=== PATIENT | male | born 1960 | race Caucasian/White ===

== ENCOUNTER → 2016-03-18 | Outpatient (CLI) | payer BC ==
[~2016-03-18] MED LIST: ACETYLCYSTEINE 20% INH; ALBUAER2 INH; ALUMCHW2; ALUMCHW2 PO; BUDE1SUS6 INH; BUPRTAB51 PO; CLON1TAB3 PO; DOCU-94 PO; FLM4; FLUO0.05 TOP; FLUO0.0566 TOP; GUAI1TAB69 PO; IPRASOL34 INH; KETO200T PO; KETO2GEL2 TOP; LACT10SO17 PO; LEVO1TAB35 IV; LEVO50TA6 PO; MONT1TAB3 PO; NITR0.4S UT; ONDA4TAB46 PO; PLMIH INH; POLY335019 PO; PRED10TA PO; PRLSR20 PO; PROB1CAP PO; RANI300T2 PO; RIFA550T2 PO; SENN-61 PO; SODI3NEB INH; TAMS0.4C38 PO; TRIA0.1O12 TOP; [UNRECOGNIZED DRUG - CODE] IV; augmentin
--- NOTE | 2016-03-18 11:21 | DIAGNOSTIC IMAGING REPORT ---
TWO VIEW CHEST CLINICAL HISTORY: Nephrolithiasis. FINDINGS: PA and lateral chest radiographs are compared to chest x-ray and chest CT dated 12/22/2015. The mildly enlarged. The mediastinal contour is within normal limits and the pulmonary vasculature is noncongested. Chronic interstitial thickening is similar to previous. No airspace consolidation or pleural effusion is identified. There is no pneumothorax. The bony thorax appears intact. Surgical clips are noted at the esophageal hiatus. Cholecystectomy clips are present in the right upper quadrant. IMPRESSION: Cardiac enlargement with no active disease in the chest. Electronically signed by: Jerardo Quintero M.D. 03/18/2016 11:19 AM Dictated Date/Time: 03/18/2016 11:18 AM
== END | disposition home or self-care (01) ==
LOC: C.RAD 10:54
PROVIDERS: ATTEND Internal Medicine Pulmonary Disease
DX: N20.0 Calculus of kidney (principal); I51.7 Cardiomegaly; J47.9 Bronchiectasis, uncomplicated

== ENCOUNTER → 2016-03-19 | Outpatient (CLI) | payer BC ==
--- NOTE | 2016-03-23 11:29 | PULMONARY FUNCTION TEST ---
SPIROMETRY: Mild obstructive ventilatory disease. No signs of pulmonary reversibility. LUNG VOLUMES: Increased total lung capacity as well as residual volume and FRC suggesting obstructive ventilatory disease. Diffusion capacity is within normal limits.
== END | disposition home or self-care (01) ==
LOC: C.RC 11:42
PROVIDERS: ATTEND Internal Medicine Pulmonary Disease
DX: J47.9 Bronchiectasis, uncomplicated (principal); J44.9 Chronic obstructive pulmonary disease, unspecified; R06.09 Other forms of dyspnea; R05 Cough

== ENCOUNTER → 2016-03-24 | Outpatient (CLI) | payer BC ==
--- NOTE | 2016-03-24 12:37 | DIAGNOSTIC IMAGING REPORT ---
CHEST 2 VIEWS ROUTINE CLINICAL HISTORY: J47.9 [id number] NuthtR23.9 Pulmonary [id number] Shot COMPARISON STUDY: 03/18/2016 FINDINGS: The bones soft tissues and hemidiaphragms are normal. The cardiomediastinal silhouette is normal. The lungs are clear. The pulmonary vasculature is normal. IMPRESSION: Negative chest. Electronically signed by: Kehinde Swan M.D. 03/24/2016 12:36 PM Dictated Date/Time: 03/24/2016 12:34 PM
[2016-03-24 13:11] LABS: BASO % 0.1 %; BASO ABS # 0.01 K/uL (0-0.2); COMPLETE YES; EOS % 0.5 %; HEMATOCRIT 43.2 % (42-52); IG% 3.3 %; LYMPH % 15.2 %; LYMPH ABS # 2.31 K/uL (1.2-3.4); MEAN CELL VOLUME 88.7 fL (80-100); MEAN CORPUSCULAR HEMOGLOBIN 30.2 pg (25-34); MEAN PLATELET VOLUME 9.1 fL (7.4-10.4); MONO % 9.5 %; NEUT % 71.4 %; PLATELET COUNT 262 K/uL (130-400); RED BLOOD COUNT 4.87 M/uL (4.7-6.1); WHITE BLOOD COUNT 15.19 K/uL (4.8-10.8)
[2016-03-24 13:23] LABS: PARTIAL THROMBOPLASTIN RATIO 0.9; PROTHROMBIN TIME (PATIENT) 10.2 SECONDS (9.0-12.0)
[2016-03-24 13:56] LABS: ALKALINE PHOSPHATASE 88 U/L (45-117); AST/SGOT 12 U/L (15-37); BLOOD UREA NITROGEN 27 mg/dl (7-18); BUN/CREATININE RATIO 19.3 (10-20); CALCIUM 7.9 mg/dl (8.5-10.1); CARBON DIOXIDE 23 mmol/L (21-32); CHLORIDE 111 mmol/L (98-107); SODIUM 144 mmol/L (136-145)
[2016-03-24 14:17] LABS: GLUCOSE 88 mg/dl (70-99)
[2016-03-24 14:21] LABS: ALT/SGPT 32 U/L (12-78)
== END | disposition home or self-care (01) ==
LOC: C.RAD 12:16
PROVIDERS: ATTEND Internal Medicine Pulmonary Disease
DX: J47.9 Bronchiectasis, uncomplicated (principal); J18.9 Pneumonia, unspecified organism; R06.02 Shortness of breath; R05 Cough

== ENCOUNTER 2016-03-25 06:23 | Day surgery (SDC) | payer BC ==
[2016-03-25] VITALS (17 sets, daily range): BP systolic 116–158; BP diastolic 64–85; PULSE 71–83; TEMP 36.5–37; O2SAT 93–100; Ht 182.9 cm; Wt 94.0 kg
[~2016-03-25] VITALS: Ht 182.9 cm; Wt 94.0 kg
[~2016-03-25 06:23] MED LIST changes: -ALUMCHW2; -FLM4; -FLUO0.0566 TOP; -KETO200T PO; -LEVO1TAB35 IV; +LEVOFLOXACIN 750MG / D5W IV SCH; -RIFA550T2 PO; -[UNRECOGNIZED DRUG - CODE] IV; -augmentin
[2016-03-25] MEDS ORDERED: [UNRECOGNIZED DRUG - CODE] IV (07:13)
[2016-03-25] MEDS ORDERED: LEVO1TAB35 IV (07:13)
[2016-03-25] MEDS ORDERED: NURSING VERBAL MED ORDER ONE ×2 (07:45→09:00)
[2016-03-25] MEDS ORDERED: SODIUM CHLORIDE 0.9% 1000ML 1,000 ML IV SCH (07:45)
--- NOTE | 2016-03-25 07:56 | History & Physical Bridge Note ---
H&P Re-Evaluation Bridge Note: I have examined the patient, reviewed the History & Physical and in the interval since the performance of the History & Physical I have noted the following changes of clinical significance: No changes noted
--- NOTE | 2016-03-25 08:00 | Procedure Note ---
Pre-Mod Sedation Assessment General Date of Moderate Sedation: Mar 25, 2016. Vital Signs: Vital Signs Past 12 Hours Date Time Temp Pulse Resp B/P Pulse Ox O2 Delivery O2 Flow Rate FiO2 03/25/16 07:19 36.5 71 21 145/64 96 Room Air Review Cardiovascular: regular rate, rhythm Abdomen: normal bowel sounds, non tender, soft Lungs: lungs clear Airway Class: III Pre-Sedation Airway Assessment Oral Cavity: WNL Smoking Status: Never Smoker Mallampati Classification: Class III ASA Classification: Class I Procedure Planning Contraindications-for Mod Sed: None Yes Notes The planned sedation has been discussed with the patient and consent obtained. I have identified the patient, determined the appropriateness of sedation and have assessed the patient immediately prior to the procedure. All medicine(s) and interventions are by my order.
--- NOTE | 2016-03-25 08:42 | Procedure Note ---
Pre-Mod Sedation Assessment General Date of Moderate Sedation: Mar 25, 2016. Vital Signs: Vital Signs Past 12 Hours Date Time Temp Pulse Resp B/P Pulse Ox O2 Delivery O2 Flow Rate FiO2 03/25/16 08:00 75 16 158/76 99 Nasal Cannula 4.0 03/25/16 07:19 36.5 71 21 145/64 96 Room Air Review Cardiovascular: regular rate, rhythm Abdomen: normal bowel sounds, non tender, soft Lungs: lungs clear Airway Class: III Pre-Sedation Airway Assessment Oral Cavity: WNL Able to Visualize Vocal Cords: Yes Short Thick Neck: Yes Hx of Sleep Apnea: Yes Smoking Status: Never Smoker ASA Classification: Class III Procedure Planning Contraindications-for Mod Sed: None Yes Notes The planned sedation has been discussed with the patient and consent obtained. I have identified the patient, determined the appropriateness of sedation and have assessed the patient immediately prior to the procedure. All medicine(s) and interventions are by my order.
--- NOTE | 2016-03-25 08:43 | Procedure Note ---
Post-Moderate Sedation Plan General Date of Moderate Sedation Mar 25, 2016. Vital Signs: Vital Signs Past 12 Hours Date Time Temp Pulse Resp B/P Pulse Ox O2 Delivery O2 Flow Rate FiO2 03/25/16 08:00 75 16 158/76 99 Nasal Cannula 4.0 03/25/16 07:19 36.5 71 21 145/64 96 Room Air Review - Discharge Plan Post Moderate Sedation Plan: On clinical assessment, the patient appears to have tolerated the conscious sedation without complications. Patient is recovering as anticipated. Patient will continue to be monitored by nursing and may be discharged when conscious sedation discharge criteria are met.
--- NOTE | 2016-03-25 08:55 | Discharge Instructions ---
Discharge Instructions Admission Reason for Admission: Bronchiectasis, Copd,Cough Sob Discharge Discharge Diagnosis / Problem: BRONCHIECTASIS Discharge Goals Goal(s): Diagnostic testing, Therapeutic intervention Activity Recommendations Activity Limitations: resume your previous activity Exercise/Sports Limitations: as tolerated Shower/Bathe: no limitations Driving or Machine Use: resume 1 day after discharge . Instructions / Follow-Up Instructions / Follow-Up ACTIVITY RECOMMENDATIONS: * Rest today, resume normal activity tomorrow. * Do not drive today. SPECIAL CARE INSTRUCTIONS: * Call your physician if you experience any chest or shoulder pain, fever, coughing, spitting up blood (more than 2 teaspoons) or excessive shortness of breath. * Remove dressing from IV site (where needle was placed into the vein) after 2 hours. Apply a warm, moist compress to site if irritation occurs. Call physician if site becomes red or painful to touch. * You may eat 4 hours after the completion of your procedure * Resume all usual medications as previously directed FOLLOW UP VISIT: * Keep any scheduled doctor appointments. Current Hospital Diet Patient's current hospital diet: Discharge Diet Recommended Diet: Regular Diet Procedures Procedures Performed: BRONCHOSCOPY Pending Studies Studies pending at discharge: no Medical Emergencies . Who to Call and When: Medical Emergencies: If at any time you feel your situation is an emergency, please call 911 immediately. . Non-Emergent Contact Non-Emergency issues call your: Radar Scientist . . "Provider Documentation" section prepared by Santi Schumacher. VTE Core Measure Inpt VTE Proph given/why not?: Contraindicated (INVASIVE PROCEDURE)
[2016-03-25] MEDS ORDERED: METHYLPREDNISOLONE IV 40 MG in SYRINGE 0 ML IV ONE (09:30)
[2016-03-25] MEDS ORDERED: FENTANYL CITRATE INJ 50 MCG/1 ML 2 ML VIAL IV ONE (09:45)
[2016-03-25] MEDS ORDERED: MIDAZOLAM HCL 5 MG/ML 1 ML VIAL IV ONE (09:45)
--- NOTE | 2016-03-25 10:13 | OPERATIVE REPORT ---
DATE OF OPERATION: 03/25/2016 TIME: 9:05 a.m. PROCEDURE PERFORMED: Flexible fiberoptic bronchoscopy with bronchial washings. INDICATIONS FOR PROCEDURE: The patient has a history of bronchiectasis. He has been having increasing shortness of breath. He just finished 1 week of IV antibiotics and IV Solu-Medrol. In spite of this, he has had persistent breathing troubles. In the past, he has had cultures of markedly abnormal organisms. Bronchoscopy is to be done diagnostically and therapeutically. MEDICATIONS DURING THE PROCEDURE: Xylocaine jelly applied to the bronchoscope and nasal passages, 2% Xylocaine sprayed into the nasal passages, oropharynx and through the bronchoscope into the tracheobronchial tree. The patient received a total of fentanyl 100 mg and Versed 7.5 mg IV. The bronchoscope was inserted through the right nostril without difficulty. The nasal passages were narrow, but passable. The pharynx was normal. The larynx was normal. The vocal cords approximated normally. The scope was advanced into the trachea without difficulty. The trachea had very sparse amounts of foamy secretions. The román was sharp. One could visualize secretions in the left main bronchus and extending into the left upper lobe slightly, but greater in the left lower lobe. These were foamy in nature. They were aspirated with recurring aliquots of saline. No endobronchial lesions were seen. The mucosa appeared fairly normal. After the scope was passed into the lower lobe, the left main bronchus had a small amount of scope irritation visualized. The scope was returned to the román. The right side was entered. Right upper lobe was clear. The right bronchus intermedius was clear. The right middle lobe was clear. There was small quantities of secretions in the right lower lobe, they were little thicker than had been seen on the left side, but they were smaller in quantity. They were also aspirated with the assistance of saline. The bronchoscope was returned to the román and one additional pass was done through the left and right bronchial areas. Once again, the left upper lobe showed nothing of significance other than very scant secretions. Left lower lobe showed somewhat more secretions and were again suctioned until clear. The right side was clear. The bronchoscope was then removed. The patient tolerated the procedure well. It was done with continuous cardiac monitoring and pulse oximetry. The bronchial washings from left lower lobe and right lower lobe were sent for Gram stain and culture, AFB smear and culture, and fungal smear and culture. The patient was stable going back to short stay. I attest to the content of the Intraoperative Record and any orders documented therein. Any exceptio ns are noted below.
[2016-05-13] MEDS ORDERED: RIFA550T2 PO (16:02)
== END 2016-03-25 10:57 | disposition home or self-care (01) ==
LOC: C.ACU 06:23
PROVIDERS: ATTEND Internal Medicine Pulmonary Disease
DX: J47.9 Bronchiectasis, uncomplicated (principal); J18.9 Pneumonia, unspecified organism; K22.70 Barrett's esophagus without dysplasia; N40.1 Benign prostatic hyperplasia with lower urinary tract symptoms; N13.8 Other obstructive and reflux uropathy; N20.0 Calculus of kidney; J44.9 Chronic obstructive pulmonary disease, unspecified; K21.9 Gastro-esophageal reflux disease without esophagitis; E78.00 Pure hypercholesterolemia, unspecified; G47.33 Obstructive sleep apnea (adult) (pediatric); K85.90 Acute pancreatitis without necrosis or infection, unspecified; Z98.890 Other specified postprocedural states; Z90.49 Acquired absence of other specified parts of digestive tract

== ENCOUNTER → 2016-05-14 | Day surgery (SDC) | payer BC ==
[~2016-05-14] VITALS: Ht 182.9 cm; Wt 96.0 kg
[~2016-05-14] MED LIST changes: +ACETAMINOPHEN 325 MG TAB PO PRN; +ALUMCHW2; -ALUMCHW2 PO; -DOCU-94 PO; +FENTANYL CITRATE INJ 50 MCG/1 ML 2 ML VIAL ONE; +FLM4; -FLUO0.05 TOP; +FLUO0.0566 TOP; +HEPARIN SOD (PORCINE) 1000 UNIT/ML 10 ML VIAL ONE; +KETO200T PO; -KETO2GEL2 TOP; -LEVOFLOXACIN 750MG / D5W IV SCH; +MIDAZOLAM HCL 1 MG/ML 2ML VIAL ONE; +NITROGLYCERIN/D5W 100MCG/ML 20ML SYR ONE; +NiCARDipine HCL INJ 2.5 MG/ML 10 ML AMP ONE; +ONDANSETRON INJ 2 MG/ML 2 ML VIAL IV PRN; +RIFA550T2 PO; +SODIUM CHLORIDE 0.9% 1000ML 1,000 ML IV SCH; +SODIUM CHLORIDE 0.9% 1000ML 250 ML IV PRN; -TAMS0.4C38 PO; +augmentin
[2016-05-14 09:11] VITALS: Ht 182.9 cm; Wt 96.0 kg
[2016-05-14 09:12] VITALS: BP 133/69; PULSE 83; TEMP 36.6; O2SAT 97
--- NOTE | 2016-05-14 09:54 | Procedure Note ---
Pre-Mod Sedation Assessment General Date of Moderate Sedation: May 14, 2016. Vital Signs: Vital Signs Past 12 Hours Date Time Temp Pulse Resp B/P Pulse Ox O2 Delivery O2 Flow Rate FiO2 05/14/16 09:12 36.6 83 18 133/69 97 Room Air Review Cardiovascular: regular rate, rhythm Abdomen: non tender, soft Lungs: lungs clear Pre-Sedation Airway Assessment Oral Cavity: Capped Teeth, Dental Abnormalities Short Thick Neck: No Hx of Sleep Apnea: Yes Smoking Status: Never Smoker Procedure Planning Contraindications-for Mod Sed: None Yes Notes The planned sedation has been discussed with the patient and consent obtained. I have identified the patient, determined the appropriateness of sedation and have assessed the patient immediately prior to the procedure. All medicine(s) and interventions are by my order.
[2016-05-14 10:07] LABS: HEMATOCRIT 40.5 % (42-52); MEAN CELL VOLUME 89.2 fL (80-100); MEAN PLATELET VOLUME 8.7 fL (7.4-10.4); PLATELET COUNT 226 K/uL (130-400); RED BLOOD COUNT 4.54 M/uL (4.7-6.1); WHITE BLOOD COUNT 11.97 K/uL (4.8-10.8)
[2016-05-14 10:19] LABS: PROTHROMBIN TIME (PATIENT) 10.7 SECONDS (9.0-12.0)
[2016-05-14 10:26] LABS: MEAN CORPUSCULAR HGB CONC 33.6 g/dl (32-36)
[2016-05-14 10:27] LABS: BUN/CREATININE RATIO 16.9 (10-20); CALCIUM 8.3 mg/dl (8.5-10.1); CREATININE 1.3 mg/dl (0.60-1.40); POTASSIUM 4.1 mmol/L (3.5-5.1)
--- NOTE | 2016-05-14 12:16 | Procedure Note ---
Post-Mod Sedation Assessment General Date of Moderate Sedation May 14, 2016. Vital Signs: Vital Signs Past 12 Hours Date Time Temp Pulse Resp B/P Pulse Ox O2 Delivery O2 Flow Rate FiO2 05/14/16 11:55 63 12 132/73 96 Nasal Cannula 3 05/14/16 09:12 36.6 83 18 133/69 97 Room Air Review - Discharge Criteria Vital Signs Stable: Yes Alert/Oriented/Conversant: Yes Returned to Baseline Mental St: Yes Nausea Absent/Minimal: Yes Pain/Discomfort/Absent/Minimal: Yes Normal/Baseline Respirations: Yes Active Bleeding?: No
--- NOTE | 2016-05-14 12:34 | Cardiac Catheterization ---
Procedure Note Procedure Date May 14, 2016. Pre-Procedure Diagnosis Cardiothoracic Symptom (chest pain and shortness of breath) AUC Score 7 Post-Procedure Diagnosis Normal Coronary Arteries, Normal Intracardiac Pressures Procedure(s) Performed Coronary Angiography, Left Heart Cath, Right Heart Cath, Ultrasound Guided Vascular Access Customer Care Voice Consultant Dr. Avalos Facilities Supervisor(s) Glunt Estimated Blood Loss None (< 25 ml) Medication(s) Fentanyl, Heparin, Nicardipine, Versed, Lidocaine 1% Summary of Findings Coronary angiography: 1. Left main coronary artery: The LMCA is large in caliber but short in course. No angiographic evidence of CAD. 2. Left anterior descending: The LAD is large in caliber and wraps around the apex. It gives rise to medium caliber D1 and D2. No angiographic evidence of CAD within LAD system. 3. Circumflex: Circumflex is large in caliber and codominant. OM1 and large caliber circumflex PDA without angiographic evidence of CAD. No CAD noted within circumflex. 4. Right coronary artery: The RCA is medium in caliber and codominant. No angiographic evidence of CAD within the RCA or RCA PDA. Left heart catheterization: 1. Left ventriculography was not performed. 2. Normal LVEDP; 12 mmHg. 3. No significant aortic stenosis. Right heart catheterization: 1. Normal pulmonary capillary wedge pressure. V-wave 16; mean 12 mmHg. 2. No significant pulmonary hypertension. PA pressure 29/11 with a mean pressure of 17 mmHg. 3. Right ventricular pressure 30/3 with RV EDP 9 mmHg. 4. Right atrial pressure normal. A-wave 12; V-wave 8; mean 6 mmHg. 5. Cardiac output via thermodilution was 9.7 L/min with a cardiac index of 4.4 L /min/m2. 6. PVR 0.52 Wood units. 7. No significant urmz-ln-qtiwu shunt suggested based on oxygen saturations. 8. Unable to obtain suitable IV access via right brachiocephalic vein. Procedure completed via right femoral vein. Ultrasound Guidance: 1. Ultrasound guidance used to cannulate right femoral vein with 6 Afghan sheath. No complication. Sedation: 1. Sedation start time 10:55 a.m.. 2. Sedation end time 11:55 a.m.. Impression: 1. No significant CAD. 2. Codominant system. 3. No significant aortic stenosis. 4. Normal LVEDP and pulmonary capillary wedge pressure. 5. No significant pulmonary hypertension. Plan: 1. Continue to follow-up with pulmonology. Hemodynamics Rest Ao: 117/70 Final Ao: 108/67 LV: 117// Recommendations management recommendations (Continue care with pulmonology.) Specimens None Radiation Exposure (mGy) 1009 mGy. Fluoro time 7.8 min. Contrast (mls) 55 ml Procedural Complication(s) None Disposition Mangle Roller Holding/Recovery ACC Data Cardiac Status Clinical evaluation leading to the procedure CAD Presntation: Sx unlikely to be ischemic Anginal Classification: No symptoms (has recurrent atypical chest pain) Heart Failure: NYHA Class: CCS III (no evidence of hypervolemia but class III symptoms) Cardiogenic Shock w/in 24Hrs: No Cardiac Arrest w/in 24Hrs: No Imaging studies past 6 months: Yes Stress studies past 6 months: Yes Standard Exercise Stress Test: No Stress Echocardiogram: No Stress Testing w/SPECT MPI: Yes - Negative Cardiac CTA: No Coronary Anatomy Dominant: Co-dominant Left Main (% Stenosis): Normal LAD (% Stenosis): Normal D1 (% Stenosis): Normal D2 (% Stenosis): Normal OM1 (% Stenosis): Normal L PDA (% Stenosis): Normal RCA (% Stenosis): Normal R PDA (% Stenosis): Normal Left Ventricular Angiography EF (%): n/a Diagnostic Physician's Name: Wily Avalos MD Status: Elective Closure Device Percutaneous Entry Location: Radial Closure Device: Radial Band Recommendations: management recommendations (f/u with pulmonary)
[2016-05-14 12:40] LABS: ISTAT ARTERIAL BLOOD GAS HCO3 22 meq/L (19-24); ISTAT ARTERIAL BLOOD GAS PCO2 40 mmHg (35-46); ISTAT ARTERIAL BLOOD GAS PO2 38 mmHg (80-95); ISTAT ARTERIAL BLOOD GAS pH 7.34 (7.35-7.45); ISTAT CARBON DIOXIDE 23 mEq/l (24-31)
[2016-05-14 12:40] LABS: ISTAT ARTERIAL BLOOD GAS HCO3 22 meq/L (19-24); ISTAT ARTERIAL BLOOD GAS PCO2 42 mmHg (35-46); ISTAT ARTERIAL BLOOD GAS PO2 36 mmHg (80-95); ISTAT ARTERIAL BLOOD GAS pH 7.34 (7.35-7.45); ISTAT CARBON DIOXIDE 24 mEq/l (24-31)
--- NOTE | 2016-05-14 12:40 | Discharge Instructions ---
Discharge Instructions Date of Service May 14, 2016. Visit Reason for Visit: Chest Pain and shortness of breath. Here for cardiac catheterization. Discharge Discharge Diagnosis / Problem: No significant coronary artery disease. Normal filling pressures. Discharge Goals Goal(s): Diagnostic testing Medications Restart Stopped Medication(s): Resume your usual medications. Activity Recommendations Activity Limitations: per Instructions/Follow-up section Anesthesia . Post Anesthesia Instructions: If you have had General Anesthesia or IV Sedation: * Do not drive today. * Resume driving when surgeon permits. * Do not make important decisions or sign legal documents today. * Call surgeon for: 1. Temperature elevations greater than 101 degrees F. 2. Uncontrollable pain. 3. Excessive bleeding. 4. Persistent nausea and vomiting. 5. Medication intolerance (nausea, vomiting or rash). * For nausea and vomiting use only clear liquids such as: tea, soda, bouillon until nausea subsides, then gradually increase diet as tolerated. * If you have any concerns or questions, call your surgeon's office. If physician is unavailable and it is an emergency, call 911 or go to the nearest emergency room. . Instructions / Follow-Up Instructions / Follow-Up ACTIVITY RECOMMENDATIONS: Excess manipulation of the wrist should be avoided for the next 24-48 hours. * No lifting over 2 pounds (approximately a 1/2 gallon of milk) with the utilized arm for 24 hours. * No strenuous activity such as bowling or tennis for 3 days. * Keep the site of the procedure covered with a bandage for 24 hours. *You may shower the day after the procedure. Do not take a tub bath or submerge the puncture site in water for the next 3 days. *Do not operate any motorized equipment for 3 days. SPECIAL CARE INSTRUCTIONS: The site may be slightly bruised and sore following your procedure. Should any of the following occur, contact the Dr. who performed your procedure. 1. Redness/inflammation, swelling, chills, or fever, or colored drainage at procedure site within 3-7 days after your procedure. 2. Coldness, discoloration, ongoing numbness, severe pain, or swelling. Expect mild tingling of hand and tenderness at the puncture site for up to three days. If this persists beyond three days, or other symptoms develop, notify the Dr. who performed your procedure. BLEEDING: If the procedure site on your wrist begins to bleed, do not panic 1. Place 1 or 2 fingers firmly just slightly above the insertion site to stop the bleeding. You may be able to feel your pulse as you hold pressure. 2. Lift your finger after 5 minutes to see if the bleeding has stopped. 3. Once the bleeding has stopped, gently wipe the wrist area clean with a bandage. * If the bleeding from your wrist does not stop after 10 minutes, or if there is a large amount of bleeding or spurting, call 911 (do not drive yourself to the hospital). SKIN IRRITATION: * You may experience some redness and/or swelling in the area where radiation was administered. If any skin irritation occurs, please contact your family physician. FOLLOW UP VISIT: Keep any scheduled doctor appointments. Diet Recommendations Recommended Home Diet: resume previous diet Procedures Procedures Performed: 1. Coronary angiography 2. Right heart catheterization 3. Left heart catheterization 4. Ultrasound venous guidance Pending Studies Studies pending at discharge: no Medical Emergencies . Who to Call and When: Medical Emergencies: If at any time you feel your situation is an emergency, please call 911 immediately. . Non-Emergent Contact Non-Emergency issues call your: Primary Care Provider, Client Account Manager . . "Provider Documentation" section prepared by Wily Kimble.
[2016-05-14 13:55] LABS: ISTAT ARTERIAL BLOOD GAS HCO3 21 meq/L (19-24); ISTAT ARTERIAL BLOOD GAS PCO2 37 mmHg (35-46); ISTAT ARTERIAL BLOOD GAS PO2 71 mmHg (80-95); ISTAT ARTERIAL BLOOD GAS pH 7.36 (7.35-7.45); ISTAT CARBON DIOXIDE 22 mEq/l (24-31)
[2016-05-14 14:20] VITALS: BP 126/72; PULSE 72; O2SAT 94
== END | disposition home or self-care (01) ==
LOC: C.CATH 09:05
PROVIDERS: ATTEND Internal Medicine Cardiovascular Disease
DX: R07.89 Other chest pain (principal); R06.02 Shortness of breath; E78.5 Hyperlipidemia, unspecified; K22.70 Barrett's esophagus without dysplasia; N40.1 Benign prostatic hyperplasia with lower urinary tract symptoms; N13.8 Other obstructive and reflux uropathy; N20.0 Calculus of kidney

== ENCOUNTER → 2016-07-09 | Outpatient (CLI) | payer BC ==
[~2016-07-09] MED LIST changes: -ACETAMINOPHEN 325 MG TAB PO PRN; -FENTANYL CITRATE INJ 50 MCG/1 ML 2 ML VIAL ONE; -HEPARIN SOD (PORCINE) 1000 UNIT/ML 10 ML VIAL ONE; -MIDAZOLAM HCL 1 MG/ML 2ML VIAL ONE; -NITROGLYCERIN/D5W 100MCG/ML 20ML SYR ONE; -NiCARDipine HCL INJ 2.5 MG/ML 10 ML AMP ONE; -ONDANSETRON INJ 2 MG/ML 2 ML VIAL IV PRN; -SODIUM CHLORIDE 0.9% 1000ML 1,000 ML IV SCH; -SODIUM CHLORIDE 0.9% 1000ML 250 ML IV PRN
[2016-07-09 14:41] LABS: BASO % 0.3 %; BASO ABS # 0.03 K/uL (0-0.2); COMPLETE YES; EOS % 0.2 %; HEMATOCRIT 44.4 % (42-52); IG% 0.5 %; LYMPH % 7.1 %; LYMPH ABS # 0.67 K/uL (1.2-3.4); MEAN CELL VOLUME 91.7 fL (80-100); MEAN CORPUSCULAR HEMOGLOBIN 29.5 pg (25-34); MEAN CORPUSCULAR HGB CONC 32.2 g/dl (32-36); MEAN PLATELET VOLUME 9.1 fL (7.4-10.4); MONO % 3.1 %; NEUT % 88.8 %; PLATELET COUNT 255 K/uL (130-400); RED BLOOD COUNT 4.84 M/uL (4.7-6.1); WHITE BLOOD COUNT 9.43 K/uL (4.8-10.8)
[2016-07-09 14:49] LABS: PARTIAL THROMBOPLASTIN RATIO 1.1; PROTHROMBIN TIME (PATIENT) 10.5 SECONDS (9.0-12.0)
[2016-07-09 15:39] LABS: CALCIUM 8.9 mg/dl (8.5-10.1)
[2016-07-09 15:48] LABS: BLOOD UREA NITROGEN 19 mg/dl (7-18); BUN/CREATININE RATIO 15.8 (10-20); CARBON DIOXIDE 24 mmol/L (21-32); CHLORIDE 109 mmol/L (98-107); GLUCOSE 98 mg/dl (70-99); POTASSIUM 4.2 mmol/L (3.5-5.1); SODIUM 141 mmol/L (136-145)
== END | disposition home or self-care (01) ==
LOC: C.LAB 13:24
PROVIDERS: ATTEND Physician Assistant
DX: J47.9 Bronchiectasis, uncomplicated (principal)

== ENCOUNTER 2016-07-15 07:31 | Day surgery (SDC) | payer BC ==
[2016-07-15] VITALS (13 sets, daily range): BP systolic 116–155; BP diastolic 57–90; PULSE 71–85; TEMP 36.6–37; O2SAT 93–100; Ht 182.9 cm; Wt 94.5 kg
[~2016-07-15] VITALS: Ht 182.9 cm; Wt 94.5 kg
[~2016-07-15 07:31] MED LIST changes: -ALUMCHW2; -FLM4; -FLUO0.0566 TOP; -KETO200T PO; -POLY335019 PO; +SODIUM CHLORIDE 0.9% 1000ML 1,000 ML IV SCH; -augmentin
[2016-07-15] MEDS ORDERED: MIDAZOLAM HCL 5 MG/ML 1 ML VIAL IV ONE ×2 (07:32→10:15)
[2016-07-15] MEDS ORDERED: FENTANYL CITRATE 100 MCG 2 ML CARP IV ONE (07:32)
[2016-07-15] MEDS ORDERED: augmentin (08:18)
[2016-07-15] MEDS ORDERED: FLM4 (08:18)
[2016-07-15] MEDS ORDERED: ALUMCHW2 (08:18)
[2016-07-15] MEDS ORDERED: POLY335019 PO (08:18)
[2016-07-15] MEDS ORDERED: FLUO0.0566 TOP (08:18)
[2016-07-15] MEDS ORDERED: KETO200T PO (08:18)
--- NOTE | 2016-07-15 09:04 | Procedure Note ---
Pre-Mod Sedation Assessment General Date of Moderate Sedation: Jul 15, 2016. Vital Signs: Vital Signs Past 12 Hours Date Time Temp Pulse Resp B/P (MAP) Pulse Ox O2 Delivery O2 Flow Rate FiO2 07/15/16 08:20 36.7 71 18 127/87 (100) 99 Room Air Review Cardiovascular: regular rate, rhythm, no edema, no gallop, no JVD, no murmur, normal peripheral pulses Abdomen: normal bowel sounds, non tender, soft, no organomegaly, no pulsatile mass, normal rectal exam, occult blood negative Lungs: chest non-tender, lungs clear, normal breath sounds, no respiratory distress, no accessory muscle use Airway Class: II Pre-Sedation Airway Assessment Oral Cavity: Capped Teeth Short Thick Neck: Yes Hx of Sleep Apnea: Yes Smoking Status: Never Smoker Notes The planned sedation has been discussed with the patient and consent obtained. I have identified the patient, determined the appropriateness of sedation and have assessed the patient immediately prior to the procedure. All medicine(s) and interventions are by my order.
[2016-07-15] MEDS ORDERED: NURSING VERBAL MED ORDER ONE (10:00)
--- NOTE | 2016-07-15 10:07 | Procedure Note ---
Post-Moderate Sedation Plan General Date of Moderate Sedation Jul 15, 2016. Vital Signs: Vital Signs Past 12 Hours Date Time Temp Pulse Resp B/P (MAP) Pulse Ox O2 Delivery O2 Flow Rate FiO2 07/15/16 09:50 80 18 139/75 96 Nasal Cannula 4.0 07/15/16 09:45 83 16 155/78 95 Mask 4.0 07/15/16 09:40 85 18 146/82 99 Mask 4.0 07/15/16 09:35 74 18 152/88 100 Mask 4.0 07/15/16 09:30 80 18 154/90 100 Mask 4.0 07/15/16 09:25 75 18 139/84 100 Mask 4.0 07/15/16 09:25 36.7 18 127/87 99 Room Air 07/15/16 08:20 36.7 71 18 127/87 (100) 99 Room Air Review - Discharge Plan Post Moderate Sedation Plan: On clinical assessment, the patient appears to have tolerated the conscious sedation without complications. Patient is recovering as anticipated. Patient will continue to be monitored by nursing and may be discharged when conscious sedation discharge criteria are met.
--- NOTE | 2016-07-15 10:13 | Bronchoscopy Procedure Note ---
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 Start time: 931 End time: 944 Total time: 13 minutes Analgesia: 2% liquid lidocaine: Via nebulizer 4% gel lidocaine: Via right naris 2% liquid lidocaine: Via bronchoscopy Sedation: Versed IV: 5mg Fentanyl IV: 100g Procedure: The Olympus video bronchoscope was used for this procedure and passed down through the right naris Right naris/posterior naris/posterior oropharynx: Anatomically within normal limits Glottis: Anatomically within normal limits Vocal cords: Proper abduction and abduction, anatomically within normal limits Subglottis/trachea/Graciela: Anatomically within normal limits Right bronchial tree: Right mainstem bronchus: Anatomically within normal limits Right upper lobe: Anatomically within normal limits, with minimal secretions in the RB3 subsegment Bronchus intermedius: Anatomically within normal limits, minimal secretions Right middle lobe: Anatomically within normal limits Right lower lobe: Anatomically within normal limits, diffuse secretion with intra-bronchial nodules in the basal pyramidis Findings: possible HPV Left bronchial tree: Left mainstem bronchus: Anatomically within normal limits Left upper lobe: Anatomically within normal limits Lingula: Anatomically within normal limits, minimal secretions Left lower lobe: Anatomically within normal limits, diffuse secretion with intra-bronchial nodules in the basal pyramidis Findings: possible HPV Bronchial alveolar lavage: LLL 80cc with 40 cc return EBL: none Complications: None Follow-up: In the [facility] with Funmilayo De La Rosa
[2016-07-15] MEDS ORDERED: FENTANYL CITRATE INJ 50 MCG/1 ML 2 ML VIAL IV ONE (10:15)
--- NOTE | 2016-07-15 10:15 | Discharge Instructions ---
Discharge Instructions Date of Service Jul 15, 2016. Admission Reason for Admission: Bronchiectasis Discharge Discharge Diagnosis / Problem: chronic bronchiectasis with possible intra- bronchial wart Discharge Goals Goal(s): Improve function, Diagnostic testing Activity Recommendations Activity Limitations: resume your previous activity . Current Hospital Diet Patient's current hospital diet: Discharge Diet Recommended Diet: Regular Diet Procedures Procedures Performed: Bornchoscopy, consecious sedation and bronchial lavage of the left lower lobe Pending Studies Studies pending at discharge: no Medical Emergencies . Who to Call and When: Medical Emergencies: If at any time you feel your situation is an emergency, please call 911 immediately. . Non-Emergent Contact Non-Emergency issues call your: Cloth Worker Call Non-Emergent contact if: temperature is above 101.5 . . "Provider Documentation" section prepared by Roland Cunningham. . VTE Core Measure Inpt VTE Proph given/why not?: Treatment not indicated
[2016-08-08 12:00] LABS: HERPES SIMPLEX CULT SOURCE OTHER-BAL LLL; HERPES SIMPLEX VIRUS CULT NOT ISOLATED (NOT ISOLATED)
== END 2016-07-15 11:55 | disposition home or self-care (01) ==
LOC: C.ACU 07:31
PROVIDERS: ATTEND Internal Medicine Critical Care Medicine
DX: J47.9 Bronchiectasis, uncomplicated (principal); J44.9 Chronic obstructive pulmonary disease, unspecified; J01.90 Acute sinusitis, unspecified; Z98.49 Cataract extraction status, unspecified eye; Z98.890 Other specified postprocedural states; E78.00 Pure hypercholesterolemia, unspecified; Z90.89 Acquired absence of other organs; Z90.49 Acquired absence of other specified parts of digestive tract; Z88.2 Allergy status to sulfonamides; Z84.1 Family history of disorders of kidney and ureter

== ENCOUNTER → 2016-08-17 | Outpatient (CLI) | payer BC ==
[~2016-08-17] MED LIST changes: +ALUMCHW2; +FLM4; +FLUO0.0566 TOP; +KETO200T PO; -PLMIH INH; +POLY335019 PO; -RIFA550T2 PO; -SODIUM CHLORIDE 0.9% 1000ML 1,000 ML IV SCH; -TRIA0.1O12 TOP
== END | disposition home or self-care (01) ==
LOC: C.LAB 10:46
PROVIDERS: ATTEND Urology
DX: R97.20 Elevated prostate specific antigen [PSA] (principal); N40.1 Benign prostatic hyperplasia with lower urinary tract symptoms

== ENCOUNTER → 2016-08-24 | Outpatient (CLI) | payer BC ==
[2016-09-01 20:19] LABS: ASPERGILLUS FUMIGATUS NEGATIVE (NEGATIVE); IGE RECEPTOR AB(ANTI-IgE IgG)* 141 ng/mL (<168); M. FAENI (S. RECTIVIRGULA) NEGATIVE (NEGATIVE); PIGEON SERUM NEGATIVE (NEGATIVE); SACCHAROMONOSPORA VIRIDIS AB NEGATIVE (NEGATIVE); THERMOACTINOMYCES CANDIDUS NEGATIVE (NEGATIVE); THERMOACTINOMYCES VULGARIS NEGATIVE (NEGATIVE)
== END | disposition home or self-care (01) ==
LOC: C.LAB 12:09
PROVIDERS: ATTEND Physician Assistant
DX: J47.9 Bronchiectasis, uncomplicated (principal); R06.02 Shortness of breath

== ENCOUNTER → 2017-01-15 | Outpatient (CLI) | payer BC ==
[~2017-01-15] MED LIST changes: +FINA5TAB PO
--- NOTE | 2017-01-15 09:43 | DIAGNOSTIC IMAGING REPORT ---
CHEST 2 VIEWS ROUTINE CLINICAL HISTORY: R05 [id number] dyspnea COMPARISON STUDY: 03/24/2016 FINDINGS: The bones soft tissues and hemidiaphragms are normal. The cardiomediastinal silhouette is normal. The lungs are clear. The pulmonary vasculature is normal. IMPRESSION: Negative chest. The above report was generated using voice recognition software. It may contain grammatical, syntax or spelling errors. Electronically signed by: Kehinde Swan M.D. 01/15/2017 9:41 AM Dictated Date/Time: 01/15/2017 9:36 AM
== END | disposition home or self-care (01) ==
LOC: C.RAD1850 09:28
PROVIDERS: ATTEND Physician Assistant
DX: R05 Cough (principal)

== ENCOUNTER 2017-01-21 08:36 | Day surgery (SDC) | payer BC ==
[2017-01-15 09:39] LABS: BASO % 0.8 %; BASO ABS # 0.09 K/uL (0-0.2); COMPLETE YES; EOS % 2.1 %; HEMATOCRIT 42.4 % (42-52); IG% 0.8 %; LYMPH % 13.3 %; LYMPH ABS # 1.41 K/uL (1.2-3.4); MEAN CELL VOLUME 89.5 fL (80-100); MEAN CORPUSCULAR HEMOGLOBIN 29.7 pg (25-34); MEAN CORPUSCULAR HGB CONC 33.3 g/dl (32-36); MEAN PLATELET VOLUME 8.7 fL (7.4-10.4); MONO % 6.9 %; NEUT % 76.1 %; PLATELET COUNT 232 K/uL (130-400); RED BLOOD COUNT 4.74 M/uL (4.7-6.1); WHITE BLOOD COUNT 10.62 K/uL (4.8-10.8)
[2017-01-15 09:46] LABS: PARTIAL THROMBOPLASTIN RATIO 1.1; PROTHROMBIN TIME (PATIENT) 10.1 SECONDS (9.0-12.0)
[2017-01-15 10:09] LABS: ALT/SGPT 26 U/L (12-78); BLOOD UREA NITROGEN 18 mg/dl (7-18); BUN/CREATININE RATIO 13.3 (10-20); CALCIUM 8.6 mg/dl (8.5-10.1); CARBON DIOXIDE 26 mmol/L (21-32); CHLORIDE 108 mmol/L (98-107); CREATININE 1.32 mg/dl (0.60-1.40); GLUCOSE 86 mg/dl (70-99); SODIUM 140 mmol/L (136-145)
[2017-01-15 10:12] LABS: ALB/GLOB RATIO 0.9 (0.9-2); ALKALINE PHOSPHATASE 98 U/L (45-117); AST/SGOT 10 U/L (15-37)
[2017-01-21] VITALS (14 sets, daily range): BP systolic 114–156; BP diastolic 69–94; PULSE 75–87; TEMP 36.5–37.1; O2SAT 95–100; Ht 182.9 cm; Wt 91.2 kg
[~2017-01-21] VITALS: Ht 182.9 cm; Wt 91.2 kg
--- NOTE | 2017-01-21 08:27 | History and Physical ---
History & Physical Date of Service Jan 21, 2017. History & Physical Patient presents for bronchoscopy secondary to chronic bronchiectasis refractory to care: 56-yo male presents to the office for continuation of care of bronchiectasis. He is followed both in [facility] and [place]. Prior records reviewed. PMHx includes: bronchiectasis, GERD, Alexandra's esophagus, hiatal hernia s/p Niesson fundoplication, atypical CP, pancreatitis, BREONNA, chronic sinusitis (h/o sinus surgery by Dr. Restrepo), h/o immunotherapy. He is a non- smoker but will use smokeless tobacco. Currently disabled: 2009. 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 Prior pulmonary pathogens from BAL: pseudomonas (), Stenotrophomonas (09/22), Achromobacter xylosoxidans (03/26), Moraxella (01/16), streptococcus pneumoniae ( & ), aspergillus (02/21), MAC (07/24), mycobacterium paraffinicum (04/21), pneumococcus rhizophilus (09/23), rare aspergillus, pseudomonads, and MAC (03/27) . He has been a long-standing patient followed closely for bronchiectasis with frequent exacerbations. History noted for progressive dyspnea beginning apx 2007. History complicated by sinusitis (s/p sinus surgery x 3) and reflux (s/p fundoplication 05/2009- [facility] - pH monitor 10/2009: neg). He is treated with VEST therapy & flutter valve daily, as well as sterile saline in [facility] PRN for chest congestion and productive cough. His symptoms are complicated by chronic sinusitis for which he is followed with Dr. Restrepo and s/p sinus surgery x 3 and receives regular sinus lavage. LISE and RF 02/2013: negative He follows with us as well as GI/Pulm/Immunology/Cardiology at [facility]. He will undergo scheduled bronchoscopies Q3-4-months in [place] as well as PRN in [place], [place]. 09/2015. IgE: elevated (425) PFT 05/09/14: FVC: 79%, FEV1: 77%, FEV1/FVC: 99%, FEF 25-75%: 99%, VC: 83%, T%, RV: 74%, DLCO adj: 75% Right and Left cardiac catheterization 05/14/16:unremarkable. No vessel disease or evidence of pulmonary HTN. Patient was evaluated by ID for recommendations after MAC grew from his 03/2016 bronchoscopy. Cultures were also notable for pseudomonas - and he was prescribed a 14-day course of levofloxacin. Decision regarding treatment for MAC pending any repeat growth on additional BAL -NGTD Exam/interview today patient reports he is doing well for quite some time. he did undergo his routine bronchoscopy in [facility] with Dr. cummings 09/17/2016. I do have the reports from this procedure which grew normal respiratory pete- moderate. Mycobacterium was not isolated after 43 days of incubation he. He did perform a lung biopsy left lower lobe: consistent with severe acute inflammation with submucosal chronic inflammation. No evidence of malignancies , vasculitis, granulomatosis disease or other history pathologic change. Fungal stains were negative . The patient reports that he felt fantastic following this procedure. He states he was told a significant amount of mucus was lavaged and removed from his lung. He did quite well following this. More recently is developed upper respiratory symptoms and sinus congestion. He states that he was cleaned by Dr. Restrepo approximately 2 weeks ago but unfortunately continued to have difficulty. He did complete a course of Levaquin and steroid and then more recently ciprofloxacin. This improved somewhat but he remains symptomatic. He is starting to notice some increased symptoms of chest congestion and shortness of breath. Shortness of breath began yesterday and he has been using his nebulizer with improvement. He does plan to see Dr. Restrepo next week for follow-up. He is scheduled for another bronchoscopy in [facility] January 2017. With regard to his sleep apnea he reports he is sleeping well. Do have a download today 06/30/2016-: 149/173 (86.1%) days use. Average nightly usage is 5 hours and 57 minutes. Percentage use greater than 4 hours is 85%. He is on auto PAP and 9cm H20 stable with AHI of 3.7 and 3.1 respectively and no significant mask leak. Review of Systems Constitutional: feeling poorly, but no fever and no chills. Eyes: negative. ENT: nasal discharge, but as noted in HPI, no earache and no sore throat. Cardiovascular: negative, as noted in HPI, no chest pain, no palpitations and no extremity edema. Respiratory: cough and shortness of breath during exertion, but as noted in HPI , no shortness of breath and no wheezing. Gastrointestinal: negative. Integumentary: negative. Hematologic/Lymphatic: negative. Active Problems 1. Acute sinusitis 2. Pulmonary Atypical mycobacterial infection 3. Alexandra's esophagus 4. Benign prostatic hyperplasia with urinary obstruction 5. BPH with obstruction/lower urinary tract symptoms 6. Bronchiectasis 7. Calculus of kidney 8. Chest pain 9. Chronic constipation 10. Chronic obstructive pulmonary disease (mild) 11. Chronic prostatitis 12. Chronic reflux esophagitis 13. Cough 14. Dyspnea on exertion 15. Elevated PSA 16. Fatigue 17. Hiatal hernia 18. Hypercholesterolemia 19. Hypocalcemia 20. Internal hemorrhoids with complication 21. Interscapular pain 22. Obstructive sleep apnea 23. Pancreatitis 24. Post-void dribbling 25. Pseudomonas aeruginosa infection 26. Pseudomonas infection 27. Psychological disorder 28. Pulmonary infection 29. Renal failure (N19) 30. Shortness of breath (R06.02) 31. History of Bronchopneumonia due to Achromobacter species 32. History of chronic sinusitis (Z87.09) 33. History of candidiasis of mouth Surgical History 1. History of Bronchoscopy (Diagnostic) 2. History of Cataract Surgery 3. History of Cholecystectomy 4. History of Colonoscopy (Fiberoptic) 5. History of Common Bile Duct Exploration 6. History of Endoscopic Retrograde Cholangiopancreatography (ERCP) 7. History of Esophagogastric Fundoplasty Brittany Fundoplication 8. History of Hemorrhoidectomy 9. History of Sinus Surgery 10. History of Surgery Vas Deferens Vasectomy 11. History of Tonsillectomy With Adenoidectomy Family History 1. No pertinent family history 2. No pertinent family history 3. No pertinent family history 4. Family history of kidney stones (Z84.1) Social History Denied: History of Alcohol Use (History) Denied: History of Drug Use Former smokeless tobacco user Denied: History of Home Environment Domestic Violence Denied: History of Housing Without Smoke Detectors Marital History - Currently Never smoker Physical Disability: Single Uses Safety Equipment - Seatbelts Current Meds 1. Nitrostat 0.4 MG Sublingual Tablet Sublingual; PLACE 1 TABLET UNDER THE TONGUE 2. Acetylcysteine 20 % Inhalation Solution; INHALE 4 ML Twice daily; 3. Ipratropium-Albuterol 0.5-2.5 (3) MG/3ML Inhalation Solution; USE 1 UNIT DOSE IN 4. SM Saline Solution Solution; USE ONE 4ML VIAL OF 7% SALINE VIA NEBULIZER BID ; 5. Senna S 8.6-50 MG Oral Tablet; Take 2 tabs bid prn constipation; 6. Ventolin HFA 108 (90 Base) MCG/ACT Inhalation Aerosol Solution; INHALE 2 PUFFS 7. Budesonide 0.5 MG/2ML Inhalation Suspension; USE DIRECTED twice daily; 8. Vortex Valved Holding Chamber Device; TO USE WITH INHALER; 9. ClonazePAM 1 MG Oral Tablet; TAKE 1 TABLET 3 TIMES DAILY; 10. Lactulose 10 GM/15ML Oral Solution; TAKE 30 ML Daily; 11. Mucinex 600 MG Oral Tablet Extended Release 12 Hour; TAKE 1 TABLET EVERY 12 12. Ondansetron 4 MG Oral Tablet Disintegrating; one tablet Q 6hr prn; 13. PriLOSEC 20 MG CPDR; TAKE 1 CAPSULE TWICE DAILY; 14. Probiotic Oral Capsule; 1 po daily; 15. Singulair 10 MG Oral Tablet; TAKE 1 TABLET DAILY 16. Synthroid 50 MCG Oral Tablet; TAKE 1 TABLET DAILY DIRECTED; 17. Triamcinolone Acetonide 0.025 % External Ointment; APPLY 2-3 TIMES DAILY TO 18. Wellbutrin SR 100 MG Oral Tablet Extended Release 12 Hour; TAKE 3 TABLETS DAILY; 19. Zantac 300 MG Oral Tablet; TAKE 1 TABLET (BY MOUTH) DAILY; Allergies 1. NSAIDs 2. Statins 3. Sulfa Drugs 4. Adhesive Tape TAPE Denied 5. Ceftin TABS Immunizations Influenza --- Series1: 18-Feb-2012; Series2: 29-Dec-2012; Series3: 30-Nov-2013; Series4: 20-Nov-2014 PCV --- Series1: 20-Nov-2014 PPSV --- Series1: 10-May-2008; Series2: 29-Apr-2011 Vital Signs Blood Pressure: 126 / 80, LUE, Sitting Height: 6 ft Weight: 204 lb 4 oz BMI Calculated: 27.7 BSA Calculated: 2.15 O2 Saturation: 98, RA Respiration: 19 Temperature: 97.8 F Heart Rate: 78 Physical Exam Constitutional: Well developed well nourished, male, no acute distress Head: + facial symmetry Eyes: Full EOMs, PERRLA, no conjunctiva injection Throat: trachea midline, no palpable adenopathy Mouth: moist mucous membranes. Extensive dental work. No erythema or plaques. Respiratory: Non-labored respirations. Breath sounds diminished at bases. No rales, rhonchi, or wheeze. Cardiovascular: Regular rate and rhythm, no murmur appreciated. +[2] radial pulses. [<1s] capillary refill Extremities/MSK: moving and developed symmetrically. No peripheral edema. Neurologic: Alert and Oriented x 3. Appropriate affect.
[~2017-01-21 08:36] MED LIST changes: -FINA5TAB PO
[2017-01-21] MEDS ORDERED: FENTANYL CITRATE INJ 50 MCG/1 ML 2 ML VIAL IV ONE ×2 (08:37→11:15)
[2017-01-21] MEDS ORDERED: LIDOCAINE 4% W/AFRIN NASAL SOLN 4ML ONE (08:37)
[2017-01-21] MEDS ORDERED: MIDAZOLAM HCL 5 MG/ML 1 ML VIAL IV ONE ×2 (08:37→11:15)
[2017-01-21] MEDS ORDERED: LIDOCAINE HCL 2% LOCAL 50ML VIAL INFIL ONE (08:37)
[2017-01-21] MEDS ORDERED: FINA5TAB PO (09:36)
--- NOTE | 2017-01-21 10:24 | Procedure Note ---
Pre-Mod Sedation Assessment General Date of Moderate Sedation: Jan 21, 2017. Vital Signs: Vital Signs Past 12 Hours Date Time Temp Pulse Resp B/P (MAP) Pulse Ox O2 Delivery O2 Flow Rate FiO2 01/21/17 10:19 36.5 76 20 133/74 98 Room Air 01/21/17 09:38 36.5 76 20 133/74 (93) 98 Room Air Review Cardiovascular: regular rate, rhythm, no edema, no gallop, no JVD, no murmur Abdomen: normal bowel sounds, non tender, soft, no organomegaly, no pulsatile mass Lungs: chest non-tender, + rhonchi Pre-Sedation Airway Assessment Oral Cavity: WNL Able to Visualize Vocal Cords: Yes Short Thick Neck: Yes Hx of Sleep Apnea: Yes Smoking Status: Never Smoker Mallampati Classification: Class II Procedure Planning Contraindications-for Mod Sed: None Yes Notes The planned sedation has been discussed with the patient and consent obtained. I have identified the patient, determined the appropriateness of sedation and have assessed the patient immediately prior to the procedure. All medicine(s) and interventions are by my order.
[2017-01-21] MEDS ORDERED: NURSING VERBAL MED ORDER ONE ×2 (10:30→11:15)
[2017-01-21] MEDS ORDERED: DEXTROSE 5% 1000ML 1,000 ML IV SCH ×2 (10:45→11:15)
--- NOTE | 2017-01-21 10:59 | Procedure Note ---
Post-Moderate Sedation Plan General Date of Moderate Sedation Jan 21, 2017. Vital Signs: Vital Signs Past 12 Hours Date Time Temp Pulse Resp B/P (MAP) Pulse Ox O2 Delivery O2 Flow Rate FiO2 01/21/17 10:19 36.5 76 20 133/74 98 Room Air 01/21/17 09:38 36.5 76 20 133/74 (93) 98 Room Air Review - Discharge Plan Post Moderate Sedation Plan: On clinical assessment, the patient appears to have tolerated the conscious sedation without complications. Patient is recovering as anticipated. Patient will continue to be monitored by nursing and may be discharged when conscious sedation discharge criteria are met.
--- NOTE | 2017-01-21 11:01 | Bronchoscopy Procedure Note ---
Bronchoscopy Procedure Note Procedure: Bronchoscopy, conscious sedation, bronchial lavage left lower lobe Consent: Obtained through the patient placed into the chart Pre-procedural diagnosis: Chronic bronchiectasis Post-procedural diagnosis: Chronic bronchiectasis with acute flare, possible right vocal cord dysfunction Start time: 1040 End time: 1055 Total time: 15 minutes Analgesia: 2% liquid lidocaine: Via nebulizer 4% gel lidocaine: Via right naris 2% liquid lidocaine: Via bronchoscopy Sedation: Versed IV: 5mg Fentanyl IV: 100 g Procedure: The Olympus video bronchoscope was used for this procedure and passed down through the right naris Right naris/posterior naris/posterior oropharynx: Anatomically within normal limits Glottis: Anatomically within normal limits, notable erythema along the glottic region Vocal cords: Right vocal cords showed reduced abduction and abduction Subglottis/trachea/Graciela: Anatomically within normal limits Right bronchial tree: Right mainstem bronchus: Anatomically within normal limits Right upper lobe: Anatomically within normal limits Bronchus intermedius: Anatomically within normal limits Right middle lobe: Anatomically within normal limits Right lower lobe: Anatomically within normal limits Findings: No significant findings noted Left bronchial tree: Left mainstem bronchus: Anatomically within normal limits Left upper lobe: Anatomically within normal limits Lingula: Anatomically within normal limits Left lower lobe: Anatomically within normal limits, multiple subsegments obstructive diffuse mucous plugs Findings: No significant findings noted Bronchial alveolar lavage: Left lower lobe EBL: None Complications: None Follow-up: [facility]SU
--- NOTE | 2017-01-21 11:04 | Discharge Instructions ---
Discharge Instructions Date of Service Jan 21, 2017. Admission Reason for Admission: Cough, Sob, Bronchiectasis, R06.02 Discharge Discharge Diagnosis / Problem: chronic bronchiectasis with acute flare and possible right vocal cord dysfu Discharge Goals Goal(s): Improve function, Diagnostic testing Activity Recommendations Activity Limitations: resume your previous activity . Instructions / Follow-Up Instructions / Follow-Up Follow-up with provider Funmilayo Kilpatrick at the [facility] Current Hospital Diet Patient's current hospital diet: Discharge Diet Recommended Diet: Regular Diet Procedures Procedures Performed: bronchoscopy, conscious sedation bronchial lavage of the left lower lobe Pending Studies Studies pending at discharge: no Medical Emergencies . Who to Call and When: Medical Emergencies: If at any time you feel your situation is an emergency, please call 911 immediately. . Non-Emergent Contact Non-Emergency issues call your: [employer] . . "Provider Documentation" section prepared by Roland Cunningham. . VTE Core Measure Inpt VTE Proph given/why not?: Treatment not indicated
== END 2017-01-21 13:15 | disposition home or self-care (01) ==
LOC: C.ACU 08:36
PROVIDERS: ATTEND Internal Medicine Critical Care Medicine
DX: J47.9 Bronchiectasis, uncomplicated (principal); G47.33 Obstructive sleep apnea (adult) (pediatric); K21.9 Gastro-esophageal reflux disease without esophagitis; K22.70 Barrett's esophagus without dysplasia; N40.1 Benign prostatic hyperplasia with lower urinary tract symptoms; N13.8 Other obstructive and reflux uropathy; J44.9 Chronic obstructive pulmonary disease, unspecified; K44.9 Diaphragmatic hernia without obstruction or gangrene; E78.00 Pure hypercholesterolemia, unspecified; N41.1 Chronic prostatitis; K85.90 Acute pancreatitis without necrosis or infection, unspecified; N18.9 Chronic kidney disease, unspecified; Z79.899 Other long term (current) drug therapy

== ENCOUNTER → 2017-03-22 | Outpatient (CLI) | payer BC ==
[~2017-03-22] MED LIST changes: -ACETYLCYSTEINE 20% INH; +FINA5TAB PO; -KETO200T PO
== END | disposition home or self-care (01) ==
LOC: C.LAB 13:38
PROVIDERS: ATTEND Specialist
DX: J47.9 Bronchiectasis, uncomplicated (principal)

== ENCOUNTER → 2017-04-05 | Outpatient (CLI) | payer BC ==
[~2017-04-05] MED LIST changes: +DORN1SOL INH; +PLMINSR5 INH; +[UNRECOGNIZED DRUG - OTHER] INH
[2017-04-05 09:26] LABS: BASO % 0.9 %; BASO ABS # 0.06 K/uL (0-0.2); EOS ABS # 0.21 K/uL (0-0.5); HEMATOCRIT 42.2 % (42-52); HEMOGLOBIN 14.1 g/dL (14.0-18.0); IG# 0.03 K/uL (0.00-0.02); LYMPH % 25.3 %; LYMPH ABS # 1.75 K/uL (1.2-3.4); MEAN CELL VOLUME 89.8 fL (80-100); MEAN CORPUSCULAR HGB CONC 33.4 g/dl (32-36); MEAN PLATELET VOLUME 8.8 fL (7.4-10.4); MONO % 9.7 %; MONO ABS # 0.67 K/uL (0.11-0.59); NEUT % 60.7 %; NEUT ABS # 4.21 K/uL (1.4-6.5); PLATELET COUNT 237 K/uL (130-400); RED CELL DISTRIBUTION WIDTH CV 15.1 % (11.5-14.5); RED CELL DISTRIBUTION WIDTH SD 49.4 fL (36.4-46.3); WHITE BLOOD COUNT 6.93 K/uL (4.8-10.8)
[2017-04-05 09:51] LABS: PTT PATIENT 26.3 SECONDS (21.0-31.0)
[2017-04-05 09:55] LABS: BLOOD UREA NITROGEN 21 mg/dl (7-18); CALCIUM 8.5 mg/dl (8.5-10.1); CARBON DIOXIDE 23 mmol/L (21-32); CREATININE 1.48 mg/dl (0.60-1.40); GLUCOSE 90 mg/dl (70-99); POTASSIUM 3.2 mmol/L (3.5-5.1); SODIUM 142 mmol/L (136-145)
== END | disposition home or self-care (01) ==
LOC: C.LAB 08:42
PROVIDERS: ATTEND Physician Assistant
DX: J47.9 Bronchiectasis, uncomplicated (principal)

== ENCOUNTER 2017-04-06 08:13 | Day surgery (SDC) | payer BC ==
--- NOTE | 2017-04-05 10:56 | History and Physical ---
History & Physical Date of Service Apr 05, 2017. History & Physical 57-yo male presents to the office for bronchoscopic evaluation of recurrent bronchitis. He is followed both in [facility] and [place]. Prior records reviewed. PMHx includes: bronchiectasis, GERD, Alexandra's esophagus, hiatal hernia s/p Niesson fundoplication, atypical CP, pancreatitis, BREONNA on CPAP APAP/ 9cm H20) , chronic sinusitis (h/o sinus surgery by Dr. Restrepo), h/o immunotherapy. He is a non-smoker but will use smokeless tobacco. 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 Prior pulmonary pathogens from BAL: pseudomonas (), Stenotrophomonas (09/22), Achromobacter xylosoxidans (03/26), Moraxella (01/16), streptococcus pneumoniae ( & ), aspergillus (02/21), MAC (07/24), mycobacterium paraffinicum (04/21), pneumococcus rhizophilus (09/23), rare aspergillus, pseudomonads, MAC (03/27), group A-beta strep & Moraxella catarrhalis (01/24). He has been a long-standing patient followed closely for bronchiectasis with frequent exacerbations. History noted for progressive dyspnea beginning apx 2007. History complicated by sinusitis (s/p sinus surgery x 3) and reflux (s/p fundoplication 05/2009- [facility] - pH monitor 10/2009: neg). He is treated with VEST therapy & flutter valve daily, as well as sterile saline in [facility] PRN for chest congestion and productive cough. His symptoms are complicated by chronic sinusitis for which he is followed with Dr. Restrepo and s/p sinus surgery x 3 and receives regular sinus lavage. LISE and RF 02/2013: negative He follows with us as well as GI/Pulm/Immunology/Cardiology at [facility]. He will undergo scheduled bronchoscopies Q3-4-months in [place] as well as PRN in [place], [place]. 09/2015. IgE: elevated (425) PFT 05/09/14: FVC: 79%, FEV1: 77%, FEV1/FVC: 99%, FEF 25-75%: 99%, VC: 83%, T%, RV: 74%, DLCO adj: 75% Right and Left cardiac catheterization 05/14/16:unremarkable. No vessel disease or evidence of pulmonary HTN. Patient was evaluated by ID for recommendations after MAC grew from his 03/2016 bronchoscopy. Cultures were also notable for pseudomonas - and he was prescribed a 14-day course of levofloxacin. Decision regarding treatment for MAC pending any repeat growth on additional BAL -NGTD In general, he reports he has been stable. He has not required prednisone since late 2016. He underwent Q4-month scheduled bronchoscopy in [place] [address] Duffy. He states that he was told a significant quantity of mucous was removed. Thus far, results are pending. Additionally, he reports that they were evaluating his "cilia" possibly as a work-up for ciliary dyskinesia but is unsure of the results. He reports in general he is feeling well. He describes some chest congestion and continues to follow with Dr. Restrepo for routine sinus irrigation/washout. He denies any fevers or chills. Cough may at times produce scant yellow sputum. He reports prior doxycycline he keeps at home may be and would like a rescue pack. Review of Systems Constitutional: no fever, not feeling poorly, no chills and not feeling tired. Eyes: negative. ENT: as noted in HPI, no earache, no sore throat and no nasal discharge. Cardiovascular: negative, as noted in HPI, no chest pain, no palpitations and no extremity edema. Respiratory: cough, but as noted in HPI, no shortness of breath, no wheezing and no shortness of breath during exertion. Gastrointestinal: negative. Integumentary: negative. Hematologic/Lymphatic: negative. Active Problems 1. Acute sinusitis (J01.90) 2. Atypical mycobacterial infection (A31.9) 3. Alexandra's esophagus (K22.70) 4. Benign prostatic hyperplasia with urinary obstruction (N40.1,N13.8) 5. BPH with obstruction/lower urinary tract symptoms (N40.1,N13.8) 6. Bronchiectasis (J47.9) 7. Calculus of kidney (N20.0) 8. Chest pain (R07.9) 9. Chronic constipation (K59.09) 10. Chronic obstructive pulmonary disease (J44.9) 11. Chronic prostatitis (N41.1) 12. Chronic reflux esophagitis (K21.0) 13. Cough (R05) 14. Dyspnea on exertion (R06.09) 15. Elevated prostate specific antigen (PSA) (R97.20) 16. Elevated PSA (R97.20) 17. Fatigue (R53.83) 18. Hiatal hernia (K44.9) 19. Hypercholesterolemia (E78.00) 20. Hypocalcemia (E83.51) 21. Internal hemorrhoids with complication (K64.8) 22. Interscapular pain (M54.89) 23. Moraxella catarrhalis bronchitis (J40,B96.89) 24. Obstructive sleep apnea (G47.33) 25. Pancreatitis (K85.90) 26. Post-void dribbling (N39.43) 27. Pseudomonas aeruginosa infection (A49.8) 28. Pseudomonas infection (B96.5) 29. Psychological disorder (F99) 30. Pulmonary infection (J18.9) 31. Pulmonary mycobacterial infection (A31.0) 32. Renal failure (N19) 33. Shortness of breath (R06.02) 34. Streptococcal pneumonia (J15.4) Surgical History 1. History of Bronchoscopy (Diagnostic) 2. History of Cataract Surgery 3. History of Cholecystectomy 4. History of Colonoscopy (Fiberoptic) 5. History of Common Bile Duct Exploration 6. History of Endoscopic Retrograde Cholangiopancreatography (ERCP) 7. History of Esophagogastric Fundoplasty Brittany Fundoplication 8. History of Hemorrhoidectomy 9. History of Sinus Surgery 10. History of Surgery Vas Deferens Vasectomy 11. History of Tonsillectomy With Adenoidectomy Family History 1. No pertinent family history 2. No pertinent family history 3. No pertinent family history 4. Family history of kidney stones (Z84.1) Social History Denied: History of Alcohol Use (History) Denied: History of Drug Use Former smokeless tobacco user Denied: History of Home Environment Domestic Violence Denied: History of Housing Without Smoke Detectors Marital History - Currently Never smoker Physical Disability: Single Uses Safety Equipment - Seatbelts Current Meds 1. Finasteride 5 MG Oral Tablet; TAKE 1 TABLET DAILY; 2. Nitrostat 0.4 MG Sublingual Tablet Sublingual; PLACE 1 TABLET UNDER THE TONGUE EVERY 5 MINUTES FOR UP TO 3 DOSES NEEDED FOR CHEST PAIN.CALL 911 IF PAIN PERSISTS; 3. PredniSONE 10 MG Oral Tablet; Take 4 tablets for 2 days then decrease by 1/ 2 tablet (5mg) every 2-days until complete 4. Ipratropium-Albuterol 0.5-2.5 (3) MG/3ML Inhalation Solution; USE 1 UNIT DOSE IN NEBULIZER 4 TIMES DAILY; Last Rx:[id number] Ordered 5. SM Saline Solution Solution; USE ONE 4ML VIAL OF 7% SALINE VIA NEBULIZER BID; 6. Hydrocodone-Homatropine 5-1.5 MG/5ML Oral Syrup; TAKE 5 - 10 ML EVERY 4 HOURS NEEDED FOR COUGH; 7. Senna S 8.6-50 MG Oral Tablet; Take 2 tabs bid prn constipation; 8. Ventolin HFA 108 (90 Base) MCG/ACT Inhalation Aerosol Solution; INHALE 2 PUFFS EVERY 4 TO 6 HOURS NEEDED; 9. Budesonide 0.5 MG/2ML Inhalation Suspension; USE DIRECTED twice daily; 10. Vortex Valved Holding Chamber Device; TO USE WITH INHALER; 11. ClonazePAM 1 MG Oral Tablet; TAKE 1 TABLET 3 TIMES DAILY; 12. Lactulose 10 GM/15ML Oral Solution; TAKE 30 ML Daily; 13. Mucinex 600 MG Oral Tablet Extended Release 12 Hour; TAKE 1 TABLET EVERY 12 HOURS NEEDED FOR CONGESTION; 14. Ondansetron 4 MG Oral Tablet Disintegrating; one tablet Q 6hr prn; 15. PriLOSEC 20 MG CPDR; TAKE 1 CAPSULE TWICE DAILY; 16. Probiotic Oral Capsule; 1 po daily; 17. Singulair 10 MG Oral Tablet; TAKE 1 TABLET DAILY; 18. Synthroid 50 MCG Oral Tablet; TAKE 1 TABLET DAILY DIRECTED; 19. Triamcinolone Acetonide 0.025 % External Ointment; APPLY 2-3 TIMES DAILY TO AFFECTED AREA(S); 20. Wellbutrin SR 100 MG Oral Tablet Extended Release 12 Hour; TAKE 3 TABLETS DAILY; 21. Zantac 300 MG Oral Tablet; TAKE 1 TABLET (BY MOUTH) DAILY; Allergies 1. NSAIDs 2. Statins 3. Sulfa Drugs 4. Adhesive Tape TAPE Denied 5. Ceftin TABS Vital Signs Blood Pressure: 122 / 70, LUE, Sitting Height: 6 ft Weight: 203 lb 7 oz BMI Calculated: 27.59 BSA Calculated: 2.15 Respiration: 20 Heart Rate: 92 Temperature: 97.8 F O2 Saturation: 98, RA Constitutional: Well developed well nourished, male, no acute distress Head: + facial symmetry Eyes: Full EOMs, PERRLA, no conjunctiva injection Throat: trachea midline, no palpable adenopathy Mouth: moist mucous membranes. Extensive dental work. No erythema or plaques. Respiratory: Non-labored respirations. Breath sounds diminished at bases. No wheeze. Scattered rales left base and laterally. Cardiovascular: Regular rate and rhythm, no murmur appreciated. +[2] radial pulses. [<1s] capillary refill Extremities/MSK: moving and developed symmetrically. No peripheral edema. Neurologic: Alert and Oriented x 3. Appropriate affect.
[2017-04-06] VITALS (7 sets, daily range): BP systolic 107–130; BP diastolic 61–74; PULSE 65–69; TEMP 36.4–37; O2SAT 92–98; Ht 182.9 cm; Wt 92.0 kg
[~2017-04-06] VITALS: Ht 182.9 cm; Wt 92.0 kg
[~2017-04-06 08:13] MED LIST changes: -DORN1SOL INH; -PLMINSR5 INH; -[UNRECOGNIZED DRUG - OTHER] INH
[2017-04-06] MEDS ORDERED: [UNRECOGNIZED DRUG - OTHER] INH (08:43)
[2017-04-06] MEDS ORDERED: DORN1SOL INH (08:47)
--- NOTE | 2017-04-06 09:02 | Pre Sedation Assessment ---
Pre Sedation Assessment General Date of Sedation: Apr 06, 2017. Review Cardiovascular: regular rate, rhythm, no edema, no gallop, no JVD, no murmur, normal peripheral pulses Lungs: + pertinent finding (decreased BS left dar-thorax) Pre-Sedation Airway Assessment Smoking Status: Never Smoker Hx of Sleep Apnea: Yes Hx of difficult intubation: No Short Thick Neck: Yes Thyro-mental Distance: > 3 Finger Breadths Oral Cavity: WNL Mallampati Classification: Class II ASA Classification: Class III Procedure Planning Contraindications for Sedation: None Current Medications Reviewed: Yes Notes The planned sedation has been discussed with the patient. Informed Consent was obtained. I have identified the patient, determined the appropriateness of sedation and have assessed the patient immediately prior to the procedure. All medicine(s) and interventions are by my order.
[2017-04-06] MEDS ORDERED: PLMINSR5 INH (09:13)
[2017-04-06] MEDS ORDERED: LIDOCAINE VISCOUS 2% 100ML TOP ONE (10:44)
[2017-04-06] MEDS ORDERED: LIDOCAINE 4% INH SOLN 4 ML BTL TOP ONE (10:44)
[2017-04-06] MEDS ORDERED: MIDAZOLAM HCL 5 MG/ML 1 ML VIAL IV ONE (10:44)
[2017-04-06] MEDS ORDERED: LIDOCAINE HCL 2% LOCAL 50ML VIAL INSTIL ONE (10:44)
--- NOTE | 2017-04-06 10:44 | Post Sedation Assessment ---
Post Sedation Assessment General Date of Sedation Apr 06, 2017. Vital Signs: Vital Signs Past 12 Hours Date Time Temp Pulse Resp B/P (MAP) Pulse Ox O2 Delivery O2 Flow Rate FiO2 04/06/17 10:40 76 17 151/86 100 Oxymask 6 04/06/17 10:35 74 12 153/90 100 Oxymask 6 04/06/17 10:30 71 16 149/84 100 Oxymask 6 04/06/17 10:25 68 18 149/88 100 Oxymask 6 04/06/17 10:14 67 10 138/79 100 Oxymask 6 04/06/17 08:30 36.4 69 18 130/67 (88) 98 Room Air Post Procedure Recovery Score Activity: (2) Moves 4 extremities * Respiration: (2) Deep breath/cough Circulation: (2) +/-20% PreAnes Value Consciousness: (2) Fully Awake Oxygen Saturation: (2) > 92% On Room Air Discharge Sedation Level of Care: Fast Track Phase II Post Sedation Plan On clinical assessment, the patient appears to have tolerated the sedation without complications. Patient is recovering as anticipated. Patient will continue to be monitored by nursing and may be discharged when sedation discharge criteria are met per below protocol. Upon Completions of procedure and additional 15 minutes continue every 5 minute vital signs and the P.A.R. score; then discharge to a Phase I or Fast Track to Phase II per the following guidelines: * Discharge Patient to appropriate Phase II area if PAR is 8 or greater or return to pre- procedure baseline. The post - procedure orders will be as directed. * If PAR score is less than 8 or not return to pre-procedure baseline then patient will follow Phase I monitoring till PAR is reached for Phase II. The Phase I may be done in procedure room or may call to secure a Phase I area. * If naloxone or flumazenil are used for reversal, hold in Phase I for an additional 60 -120 minutes before discharge to Phase II. Please call the Sedation Physician to re-evaluate and complete post-note for discharge to Phase II area. Do NOT discharge from procedure sedation or Phase 1 until post- sedation evaluation note is complete by procedure /sedation MD Sedation Discharge Instructions to be given to the patient at discharge to home.
[2017-04-06] MEDS ORDERED: FENTANYL CITRATE INJ 50 MCG/1 ML 2 ML VIAL IV ONE (10:46)
--- NOTE | 2017-04-06 10:46 | Bronchoscopy Procedure Note ---
Bronchoscopy Procedure Note Procedure: Bronchoscopy, conscious sedation, bronchial lavage left lower lobe Consent: Obtained through the patient placed into the chart Pre-procedural diagnosis: Chronic bronchiectasis with acute flare Post-procedural diagnosis: Chronic bronchiectasis with acute flare Start time: 1025 End time: 1040 Total time: 15 minutes Analgesia: 2% liquid lidocaine: Via nebulizer 4% gel lidocaine: Via right naris 2% liquid lidocaine: Via bronchoscopy Sedation: Versed IV: 5mg Fentanyl IV: 100g Procedure: The Olympus video bronchoscope was used for this procedure and passed down through the right naris Right naris/posterior naris/posterior oropharynx: Anatomically within normal limits Glottis: Anatomically within normal limits Vocal cords: Proper abduction and abduction, anatomically within normal limits Subglottis: Anatomically within normal limits Trachea: Approximately the ninth to 10th tracheal ring at the 12 o'clock position there was a small tracheal associated polyp less than 2 mm Graciela: Anatomically within normal limits Right bronchial tree: Right mainstem bronchus: Anatomically within normal limits Right upper lobe: Anatomically within normal limits Bronchus intermedius: Anatomically within normal limits Right middle lobe: Anatomically within normal limits Right lower lobe: Anatomically within normal limits Findings: Minimal secretions appreciated in the right lower lobe Left bronchial tree: Left mainstem bronchus: Anatomically within normal limits Left upper lobe: Anatomically within normal limits Lingula: Anatomically within normal limits Left lower lobe: Anatomically within normal limits Findings: Diffuse secretions appreciated in the left lower lobe, minimal secretions appreciated in the lingula Bronchial alveolar lavage: Left lower lobe EBL: None Complications: None Follow-up: ASU
--- NOTE | 2017-04-06 10:49 | Discharge Instructions ---
Discharge Instructions Date of Service Apr 06, 2017. Admission Reason for Admission: Bronchiectasis, Shortness Of Breath Discharge Discharge Diagnosis / Problem: Chronic bronchiectasis with acute flare Discharge Goals Goal(s): Improve function, Diagnostic testing Activity Recommendations Activity Limitations: resume your previous activity Lifting Limitations: none Exercise/Sports Limitations: as tolerated Driving or Machine Use: resume 1 day after discharge . Instructions / Follow-Up Instructions / Follow-Up Follow-up in a month and a pulmonary division with provider Funmilayo Kilpatrick Current Hospital Diet Patient's current hospital diet: Discharge Diet Recommended Diet: Regular Diet Procedures Procedures Performed: bronchoscopy, conscious sedation and bronchial lavage of the left lower lobe Pending Studies Studies pending at discharge: no Medical Emergencies . Who to Call and When: Medical Emergencies: If at any time you feel your situation is an emergency, please call 911 immediately. . Non-Emergent Contact Non-Emergency issues call your: Clothes Separator Call Non-Emergent contact if: you have a fever, temperature is above 101 . . "Provider Documentation" section prepared by Roland Cunningham. . VTE Core Measure Inpt VTE Proph given/why not?: Treatment not indicated
== END 2017-04-06 12:58 | disposition home or self-care (01) ==
LOC: C.ACU 08:13
PROVIDERS: ATTEND Internal Medicine Critical Care Medicine
DX: J47.1 Bronchiectasis with (acute) exacerbation (principal); A49.8 Other bacterial infections of unspecified site; A31.9 Mycobacterial infection, unspecified; J01.90 Acute sinusitis, unspecified; K21.9 Gastro-esophageal reflux disease without esophagitis; K22.70 Barrett's esophagus without dysplasia; G47.33 Obstructive sleep apnea (adult) (pediatric); N40.1 Benign prostatic hyperplasia with lower urinary tract symptoms; N13.8 Other obstructive and reflux uropathy; E78.00 Pure hypercholesterolemia, unspecified; K64.8 Other hemorrhoids; Z90.49 Acquired absence of other specified parts of digestive tract; Z87.442 Personal history of urinary calculi; Z99.89 Dependence on other enabling machines and devices; Z99.81 Dependence on supplemental oxygen; Z79.52 Long term (current) use of systemic steroids; Z88.2 Allergy status to sulfonamides; Z88.8 Allergy status to other drugs, medicaments and biological substances; Z88.6 Allergy status to analgesic agent; Z84.1 Family history of disorders of kidney and ureter

== ENCOUNTER → 2017-04-13 | Outpatient (CLI) | payer BC ==
[~2017-04-13] MED LIST changes: +DORN1SOL INH; +PLMINSR5 INH
[2017-04-13 15:23] LABS: BLOOD UREA NITROGEN 19 mg/dl (7-18); CALCIUM 8.8 mg/dl (8.5-10.1); CARBON DIOXIDE 26 mmol/L (21-32); CREATININE 1.34 mg/dl (0.60-1.40); GLUCOSE 94 mg/dl (70-99); POTASSIUM 4.3 mmol/L (3.5-5.1); SODIUM 140 mmol/L (136-145)
== END | disposition home or self-care (01) ==
LOC: C.LAB 12:51
PROVIDERS: ATTEND Physician Assistant
DX: E87.6 Hypokalemia (principal)

== ENCOUNTER 2017-05-21 16:02 | Emergency (ER) | payer BC ==
[~2017-05-21] VITALS: Ht 182.9 cm; Wt 89.3 kg
[2017-05-21 16:19] VITALS: TEMP 36.7; Ht 182.9 cm; Wt 89.3 kg
--- NOTE | 2017-05-21 17:12 | DIAGNOSTIC IMAGING REPORT ---
HEAD WITHOUT CONTRAST (CT) CLINICAL HISTORY: 57 years-old Male presenting with EVAL TRAUMA, fall off a ladder. TECHNIQUE: Multidetector CT imaging of the head was performed without the use of intravenous contrast. IV contrast: None. A dose lowering technique was used consistent with the principles of ALARA (as low as reasonably achievable). COMPARISON: 07/05/2012. CT DOSE (mGy.cm): The estimated cumulative dose is 700.35 mGycm. FINDINGS: Repatcher topogram: Unremarkable. Ventricles and sulci normal in size. Brain parenchyma normal in appearance with preserved main-white differentiation. No mass effect or midline shift. No hemorrhage or acute territorial infarct. No extra-axial fluid collection. Paranasal sinuses and mastoid air cells clear. Calvarium intact. IMPRESSION: 1. No acute intracranial abnormality. Electronically signed by: Oscar Hartman M.D. 05/21/2017 5:10 PM Dictated Date/Time: 05/21/2017 5:09 PM
--- NOTE | 2017-05-21 17:18 | DIAGNOSTIC IMAGING REPORT ---
CERVICAL SPINE CT CT DOSE: 459.97 mGycm HISTORY: Fall from ladder. Neck pain. EVAL TRAUMA TECHNIQUE: Multiaxial CT images of the cervical spine were performed and reformatted in the sagittal and coronal plane without the use of contrast. A dose lowering technique was utilized adhering to the principles of ALARA. COMPARISON: None. FINDINGS: No fractures. No subluxation. Prevertebral soft tissues and the C1-C2 interval are intact. No pneumothorax. Mild disc space narrowing at C2-C3, C5-C6, and C6-C7. Small amount of fluid within the right sphenoid sinus. Sclerosis of the left C3 transverse process which measures 1 cm. This is nonspecific but favors a bone island. IMPRESSION: No fractures within the cervical spine. Electronically signed by: Arturo aJcob M.D. 05/21/2017 5:17 PM Dictated Date/Time: 05/21/2017 5:12 PM
[2017-05-21] MEDS ORDERED: OXYC1TAB3 PO (17:39)
--- NOTE | 2017-05-21 17:40 | EMERGENCY ROOM VISIT NOTE ---
ED Visit Note First contact with patient: 16:29 CHIEF COMPLAINT: Neck pain after an fall HISTORY OF PRESENT ILLNESS: Patient is a 57-year-old male who presents emergency department for evaluation of neck, upper back and head pain after a fall that occurred about 2 hours ago. He reports that he was roughly 4 feet up on a ladder, when the support for the latter broke, and he fell. He states that he landed on his neck and upper back on the grass. He did strike the back of his head, but he did not lose consciousness. He laid on the ground for a few minutes, then began to move around and was able to get up on his own without any difficulty. He notes pain primarily in the posterior aspect of the neck, that radiates towards the shoulders. It is worse with movement, particularly looking to the left. He has a slight sore spot on the back of his head, but denies any generalized headache. No lightheadedness, dizziness, nausea, vomiting, vision changes, difficulty with balance, speech or coordination. He did not take any medications prior to coming to the emergency department. He denies any numbness, tingling or weakness radiating into the upper extremities. No anterior chest pain, rib pain or shortness of breath. He has some very slight right low back pain. He does not take any blood thinning medications. REVIEW OF SYSTEMS: Review of systems as per HPI. All other systems reviewed were negative. 10 systems reviewed. PMH: Electronic medical records are reviewed and summarized as above/below. See Problem List. SOCIAL HISTORY: Patient lives at home with his spouse. Non-smoker. PHYSICAL EXAM: Vital Signs: Reviewed Nurse's notes. GCS 15 GENERAL: Patient is a well-appearing 57-year-old male who is awake and alert and seated on the gurney in no acute distress. HEENT: Head -occipital scalp tenderness, no obvious hematoma appreciated. Pupils are equal, round, and reactive to light. Extraocular eye muscles are intact and sclera are anicteric. Ears - bilaterally patent canals with no evidence of hemotympanum. Mouth - moist buccal mucosa with no trauma to the teeth or signs of malocclusion. Neck: The anterior neck is supple. He has bony tenderness to palpation over the low spinous processes of the cervical spine, but no obvious step-off deformity. He does have significant paraspinous muscle tenderness, but without focal spasm. Range of motion is slightly limited secondary to discomfort. There is no JVD or tracheal deviation. Chest: There are no signs of deformities, contusions or abrasions to the chest wall. There is no obvious crepitus or paradoxical chest rise. Heart: Regular rate, and regular rhythm. Lungs: Breath sounds equal and clear to auscultation without wheezes, rales, or rhonchi heard. Abdomen: Soft, completely nontender, nondistended, with good bowel sounds. There is no sign of trauma such as contusions, abrasions or penetrations. There are no palpable pulsatile masses or hepatosplenomegaly. There is no guarding, rigidity, or rebound noted. Extremities: No obvious trauma, deformities, contusions, or edema. There are easily palpable peripheral pulses. Neuro: The patient is awake and alert and easily able to follow commands. Muscle strength is 5 out of 5 in all 4 extremities. Otherwise, neuro exam is unremarkable. Back: The entire thoracic, lumbar, and sacral spine were palpated. No discomfort over the thoracic spine and lumbar spine. There are no obvious step- offs or deformities noted. There are no obvious signs of trauma such as contusions abrasions penetrations noted to the back. EMERGENCY DEPARTMENT COURSE: Head and cervical spine CT scans were obtained and were negative for acute pathology. The patient was reassured. He suffered a fall off of a ladder, landing on his upper back, neck and the back of his head. He does not have any findings consistent with acute intracranial bleed, skull fracture, cervical spine fracture or unstable ligamentous injury. Ribs and chest are nontender. The patient was encouraged to rest and avoid any heavy lifting or strenuous activity, and resume normal activity as pain allows. He was provided a small prescription for oxycodone to use for worsening pain. He and his were educated on the worsening signs or symptoms for which they should return to the emergency department. Patient was discharged home in good condition. Medication reconciliation: I attest that I have personally reviewed the patient' s current medication list. Blood pressure screening : Patient was found to have normal blood pressure on screening and does not require follow-up. Patient was reviewed in the [facility] Prescription Drug Monitoring Program, and there were no red flags noted. CERVICAL SPINE CT CT DOSE: 459.97 mGycm HISTORY: Fall from ladder. Neck pain. EVAL TRAUMA TECHNIQUE: Multiaxial CT images of the cervical spine were performed and reformatted in the sagittal and coronal plane without the use of contrast. A dose lowering technique was utilized adhering to the principles of ALARA. COMPARISON: None. FINDINGS: No fractures. No subluxation. Prevertebral soft tissues and the C1-C2 interval are intact. No pneumothorax. Mild disc space narrowing at C2-C3, C5-C6, and C6-C7. Small amount of fluid within the right sphenoid sinus. Sclerosis of the left C3 transverse process which measures 1 cm. This is nonspecific but favors a bone island. IMPRESSION: No fractures within the cervical spine. HEAD WITHOUT CONTRAST (CT) CLINICAL HISTORY: 57 years-old Male presenting with EVAL TRAUMA, fall off a ladder. TECHNIQUE: Multidetector CT imaging of the head was performed without the use of intravenous contrast. IV contrast: None. A dose lowering technique was used consistent with the principles of ALARA (as low as reasonably achievable). COMPARISON: 07/05/2012. CT DOSE (mGy.cm): The estimated cumulative dose is 700.35 mGycm. FINDINGS: Addiction Nurse topogram: Unremarkable. Ventricles and sulci normal in size. Brain parenchyma normal in appearance with preserved main-white differentiation. No mass effect or midline shift. No hemorrhage or acute territorial infarct. No extra-axial fluid collection. Paranasal sinuses and mastoid air cells clear. Calvarium intact. IMPRESSION: 1. No acute intracranial abnormality. Problem List Medical Problems: (1) Anxiety Status: Chronic (2) Bronchiectasis without acute exacerbation Status: Chronic (3) Bronchoscopy Status: Resolved (4) Cholecystectomy Status: Resolved (5) Chronic obstructive lung disease Status: Chronic (6) Gastroesophageal reflux disease Status: Chronic (7) Kidney stone Status: Chronic (8) Laparoscopic Brittany fundoplication using abdominal approach Status: Resolved (9) Pancreatitis Status: Chronic (10) Pneumonia, Organism Nos Status: Resolved (11) Pure Hypercholesterolem Status: Chronic (12) sinus surgery Status: Resolved (13) Sleep apnea Status: Chronic Current/Historical Medications Scheduled Budesonide (Pulmicort Respules 0.5MG/2ML), 2 ML INH BID Budesonide (Inhalation) (Budesonide), 1 INHA INH DAILY Bupropion (Wellbutrin-Xl), 300 MG PO QAM Clonazepam (Klonopin), 1 MG PO TID Dornase Franky (Pulmozyme), 0.5 ML INH DAILY Finasteride (Proscar), 5 MG PO DAILY Fluocinonide (Fluocinonide), 1 APPLN TOP BID Guaifenesin (Mucinex Maximum Strength), 1,200 MG PO BID Lactulose (Chronulac), 30 ML PO BID Levothyroxine Sodium (Levothyroxine Sodium), 1 TAB PO QAM Montelukast Sodium (Singulair), 10 MG PO QAM Omeprazole (Prilosec), 20 MG PO BID Prednisone Tab (Prednisone), 30 MG PO DAILY Probiotic Product (Probiotic Mature Adult), 1 CAP PO QAM Ranitidine Hcl (Zantac), 1 TAB PO DAILY Senna (Senokot), 2 TAB PO PRN Sodium Chloride (Inhalant) (Sodium Chloride), 1 DOSE INH BID Tamsulosin HCl (Tamsulosin HCl), DAILY Scheduled PRN Albuterol (Ventolin Hfa), 2 PUFFS INH Q4-6H PRN for SOB/Wheezing Aluminum Hydroxide-Mag Trisil (Gaviscon), for Indigestion Ipratropium-Albuterol (Duoneb), 1 TREATMENT INH QID PRN for Shortness of Breath Nitroglycerin (Nitrostat), 0.4 MG UT DIRECTED PRN for CHEST PAIN/GERD Ondansetron Hcl (Zofran), 4 MG PO Q6H PRN for N Oxycodone Immediate Rel Tab (Roxicodone Ir), 1-2 TAB PO Q4H PRN for Severe Pain Polyethylene Glycol 3350 (Miralax), 17 GM PO DAILY PRN for Constipation Allergies Coded Allergies: Sulfa Antibiotics (Verified Allergy, Mild, "SULFA DRUGS": RASH, HOT FLASHES, 04/06/17) Adhesives (Verified Allergy, Unknown, PLASTIC CLEAR TAPE-SKIN TURNS RED, ITCHING, 04/06/17) DUODERM? OR DERMAPLAST? CLEAR PLASTIC DRESSING Molds & Smuts (Verified Allergy, Unknown, COUGH, 04/06/17) TAKES ALLERGY SHOTS WEEKLY Ragweed (Verified Allergy, Unknown, SINUS DRAINAGE,STUFFINESS-TAKING ALLERGY SHOTS, 04/06/17) Statins (Verified Allergy, Unknown, HOT FLASHES, RASH, 04/06/17) Vital Signs Date Time Temp Pulse Resp B/P (MAP) Pulse Ox O2 Delivery O2 Flow Rate FiO2 05/21/17 18:10 86 18 127/80 99 05/21/17 16:19 36.7 100 18 131/73 99 Room Air Departure Information Impression Primary Impression: Neck strain Additional Impressions: Head contusion Fall Prescriptions Oxycodone Immediate Rel Tab (ROXICODONE IR) 5 Mg Tab 1-2 TAB PO Q4H Y for Severe Pain, #20 TAB For Initial Treatment Prov: Suad Pleitez PA 05/21/17 Referrals Jose Florez M.D. (PCP) Patient Instructions My [facility] Additional Instructions Oxycodone (OxyIR) 5mg: Take 1-2 pills every four hours for breakthrough pain. Avoid alcohol, operating machinery or dangerous equipment, working on ladders or roofs, DRIVING, or situations where being under the influence may be dangerous. It is recommended to use an [id number] stool softener such as Colace, 100mg twice daily while taking this medication to avoid constipation. Ibuprofen(Motrin, Advil) may be used for fever or pain. Use 600mg every six hours as needed. Take with food. Avoid using more than 2400mg in a 24 hour period. Do not use 2400mg per day for more than three consecutive days without physician direction. Prolonged inappropriate use can lead to stomach upset or ulcers. This medication can be taken if you need to drive, work, or perform activities which may be dangerous when taking narcotic pain medication. (AND/OR) Acetaminophen(Tylenol) may be used for fever or pain. Use 1000mg every six hours as needed. Avoid using more than 3000mg in a 24 hour period. This medication can be taken if you need to drive, work, or perform activities which may be dangerous when taking narcotic pain medication. Rest and avoid heavy lifting until your symptoms resolve and then gradually return to full activity. A good rule of thumb is if it hurts you to perform a certain activity, then it should be avoided until you are healthy again. A heating pad, warm compresses, or a hot shower may help with tight muscles and can be done several times a day as needed. Continue current medications. Return to the ER immediately for any numbness, tingling, severe pain, loss of control of your bowels or bladder, inability to walk, or as needed. Follow up with your primary care physician within 3-5 days for a recheck of your current condition. Problem Qualifiers Primary Impression: Neck strain Encounter type: initial encounter Qualified Codes: S16.1XXA - Strain of muscle, fascia and tendon at neck level, initial encounter Additional Impressions: Head contusion Encounter type: initial encounter Contusion of head detail: other part of head Qualified Codes: S00.83XA - Contusion of other part of head, initial encounter Fall Encounter type: initial encounter Qualified Codes: W19.XXXA - Unspecified fall, initial encounter
[2017-05-21 18:10] VITALS: BP 127/80; PULSE 86; O2SAT 99
== END 2017-05-21 18:11 | disposition home or self-care (01) ==
LOC: C.EDB 16:03 → C.EDD 18:11
DX: S16.1XXA Strain of muscle, fascia and tendon at neck level, initial encounter (principal); S00.83XA Contusion of other part of head, initial encounter; W11.XXXA Fall on and from ladder, initial encounter; F41.9 Anxiety disorder, unspecified; Z90.49 Acquired absence of other specified parts of digestive tract; J44.9 Chronic obstructive pulmonary disease, unspecified; K21.9 Gastro-esophageal reflux disease without esophagitis; Z87.442 Personal history of urinary calculi; Z87.01 Personal history of pneumonia (recurrent); E78.00 Pure hypercholesterolemia, unspecified; G47.30 Sleep apnea, unspecified; Z79.899 Other long term (current) drug therapy; Z88.2 Allergy status to sulfonamides; Z91.048 Other nonmedicinal substance allergy status

== ENCOUNTER → 2017-06-07 | Outpatient (CLI) | payer BC ==
[~2017-06-07] MED LIST changes: +OXYC1TAB3 PO
[2017-06-07 10:36] LABS: BASO ABS # 0.09 K/uL (0-0.2); EOS ABS # 0.28 K/uL (0-0.5); HEMATOCRIT 43.7 % (42-52); HEMOGLOBIN 14.4 g/dL (14.0-18.0); IG# 0.13 K/uL (0.00-0.02); MONO % 8.7 %; NEUT % 60.9 %; NEUT ABS # 5.59 K/uL (1.4-6.5); PLATELET COUNT 287 K/uL (130-400); RED CELL DISTRIBUTION WIDTH SD 49.8 fL (36.4-46.3); WHITE BLOOD COUNT 9.19 K/uL (4.8-10.8)
[2017-06-07 11:06] LABS: ALBUMIN 3.3 gm/dl (3.4-5.0); ALKALINE PHOSPHATASE 94 U/L (45-117); ALT/SGPT 26 U/L (12-78); AST/SGOT 9 U/L (15-37); BLOOD UREA NITROGEN 20 mg/dl (7-18); CALCIUM 8.9 mg/dl (8.5-10.1); CARBON DIOXIDE 28 mmol/L (21-32); CHOLESTEROL 234 mg/dl (0-200); CREATININE 1.33 mg/dl (0.60-1.40); GLUCOSE 95 mg/dl (70-99); LDL CHOLESTEROL CALCULATED 117 mg/dl; SODIUM 140 mmol/L (136-145); TOTAL PROTEIN 7.2 gm/dl (6.4-8.2); URIC ACID 6.7 mg/dl (2.6-7.2)
[2017-06-07 11:16] LABS: TRANSFERRIN 322 mg/dl (200-360)
[2017-06-07 11:21] LABS: HEMOGLOBIN A1C 5.3 % (4.5-5.6)
== END | disposition home or self-care (01) ==
LOC: C.LAB 09:07
PROVIDERS: ATTEND Urology
DX: D80.3 Selective deficiency of immunoglobulin G [IgG] subclasses (principal); R73.09 Other abnormal glucose; E55.9 Vitamin D deficiency, unspecified; D51.9 Vitamin B12 deficiency anemia, unspecified; E78.9 Disorder of lipoprotein metabolism, unspecified; R53.83 Other fatigue; R97.20 Elevated prostate specific antigen [PSA]

== ENCOUNTER → 2017-08-31 | Outpatient (CLI) | payer BC ==
[~2017-08-31] MED LIST changes: +ALBU2SYP9 NEB; +ALBUAER INH; -ALBUAER2 INH; +AUG0.05O4 TOP; -BUDE1SUS6 INH; -CLON1TAB3 PO; +CLON1TAB4 PO; -IPRASOL34 INH; -LACT10SO17 PO; -OXYC1TAB3 PO; +PLMINSR25 INH; -PLMINSR5 INH; -PROB1CAP PO; -SODI3NEB INH; +SODI3NEB2 NEB; +TRMCR130WC TOP; +VNTHFA/IN INH
== END | disposition home or self-care (01) ==
LOC: C.LAB1850 10:25
PROVIDERS: ATTEND Internal Medicine Pulmonary Disease
DX: R19.7 Diarrhea, unspecified (principal)

== ENCOUNTER 2018-04-05 20:07 | Inpatient (IN) ==
[2018-04-05] MEDS ORDERED: methylPREDNISolone 125 MG/2 ML VIAL IV STA (20:29)
[2018-04-05] MEDS ORDERED: ACETAMINOPHEN 325 MG TAB PO STA (20:29)
[2018-04-05] MEDS ORDERED: ALBUT/IPRATROP 3MG/0.5MG NEB 3 ML VIAL NEB ONE (20:29)
[2018-04-05] MEDS ORDERED: SODIUM CHLORIDE 0.9% 1000ML 1,000 ML IV ONE ×2 (20:29→23:03)
[2018-04-05 21:21] LABS: Basophils # (auto) 0.02 K/uL (0-0.2); Basophils % (auto) 0.1 %; Eosinophils # (auto) 0.03 K/uL (0-0.5); Eosinophils % (auto) 0.1 %; Hematocrit (blood only) 45.3 % (42-52); Immature Granulocytes # (auto) 0.07 K/uL (0.00-0.02); Immature Granulocytes % (auto) 0.3 %; Lymphocytes # (auto) 0.83 K/uL (1.2-3.4); Lymphocytes % (auto) 4.1 %; Mean Corpuscular Hgb Conc 33.1 g/dL (32-36); Mean Platelet Volume 8.7 fL (7.4-10.4); Monocytes # (auto) 0.67 K/uL (0.11-0.59); Monocytes % (auto) 3.3 %; Neutrophils # (auto) 18.52 K/uL (1.4-6.5); Neutrophils % (auto) 92.1 %; Platelet Count 262 K/uL (130-400); RDW Coefficient of Variation 14.6 % (11.5-14.5); RDW Standard Deviation 47.3 fL (36.4-46.3); Red Blood Count 5.09 M/uL (4.7-6.1); White Blood Count 20.14 K/uL (4.8-10.8)
[2018-04-05 21:32] LABS: Partial Thromboplastin Ratio 0.9; Prothrombin Time 10.5 Seconds (9.0-12.0)
--- NOTE | 2018-04-05 21:33 | XRay Report ---
XR chest 1V portable CLINICAL HISTORY: Sepsis COMPARISON STUDY: 11/29/2017 FINDINGS: The cardiac and mediastinal contours remain stable. There is mild central vascular prominen ce. There are persistent left basilar airspace opacities. There is slight interval increase in markin gs in the right infrahilar region.[ There are no large pleural effusions. IMPRESSION: 1. Persistent left medial basilar airspace opacities. Minimal right basilar airspace opacities 2. Mild vascular prominence. An element of mild pulmonary vascular congestion cannot be excluded Electronically signed by: Shiraz Camacho M.D. 04/05/2018 9:32 PM
[2018-04-05 21:37] LABS: Albumin Level 3.6 gm/dl (3.4-5.0); BUN Creatinine Ratio 12.3 (10-20); Calcium 8.5 mg/dl (8.5-10.1); Creatinine Clr Calc Pharmacy 63.1 ml/min; Est GFR (African American) 58.3; Est GFR (Non-African American) 50.3; Potassium 3.9 mmol/L (3.5-5.1)
[2018-04-05 21:40] LABS: Bilirubin,Total 0.6 mg/dl (0.2-1); Globulin 3.5 gm/dl (2.5-4.0); Total Protein 7.1 gm/dl (6.4-8.2)
[2018-04-05] MEDS ORDERED: PIPERACILL/TAZOBAC CONSULT ACTIVE PRN (22:04)
[2018-04-05] MEDS ORDERED: PIPERACILLIN/TAZOBACTAM 4.5 GM/120 ML BAG IV ONE (22:04)
--- NOTE | 2018-04-06 00:23 | History & Physical Report ---
Date of Service April 06, 2018 Assessment & Plan (1) Pneumonia: Mr. Mcarthur is a very pleasant 58 year old gentleman with a past medical history of ciliary dyskinesia, bronchiectasis, hypothyroidism, history of avascular necrosis of bilateral hips, depression, BPH, GERD, and IBS who present s to the emergency department due to fever, cough and trouble breathing. He received an hour long neb, 125mg of solumedrol, 2L NS bolus and a dose of zosyn in the ED. -admit to med/surg with telemetry monitoring -CXR showed persistent left medial basilar airspace opacity & minimal right basilar opacity. -prior CTA on 03/25 -> LLL consolidation -pt meets sepsis criteria w/tachycardia on arrival & elevated WCC (although pt is on steroids) w/pulmonary source of infection -bcx drawn x2 and pending -pt just completed course of levaquin -> start zosyn and vancomycin for broad spectrum coverage -continue IV steroids, 60mg q8h of solumedrol -pulmonary consulted - pt may need bronchoscopy during hospital stay -BP low upon presentation, improved w/2L bolus. Continue LR at 100 mls/hr x2 bags -POC lactic acid elevated at 2.79, will repeat in 6hrs -nebs (budesonide bid and duonebs ordered), as well as pulmonary toilet -continue home mucinex, dornase nicholas and montelukast Hypothyroidism -continue home synthroid BREONNA -nocturnal CPAP ordered GERD -continue home ranitidine. Change home omeprazole to pantoprazole Avascular Necrosis of B/L Hips -stable, following with Dr. Clifford who plans to do a hip replacement at some point BPH -hold home tamsulosin given hypotension -continue finasteride Depression/Anxiety -continue bupropion and clonazepam prn Code status: FULL, as per discussion with patient DVT Prophylaxis: SCDs for now in case patient goes for bronchoscopy tomorrow. Disposition: admit to med/surg with telemetry monitoring F/E/N: NPO in case of intervention. No electrolyte abnormalities noted. LR x2 bags at 100mls/hr ordered. (2) Ciliary dyskinesia: (3) GERD (gastroesophageal reflux disease): (4) Hypothyroidism: (5) Depression: (6) BPH (benign prostatic hyperplasia): (7) Avascular necrosis of femoral head: (8) BREONNA (obstructive sleep apnea): (9) Bronchiectasis: History of Present Illness Primary Care Provider: Jose Florez Mr. Mcarthur is a very pleasant 58 year old gentleman with a past medical history ciliary dyskinesia, bronchiectasis, hypothyroidism, history of avascular necrosis of bilateral hips, depression, BPH, GERD, and IBS who presents to the emergency department due to fever, cough and trouble breathing. He also notes left sided pleuritic chest and abdominal pain, underneath his left ribcage. He states that his cough is minimally productive, without the presence of blood. He was seen by Dr. Angela in clinic last week and diagnosed with a left lower lobe pneumonia. He was treated with 7 days of Levaquin, as well as steroids. He saw Dr. Angela again in the office yesterday, who tapered down his steroids from 20 mg to 10 mg due to improvement in his symptoms, and was in the process of trying to arrange a bronchoscopy. The patient states that he felt improved after his course of antibiotics, however yesterday afternoon, began to develop fever, generalized body aches, and noted that he was hypoxic on his home pulse ox, down to 81%. He states that he administered nebulizers at home and his oxygen saturations improved to 94%. He notes that he usually runs in the high 90s and does not use oxygen at home. With regards to his pulmonary condition, he is seen both here and at [facility]. He is currently undergoing genetic testing for primary ciliary dyskinesia. He was adopted, and is unsure of her family history regarding pulmonary problems. His symptoms started approximately 10 years ago, and he states that his pulmonary function tests have been stable over the past 8 years. He notes that at baseline, he has a occasional dry cough. He is prone to pneumonias. He generally has a bronch every 4 months, and they are either done at [facility] or here at [facility]. He denies a history of MD or any cardiac problems, and states he had a heart cath done here one year ago which was normal. He is a non-smoker, and denies the use of alcohol or recreational drugs. Allergies Allergy/AdvReac Type Severity Reaction Status Date / Time Sulfa (Sulfonamide Allergy Mild "SULFA Verified 04/05/18 20:58 Antibiotics) DRUGS": RASH, HOT FLASHES adhesive Allergy Unknown PLASTIC Verified 04/05/18 20:58 CLEAR TAPE-SKIN TURNS RED,ITCHING mold Allergy Unknown COUGH Verified 04/05/18 20:58 ragweed pollen Allergy Unknown SINUS Verified 04/05/18 20:58 DRAINAGE,STUFFINESS-TAKING ALLERGY SHOTS Netqhqk-Puf-Ron Reductase Allergy Unknown HOT Verified 04/05/18 20:58 Inhibitor FLASHES, RASH Home Medications Home Medications Medication Instructions Recorded Confirmed Type budesonide [Pulmicort] 2 ml INHALATION BID PRN 11/29/17 04/05/18 History bupropion HCl 300 mg PO QAM 11/29/17 04/05/18 History clonazepam 1 mg PO TID PRN 11/29/17 04/05/18 History docusate sodium [Colace] 100 mg PO DAILY 11/29/17 04/05/18 History dornase nicholas [Pulmozyme] 0.5 ml INHALATION DAILY 11/29/17 04/05/18 History finasteride 5 mg PO DAILY 11/29/17 04/05/18 History guaifenesin [Mucinex] 1,200 mg PO Q12H 11/29/17 04/05/18 History ipratropium-albuterol 3 ml INHALATION Q4H PRN 11/29/17 04/05/18 History levothyroxine 50 mcg PO DAILY 11/29/17 04/05/18 History montelukast 10 mg PO DAILY 11/29/17 04/05/18 History nitroglycerin 0.4 mg SUBLINGUAL DIRECTED PRN 11/29/17 04/05/18 History omeprazole 20 mg PO BID 11/29/17 04/05/18 History ondansetron HCl [Zofran] 4 mg PO Q8H PRN 11/29/17 04/05/18 History polyethylene glycol 3350 17 g PO DAILY PRN 11/29/17 04/05/18 History ranitidine HCl 300 mg PO DAILY 11/29/17 04/05/18 History sodium chloride 1 vial INHALATION BID PRN 11/29/17 04/05/18 History tamsulosin 0.4 mg PO DAILY 11/29/17 04/05/18 History Al hyd-Mg tr-alg ac-sod bicarb 1 tab PO DIRECTED PRN 04/05/18 04/05/18 History [Gaviscon] albuterol sulfate [Ventolin HFA] 2 puff INHALATION QID PRN 04/05/18 04/05/18 History ferrous gluconate 236 mg PO DAILY 04/05/18 04/05/18 History lactobacillus combination no.4 3,000 mmu cells PO DAILY 04/05/18 04/05/18 History [Probiotic] dgjzywon-ben-CN-lycopen-lutein 1 tab PO DAILY 04/05/18 04/05/18 History [Complete Multi 50+] prednisone See Rx Instructions .ROUTE .COMPLEX 04/05/18 04/05/18 History Past Med/Surg History Medical History Bronchiectasis without acute exacerbation (Chronic 02/02/11) COPD exacerbation (Chronic) Fall (Resolved) Head contusion (Acute) Hemorrhoids Ileus Neck strain (Acute) Pneumonia BPH (benign prostatic hyperplasia) (Acute) Alexandra esophagus (Acute) Chronic constipation (Acute) Ciliary motility disorder (Acute) GERD (gastroesophageal reflux disease) (Acute) Hyperlipidemia (Acute) IBS (irritable bowel syndrome) (Acute) BREONNA on CPAP (Acute) Surgical History History of bilateral cataract extraction (Acute) History of bronchoscopy (Acute) History of cholecystectomy (Acute) History of fundoplication (Acute) 2009 History of sinus surgery (Acute) x3 Social History Preferred Language: Yakut Communication Ability: Effective Printing Bindery Assistant Required: Yes Beliefs That Will Affect Care: None Current Living Situation: Family Other Information That Helps Us Care for You: No Feels Safe at Home: Yes and No Safety Concerns: Feels Safe At This Time Smoking Status: Never smoker Hx Alcohol Use: No Hx Substance Use: No Review of Systems Constitutional: + fever, + chills, + body aches, + fatigue, + weakness and + anorexia Ear, Nose, Mouth, Throat: + hearing loss (left ear worse) and + dry mouth Respiratory: + cough and + chest congestion; no dyspnea and no hemoptysis Cardiovascular: no chest pain, no palpitations, no syncope, no edema and no calf pain Gastrointestinal: + abdominal pain (left sided, below ribs); no nausea, no vomiting and no change in bowel habits Genitourinary (Male): no dysuria, no urinary frequency and no urinary hesitancy Integumentary: no rash and no lesions Physical Exam Vital Signs (Past 24 Hours): Last Vital Signs Temp 37.2 C 04/05/18 23:18 Pulse 115 H 04/05/18 22:33 Resp 18 04/05/18 22:33 BP 97/52 L 04/05/18 22:33 Pulse Ox 95 04/05/18 22:33 Constitutional: well developed, well nourished, cooperative and comfortable; no acute distress Eyes: PERRL, conjunctivae normal, anicteric sclerae Respiratory: Auscultation: + diminished lung sounds, + crackles, + rhonchi (worst on left side) and + wheezes (scattered expiratory wheezing) Cardiovascular: RRR, no murmur, no edema Extremities: no calf tenderness and no pedal edema Chest (Breasts): Additional Comments: tenderness to palpation across sternum & 2nd, 3rd and 4th left ribs Gastrointestinal (Abdomen): Percussion/Palpation: + abdomen tender (left side, just below ribs) and abdomen soft; no guarding and abdomen not rigid Results & Data Laboratory Results Laboratory Results - last 24 hr 04/05/18 04/05/18 04/05/18 20:25 21:02 21:02 WBC 20.14 H RBC 5.09 Hgb 15.0 Hct 45.3 MCV 89.0 MCH 29.5 MCHC 33.1 RDW Std Deviation 47.3 H RDW Coeff of Aditya 14.6 H Plt Count 262 MPV 8.7 Immature Gran % (Auto) 0.3 Neut % (Auto) 92.1 Lymph % (Auto) 4.1 [place] % (Auto) 3.3 Eos % (Auto) 0.1 Baso % (Auto) 0.1 Immature Gran # (Auto) 0.07 H Neut # (Auto) 18.52 H Lymph # (Auto) 0.83 L [place] # (Auto) 0.67 H Eos # (Auto) 0.03 Baso # (Auto) 0.02 PT 10.5 INR 1.0 APTT 25.0 PTT Ratio 0.9 Sodium Potassium Chloride Carbon Dioxide Anion Gap BUN Creatinine Est Cr Clr Drug Dosing Est GFR ( Amer) Est GFR (Non-Af Amer) BUN/Creatinine Ratio Glucose POC Lactic Acid Bill Calcium Total Bilirubin AST ALT Alkaline Phosphatase POC Troponin I Total Protein Albumin Globulin Albumin/Globulin Ratio Influenza Type A Ag Neg for Influ A Influenza Type B Ag Neg for Influ B 04/05/18 04/05/18 04/05/18 21:02 21:18 21:22 WBC RBC Hgb Hct MCV MCH MCHC RDW Std Deviation RDW Coeff of Aditya Plt Count MPV Immature Gran % (Auto) Neut % (Auto) Lymph % (Auto) [place] % (Auto) Eos % (Auto) Baso % (Auto) Immature Gran # (Auto) Neut # (Auto) Lymph # (Auto) [place] # (Auto) Eos # (Auto) Baso # (Auto) PT INR APTT PTT Ratio Sodium 136 Potassium 3.9 Chloride 105 Carbon Dioxide 25 Anion Gap 7.0 BUN 18 Creatinine 1.49 H Est Cr Clr Drug Dosing 63.1 Est GFR ( Amer) 58.3 Est GFR (Non-Af Amer) 50.3 BUN/Creatinine Ratio 12.3 Glucose 82 POC Lactic Acid Bill 2.79 H Calcium 8.5 Total Bilirubin 0.6 AST 10 L ALT 27 Alkaline Phosphatase 83 POC Troponin I < 0.03 Total Protein 7.1 Albumin 3.6 Globulin 3.5 Albumin/Globulin Ratio 1.0 Influenza Type A Ag Influenza Type B Ag Supervising Physician Co-Signing Physician Notes Pt seen/examined in conjunction with the medical technician Mandy Reyes. Orders and plan of admission fromulated with resident. 58 y/o M Hx ciliary dyskinesia, bronchiectasis, hypothyroidism, BL avascular necrosis hips, depression, BPH, GERD, IBS - presents with fever, cough SOB. Presenting with cough, SOB, fever. The pt often requires a bronchoscopy when he develops PNM due to plugging and an inability to clear secretions. OE AAO x 3 S1, 2 R CTA - reduced air at bases No CCE No deficits P: Pt placed on Zosyn and Vanc as he recently completed a course of Levaquin - nebs and an 02 protocol provided. We will consult his pulmonaologist. Resident Activity Tracking Resident Involvement: Resident Care Provided Care Provided: Adult Hospital Medicine (1) Pneumonia Laterality: left Lung location: unspecified part of lung Pneumonia type: due to unspecified organism Qualified Code(s): J18.9 - Pneumonia, unspecified organism
[2018-04-06] MEDS ORDERED: MAGNESIUM HYDROXIDE SUSP 30 ML UDC PO PRN (01:18)
[2018-04-06] MEDS ORDERED: VANCOMYCIN CONSULT ACTIVE PRN (01:18)
[2018-04-06] MEDS ORDERED: VANCOMYCIN HCL 2,000 MG in SODIUM CHLORIDE 0.9% 500 ML IV ONE (01:30)
[2018-04-06] MEDS: ACETAMINOPHEN 325 MG TAB PO PRN ×2 (01:43→20:02)
[2018-04-06] MEDS: clonazePAM 1 MG TAB PO PRN ×2 (01:43→18:24)
[2018-04-06] MEDS: LACTATED RINGER'S 1,000 ML IV SCH ×2 (01:45→11:24)
[2018-04-06 05:38] LABS: Color Urine Yellow
[2018-04-06 06:03] LABS: Appearance Urine Clear (Clear); Bacteria Urine Automated Negative (Negative); Bilirubin Urine Negative (Negative); Blood Urine Negative (Negative); Cast Urine Automated 0 /lpf (0-5); Epithelial Cell Urine Auto 0-5 /lpf (0-5); Glucose Urine UA Negative (Negative); Ketones Urine Negative (Negative); Leukocyte Esterase Urine Negative (Negative); Nitrite Urine Negative (Negative); Protein Urine Negative (Negative); RBC Urine Automated 0-4 /hpf (0-4); Specific Gravity Urine 1.007 (1.000-1.030); Urobilinogen Urine Negative (Negative); WBC Urine Automated 0 /hpf (0-5)
[2018-04-06] MEDS: LEVOTHYROXINE SODIUM 50 MCG TABLET PO SCH (06:35)
[2018-04-06] MEDS: PIPERACILLIN/TAZOBACTAM 3.375 GM in DEXTROSE 5% 100 ML IV SCH ×3 (06:35→21:32)
[2018-04-06] MEDS: methylPREDNISolone 60 MG in SYRINGE 0 ML IV SCH ×3 (06:36→21:30)
[2018-04-06 06:54] LABS: Hematocrit (blood only) 41.7 % (42-52); Hemoglobin 13.7 g/dL (14.0-18.0); Mean Corpuscular Hgb Conc 32.9 g/dL (32-36); Mean Corpuscular Volume 90.3 fL (80-100); Mean Platelet Volume 8.5 fL (7.4-10.4); Platelet Count 244 K/uL (130-400); RDW Coefficient of Variation 14.9 % (11.5-14.5); RDW Standard Deviation 48.7 fL (36.4-46.3); Red Blood Count 4.62 M/uL (4.7-6.1); White Blood Count 22.37 K/uL (4.8-10.8)
[2018-04-06] MEDS: BUDESONIDE 0.5 MG/2 ML VIAL (PULMICORT) NEB SCH ×2 (07:06→19:30)
[2018-04-06] MEDS: DORNASE ALFA 2.5 ML AMP INH SCH (07:06)
[2018-04-06] MEDS: ALBUT/IPRATROP 3MG/0.5MG NEB 3 ML VIAL INH PRN ×2 (07:06→22:01)
[2018-04-06 07:20] LABS: Basophils # (auto) 0.01 K/uL (0-0.2); Immature Granulocytes # (auto) 0.08 K/uL (0.00-0.02); Immature Granulocytes % (auto) 0.4 %; Lymphocytes % (auto) 2.7 %; Monocytes # (auto) 0.35 K/uL (0.11-0.59); Monocytes % (auto) 1.6 %; Neutrophils # (auto) 21.33 K/uL (1.4-6.5); Neutrophils % (auto) 95.3 %
[2018-04-06 07:29] LABS: Calcium 7.7 mg/dl (8.5-10.1); Creatinine Clr Calc Pharmacy 61.5 ml/min; Est GFR (African American) 56.9; Est GFR (Non-African American) 49.1; Potassium 4.2 mmol/L (3.5-5.1)
[2018-04-06] MEDS: PANTOprazole 40 MG TAB PO SCH ×2 (08:05→20:04)
[2018-04-06] MEDS: CEROVITE ADV FORMULA TAB PO SCH (08:05)
[2018-04-06] MEDS: FINASTERIDE 5 MG TAB PO SCH (08:06)
[2018-04-06] MEDS: BuPROPion XL 300 MG TABCR PO SCH (08:06)
[2018-04-06] MEDS: DOCUSATE SODIUM 100 MG CAP PO SCH (08:06)
[2018-04-06] MEDS: MONTELUKAST SODIUM 10 MG TABLET PO SCH (08:06)
[2018-04-06] MEDS: FERROUS GLUCONATE 324 MG TAB PO SCH (08:06)
[2018-04-06] MEDS: guaiFENesin 600 MG TABCR PO SCH ×2 (08:06→20:03)
--- NOTE | 2018-04-06 10:04 | Pharmacy Report ---
Pharmacy Abx Initial Consult - Date of Service April 06, 2018 - Pharmacy Dosing Scope Date of Consult: 04/06/18 Consultation requested by: Dr. Reyes Pharmacy is consulted to initiate Vancomycin/Zosyn IV/PO dosing therapy, order appropriate labs and adjust drug dose/frequency. - Subjective The patient is a 58 year old M admitted on 04/06/18 00:12. - Objective Height: 6 ft Weight: 93.9 kg Vital Signs (Past 12hrs): Vital Signs Temp Pulse Resp BP Pulse Ox 04/06/18 07:28 36.4 C L 74 18 114/68 04/06/18 07:07 75 16 98 04/06/18 01:21 36.8 C 97 H 96 04/06/18 00:55 19 118/77 97 04/05/18 23:18 37.2 C 04/05/18 22:33 115 H 18 97/52 L 95 Lab Results (24hrs): Laboratory Tests (24 Hours) 04/06/18 04/06/18 04/05/18 06:46 06:46 21:02 WBC 22.37 H Neut # (Auto) 21.33 H Creatinine 1.52 H 1.49 H Est Cr Clr Drug Dosing 61.5 63.1 04/05/18 21:02 WBC 20.14 H Neut # (Auto) 18.52 H Creatinine Est Cr Clr Drug Dosing Micro Results: 04/05/18 21:11 Blood Culture - Pending Blood 04/05/18 21:02 Blood Culture - Pending Blood - Risk Factors for Resistance * Antimicrobial use within the last 90 days: Levaquin 500mg x 7d on 03/25/18 and in 01/25. - Assessment & Plan Assessment 58 year old M with history of ciliary dyskinesia and bronchiectasis. He is prone to pneumonias and generally has a bronch every 4 months. * Baseline Scr ~1.3, currently slightly elevated * Blood cultures pending * Flu a/b negative * Just completed a 7 day course of levaquin 500mg daily as well as a steroid burst. Plan Vancomycin and zosyn for treatment of HCAP. Vancomycin IV * Estimated PK Parameters: Vd 0.7 L/kg, Isacc 0.056 hr-1, t1/2 12.4 hr * Loading dose: 2000 mg (21 mg/kg) * Maintenance dose: 1500 mg IV (16 mg/kg) every 16 hours * Goal trough level for HCAP : 15 to 20 mcg/mL * Trough level ordered for 04/08/18 @0930 Piperacillin/tazobactam * 4.5 g bolus administered over 30 minutes, then 3.375 g IV extended infusion every 8 hours for CrCl greater than 20 mL/min Pharmacy will continue to follow and will adjust dose/frequency as necessary. Thank you.
[2018-04-06] MEDS: VANCOMYCIN HCL 1,500 MG in SODIUM CHLORIDE 0.9% 500 ML IV SCH (10:18)
--- NOTE | 2018-04-06 10:34 | Consultation Report ---
DATE OF CONSULTATION: 04/06/2018 PULMONARY CONSULTATION TIME: 9:30 a.m. REPORT OF CONSULTATION: The patient was seen in room 286, bed 2. HISTORY OF PRESENT ILLNESS: He is a 58-year-old male with a history of bronchiectasis and ciliary dyskinesia. He has had recurring breathing problems dating back to approximately 10 years ago. He has had recurring infections with numerous different bacteria being cultured out of bronchoscopy. He has been getting bronchoscopy several times per year. On one occasion, Mycobacterium avium was cultured, but he was not treated. That has not come up again in a culture. The patient was not feeling well and was seen in the pulmonary office on 03/25/2018. A CAT scan of the chest was done. This showed evidence of left lower lobe consolidation. There was also mediastinal and hilar adenopathy. He was given 1 week of levofloxacin. The patient saw Dr. Angela in the office on April 04 which is just 2 days ago. He was actually feeling better at that time. His prednisone dose was decreased. Yesterday, April 05, the patient states that in the late afternoon, all of a sudden he felt terrible. He had chills. He checked his temperature and it was 102.5. He felt very short of breath. He presented to the Emergency Room with these complaints. At present, I am unable to access the ER records apparently due to a computer downtime last evening. He was subsequently admitted. He is feeling somewhat better this morning. He states yesterday he had some pain in the left chest that was somewhat pleuritic in nature. That pain has resolved. He described the pain as stabbing. He is not expectorating any phlegm. The patient indicates that Dr. Angela had been planning to do bronchoscopy in the near future. At home, the patient uses a vibration vest and he uses a flutter valve. Apparently, neither one of these was started last evening. In addition to the above problems, he does have obstructive sleep apnea and he wears CPAP nightly at 9 cm. CPAP was ordered for him last evening. PAST SURGICAL HISTORY: 1. Brittany fundoplication. 2. Sinus surgery x3. 3. Cataract surgery bilaterally. 4. Common duct exploration. 5. Hernia repair. 6. Vasectomy. PAST MEDICAL HISTORY: 1. Bronchiectasis. 2. Ciliary dyskinesia. 3. Sleep apnea. 4. Recurrent sinusitis. 5. Reflux. 6. Alexandra's esophagus. 7. Hiatal hernia. 8. Pancreatitis. 9. Post-bronchoscopy ileus. 10. BPH. 11. Kidney stones. 12. Avascular necrosis of both hips. 13. Depression. 14. Irritable bowel syndrome. 15. Hypothyroidism. SOCIAL HISTORY: Tobacco: He has never smoked. He did, however, use smokeless tobacco for many years and quit 9 years ago. ETOH - none. 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 ALLERGIES: 1. SULFA. 2. STATINS. 3. ADHESIVES. 4. MOLD. 5. RAGWEED. FAMILY HISTORY: Positive for kidney stones. REVIEW OF SYSTEMS: Energy level is low. The patient has some degree of chronic GI distress related to irritable bowel. He denies headache or dizziness. Denies any nausea at present. The remainder of the review of systems is negative except as noted in the history of present illness. CURRENT MEDICATIONS: Include: 1. Methylprednisolone. 2. Zosyn. 3. Vancomycin. 4. Dornase nicholas. 5. Guaifenesin. 6. Budesonide by nebulizer b.i.d. 7. Montelukast. 8. Pantoprazole. 9. Ranitidine. 10. Neb treatments p.r.n. 11. Clonazepam p.r.n. 12. Bupropion. 13. Finasteride. 14. Levothyroxine. 15. Docusate. PHYSICAL EXAMINATION: GENERAL: The patient is a 58-year-old male who was cooperative, alert and oriented. He was in no distress at rest. He had a mild cough during the exam. VITAL SIGNS: Current temperature 36.4. Maximum temperature noted since admission 37.7. Cardiac rate was 74 per minute. Rhythm regular. Blood pressure 114/68. HEENT: Eye exam showed implants bilaterally. Nares were clear. Mouth exam shows a Mallampati grade 3 pharynx. There is marked crowding. Teeth are in poor repair. NECK: Palpation of the neck reveals no lymph nodes. LUNGS: Auscultation of the lung linda revealed decreased breath sounds in the left lower lung field compared with the right lower lung field. Few scattered rhonchi were heard. Respiratory rate 18. Saturation 98% on room air. ABDOMEN: Soft. Bowel sounds are normal. There was no tenderness to palpation or masses. EXTREMITIES: Showed no cyanosis, clubbing or edema. LABORATORY DATA: Chest x-ray done last evening shows persistent left medial basal airspace opacity with minimal right basilar opacity. White count is elevated at 22.37. Hemoglobin 13.7. Platelets 244,000. Coags are normal. Electrolytes show sodium 141, potassium 4.2, chloride 112, bicarbonate 21. BUN is 18 with creatinine 1.52. His creatinine has been rising compared with March 25 when it was 1.39. Lactate is elevated at 3.8 this morning. Last evening, lactic acid was 2.79. Liver functions were normal. Troponin was negative. Urinalysis was negative. Flu test was negative. Blood cultures are pending. EKG showed a sinus tachycardia with a rate of 113. There is a left axis deviation. There is delayed R-wave progression across the precordium. There was 1 supraventricular premature contraction noted. IMPRESSION: 1. Left lower lobe pneumonia. 2. Bronchiectasis. 3. Ciliary dyskinesia. 4. Obstructive sleep apnea. COMMENTS AND RECOMMENDATIONS: The patient is clinically improved this morning with the measures that have been taken. His neb treatments are ordered just p.r.n. We need to make sure the patient understands that they are just p.r.n. I have contacted Dr. Angela about his insight into the patient and what followup he had planned. He is trying to make arrangements to see if he can bronchoscope the patient early tomorrow morning. Hopefully, this schedule can be arranged in this regard. Thank you for asking me to assist in his care.
--- NOTE | 2018-04-06 12:09 | Hospitalist Progress Note ---
Date of Service April 06, 2018 Assessment & Plan (1) Pneumonia: Mr. Mcarthur is a very pleasant 58 year old gentleman with a past medical history of ciliary dyskinesia, bronchiectasis, hypothyroidism, history of avascular necrosis of bilateral hips, depression, BPH, GERD, and IBS who present s to the emergency department due to fever, cough and trouble breathing. He received an hour long neb, 125mg of solumedrol, 2L NS bolus and a dose of zosyn in the ED. Flu swab negative -CXR showed persistent left medial basilar airspace opacity & minimal right basilar opacity. With ciliary dyskinesia and bronchiectasis--> cannot clear mucus, gets frequent infections -prior CTA on 03/25 -> LLL consolidation--> was treated with Levaquin and prednisone the week prior to admission and felt better, then acutely worsened -pt meets sepsis criteria w/tachycardia on arrival & elevated WCC (although pt is on steroids) w/pulmonary source of infection -bcx drawn x2 and NGTD -follow CBC-WBC count higher at 22k could be from steroids -continue zosyn and vancomycin for broad spectrum coverage and await bronchoscopy cultures -continue IV steroids, 60mg q8h of solumedrol -pulmonary consulted - will likely need bronchoscopy tomorrow -BP low upon presentation, improved w/2L bolus. Continue LR at 100 mls/hr x2 bags -POC lactic acid elevated at 2.79, repeat today higher at 3.8, repeat again down to 2.7 -continue nebs (budesonide bid and duonebs ordered), as well as pulmonary toilet -continue home mucinex, dornase nicholas and montelukast (2) Bronchiectasis: as above, secondary to ciliary dyskinesia Follows with Pulm at [facility], has bronchs q6-8 weeks Reports most recent bronch with MAC but has not been addressed yet by his Pulm (3) Sepsis: as above -continue IVFs, abx, follow BCxs (4) Ciliary dyskinesia: as above Has had genetic testing at [facility] (5) GERD (gastroesophageal reflux disease): -continue home ranitidine. Continue pantoprazole (6) Hypothyroidism: Hypothyroidism -continue home synthroid (7) Depression: Depression/Anxiety -continue bupropion and clonazepam prn (8) BPH (benign prostatic hyperplasia): BPH -ok to retstart tamsulosin as hypotension reoslved -continue finasteride (9) Avascular necrosis of femoral head: Avascular Necrosis of B/L Hips -stable, following with Dr. Clifford who plans to do a hip replacement at some point (10) BREONNA (obstructive sleep apnea): BREONNA -nocturnal CPAP ordered (11) DVT prophylaxis: Code status: FULL, as per discussion with patient DVT Prophylaxis: SCDs for now in case patient goes for bronchoscopy tomorrow. Disposition: continue telemetry monitoring Subjective [place] better. Pain in left side of ribs is improved, afebrile since being here. Not lightheaded, not SOB. But feels he needs a bronchoscopy Discussed case with Pulm Review of Systems All systems reviewed & are unremarkable except as noted in HPI & below Physical Exam Vital Signs (Past 24 Hours): Last Vital Signs Temp 36.4 C L 04/06/18 07:28 Pulse 74 04/06/18 07:28 Resp 18 04/06/18 07:28 BP 114/68 04/06/18 07:28 Pulse Ox 98 04/06/18 07:07 Constitutional: WD/WN, vitals as above Eyes: PERRL, conjunctivae normal, anicteric sclerae ENMT: external ear and nose normal, oropharynx normal Neck: trachea midline, no thyromegaly Respiratory: normal respiratory effort Auscultation: + crackles (at left base); no rhonchi and no wheezes Cardiovascular: RRR, no murmur, no edema Gastrointestinal (Abdomen): normal bowel sounds, soft, nontender, no hepatosplenomegaly Musculoskeletal: Extremities: extremities normal to inspection; no cyanosis and no clubbing Skin: no rashes, warm and dry Neurologic: moves all extremities and awake; no focal motor deficits Psychiatric: A+Ox3, euthymic affect Results & Data Laboratory Results 04/06/18 04/06/18 04/06/18 Range/Units 06:46 06:46 06:46 WBC 22.37 H (4.8-10.8) K/uL RBC 4.62 L (4.7-6.1) M/uL Hgb 13.7 L (14.0-18.0) g/dL Hct 41.7 L (42-52) % MCV 90.3 (80-100) fL MCH 29.7 (25-34) pg MCHC 32.9 (32-36) g/dL RDW Std Deviation 48.7 H (36.4-46.3) fL RDW Coeff of Aditya 14.9 H (11.5-14.5) % Plt Count 244 (130-400) K/uL MPV 8.5 (7.4-10.4) fL Immature Gran % (Auto) 0.4 % Neut % (Auto) 95.3 % Lymph % (Auto) 2.7 % [place] % (Auto) 1.6 % Eos % (Auto) 0.0 % Baso % (Auto) 0.0 % Immature Gran # (Auto) 0.08 H (0.00-0.02) K/uL Neut # (Auto) 21.33 H (1.4-6.5) K/uL Lymph # (Auto) 0.60 L (1.2-3.4) K/uL [place] # (Auto) 0.35 (0.11-0.59) K/uL Eos # (Auto) 0.00 (0-0.5) K/uL Baso # (Auto) 0.01 (0-0.2) K/uL PT (9.0-12.0) Seconds INR (0.9-1.1) APTT (21.0-31.0) Seconds PTT Ratio Sodium 141 (136-145) mmol/L Potassium 4.2 (3.5-5.1) mmol/L Chloride 112 H (98-107) mmol/L Carbon Dioxide 21 (21-32) mmol/L Anion Gap 8.0 (3-11) BUN 18 (7-18) mg/dl Creatinine 1.52 H (0.6-1.4) mg/dl Est Cr Clr Drug Dosing 61.5 ml/min Est GFR ( Amer) 56.9 Est GFR (Non-Af Amer) 49.1 BUN/Creatinine Ratio 12.0 (10-20) Glucose 146 H (70-99) mg/dl POC Lactic Acid Bill (0.90-1.70) mmol/L Lactate 3.8 H* (0.4-2.0) mmol/L Calcium 7.7 L (8.5-10.1) mg/dl Total Bilirubin (0.2-1) mg/dl AST (15-37) U/L ALT (12-78) U/L Alkaline Phosphatase (45-117) U/L POC Troponin I (0-0.045) ng/ml Total Protein (6.4-8.2) gm/dl Albumin (3.4-5.0) gm/dl Globulin (2.5-4.0) gm/dl Albumin/Globulin Ratio (0.9-2) Urine Color Urine Appearance (Clear) Urine pH (4.5-7.5) Ur Specific [place] (1.000-1.030) Urine Protein (Negative) Urine Glucose (UA) (Negative) Urine Ketones (Negative) Urine Blood (Negative) Urine Nitrite (Negative) Urine Bilirubin (Negative) Urine Urobilinogen (Negative) Ur Leukocyte Esterase (Negative) Urine WBC (Auto) (0-5) /hpf Urine RBC (Auto) (0-4) /hpf U Hyaline Cast (Auto) (0-5) /lpf U Epithel Cells (Auto) (0-5) /lpf Urine Bacteria (Auto) (Negative) Influenza Type A Ag (Neg) Influenza Type B Ag (Neg) 04/06/18 04/05/18 04/05/18 Range/Units 02:46 21:22 21:18 WBC (4.8-10.8) K/uL RBC (4.7-6.1) M/uL Hgb (14.0-18.0) g/dL Hct (42-52) % MCV (80-100) fL MCH (25-34) pg MCHC (32-36) g/dL RDW Std Deviation (36.4-46.3) fL RDW Coeff of Aditya (11.5-14.5) % Plt Count (130-400) K/uL MPV (7.4-10.4) fL Immature Gran % (Auto) % Neut % (Auto) % Lymph % (Auto) % [place] % (Auto) % Eos % (Auto) % Baso % (Auto) % Immature Gran # (Auto) (0.00-0.02) K/uL Neut # (Auto) (1.4-6.5) K/uL Lymph # (Auto) (1.2-3.4) K/uL [place] # (Auto) (0.11-0.59) K/uL Eos # (Auto) (0-0.5) K/uL Baso # (Auto) (0-0.2) K/uL PT (9.0-12.0) Seconds INR (0.9-1.1) APTT (21.0-31.0) Seconds PTT Ratio Sodium (136-145) mmol/L Potassium (3.5-5.1) mmol/L Chloride (98-107) mmol/L Carbon Dioxide (21-32) mmol/L Anion Gap (3-11) BUN (7-18) mg/dl Creatinine (0.6-1.4) mg/dl Est Cr Clr Drug Dosing ml/min Est GFR ( Amer) Est GFR (Non-Af Amer) BUN/Creatinine Ratio (10-20) Glucose (70-99) mg/dl POC Lactic Acid Bill 2.79 H (0.90-1.70) mmol/L Lactate (0.4-2.0) mmol/L Calcium (8.5-10.1) mg/dl Total Bilirubin (0.2-1) mg/dl AST (15-37) U/L ALT (12-78) U/L Alkaline Phosphatase (45-117) U/L POC Troponin I < 0.03 (0-0.045) ng/ml Total Protein (6.4-8.2) gm/dl Albumin (3.4-5.0) gm/dl Globulin (2.5-4.0) gm/dl Albumin/Globulin Ratio (0.9-2) Urine Color Yellow Urine Appearance Clear (Clear) Urine pH 7.0 (4.5-7.5) Ur Specific [place] 1.007 (1.000-1.030) Urine Protein Negative (Negative) Urine Glucose (UA) Negative (Negative) Urine Ketones Negative (Negative) Urine Blood Negative (Negative) Urine Nitrite Negative (Negative) Urine Bilirubin Negative (Negative) Urine Urobilinogen Negative (Negative) Ur Leukocyte Esterase Negative (Negative) Urine WBC (Auto) 0 (0-5) /hpf Urine RBC (Auto) 0-4 (0-4) /hpf U Hyaline Cast (Auto) 0 (0-5) /lpf U Epithel Cells (Auto) 0-5 (0-5) /lpf Urine Bacteria (Auto) Negative (Negative) Influenza Type A Ag (Neg) Influenza Type B Ag (Neg) 04/05/18 04/05/18 04/05/18 Range/Units 21:02 21:02 21:02 WBC 20.14 H (4.8-10.8) K/uL RBC 5.09 (4.7-6.1) M/uL Hgb 15.0 (14.0-18.0) g/dL Hct 45.3 (42-52) % MCV 89.0 (80-100) fL MCH 29.5 (25-34) pg MCHC 33.1 (32-36) g/dL RDW Std Deviation 47.3 H (36.4-46.3) fL RDW Coeff of Aditya 14.6 H (11.5-14.5) % Plt Count 262 (130-400) K/uL MPV 8.7 (7.4-10.4) fL Immature Gran % (Auto) 0.3 % Neut % (Auto) 92.1 % Lymph % (Auto) 4.1 % [place] % (Auto) 3.3 % Eos % (Auto) 0.1 % Baso % (Auto) 0.1 % Immature Gran # (Auto) 0.07 H (0.00-0.02) K/uL Neut # (Auto) 18.52 H (1.4-6.5) K/uL Lymph # (Auto) 0.83 L (1.2-3.4) K/uL [place] # (Auto) 0.67 H (0.11-0.59) K/uL Eos # (Auto) 0.03 (0-0.5) K/uL Baso # (Auto) 0.02 (0-0.2) K/uL PT 10.5 (9.0-12.0) Seconds INR 1.0 (0.9-1.1) APTT 25.0 (21.0-31.0) Seconds PTT Ratio 0.9 Sodium 136 (136-145) mmol/L Potassium 3.9 (3.5-5.1) mmol/L Chloride 105 (98-107) mmol/L Carbon Dioxide 25 (21-32) mmol/L Anion Gap 7.0 (3-11) BUN 18 (7-18) mg/dl Creatinine 1.49 H (0.6-1.4) mg/dl Est Cr Clr Drug Dosing 63.1 ml/min Est GFR ( Amer) 58.3 Est GFR (Non-Af Amer) 50.3 BUN/Creatinine Ratio 12.3 (10-20) Glucose 82 (70-99) mg/dl POC Lactic Acid Bill (0.90-1.70) mmol/L Lactate (0.4-2.0) mmol/L Calcium 8.5 (8.5-10.1) mg/dl Total Bilirubin 0.6 (0.2-1) mg/dl AST 10 L (15-37) U/L ALT 27 (12-78) U/L Alkaline Phosphatase 83 (45-117) U/L POC Troponin I (0-0.045) ng/ml Total Protein 7.1 (6.4-8.2) gm/dl Albumin 3.6 (3.4-5.0) gm/dl Globulin 3.5 (2.5-4.0) gm/dl Albumin/Globulin Ratio 1.0 (0.9-2) Urine Color Urine Appearance (Clear) Urine pH (4.5-7.5) Ur Specific [place] (1.000-1.030) Urine Protein (Negative) Urine Glucose (UA) (Negative) Urine Ketones (Negative) Urine Blood (Negative) Urine Nitrite (Negative) Urine Bilirubin (Negative) Urine Urobilinogen (Negative) Ur Leukocyte Esterase (Negative) Urine WBC (Auto) (0-5) /hpf Urine RBC (Auto) (0-4) /hpf U Hyaline Cast (Auto) (0-5) /lpf U Epithel Cells (Auto) (0-5) /lpf Urine Bacteria (Auto) (Negative) Influenza Type A Ag (Neg) Influenza Type B Ag (Neg) 04/05/18 Range/Units 20:25 WBC (4.8-10.8) K/uL RBC (4.7-6.1) M/uL Hgb (14.0-18.0) g/dL Hct (42-52) % MCV (80-100) fL MCH (25-34) pg MCHC (32-36) g/dL RDW Std Deviation (36.4-46.3) fL RDW Coeff of Aditya (11.5-14.5) % Plt Count (130-400) K/uL MPV (7.4-10.4) fL Immature Gran % (Auto) % Neut % (Auto) % Lymph % (Auto) % [place] % (Auto) % Eos % (Auto) % Baso % (Auto) % Immature Gran # (Auto) (0.00-0.02) K/uL Neut # (Auto) (1.4-6.5) K/uL Lymph # (Auto) (1.2-3.4) K/uL [place] # (Auto) (0.11-0.59) K/uL Eos # (Auto) (0-0.5) K/uL Baso # (Auto) (0-0.2) K/uL PT (9.0-12.0) Seconds INR (0.9-1.1) APTT (21.0-31.0) Seconds PTT Ratio Sodium (136-145) mmol/L Potassium (3.5-5.1) mmol/L Chloride (98-107) mmol/L Carbon Dioxide (21-32) mmol/L Anion Gap (3-11) BUN (7-18) mg/dl Creatinine (0.6-1.4) mg/dl Est Cr Clr Drug Dosing ml/min Est GFR ( Amer) Est GFR (Non-Af Amer) BUN/Creatinine Ratio (10-20) Glucose (70-99) mg/dl POC Lactic Acid Bill (0.90-1.70) mmol/L Lactate (0.4-2.0) mmol/L Calcium (8.5-10.1) mg/dl Total Bilirubin (0.2-1) mg/dl AST (15-37) U/L ALT (12-78) U/L Alkaline Phosphatase (45-117) U/L POC Troponin I (0-0.045) ng/ml Total Protein (6.4-8.2) gm/dl Albumin (3.4-5.0) gm/dl Globulin (2.5-4.0) gm/dl Albumin/Globulin Ratio (0.9-2) Urine Color Urine Appearance (Clear) Urine pH (4.5-7.5) Ur Specific [place] (1.000-1.030) Urine Protein (Negative) Urine Glucose (UA) (Negative) Urine Ketones (Negative) Urine Blood (Negative) Urine Nitrite (Negative) Urine Bilirubin (Negative) Urine Urobilinogen (Negative) Ur Leukocyte Esterase (Negative) Urine WBC (Auto) (0-5) /hpf Urine RBC (Auto) (0-4) /hpf U Hyaline Cast (Auto) (0-5) /lpf U Epithel Cells (Auto) (0-5) /lpf Urine Bacteria (Auto) (Negative) Influenza Type A Ag Neg for Influ A (Neg) Influenza Type B Ag Neg for Influ B (Neg) (1) Pneumonia Laterality: left Lung location: unspecified part of lung Pneumonia type: due to unspecified organism Qualified Code(s): J18.9 - Pneumonia, unspecified organism (2) Sepsis Sepsis type: sepsis due to unspecified organism Qualified Code(s): A41.9 - Sepsis, unspecified organism
[2018-04-06] MEDS ORDERED: ALUM HYDROX/MAG TRISILICATE CHEW PO PRN (12:10)
[2018-04-06] MEDS ORDERED: POLYETHYLENE (MIRALAX) 17 GM PACK PO PRN (12:10)
[2018-04-06] MEDS ORDERED: TAMSULOSIN HCL 0.4 MG CAP PO ONE (12:12)
--- NOTE | 2018-04-06 12:40 | History & Physical Report ---
Date of Service April 06, 2018 Plan 1. Bronchoscopy Reason For Visit Patient was last seen in our Clinic on 04/04/[address] Angela. In 01/2018, Budesonide was added to his neb regimen along with DuoNeb solution 4 times daily and sodium chloride 3 percent b.i.d.. He was placed on levofloxacin and we would consider possible treatment for MA high infection long-term. He was last to undergo bronchoscopy on 12/29/2017 with cultures being negative. Apparently underwent bronchoscopy at [facility] and short neck CT scan in July of 2017 that demonstrated waxing and waning of consolidation and lung nodules with improved left lower lobe centrilobular nodules and consolidation but increased in the right upper lobe posterior [place]. [place] [address] H/H 14 in 44 2.[address] scan of the chest on 03/25/2018 compared to 12/22/2015 showed no evidence of pulmonary thromboembolic disease but left lower lobe consolidative changes likely appearing infectious and inflammatory were noted with associated mediastinal and hilar lymphadenopathy. There is a 13 millimeter right paratracheal lymph node and a 17 millimeters subcarinal lymph node with a left hilar lymph node measuring 18 millimeters. He has bronchiectasis and primary ciliary dyskinesia hip as well as Alexandra's esophagus and previous Brittany fundoplication. He has had atypical chest pain chronic pancreatitis and obstructive sleep apnea on nasal CPAP at 9 centimeters water. Also had chronic sinusitis with a history of sinus surgery and immunotherapy. Nonsmoker. Prior pulmonary pathogens include Pseudomonas, stenotrophomonas, , Moraxella, strep pneumonia, Aspergillus and MAC(mycobacterium paraffinicum, pneumococcus rhizophilus, group a beta strep and MAC. Uses a vibration vest, flutter valve as well as the use of hypertonic saline and Pulmozyme as part of his regimen. Developed myalgias on 03/22/2018 in fever. That right-sided chest pain since. Right left cardiac catheterization May 2016 were unremarkable with no evidence of pulmonary hypertension. DEXA scan on 03/01/2018 showed that the fracture risk was moderate to high. Active Problems 1. Abnormal chest CT (R93.89) 2. Acute sinusitis (J01.90) 3. Atypical mycobacterial infection (A31.9) 4. Alexandra's esophagus (K22.70) 5. Benign prostatic hyperplasia with urinary obstruction (N40.1,N13.8) 6. BPH with obstruction/lower urinary tract symptoms (N40.1,N13.8) 7. Bronchiectasis (J47.9) 8. Calculus of kidney (N20.0) 9. Chest pain (R07.9) 10. Chronic constipation (K59.09) 11. Chronic obstructive pulmonary disease (J44.9) 12. Chronic prostatitis (N41.1) 13. Chronic reflux esophagitis (K21.0) 14. Ciliary dyskinesia (J98.4) 15. Cough (R05) 16. Diarrhea (R19.7) 17. Dyspnea on exertion (R06.09) 18. Elevated prostate specific antigen (PSA) (R97.20) 19. Elevated PSA (R97.20) 20. Fatigue (R53.83) 21. Fever (R50.9) 22. Hiatal hernia (K44.9) 23. Hypercholesterolemia (E78.00) 24. Hypocalcemia (E83.51) 25. Hypokalemia (E87.6) 26. Internal hemorrhoids with complication (K64.8) 27. Interscapular pain (M54.89) 28. Lung consolidation (J18.1) 29. Moraxella catarrhalis bronchitis (J40,B96.89) 30. Obstructive sleep apnea (G47.33) 31. Pancreatitis (K85.90) 32. Post-void dribbling (N39.43) 33. Pseudomonas aeruginosa infection (A49.8) 34. Pseudomonas infection (A49.8) 35. Psychological disorder (F99) 36. Pulmonary infection (J18.9) 37. Pulmonary mycobacterial infection (A31.0) 38. Renal failure (N19) 39. Shortness of breath (R06.02) 40. Streptococcal pneumonia (J15.4) Past Medical History 1. History of Bronchopneumonia due to Achromobacter species (J15.6) 2. History of acute bronchitis (Z87.09) 3. History of asthma (Z87.09) 4. History of candidiasis of mouth (Z86.19) 5. History of chronic sinusitis (Z87.09) 6. History of dehydration (Z86.39) 7. History of Myalgia and myositis 8. History of S/P PICC central line placement (Z95.828) 9. History of Tachycardia (R00.0) Surgical History 1. History of Bronchoscopy (Diagnostic) 2. History of Cataract Surgery 3. History of Cholecystectomy 4. History of Colonoscopy (Fiberoptic) 5. History of Common Bile Duct Exploration 6. History of Endoscopic Retrograde Cholangiopancreatography (ERCP) 7. History of Esophagogastric Fundoplasty Brittany Fundoplication 8. History of Hemorrhoidectomy 9. History of Sinus Surgery 10. History of Surgery Vas Deferens Vasectomy 11. History of Tonsillectomy With Adenoidectomy Family History 1. No pertinent family history 2. No pertinent family history 3. No pertinent family history 4. Family history of kidney stones (Z84.1) Social History Denied: History of Alcohol Use (History) Denied: History of Drug Use Former smokeless tobacco user Denied: History of Home Environment Domestic Violence Denied: History of Housing Without Smoke Detectors Marital History - Currently Never smoker Physical Disability: Single Uses Safety Equipment - Seatbelts Current Meds 1. predniSONE 10 MG Oral Tablet; 4 tabs daily x 3 days, then 3 tabs daily x 3 days, then 2 tabs daily x 3 days, then 1 tab daily x 3 days; Therapy: 69Aje9724 to (Last Rx:11Gfy9313) Requested for: 71Lmm1873 Ordered 2. Finasteride 5 MG Oral Tablet; TAKE 1 TABLET DAILY; Therapy: 49Yle4383 to (Evaluate:86Xji3242) Requested for: 75Mxg7607; Last Rx:55Spx6157 Ordered 3. Finasteride 5 MG Oral Tablet; TAKE 1 TABLET DAILY; Therapy: 15Dec2017 to (Evaluate:10Dec2018) Requested for: 15Dec2017; Last Rx:15Dec2017 Ordered 4. Nitrostat 0.4 MG Sublingual Tablet Sublingual; PLACE 1 TABLET UNDER THE TONGUE EVERY 5 MINUTES FOR UP TO 3 DOSES NEEDED FOR CHEST PAIN.CALL 911 IF PAIN PERSISTS; Therapy: 13Daq5354 to (Evaluate:04Nbf1272) Requested for: 80Enu2754; Last Rx:59Auw5699 Ordered 5. Sodium Chloride 3 % Inhalation Nebulization Solution; USE IN NEBULIZER BID Requested for: 91Akm6885; Last Rx:77Suk4070 Ordered 6. Ipratropium-Albuterol 0.5-2.5 (3) MG/3ML Inhalation Solution; USE 1 UNIT DOSE IN NEBULIZER 4 TIMES DAILY Requested for: 58Gar6018; Last Rx:40Jme5345 Ordered 7. Senna S 8.6-50 MG Oral Tablet; Take 2 tabs bid prn constipation; Therapy: 96Ddl9000 to (Last Rx:08Poj7334) Requested for: 44Voq4092 Ordered 8. Ventolin HFA 108 (90 Base) MCG/ACT Inhalation Aerosol Solution; INHALE 2 PUFFS EVERY 4 TO 6 HOURS NEEDED; Therapy: 11Jul2013 to (Last Rx:74Ohn2421) Requested for: 58Lbi5613 Ordered 9. Budesonide 0.5 MG/2ML Inhalation Suspension; USE DIRECTED twice daily; Therapy: 30Ipr4295 to (Last Rx:35Jpw0797) Requested for: 44Gdv8808 Ordered 10. Vortex Valved Holding Chamber Device; TO USE WITH INHALER; Therapy: 16Adb7502 to (Last Rx:36Sko9725) Requested for: 32Tcx1640 Ordered 11. clonazePAM 1 MG Oral Tablet; TAKE 1 TABLET 3 TIMES DAILY; Therapy: (Recorded:81Olu7804) to Recorded 12. Mucinex 600 MG Oral Tablet Extended Release 12 Hour; TAKE 1 TABLET EVERY 12 HOURS NEEDED FOR CONGESTION; Therapy: 71Cao5970 to (Evaluate:17Nov2015) Recorded 13. Ondansetron 4 MG Oral Tablet Disintegrating; one tablet Q 6hr prn; Therapy: 53Fce9197 to Recorded 14. PriLOSEC 20 MG CPDR; TAKE 1 CAPSULE TWICE DAILY; Therapy: 56Ssk4165 to Recorded 15. Probiotic Oral Capsule; 1 po daily; Therapy: 40Ktu2257 to Recorded 16. Proscar 5 MG Oral Tablet; TAKE 1 TABLET DAILY; Therapy: 49Qmt5945 to Recorded 17. Pulmozyme SOLN; Therapy: (Recorded:65Gjy7644) to Recorded 18. Singulair 10 MG Oral Tablet; TAKE 1 TABLET DAILY; Therapy: (Recorded:29Oyz5800) to Recorded 19. Synthroid 50 MCG Oral Tablet; TAKE 1 TABLET DAILY DIRECTED; Therapy: 82Bjc2939 to Recorded 20. Triamcinolone Acetonide 0.025 % External Ointment; APPLY 2-3 TIMES DAILY TO AFFECTED AREA(S); Therapy: 29Gpo5045 to Recorded 21. Wellbutrin SR 100 MG Oral Tablet Extended Release 12 Hour; TAKE 3 TABLETS DAILY; Therapy: 11May2013 to Recorded 22. Zantac 300 MG TABS; TAKE 1 TABLET (BY MOUTH) DAILY; Therapy: 45Jpg2534 to Recorded Current Orders 1. Total PSA; Requested for:09Nov2017; 2. Quantiferon TB Gold; Requested for:36Udx6827; 3. Total PSA; Requested for:59Uai7262; Allergies 1. NSAIDs 2. Statins 3. Sulfa Drugs 4. Adhesive Tape TAPE Denied 5. Ceftin TABS Immunizations Influenza --- Series1: 18-Feb-2012; Series2: 29-Dec-2012; Series3: 30-Nov-2013; Series4: 20-Nov-2014; Series5: 21-Dec-2016; Series6: 15-Nov-2017 PCV --- Series1: 20-Nov-2014 PPSV --- Series1: 10-May-2008; Series2: 29-Apr-2011 Vitals Vital Signs Recorded: 04Apr2018 11:54AM Blood Pressure: 130 / 82, LUE, Sitting Height: 6 ft Weight: 207 lb 8 oz BMI Calculated: 28.14 BSA Calculated: 2.16 Respiration: 20 Temperature: 98 F Heart Rate: 87 O2 Saturation: 95, RA Results/Data Results 25Mar2018 04:20PM CT (Chest for PE)Angiography with Contrast CT CHEST FOR PE ANGIO WITH: [facility] [address], [place] [phone] CT Scan Report Patient: MARZENA CARDENAS I Admit Date: 03/25/18 MR#: [id number] Address[address]: [address] Acct ID:[id number] Address2: Date: 1960 [facility] Zip: [place] [address] Age: 58 Location: CT Sex: M Room/Bed: Att Phy: Funmilayo De La Rosa PA-C Diagnosis: CHEST PAIN Beverly Phy: Jose Florez M.D. Service Date: 03/25/18 Fam Phy: Interpreting Phy: Shiraz Camacho MD Admit Phy: Ordering Phy: Funmilayo De La Rosa PA-C cc: CT ANGIOGRAM OF THE CHEST CLINICAL HISTORY: Atypical chest pain COMPARISON STUDY: 12/22/2015 TECHNIQUE: Following the IV administration of 90 mL of Optiray-320, CT angiogram of the thorax was performed from the thoracic inlet to the lung bases utilizing the pulmonary embolus protocol. Images are reviewed in the axial, sagittal, and coronal planes. IV contrast was administered without complication. MIP imaging was performed. A dose lowering technique was utilized adhering to the principles of ALARA. CT DOSE: 450.24 mGy.cm FINDINGS: There are mildly enlarged mediastinal lymph nodes with a 13 mm right par atracheal node and 17 mm subcarinal lymph node. There is left hilar lymphadenopathy with an 18 mm left hilar lymph node. These nodes have enlarged when compared the preceding examination. There is mild dilatation of the ascending thoracic aorta which measures 38 mm. Examination is mildly compromised due to respiratory motion artifact. There are no pulmonary artery filling defects to indicate acute pulmonary embolism. There is a trace right pleural effusion. There are left lower lobe consolidative changes. No centrally obstructing lesion is visualized. There are right basilar atelectatic changes. There is a hiatal hernia. Postsurgical changes are present at the esophagogastric junction. IMPRESSION: 1. No evidence of acute pulmonary embolism 2. Left lower lobe consolidative changes likely infectious/inflammatory. There is associated mediastinal and hilar lymphadenopathy. A two-month follow-up CT scan subsequent antibiotic therapy is recommended. If this abnormality persists, then pulmonary consultation for consideration of bronchoscopy would be recommended. Electronically signed by: Shiraz Camacho M.D. 03/25/2018 4:29 PM Dictated: 03/25/18 1620 Transcribed: 03/25/18 1620 [id number] 02:14PM CBC With DIFF WBC: 10.19 K/uL Reference Range 4.8-10.8 K/uL RBC: 4.86 M/uL Reference Range 4.7-6.1 M/uL HEMOGLOBIN: 14.6 g/dL Reference Range 14.0-18.0 g/dL HEMATOCRIT: 44.1 % Reference Range 42-52 % MCV: 90.7 fL Reference Range 80-100 fL MCH: 30.0 pg Reference Range 25-34 pg MEAN CORPUSCULAR HGB CONC: 33.1 g/dL Reference Range 32-36 g/dL RED CELL DISTRIBUTION WIDTH SD: 48.1 fL Abnormal High Reference Range 36.4-46.3 fL RED CELL DISTRIBUTION WIDTH CV: 14.3 % Reference Range 11.5-14.5 % PLATELET COUNT: 255 K/uL Reference Range 130-400 K/uL MEAN PLATELET VOLUME: 9.3 fL Reference Range 7.4-10.4 fL NEUT %: 76.2 % Reference Range % LYMPH %: 11.8 % Reference Range % MONO %: 7.4 % Reference Range % EOS %: 2.6 % Reference Range % BASO %: 1.2 % Reference Range % IG%: 0.8 % Reference Range % Neutrophils (Auto): 7.77 K/uL Abnormal High Reference Range 1.4-6.5 K/uL LYMPH ABS #: 1.20 K/uL Reference Range 1.2-3.4 K/uL MONO ABS #: 0.75 K/uL Abnormal High Reference Range 0.11-0.59 K/uL EOS ABS #: 0.27 K/uL Reference Range 0-0.5 K/uL BASO ABS #: 0.12 K/uL Reference Range 0-0.2 K/uL IG#: 0.08 K/uL Abnormal High Reference Range 0.00-0.02 K/uL Comp Metabolic Panel SODIUM: 139 mmol/L Reference Range 136-145 mmol/L POTASSIUM: 4.0 mmol/L Reference Range 3.5-5.1 mmol/L CHLORIDE: 109 mmol/L Abnormal High Reference Range 98-107 mmol/L CARBON DIOXIDE: 26 mmol/L Reference Range 21-32 mmol/L BLOOD UREA NITROGEN: 16 mg/dl Reference Range 7-18 mg/dl ANION GAP: 4.0 Reference Range 3-11 CREATININE: 1.39 mg/dl Reference Range 0.6-1.4 mg/dl GLUCOSE: 87 mg/dl Reference Range 70-99 mg/dl ALBUMIN: 3.3 gm/dl Abnormal Low Reference Range 3.4-5.0 gm/dl TOTAL PROTEIN: 7.6 gm/dl Reference Range 6.4-8.2 gm/dl ALT/SGPT: 25 U/L Reference Range 12-78 U/L AST/SGOT: 15 U/L Reference Range 15-37 U/L ALKALINE PHOSPHATASE: 113 U/L Reference Range 45-117 U/L Bilirubin, Total: 0.6 mg/dl Reference Range 0.2-1 mg/dl CALCIUM: 8.3 mg/dl Abnormal Low Reference Range 8.5-10.1 mg/dl GLOBULIN: 4.3 gm/dl Abnormal High Reference Range 2.5-4.0 gm/dl BUN/CREATININE RATIO: 11.3 Reference Range 10-20 ALB/GLOB RATIO: 0.8 Abnormal Low Reference Range 0.9-2 Estimated GFR (Non-): 54.7 Estimated GFR (): 63.4 History of Present Illness Primary Care Provider: Jose Florez Allergies Allergy/AdvReac Type Severity Reaction Status Date / Time Sulfa (Sulfonamide Allergy Mild "SULFA Verified 04/05/18 20:58 Antibiotics) DRUGS": RASH, HOT FLASHES adhesive Allergy Unknown PLASTIC Verified 04/05/18 20:58 CLEAR TAPE-SKIN TURNS RED,ITCHING mold Allergy Unknown COUGH Verified 04/05/18 20:58 ragweed pollen Allergy Unknown SINUS Verified 04/05/18 20:58 DRAINAGE,STUFFINESS-TAKING ALLERGY SHOTS Ihvfizy-Bjr-Ipf Reductase Allergy Unknown HOT Verified 04/05/18 20:58 Inhibitor FLASHES, RASH Home Medications Home Medications Medication Instructions Recorded Confirmed Type budesonide [Pulmicort] 2 ml INHALATION BID PRN 11/29/17 04/05/18 History bupropion HCl 300 mg PO QAM 11/29/17 04/05/18 History clonazepam 1 mg PO TID PRN 11/29/17 04/05/18 History docusate sodium [Colace] 100 mg PO DAILY 11/29/17 04/05/18 History dornase nicholas [Pulmozyme] 0.5 ml INHALATION DAILY 11/29/17 04/05/18 History finasteride 5 mg PO DAILY 11/29/17 04/05/18 History guaifenesin [Mucinex] 1,200 mg PO Q12H 11/29/17 04/05/18 History ipratropium-albuterol 3 ml INHALATION Q4H PRN 11/29/17 04/05/18 History levothyroxine 50 mcg PO DAILY 11/29/17 04/05/18 History montelukast 10 mg PO DAILY 11/29/17 04/05/18 History nitroglycerin 0.4 mg SUBLINGUAL DIRECTED PRN 11/29/17 04/05/18 History omeprazole 20 mg PO BID 11/29/17 04/05/18 History ondansetron HCl [Zofran] 4 mg PO Q8H PRN 11/29/17 04/05/18 History polyethylene glycol 3350 17 g PO DAILY PRN 11/29/17 04/05/18 History ranitidine HCl 300 mg PO DAILY 11/29/17 04/05/18 History sodium chloride 1 vial INHALATION BID PRN 11/29/17 04/05/18 History tamsulosin 0.4 mg PO DAILY 11/29/17 04/05/18 History Al hyd-Mg tr-alg ac-sod bicarb 1 tab PO DIRECTED PRN 04/05/18 04/05/18 History [Gaviscon] albuterol sulfate [Ventolin HFA] 2 puff INHALATION QID PRN 04/05/18 04/05/18 History ferrous gluconate 236 mg PO DAILY 04/05/18 04/05/18 History lactobacillus combination no.4 3,000 mmu cells PO DAILY 04/05/18 04/05/18 History [Probiotic] ayahwebf-lgl-DJ-lycopen-lutein 1 tab PO DAILY 04/05/18 04/05/18 History [Complete Multi 50+] prednisone See Rx Instructions .ROUTE .COMPLEX 04/05/18 04/05/18 History Past Med/Surg History Medical History Bronchiectasis without acute exacerbation (Chronic 02/02/11) COPD exacerbation (Chronic) Fall (Resolved) Head contusion (Acute) Hemorrhoids Ileus Neck strain (Acute) Pneumonia BPH (benign prostatic hyperplasia) (Acute) Alexandra esophagus (Acute) Chronic constipation (Acute) Ciliary motility disorder (Acute) GERD (gastroesophageal reflux disease) (Acute) Hyperlipidemia (Acute) IBS (irritable bowel syndrome) (Acute) BREONNA on CPAP (Acute) Surgical History History of bilateral cataract extraction (Acute) History of bronchoscopy (Acute) History of cholecystectomy (Acute) History of fundoplication (Acute) 2009 History of sinus surgery (Acute) x3 Social History Preferred Language: Yoruba Communication Ability: Effective Television And Radio Repairer Required: Yes Beliefs That Will Affect Care: None Current Living Situation: Family Other Information That Helps Us Care for You: No Feels Safe at Home: Yes and No Safety Concerns: Feels Safe At This Time Smoking Status: Never smoker Hx Alcohol Use: No Hx Substance Use: No Physical Exam Vital Signs (Past 24 Hours): Last Vital Signs Temp 36.4 C L 04/06/18 07:28 Pulse 74 04/06/18 07:28 Resp 18 04/06/18 07:28 BP 114/68 04/06/18 07:28 Pulse Ox 98 04/06/18 07:07
[2018-04-06] MEDS: ALUMINUM/MAGNESIUM SUSP 30 ML UDC PO PRN (18:24)
[2018-04-06] MEDS ORDERED: ONDANSETRON 4 MG TAB PO PRN (19:49)
[2018-04-06] MEDS: POLYETHYLENE (MIRALAX) 17 GM PACK PO PRN (21:32)
[2018-04-07] MEDS: VANCOMYCIN HCL 1,500 MG in SODIUM CHLORIDE 0.9% 500 ML IV SCH ×2 (02:11→17:49)
[2018-04-07] MEDS: methylPREDNISolone 60 MG in SYRINGE 0 ML IV SCH ×2 (05:37→14:36)
[2018-04-07] MEDS: PIPERACILLIN/TAZOBACTAM 3.375 GM in DEXTROSE 5% 100 ML IV SCH ×3 (05:37→21:42)
[2018-04-07] MEDS: LEVOTHYROXINE SODIUM 50 MCG TABLET PO SCH ×2 (05:38→05:45)
[2018-04-07 06:17] LABS: Hematocrit (blood only) 39.1 % (42-52); Hemoglobin 12.7 g/dL (14.0-18.0); Immature Granulocytes # (auto) 0.07 K/uL (0.00-0.02); Immature Granulocytes % (auto) 0.4 %; Lymphocytes # (auto) 0.63 K/uL (1.2-3.4); Lymphocytes % (auto) 3.5 %; Mean Corpuscular Hgb Conc 32.5 g/dL (32-36); Mean Corpuscular Volume 91.8 fL (80-100); Mean Platelet Volume 9.1 fL (7.4-10.4); Monocytes % (auto) 2.8 %; Neutrophils % (auto) 93.3 %; Platelet Count 227 K/uL (130-400); RDW Standard Deviation 50.6 fL (36.4-46.3); Red Blood Count 4.26 M/uL (4.7-6.1)
[2018-04-07 06:38] LABS: BUN Creatinine Ratio 17.1 (10-20); Creatinine Clr Calc Pharmacy 79.9 ml/min; Est GFR (African American) 78.1; Est GFR (Non-African American) 67.4; Potassium 4.6 mmol/L (3.5-5.1)
[2018-04-07] MEDS: SODIUM CHLORIDE 0.9% 1000ML 1,000 ML IV SCH ×2 (07:03→20:41)
[2018-04-07] MEDS: ALBUT/IPRATROP 3MG/0.5MG NEB 3 ML VIAL INH SCH ×4 (07:22→19:31)
[2018-04-07] MEDS: BUDESONIDE 0.5 MG/2 ML VIAL (PULMICORT) NEB SCH (07:22)
[2018-04-07] MEDS: DORNASE ALFA 2.5 ML AMP INH SCH (07:23)
[2018-04-07] MEDS: CEROVITE ADV FORMULA TAB PO SCH (07:46)
[2018-04-07] MEDS: BuPROPion XL 300 MG TABCR PO SCH (07:46)
[2018-04-07] MEDS: guaiFENesin 600 MG TABCR PO SCH ×2 (07:46→20:44)
[2018-04-07] MEDS: TAMSULOSIN HCL 0.4 MG CAP PO SCH (07:47)
[2018-04-07] MEDS: PANTOprazole 40 MG TAB PO SCH ×2 (07:47→16:56)
[2018-04-07] MEDS: FINASTERIDE 5 MG TAB PO SCH (07:48)
[2018-04-07] MEDS: MONTELUKAST SODIUM 10 MG TABLET PO SCH (07:48)
[2018-04-07] MEDS: FERROUS GLUCONATE 324 MG TAB PO SCH (07:49)
[2018-04-07] MEDS: DOCUSATE SODIUM 100 MG CAP PO SCH (07:49)
[2018-04-07] MEDS: clonazePAM 1 MG TAB PO PRN ×3 (07:52→21:42)
--- NOTE | 2018-04-07 09:11 | Pre Anesthesia Assessment ---
Date of Service April 07, 2018 Pre Sedation Assessment Vital Signs Temp Pulse Pulse Resp BP BP Pulse Ox 04/07/18 07:24 70 16 98 04/07/18 07:03 36.8 C 72 18 112/68 95 04/07/18 01:34 94 H 18 96 04/07/18 00:00 36.8 C 85 20 104/57 L 95 04/06/18 22:01 88 16 96 04/06/18 19:32 100 H 26 H 95 04/06/18 16:00 36.5 C 93 H 18 110/67 91 Cardiovascular RRR, no murmur, no edema + peripheral pulses normal Respiratory normal respiratory effort, lungs clear to auscultation Pre-Sedation Airway Assessment Smoking Status: Never smoker Hx Sleep Apnea: Yes Hx Difficult Intubation: No Short, Thick Neck: No Thyromental Distance: > or= 3.5 Finger Breadths Oral Cavity: + WNL Mallampati Class: II ASA: ASA2 NPO Status Date of Last Intake of Fluids: 04/07/18 Time of Last Intake of Fluids: 07:30 Last Oral Intake of Fluids Comment: sips of water with am pills Date of Last Intake of Solid Food: 04/06/18 Time of Last Intake of Solid Foods: 17:30 Last Intake of Solids Comment: dinner yesterday evening Notes The planned sedation has been discussed with the patient. Informed Consent was obtained. I have identified the patient, determined the appropriateness of sedation and have assessed the patient immediately prior to the procedure. All medicine(s) and interventions are by my order.
--- NOTE | 2018-04-07 09:11 | History & Physical Bridge Note ---
Date of Service April 07, 2018 History & Physical Bridge Note I have examined the patient, reviewed the History & Physical and in the interval since the performance of the History & Physical I have noted the following changes of clinical significance: no changes noted
--- NOTE | 2018-04-07 09:51 | Post Anesthesia Assessment ---
Date of Service April 07, 2018 Post Sedation Assessment Vital Signs Temp Pulse Pulse Resp BP BP Pulse Ox 04/07/18 09:45 83 24 137/82 92 04/07/18 09:40 84 24 130/77 93 04/07/18 09:35 90 24 149/92 H 92 04/07/18 09:30 77 20 130/78 95 04/07/18 09:25 79 20 140/87 97 04/07/18 09:20 74 20 147/80 H 97 04/07/18 09:15 76 20 144/81 H 98 04/07/18 09:10 88 20 155/91 H 99 04/07/18 07:24 70 16 98 04/07/18 07:03 36.8 C 72 18 112/68 95 04/07/18 01:34 94 H 18 96 04/07/18 00:00 36.8 C 85 20 104/57 L 95 04/06/18 22:01 88 16 96 04/06/18 19:32 100 H 26 H 95 04/06/18 16:00 36.5 C 93 H 18 110/67 91 Recovery Score Activity: Moves 4 extremities Respiration: Deep Breath/Cough Circulation: +/-20% PreAnes Value Consciousness: Fully Awake Oxygen Saturation: O2 needed for >90% Discharge Sedation Level of Care: Fast Track Phase II Post Sedation Plan On clinical assessment, the patient appears to have tolerated the sedation without complications. Patient is recovering as anticipated. Patient will continue to be monitored by nursing and may be discharged when sedation discharge criteria are met per below protocol. Upon Completions of procedure and additional 15 minutes continue every 5 minute vital signs and the P.A.R. score; then discharge to a Phase I or Fast Track to Phase II per the following guidelines: * Discharge Patient to appropriate Phase II area if PAR is 8 or greater or return to pre- procedure baseline. The post - procedure orders will be as directed. * If PAR score is less than 8 or not return to pre-procedure baseline then patient will follow Phase I monitoring till PAR is reached for Phase II. The Phase I may be done in procedure room or may call to secure a Phase I area. * If naloxone or flumazenil are used for reversal, hold in Phase I for continued monitoring from when last reversal dose was given for a minimum of 60 minutes or longer pending the nurse and/or physician discretion of patient condition before discharge to Phase II. Please call the Sedation Physician to re-evaluate and complete post-note for discharge to Phase II area. Do NOT discharge from procedure sedation or Phase 1 until post- sedation evaluation note is complete by procedure /sedation MD Sedation Discharge Instructions to be given to the patient at discharge to home.
--- NOTE | 2018-04-07 09:55 | Post Operative Brief Note ---
Immediate Post Op Note v1 Date of Surgery April 07, 2018 Pre & Post Diagnosis Operation Date: 04/07/18 09:00 <No data on this case meets the specified criteria> Pre-operative Dx Primary Ciliary Dyskinesia Post-operative Dx Same Procedure Operation Date: 04/07/18 09:00 <No data on this case meets the specified criteria> Surgeon Frederick Angela MD Lens Molder none Estimated Blood Loss 0 Findings Consistent with Post-Op Diagnosis Chronic Bronchiectasis w mucoid impaction L mainstem bronchial wall 'lesion' Complications none Disposition Accompanied Patient To Recovery: No Overlapping Procedure I was present for: the critical portions of procedure. I was immediately available: during the entire case. Back up surgeon: was not required during procedure.
[2018-04-07] MEDS ORDERED: OXYMETAZOLINE 0.05% 30 ML BTL ONE (10:04)
[2018-04-07] MEDS ORDERED: MIDAZOLAM HCL 1 MG/ML 2ML VIAL IV PRN (10:13)
[2018-04-07] MEDS ORDERED: fentaNYL citrate 100 MCG/2 ML VIAL IV PRN (10:13)
[2018-04-07] MEDS ORDERED: LIDOCAINE HCL 2% (LOCAL) INJ 50 ML VIAL INSTIL SCH (10:15)
[2018-04-07] MEDS ORDERED: LIDOCAINE 4% INH SOLN 4 ML BTL SCH (10:15)
[2018-04-07] MEDS ORDERED: LEVALBUTEROL HCL 1.25 MG/3 ML NEB NEB STA (10:20)
[2018-04-07] MEDS ORDERED: LIDOCAINE HCL VISCOUS SOLN 2% 15 ML UDC MT ONE (10:22)
--- NOTE | 2018-04-07 12:10 | Operative Report ---
DATE OF OPERATION: 04/07/2018 PROCEDURE: Fiberoptic bronchoscopy with bronchoalveolar lavage. INDICATIONS: Left lower lobe pneumonic process in a patient with primary ciliary dyskinesia and fever. ANESTHESIA PREOPERATIVELY: None. ANESTHESIA DURING PROCEDURE: IV Versed 12 mg, IV fentanyl 50 mcg, 20 mL 2% Xylocaine spray above and below the cords, 4% viscous Xylocaine intranasally. Moderate conscious sedation was utilized and the procedure was begun at 0918 and completed at 0950. DESCRIPTION OF PROCEDURE: Fiberoptic bronchoscope was inserted into the left naris with minimal difficulty and passed to the level of the true vocal cords. The cords appear to approximate normally with phonation without evidence of lesions or paralysis. The area was anesthetized and the scope was then passed into the trachea and right and left tracheobronchial tree. The román was sharp. The right main stem bronchus was found to be free of endobronchial lesions. The left upper lobe, the apical posterior and anterior segments, bronchus intermedius, right middle lobe with the medial and lateral segments and all basilar segments, right lower lobe were found to be free of endobronchial lesions with a small amount of mucopurulent secretion lavaged from right lower lobe until clear. Left tracheobronchial tree was explored. The left mainstem bronchus showed an ellipsoid lesion adherent to the lateral wall just above the takeoff of the left upper lobe and lingula orifice. The left lower lobe was then explored and the basal segments were patent with a moderate amount of mucoviscous secretion that was lavaged from each segmental bronchus until clear. Left upper lobe, lingual subdivision and the respective segments were free of endobronchial lesions. The scope was then situated in the left main stem bronchus. Washings were taken not only in the left lower lobe, but of the lesion adherent to the lateral wall of the left main stem bronchus. Brushings x2 for cytologic preparation were obtained with a moderate amount of bleeding which abated spontaneously. Iced saline lavage was utilized and the bleeding stopped. Two biopsies were taken from the ellipsoid lesion and the bleeding abated spontaneously. The procedure was then terminated. The patient was given a nebulizer treatment of Xopenex 1.25 mg and transferred back to the medical floor, hemodynamically stable. No signs of respiratory compromise. Will await microbiological, cytological and histopathologic diagnosis. I attest to the content of the Intraoperative Record and any orders documented therein. Any exception s are noted below.
[2018-04-07] MEDS: ACETAMINOPHEN 325 MG TAB PO PRN (16:56)
[2018-04-07 17:36] LABS: Influenza A virus by PCR Neg for Influ A (Neg); Influenza B virus by PCR Neg for Influ B (Neg)
--- NOTE | 2018-04-07 19:00 | Emergency Department Note ---
Entered by Jerardo Lockett acting as a scribe for Wally Barry MD History of Present Illness General Chief complaint: Shortness of Breath/Dyspnea Stated complaint: SOB, PAIN IN CHEST, FEVER Time Seen by Provider: 04/05/18 20:15 Source: patient and family () History of Present Illness Provider complaint: Shortnessof breath Onset (ago): hour(s) Location: chest Pain Consistency: + constant Maximum Pain Intensity: 8 Current Pain Intensity: 8 Relieved By: + none Associated symptoms: + chest pain, + fever/chills and + other (abd pain) Treatments prior to arrival: none The patient is a 58 year old male who presents to the Emergency Room with complaints of shortness of breath. The patient's offers much of the HPI. The patient also complains of a fever and rates his overall discomfort as an 8/10. The patient adds that he has pain "everywhere". He adds that he has pain in his abdomen on both sides that wraps around to his back. He also notes that his chest hurts upon coughing and it also hurts to breath. Additionally, the patient adds that he has pneumonia last week and finished his antibiotics 4 days ago. The patient has a history of COPD, pancreatitis, kidney stones, and has frequently had to undergo bronchoscopies. Home Medications Home Medications Medication Instructions Recorded Confirmed Type budesonide [Pulmicort] 2 ml INHALATION BID PRN 11/29/17 04/05/18 History bupropion HCl 300 mg PO QAM 11/29/17 04/05/18 History clonazepam 1 mg PO TID PRN 11/29/17 04/05/18 History docusate sodium [Colace] 100 mg PO DAILY 11/29/17 04/05/18 History dornase nicholas [Pulmozyme] 0.5 ml INHALATION DAILY 11/29/17 04/05/18 History finasteride 5 mg PO DAILY 11/29/17 04/05/18 History guaifenesin [Mucinex] 1,200 mg PO Q12H 11/29/17 04/05/18 History ipratropium-albuterol 3 ml INHALATION Q4H PRN 11/29/17 04/05/18 History levothyroxine 50 mcg PO DAILY 11/29/17 04/05/18 History montelukast 10 mg PO DAILY 11/29/17 04/05/18 History nitroglycerin 0.4 mg SUBLINGUAL DIRECTED PRN 11/29/17 04/05/18 History omeprazole 20 mg PO BID 11/29/17 04/05/18 History ondansetron HCl [Zofran] 4 mg PO Q8H PRN 11/29/17 04/05/18 History polyethylene glycol 3350 17 g PO DAILY PRN 11/29/17 04/05/18 History ranitidine HCl 300 mg PO DAILY 11/29/17 04/05/18 History sodium chloride 1 vial INHALATION BID PRN 11/29/17 04/05/18 History tamsulosin 0.4 mg PO DAILY 11/29/17 04/05/18 History Al hyd-Mg tr-alg ac-sod bicarb 1 tab PO DIRECTED PRN 04/05/18 04/05/18 History [Gaviscon] albuterol sulfate [Ventolin HFA] 2 puff INHALATION QID PRN 04/05/18 04/05/18 History ferrous gluconate 236 mg PO DAILY 04/05/18 04/05/18 History lactobacillus combination no.4 3,000 mmu cells PO DAILY 04/05/18 04/05/18 History [Probiotic] watprwha-rmb-JQ-lycopen-lutein 1 tab PO DAILY 04/05/18 04/05/18 History [Complete Multi 50+] prednisone See Rx Instructions .ROUTE .COMPLEX 04/05/18 04/05/18 History Allergies Allergy/AdvReac Type Severity Reaction Status Date / Time Sulfa (Sulfonamide Allergy Mild "SULFA Verified 04/05/18 20:58 Antibiotics) DRUGS": RASH, HOT FLASHES adhesive Allergy Unknown PLASTIC Verified 04/05/18 20:58 CLEAR TAPE-SKIN TURNS RED,ITCHING mold Allergy Unknown COUGH Verified 04/05/18 20:58 ragweed pollen Allergy Unknown SINUS Verified 04/05/18 20:58 DRAINAGE,STUFFINESS-TAKING ALLERGY SHOTS Yocikup-Uko-Vmk Reductase Allergy Unknown HOT Verified 04/05/18 20:58 Inhibitor FLASHES, RASH Past Med/Surg History Medical History Bronchiectasis without acute exacerbation (Chronic 02/02/11) COPD exacerbation (Chronic) Fall (Resolved) Head contusion (Acute) Hemorrhoids Ileus Neck strain (Acute) Pneumonia BPH (benign prostatic hyperplasia) (Acute) Alexandra esophagus (Acute) Chronic constipation (Acute) Ciliary motility disorder (Acute) GERD (gastroesophageal reflux disease) (Acute) Hyperlipidemia (Acute) IBS (irritable bowel syndrome) (Acute) BREONNA on CPAP (Acute) Surgical History History of bilateral cataract extraction (Acute) History of bronchoscopy (Acute) History of cholecystectomy (Acute) History of fundoplication (Acute) 2010 History of sinus surgery (Acute) x3 Social History Preferred Language: Japanese Communication Ability: 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 and A total of 10 systems reviewed and were otherwise negative Physical Exam Vital Signs Vital Signs - 24 hr 04/06/18 19:32 04/06/18 22:01 04/07/18 00:00 Temperature 36.8 C Temperature Source Oral Pulse Rate Pulse Rate [Right Finger] 100 H 88 85 Pulse Rhythm [Right Finger] Regular Pulse Strength [Right Finger] Normal Respiratory Rate 26 H 16 20 Respiratory Effort / Characteristics Spontaneous Short of Breath Non-Labored Spontaneous Non-Labored Respiratory Depth Normal Respiratory Pattern Regular Blood Pressure [Right Arm] 104/57 L Blood Pressure Mean [Right Arm] 72 Blood Pressure Position [Right Arm] Lying Pulse Oximetry 95 96 95 Oxygen Delivery Method Room Air Room Air Room Air Oxygen Flow Rate 04/07/18 01:34 04/07/18 07:03 04/07/18 07:24 Temperature 36.8 C Temperature Source Oral Pulse Rate 94 H Pulse Rate [Right Finger] 72 70 Pulse Rhythm [Right Finger] Pulse Strength [Right Finger] Respiratory Rate 18 18 16 Respiratory Effort / Characteristics Non-Labored Spontaneous Non-Labored Spontaneous Respiratory Depth Normal Respiratory Pattern Regular Blood Pressure [Right Arm] 112/68 Blood Pressure Mean [Right Arm] 82 Blood Pressure Position [Right Arm] Lying Pulse Oximetry 96 95 98 Oxygen Delivery Method Room Air Room Air Oxygen Flow Rate 04/07/18 08:00 04/07/18 09:10 04/07/18 09:15 Temperature Temperature Source Pulse Rate 88 76 Pulse Rate [Right Finger] Pulse Rhythm [Right Finger] Pulse Strength [Right Finger] Respiratory Rate 20 20 Respiratory Effort / Characteristics Non-Labored Non-Labored Spontaneous Non-Labored Spontaneous Respiratory Depth Normal Normal Normal Respiratory Pattern Regular Regular Regular Blood Pressure [Right Arm] 155/91 H 144/81 H Blood Pressure Mean [Right Arm] Blood Pressure Position [Right Arm] Pulse Oximetry 99 98 Oxygen Delivery Method Room Air Oxymask Oxymask Oxygen Flow Rate 5 5 04/07/18 09:20 04/07/18 09:25 04/07/18 09:30 Temperature Temperature Source Pulse Rate 74 79 77 Pulse Rate [Right Finger] Pulse Rhythm [Right Finger] Pulse Strength [Right Finger] Respiratory Rate 20 20 20 Respiratory Effort / Characteristics Non-Labored Spontaneous Non-Labored Spontaneous Non-Labored Spontaneous Respiratory Depth Normal Normal Normal Respiratory Pattern Regular Regular Regular Blood Pressure [Right Arm] 147/80 H 140/87 130/78 Blood Pressure Mean [Right Arm] Blood Pressure Position [Right Arm] Pulse Oximetry 97 97 95 Oxygen Delivery Method Oxymask Oxymask Oxymask Oxygen Flow Rate 5 5 5 04/07/18 09:35 04/07/18 09:40 04/07/18 09:45 Temperature Temperature Source Pulse Rate 90 84 83 Pulse Rate [Right Finger] Pulse Rhythm [Right Finger] Pulse Strength [Right Finger] Respiratory Rate 24 24 24 Respiratory Effort / Characteristics Non-Labored Spontaneous Non-Labored Spontaneous Non-Labored Spontaneous Respiratory Depth Normal Normal Normal Respiratory Pattern Regular Regular Regular Blood Pressure [Right Arm] 149/92 H 130/77 137/82 Blood Pressure Mean [Right Arm] Blood Pressure Position [Right Arm] Pulse Oximetry 92 93 92 Oxygen Delivery Method Oxymask Oxymask Oxymask Oxygen Flow Rate 5 5 5 04/07/18 09:50 04/07/18 09:55 04/07/18 10:00 Temperature Temperature Source Pulse Rate 80 77 78 Pulse Rate [Right Finger] Pulse Rhythm [Right Finger] Pulse Strength [Right Finger] Respiratory Rate 24 24 24 Respiratory Effort / Characteristics Non-Labored Spontaneous Non-Labored Spontaneous Non-Labored Spontaneous Respiratory Depth Normal Normal Normal Respiratory Pattern Regular Regular Regular Blood Pressure [Right Arm] 122/72 125/74 125/75 Blood Pressure Mean [Right Arm] Blood Pressure Position [Right Arm] Pulse Oximetry 95 95 94 Oxygen Delivery Method Nebulizer Nebulizer Nasal Cannula Oxygen Flow Rate 8 8 4 04/07/18 10:05 04/07/18 10:41 04/07/18 11:05 Temperature Temperature Source Pulse Rate 77 Pulse Rate [Right Finger] 68 Pulse Rhythm [Right Finger] Pulse Strength [Right Finger] Respiratory Rate 20 16 Respiratory Effort / Characteristics Non-Labored Spontaneous Spontaneous Respiratory Depth Normal Respiratory Pattern Regular Blood Pressure [Right Arm] 121/76 Blood Pressure Mean [Right Arm] Blood Pressure Position [Right Arm] Pulse Oximetry 95 98 Oxygen Delivery Method Nasal Cannula Oxymask Nasal Cannula Oxygen Flow Rate 4 2 04/07/18 12:02 04/07/18 15:13 04/07/18 15:33 Temperature 36.7 C 36.9 C Temperature Source Oral Oral Pulse Rate Pulse Rate [Right Finger] 71 72 72 Pulse Rhythm [Right Finger] Pulse Strength [Right Finger] Respiratory Rate 18 18 16 Respiratory Effort / Characteristics Non-Labored Spontaneous Respiratory Depth Respiratory Pattern Blood Pressure [Right Arm] 134/73 125/72 Blood Pressure Mean [Right Arm] 93 89 Blood Pressure Position [Right Arm] Lying Lying Pulse Oximetry 97 94 97 Oxygen Delivery Method Nasal Cannula Room Air Room Air Oxygen Flow Rate 2 04/07/18 16:00 Temperature 36.7 C Temperature Source Oral Pulse Rate Pulse Rate [Right Finger] 70 Pulse Rhythm [Right Finger] Pulse Strength [Right Finger] Respiratory Rate 18 Respiratory Effort / Characteristics Short of Breath Respiratory Depth Respiratory Pattern Regular Blood Pressure [Right Arm] 135/77 Blood Pressure Mean [Right Arm] 96 Blood Pressure Position [Right Arm] Lying Pulse Oximetry 95 Oxygen Delivery Method Room Air Oxygen Flow Rate General: Chronically-ill appearing older male in no acute distress. Mild respiratory distress complaining of chest pain HEENT: Normal cephalic atraumatic. Pupils are equal round and reactive to light. Extraocular movements are intact. Oropharynx is pink with moist mucous membranes. No swelling of the mouth lips or tongue. Neck: Supple with a midline trachea. No meningeal signs or stiffness, no JVD or bruits. No Stridor. Chest: Clear to auscultation bilaterally. No wheezes or rhonchi. No increased work of breathing. Decreased breath sounds bilaterally. Heart: regular rate and rhythm. Abdomen: Soft nontender, nondistended without rebound guarding or rigidity. Extremities: No cyanosis clubbing or edema. No calf tenderness or assymetry Spine/Back. Non tender to palpation. No CVA tenderness Skin: Good turgor without rashes. Warm to touch Neurologic exam: Cranial nerves two through 12 are intact. Motor and sensation are intact and symmetrical throughout. Course 2015: Past medical records reviewed. The patient was evaluated in room C06, and a complete history and physical examination were performed. 2233: I reviewed the patient's case with Dr. Collier-Hospitalist. He will evaluate the patient for further management. Administered Medications Acetaminophen (Tylenol) 650 mg PO Q4H PRN PRN Reason: pain/fever Stop: 05/06/18 01:17 Last Admin: 04/07/18 16:56 Dose: 650 mg Documented by: [id number] Admin: 04/06/18 20:02 Dose: 650 mg Documented by: [id number] Admin: 04/06/18 01:43 Dose: 650 mg Documented by: [id number] Hydrox/Mg Hydrox/Simethicone (Maalox) 30 ml PO Q6H PRN PRN Reason: Dyspepsia Stop: 05/06/18 01:17 Last Admin: 04/06/18 18:24 Dose: 30 ml Documented by: [id number] Albuterol (Duoneb) 3 ml INH QIDR [facility] Stop: 05/07/18 07:59 Last Admin: 04/07/18 15:32 Dose: 3 ml Documented by: [id number] Admin: 04/07/18 11:05 Dose: 3 ml Documented by: [id number] Admin: 04/07/18 07:22 Dose: 3 ml Documented by: [id number] Bupropion HCl (Wellbutrin-Xl) 300 mg PO QAM [facility] Stop: 05/06/18 08:59 Last Admin: 04/07/18 07:46 Dose: 300 mg Documented by: [id number] Admin: 04/06/18 08:06 Dose: 300 mg Documented by: [id number] Clonazepam (Klonopin) 1 mg PO TID PRN PRN Reason: Anxiety Stop: 05/06/18 01:17 Last Admin: 04/07/18 16:08 Dose: 1 mg Documented by: [id number] Admin: 04/07/18 07:52 Dose: 1 mg Documented by: [id number] Admin: 04/06/18 18:24 Dose: 1 mg Documented by: [id number] Admin: 04/06/18 01:43 Dose: 1 mg Documented by: [id number] Docusate Sodium (Colace) 100 mg PO DAILY [facility] Stop: 05/06/18 08:59 Last Admin: 04/07/18 07:49 Dose: 100 mg Documented by: [id number] Admin: 04/06/18 08:06 Dose: 100 mg Documented by: [id number] Fentanyl Citrate (Fentanyl Citrate) 50 mcg IV NOW PRN PRN Reason: sedation for bronchoscopy Stop: 04/07/18 23:59 Last Admin: 04/07/18 09:21 Dose: 50 mcg Documented by: [id number] Ferrous Gluconate (Ferrous Gluconate) 324 mg PO DAILY [facility] Stop: 05/06/18 08:59 Last Admin: 04/07/18 07:49 Dose: 324 mg Documented by: [id number] Admin: 04/06/18 08:06 Dose: 324 mg Documented by: [id number] Finasteride (Proscar) 5 mg PO DAILY [facility] Stop: 05/06/18 08:59 Last Admin: 04/07/18 07:48 Dose: 5 mg Documented by: [id number] Admin: 04/06/18 08:06 Dose: 5 mg Documented by: [id number] Guaifenesin (Mucinex) 1,200 mg PO Q12H [facility] Stop: 05/06/18 07:59 Last Admin: 04/07/18 07:46 Dose: 1,200 mg Documented by: [id number] Admin: 04/06/18 20:03 Dose: 1,200 mg Documented by: [id number] Admin: 04/06/18 08:06 Dose: 1,200 mg Documented by: [id number] Methylprednisolone 60 mg/ (Syringe) 0.96 mls @ 1.5 mls/min IV Q8H [facility] Stop: 05/06/18 05:59 Last Admin: 04/07/18 14:36 Dose: 1.5 mls/min Documented by: [id number] Admin: 04/07/18 05:37 Dose: 1.5 mls/min Documented by: [id number] Admin: 04/06/18 21:30 Dose: 1.5 mls/min Documented by: [id number] Admin: 04/06/18 13:19 Dose: 1.5 mls/min Documented by: [id number] Admin: 04/06/18 06:36 Dose: 1.5 mls/min Documented by: [id number] Piperacillin Sod/Tazobactam (Sod 3.375 gm/ Dextrose) 115 mls @ 28.75 mls/hr IV Q8H [facility]; Protocol Stop: 04/13/18 05:59 Last Infusion: 04/07/18 18:41 Dose: 0 mls/hr Documented by: [id number] Admin: 04/07/18 14:35 Dose: 28.8 mls/hr Documented by: [id number] Infusion: 04/07/18 09:37 Dose: 0 mls/hr Documented by: [id number] Admin: 04/07/18 05:37 Dose: 28.8 mls/hr Documented by: [id number] Infusion: 04/07/18 02:13 Dose: 0 mls/hr Documented by: [id number] Admin: 04/06/18 21:32 Dose: 28.8 mls/hr Documented by: [id number] Infusion: 04/06/18 18:39 Dose: 0 mls/hr Documented by: [id number] Admin: 04/06/18 13:18 Dose: 29 mls/hr Documented by: [id number] Infusion: 04/06/18 10:47 Dose: 0 mls/hr Documented by: [id number] Admin: 04/06/18 06:35 Dose: 28.8 mls/hr Documented by: [id number] Vancomycin HCl 1,500 mg/ (Sodium Chloride) 530 mls @ 200 mls/hr IV Q16H [facility] Stop: 04/13/18 09:59 Last Admin: 04/07/18 17:49 Dose: 200 mls/hr Documented by: [id number] Infusion: 04/07/18 05:45 Dose: 200 mls/hr Documented by: [id number] Admin: 04/07/18 02:11 Dose: 200 mls/hr Documented by: [id number] Infusion: 04/06/18 13:14 Dose: 0 mls/hr Documented by: [id number] Admin: 04/06/18 10:18 Dose: 200 mls/hr Documented by: [id number] Sodium Chloride (Nss 1000ml) 1,000 mls @ 80 mls/hr IV .[id number] [facility] Stop: 05/07/18 05:59 Last Infusion: 04/07/18 17:49 Dose: 0 mls/hr Documented by: [id number] Infusion: 04/07/18 16:07 Dose: 80 mls/hr Documented by: [id number] Infusion: 04/07/18 08:49 Dose: 0 mls/hr Documented by: [id number] Admin: 04/07/18 07:03 Dose: 80 mls/hr Documented by: [id number] Levothyroxine Sodium (Synthroid) 50 mcg PO DAILYBB [facility] Stop: 05/06/18 06:29 Last Admin: 04/07/18 05:45 Dose: 50 mcg Documented by: [id number] Admin: 04/07/18 05:38 Dose: Not Given Documented by: [id number] Lidocaine HCl (Xylocaine 4% Inh) 2 ml NA ONCE [facility] Stop: 04/07/18 23:59 Last Admin: 04/07/18 09:10 Dose: 2 ml Documented by: [id number] Lidocaine HCl (Xylocaine 2% Preserved) 20 ml INSTIL ONCE [facility] Stop: 04/07/18 23:59 Last Admin: 04/07/18 09:44 Dose: 20 ml Documented by: [id number] Midazolam HCl (Versed) 12 mg IV NOW PRN PRN Reason: for bronchoscopy Stop: 04/07/18 23:59 Last Admin: 04/07/18 09:29 Dose: 12 mg Documented by: [id number] Montelukast Sodium (Singulair) 10 mg PO DAILY [facility] Stop: 05/06/18 08:59 Last Admin: 04/07/18 07:48 Dose: 10 mg Documented by: [id number] Admin: 04/06/18 08:06 Dose: 10 mg Documented by: [id number] Multivitamins/Minerals (Multivitamin W/ Minerals Tab) 1 tab PO DAILY [facility] Stop: 05/06/18 08:59 Last Admin: 04/07/18 07:46 Dose: 1 tab Documented by: [id number] Admin: 04/06/18 08:05 Dose: 1 tab Documented by: [id number] Ondansetron HCl (Zofran) 4 mg PO Q6H PRN PRN Reason: Nausea Stop: 05/06/18 19:48 Last Admin: 04/06/18 20:32 Dose: 4 mg Documented by: [id number] Pantoprazole Sodium (Protonix) 40 mg PO BID [facility] Stop: 05/06/18 08:59 Last Admin: 04/07/18 16:56 Dose: 40 mg Documented by: [id number] Admin: 04/07/18 07:47 Dose: 40 mg Documented by: [id number] Admin: 04/06/18 20:04 Dose: 40 mg Documented by: [id number] Admin: 04/06/18 08:05 Dose: 40 mg Documented by: [id number] Polyethylene Glycol (Miralax Powder Packet) 17 gm PO DAILY PRN PRN Reason: Constipation Stop: 05/06/18 01:17 Last Admin: 04/06/18 21:32 Dose: 17 gm Documented by: [id number] Tamsulosin HCl (Flomax) 0.4 mg PO DAILY [facility] Stop: 05/06/18 08:59 Last Admin: 04/07/18 07:47 Dose: 0.4 mg Documented by: [id number] Discontinued Medications Acetaminophen (Tylenol) 650 mg PO NOW STA Stop: 04/05/18 20:30 Last Admin: 04/05/18 21:33 Dose: 650 mg Documented by: [id number] Albuterol (Duoneb) 12 ml NEB ONE ONE Stop: 04/05/18 20:30 Last Admin: 04/05/18 20:52 Dose: 12 ml Documented by: [id number] Albuterol (Duoneb) 3 ml INH Q4H PRN PRN Reason: Shortness Of Breath Or Wheezin Stop: 05/06/18 01:17 Last Admin: 04/06/18 22:01 Dose: 3 ml Documented by: [id number] Admin: 04/06/18 07:06 Dose: 3 ml Documented by: [id number] Budesonide (Pulmicort Respules) 0.5 mg NEB BIDR [facility] Stop: 05/06/18 07:59 Last Admin: 04/07/18 07:22 Dose: 0.5 mg Documented by: [id number] Admin: 04/06/18 19:30 Dose: 0.5 mg Documented by: [id number] Admin: 04/06/18 07:06 Dose: 0.5 mg Documented by: [id number] Dornase Nicholas (Pulmozyme) 0.5 ml INH DAILY [facility] Stop: 05/06/18 08:59 Last Admin: 04/07/18 07:23 Dose: 0.5 ml Documented by: [id number] Admin: 04/06/18 07:06 Dose: 0.5 ml Documented by: [id number] Sodium Chloride (Nss 1000ml) 1,000 mls @ 999 mls/hr IV .Q1H1M ONE Stop: 04/05/18 21:29 Last Infusion: 04/05/18 22:32 Dose: 0 mls/hr Documented by: [id number] Admin: 04/05/18 21:33 Dose: 999 mls/hr Documented by: [id number] Piperacillin Sod/Tazobactam Sod (Zosyn) 4.5 gm in 120 mls @ 240 mls/hr IV NOW ONE Stop: 04/05/18 22:33 Last Infusion: 04/05/18 23:02 Dose: 0 mls/hr Documented by: [id number] Admin: 04/05/18 22:32 Dose: 240 mls/hr Documented by: [id number] Sodium Chloride (Nss 1000ml) 1,000 mls @ 999 mls/hr IV .Q1H1M ONE Stop: 04/06/18 00:03 Last Infusion: 04/06/18 00:21 Dose: 0 mls/hr Documented by: [id number] Admin: 04/05/18 23:17 Dose: 999 mls/hr Documented by: [id number] Lactated Ringer's (Lr) 1,000 mls @ 100 mls/hr IV .Q10H [facility] Stop: 04/06/18 21:17 Last Infusion: 04/06/18 21:38 Dose: 0 mls/hr Documented by: [id number] Admin: 04/06/18 11:24 Dose: 100 mls/hr Documented by: [id number] Infusion: 04/06/18 11:24 Dose: 100 mls/hr Documented by: [id number] Admin: 04/06/18 01:45 Dose: 100 mls/hr Documented by: [id number] Vancomycin HCl 2,000 mg/ (Sodium Chloride) 540 mls @ 200 mls/hr IV NOW ONE Stop: 04/06/18 04:11 Last Infusion: 04/06/18 06:26 Dose: 200 mls/hr Documented by: [id number] Admin: 04/06/18 01:45 Dose: 200 mls/hr Documented by: [id number] Levalbuterol HCl (Xopenex 1.25mg/3ml Neb) 1.25 mg NEB NOW STA Stop: 04/07/18 10:21 Last Admin: 04/07/18 09:47 Dose: 1.25 mg Documented by: [id number] Lidocaine HCl (Viscous Lidocaine 2%) 3 ml MT NOW ONE Stop: 04/07/18 10:23 Last Admin: 04/07/18 09:30 Dose: 3 ml Documented by: [id number] Methylprednisolone (Solumedrol) 125 mg IV NOW STA Stop: 04/05/18 20:30 Last Admin: 04/05/18 21:33 Dose: 125 mg Documented by: [id number] Oxymetazoline HCl (Afrin 0.05%) 1 sprays NA NOW ONE Stop: 04/07/18 10:05 Last Admin: 04/07/18 09:10 Dose: 1 sprays Documented by: [id number] Ranitidine HCl (Zantac) 300 mg PO DAILY [facility] Stop: 05/06/18 08:59 Last Admin: 04/06/18 01:44 Dose: 300 mg Documented by: [id number] Ranitidine HCl (Zantac) 150 mg PO NOW ONE Stop: 04/06/18 20:08 Last Admin: 04/06/18 20:33 Dose: 150 mg Documented by: [id number] Tamsulosin HCl (Flomax) 0.4 mg PO NOW ONE Stop: 04/06/18 12:13 Last Admin: 04/06/18 13:14 Dose: 0.4 mg Documented by: [id number] Medical Decision Making Differential Diagnosis Differential Diagnosis includes: COPD, bronchiectasis, PNA, sepsis, bronchial process, Electrolyte or metabolic abnormalities. Medical Records Attestation: I reviewed the patient's medical records. Home Medications Current Medication List: was personally reviewed by me Laboratory Data Attestation: I reviewed the patient's lab results. Result diagrams: 04/07/18 05:24 04/07/18 05:21 Lab Results 04/05/18 04/05/18 04/05/18 Range/Units 20:25 21:02 21:02 WBC 20.14 H (4.8-10.8) K/uL RBC 5.09 (4.7-6.1) M/uL Hgb 15.0 (14.0-18.0) g/dL Hct 45.3 (42-52) % MCV 89.0 (80-100) fL MCH 29.5 (25-34) pg MCHC 33.1 (32-36) g/dL RDW Std Deviation 47.3 H (36.4-46.3) fL RDW Coeff of Aditya 14.6 H (11.5-14.5) % Plt Count 262 (130-400) K/uL MPV 8.7 (7.4-10.4) fL Immature Gran % (Auto) 0.3 % Neut % (Auto) 92.1 % Lymph % (Auto) 4.1 % Allen % (Auto) 3.3 % Eos % (Auto) 0.1 % Baso % (Auto) 0.1 % Immature Gran # (Auto) 0.07 H (0.00-0.02) K/uL Neut # (Auto) 18.52 H (1.4-6.5) K/uL Lymph # (Auto) 0.83 L (1.2-3.4) K/uL Allen # (Auto) 0.67 H (0.11-0.59) K/uL Eos # (Auto) 0.03 (0-0.5) K/uL Baso # (Auto) 0.02 (0-0.2) K/uL PT 10.5 (9.0-12.0) Seconds INR 1.0 (0.9-1.1) APTT 25.0 (21.0-31.0) Seconds PTT Ratio 0.9 Sodium (136-145) mmol/L Potassium (3.5-5.1) mmol/L Chloride (98-107) mmol/L Carbon Dioxide (21-32) mmol/L Anion Gap (3-11) BUN (7-18) mg/dl Creatinine (0.6-1.4) mg/dl Est Cr Clr Drug Dosing ml/min Est GFR ( Amer) Est GFR (Non-Af Amer) BUN/Creatinine Ratio (10-20) Glucose (70-99) mg/dl POC Lactic Acid Bill (0.90-1.70) mmol/L Lactate (0.4-2.0) mmol/L Calcium (8.5-10.1) mg/dl Total Bilirubin (0.2-1) mg/dl AST (15-37) U/L ALT (12-78) U/L Alkaline Phosphatase (45-117) U/L POC Troponin I (0-0.045) ng/ml Total Protein (6.4-8.2) gm/dl Albumin (3.4-5.0) gm/dl Globulin (2.5-4.0) gm/dl Albumin/Globulin Ratio (0.9-2) Urine Color Urine Appearance (Clear) Urine pH (4.5-7.5) Ur Specific Bryant (1.000-1.030) Urine Protein (Negative) Urine Glucose (UA) (Negative) Urine Ketones (Negative) Urine Blood (Negative) Urine Nitrite (Negative) Urine Bilirubin (Negative) Urine Urobilinogen (Negative) Ur Leukocyte Esterase (Negative) Urine WBC (Auto) (0-5) /hpf Urine RBC (Auto) (0-4) /hpf U Hyaline Cast (Auto) (0-5) /lpf U Epithel Cells (Auto) (0-5) /lpf Urine Bacteria (Auto) (Negative) Nasal Screen MRSA (PCR) (Negative) Influenza Type A Ag Neg for Influ A (Neg) Influenza Type A (PCR) (Neg) Influenza Type B Ag Neg for Influ B (Neg) Influenza Type B (PCR) (Neg) 04/05/18 04/05/18 04/05/18 Range/Units 21:02 21:18 21:22 WBC (4.8-10.8) K/uL RBC (4.7-6.1) M/uL Hgb (14.0-18.0) g/dL Hct (42-52) % MCV (80-100) fL MCH (25-34) pg MCHC (32-36) g/dL RDW Std Deviation (36.4-46.3) fL RDW Coeff of Aditya (11.5-14.5) % Plt Count (130-400) K/uL MPV (7.4-10.4) fL Immature Gran % (Auto) % Neut % (Auto) % Lymph % (Auto) % Allen % (Auto) % Eos % (Auto) % Baso % (Auto) % Immature Gran # (Auto) (0.00-0.02) K/uL Neut # (Auto) (1.4-6.5) K/uL Lymph # (Auto) (1.2-3.4) K/uL Allen # (Auto) (0.11-0.59) K/uL Eos # (Auto) (0-0.5) K/uL Baso # (Auto) (0-0.2) K/uL PT (9.0-12.0) Seconds INR (0.9-1.1) APTT (21.0-31.0) Seconds PTT Ratio Sodium 136 (136-145) mmol/L Potassium 3.9 (3.5-5.1) mmol/L Chloride 105 (98-107) mmol/L Carbon Dioxide 25 (21-32) mmol/L Anion Gap 7.0 (3-11) BUN 18 (7-18) mg/dl Creatinine 1.49 H (0.6-1.4) mg/dl Est Cr Clr Drug Dosing 63.1 ml/min Est GFR ( Amer) 58.3 Est GFR (Non-Af Amer) 50.3 BUN/Creatinine Ratio 12.3 (10-20) Glucose 82 (70-99) mg/dl POC Lactic Acid Bill 2.79 H (0.90-1.70) mmol/L Lactate (0.4-2.0) mmol/L Calcium 8.5 (8.5-10.1) mg/dl Total Bilirubin 0.6 (0.2-1) mg/dl AST 10 L (15-37) U/L ALT 27 (12-78) U/L Alkaline Phosphatase 83 (45-117) U/L POC Troponin I < 0.03 (0-0.045) ng/ml Total Protein 7.1 (6.4-8.2) gm/dl Albumin 3.6 (3.4-5.0) gm/dl Globulin 3.5 (2.5-4.0) gm/dl Albumin/Globulin Ratio 1.0 (0.9-2) Urine Color Urine Appearance (Clear) Urine pH (4.5-7.5) Ur Specific Bryant (1.000-1.030) Urine Protein (Negative) Urine Glucose (UA) (Negative) Urine Ketones (Negative) Urine Blood (Negative) Urine Nitrite (Negative) Urine Bilirubin (Negative) Urine Urobilinogen (Negative) Ur Leukocyte Esterase (Negative) Urine WBC (Auto) (0-5) /hpf Urine RBC (Auto) (0-4) /hpf U Hyaline Cast (Auto) (0-5) /lpf U Epithel Cells (Auto) (0-5) /lpf Urine Bacteria (Auto) (Negative) Nasal Screen MRSA (PCR) (Negative) Influenza Type A Ag (Neg) Influenza Type A (PCR) (Neg) Influenza Type B Ag (Neg) Influenza Type B (PCR) (Neg) 04/06/18 04/06/18 04/06/18 Range/Units 02:46 06:46 06:46 WBC 22.37 H (4.8-10.8) K/uL RBC 4.62 L (4.7-6.1) M/uL Hgb 13.7 L (14.0-18.0) g/dL Hct 41.7 L (42-52) % MCV 90.3 (80-100) fL MCH 29.7 (25-34) pg MCHC 32.9 (32-36) g/dL RDW Std Deviation 48.7 H (36.4-46.3) fL RDW Coeff of Aditya 14.9 H (11.5-14.5) % Plt Count 244 (130-400) K/uL MPV 8.5 (7.4-10.4) fL Immature Gran % (Auto) 0.4 % Neut % (Auto) 95.3 % Lymph % (Auto) 2.7 % Allen % (Auto) 1.6 % Eos % (Auto) 0.0 % Baso % (Auto) 0.0 % Immature Gran # (Auto) 0.08 H (0.00-0.02) K/uL Neut # (Auto) 21.33 H (1.4-6.5) K/uL Lymph # (Auto) 0.60 L (1.2-3.4) K/uL Allen # (Auto) 0.35 (0.11-0.59) K/uL Eos # (Auto) 0.00 (0-0.5) K/uL Baso # (Auto) 0.01 (0-0.2) K/uL PT (9.0-12.0) Seconds INR (0.9-1.1) APTT (21.0-31.0) Seconds PTT Ratio Sodium (136-145) mmol/L Potassium (3.5-5.1) mmol/L Chloride (98-107) mmol/L Carbon Dioxide (21-32) mmol/L Anion Gap (3-11) BUN (7-18) mg/dl Creatinine (0.6-1.4) mg/dl Est Cr Clr Drug Dosing ml/min Est GFR ( Amer) Est GFR (Non-Af Amer) BUN/Creatinine Ratio (10-20) Glucose (70-99) mg/dl POC Lactic Acid Bill (0.90-1.70) mmol/L Lactate 3.8 H* (0.4-2.0) mmol/L Calcium (8.5-10.1) mg/dl Total Bilirubin (0.2-1) mg/dl AST (15-37) U/L ALT (12-78) U/L Alkaline Phosphatase (45-117) U/L POC Troponin I (0-0.045) ng/ml Total Protein (6.4-8.2) gm/dl Albumin (3.4-5.0) gm/dl Globulin (2.5-4.0) gm/dl Albumin/Globulin Ratio (0.9-2) Urine Color Yellow Urine Appearance Clear (Clear) Urine pH 7.0 (4.5-7.5) Ur Specific Bryant 1.007 (1.000-1.030) Urine Protein Negative (Negative) Urine Glucose (UA) Negative (Negative) Urine Ketones Negative (Negative) Urine Blood Negative (Negative) Urine Nitrite Negative (Negative) Urine Bilirubin Negative (Negative) Urine Urobilinogen Negative (Negative) Ur Leukocyte Esterase Negative (Negative) Urine WBC (Auto) 0 (0-5) /hpf Urine RBC (Auto) 0-4 (0-4) /hpf U Hyaline Cast (Auto) 0 (0-5) /lpf U Epithel Cells (Auto) 0-5 (0-5) /lpf Urine Bacteria (Auto) Negative (Negative) Nasal Screen MRSA (PCR) (Negative) Influenza Type A Ag (Neg) Influenza Type A (PCR) (Neg) Influenza Type B Ag (Neg) Influenza Type B (PCR) (Neg) 04/06/18 04/06/18 04/07/18 Range/Units 06:46 12:10 05:21 WBC (4.8-10.8) K/uL RBC (4.7-6.1) M/uL Hgb (14.0-18.0) g/dL Hct (42-52) % MCV (80-100) fL MCH (25-34) pg MCHC (32-36) g/dL RDW Std Deviation (36.4-46.3) fL RDW Coeff of Aditya (11.5-14.5) % Plt Count (130-400) K/uL MPV (7.4-10.4) fL Immature Gran % (Auto) % Neut % (Auto) % Lymph % (Auto) % Allen % (Auto) % Eos % (Auto) % Baso % (Auto) % Immature Gran # (Auto) (0.00-0.02) K/uL Neut # (Auto) (1.4-6.5) K/uL Lymph # (Auto) (1.2-3.4) K/uL Allen # (Auto) (0.11-0.59) K/uL Eos # (Auto) (0-0.5) K/uL Baso # (Auto) (0-0.2) K/uL PT (9.0-12.0) Seconds INR (0.9-1.1) APTT (21.0-31.0) Seconds PTT Ratio Sodium 141 144 (136-145) mmol/L Potassium 4.2 4.6 (3.5-5.1) mmol/L Chloride 112 H 114 H (98-107) mmol/L Carbon Dioxide 21 24 (21-32) mmol/L Anion Gap 8.0 6.0 (3-11) BUN 18 20 H (7-18) mg/dl Creatinine 1.52 H 1.17 D (0.6-1.4) mg/dl Est Cr Clr Drug Dosing 61.5 79.9 ml/min Est GFR ( Amer) 56.9 78.1 Est GFR (Non-Af Amer) 49.1 67.4 BUN/Creatinine Ratio 12.0 17.1 (10-20) Glucose 146 H 142 H (70-99) mg/dl POC Lactic Acid Bill (0.90-1.70) mmol/L Lactate 2.7 H* (0.4-2.0) mmol/L Calcium 7.7 L 8.0 L (8.5-10.1) mg/dl Total Bilirubin (0.2-1) mg/dl AST (15-37) U/L ALT (12-78) U/L Alkaline Phosphatase (45-117) U/L POC Troponin I (0-0.045) ng/ml Total Protein (6.4-8.2) gm/dl Albumin (3.4-5.0) gm/dl Globulin (2.5-4.0) gm/dl Albumin/Globulin Ratio (0.9-2) Urine Color Urine Appearance (Clear) Urine pH (4.5-7.5) Ur Specific Bryant (1.000-1.030) Urine Protein (Negative) Urine Glucose (UA) (Negative) Urine Ketones (Negative) Urine Blood (Negative) Urine Nitrite (Negative) Urine Bilirubin (Negative) Urine Urobilinogen (Negative) Ur Leukocyte Esterase (Negative) Urine WBC (Auto) (0-5) /hpf Urine RBC (Auto) (0-4) /hpf U Hyaline Cast (Auto) (0-5) /lpf U Epithel Cells (Auto) (0-5) /lpf Urine Bacteria (Auto) (Negative) Nasal Screen MRSA (PCR) (Negative) Influenza Type A Ag (Neg) Influenza Type A (PCR) (Neg) Influenza Type B Ag (Neg) Influenza Type B (PCR) (Neg) 04/07/18 04/07/18 04/07/18 Range/Units 05:24 06:03 15:15 WBC 18.00 H (4.8-10.8) K/uL RBC 4.26 L (4.7-6.1) M/uL Hgb 12.7 L (14.0-18.0) g/dL Hct 39.1 L (42-52) % MCV 91.8 (80-100) fL MCH 29.8 (25-34) pg MCHC 32.5 (32-36) g/dL RDW Std Deviation 50.6 H (36.4-46.3) fL RDW Coeff of Aditya 15.0 H (11.5-14.5) % Plt Count 227 (130-400) K/uL MPV 9.1 (7.4-10.4) fL Immature Gran % (Auto) 0.4 % Neut % (Auto) 93.3 % Lymph % (Auto) 3.5 % Allen % (Auto) 2.8 % Eos % (Auto) 0.0 % Baso % (Auto) 0.0 % Immature Gran # (Auto) 0.07 H (0.00-0.02) K/uL Neut # (Auto) 16.80 H (1.4-6.5) K/uL Lymph # (Auto) 0.63 L (1.2-3.4) K/uL Allen # (Auto) 0.50 (0.11-0.59) K/uL Eos # (Auto) 0.00 (0-0.5) K/uL Baso # (Auto) 0.00 (0-0.2) K/uL PT (9.0-12.0) Seconds INR (0.9-1.1) APTT (21.0-31.0) Seconds PTT Ratio Sodium (136-145) mmol/L Potassium (3.5-5.1) mmol/L Chloride (98-107) mmol/L Carbon Dioxide (21-32) mmol/L Anion Gap (3-11) BUN (7-18) mg/dl Creatinine (0.6-1.4) mg/dl Est Cr Clr Drug Dosing ml/min Est GFR ( Amer) Est GFR (Non-Af Amer) BUN/Creatinine Ratio (10-20) Glucose (70-99) mg/dl POC Lactic Acid Bill (0.90-1.70) mmol/L Lactate 2.0 (0.4-2.0) mmol/L Calcium (8.5-10.1) mg/dl Total Bilirubin (0.2-1) mg/dl AST (15-37) U/L ALT (12-78) U/L Alkaline Phosphatase (45-117) U/L POC Troponin I (0-0.045) ng/ml Total Protein (6.4-8.2) gm/dl Albumin (3.4-5.0) gm/dl Globulin (2.5-4.0) gm/dl Albumin/Globulin Ratio (0.9-2) Urine Color Urine Appearance (Clear) Urine pH (4.5-7.5) Ur Specific Bryant (1.000-1.030) Urine Protein (Negative) Urine Glucose (UA) (Negative) Urine Ketones (Negative) Urine Blood (Negative) Urine Nitrite (Negative) Urine Bilirubin (Negative) Urine Urobilinogen (Negative) Ur Leukocyte Esterase (Negative) Urine WBC (Auto) (0-5) /hpf Urine RBC (Auto) (0-4) /hpf U Hyaline Cast (Auto) (0-5) /lpf U Epithel Cells (Auto) (0-5) /lpf Urine Bacteria (Auto) (Negative) Nasal Screen MRSA (PCR) (Negative) Influenza Type A Ag (Neg) Influenza Type A (PCR) Neg for Influ A (Neg) Influenza Type B Ag (Neg) Influenza Type B (PCR) Neg for Influ B (Neg) 04/07/18 Range/Units 15:15 WBC (4.8-10.8) K/uL RBC (4.7-6.1) M/uL Hgb (14.0-18.0) g/dL Hct (42-52) % MCV (80-100) fL MCH (25-34) pg MCHC (32-36) g/dL RDW Std Deviation (36.4-46.3) fL RDW Coeff of Aditya (11.5-14.5) % Plt Count (130-400) K/uL MPV (7.4-10.4) fL Immature Gran % (Auto) % Neut % (Auto) % Lymph % (Auto) % Allen % (Auto) % Eos % (Auto) % Baso % (Auto) % Immature Gran # (Auto) (0.00-0.02) K/uL Neut # (Auto) (1.4-6.5) K/uL Lymph # (Auto) (1.2-3.4) K/uL Allen # (Auto) (0.11-0.59) K/uL Eos # (Auto) (0-0.5) K/uL Baso # (Auto) (0-0.2) K/uL PT (9.0-12.0) Seconds INR (0.9-1.1) APTT (21.0-31.0) Seconds PTT Ratio Sodium (136-145) mmol/L Potassium (3.5-5.1) mmol/L Chloride (98-107) mmol/L Carbon Dioxide (21-32) mmol/L Anion Gap (3-11) BUN (7-18) mg/dl Creatinine (0.6-1.4) mg/dl Est Cr Clr Drug Dosing ml/min Est GFR ( Amer) Est GFR (Non-Af Amer) BUN/Creatinine Ratio (10-20) Glucose (70-99) mg/dl POC Lactic Acid Bill (0.90-1.70) mmol/L Lactate (0.4-2.0) mmol/L Calcium (8.5-10.1) mg/dl Total Bilirubin (0.2-1) mg/dl AST (15-37) U/L ALT (12-78) U/L Alkaline Phosphatase (45-117) U/L POC Troponin I (0-0.045) ng/ml Total Protein (6.4-8.2) gm/dl Albumin (3.4-5.0) gm/dl Globulin (2.5-4.0) gm/dl Albumin/Globulin Ratio (0.9-2) Urine Color Urine Appearance (Clear) Urine pH (4.5-7.5) Ur Specific Bryant (1.000-1.030) Urine Protein (Negative) Urine Glucose (UA) (Negative) Urine Ketones (Negative) Urine Blood (Negative) Urine Nitrite (Negative) Urine Bilirubin (Negative) Urine Urobilinogen (Negative) Ur Leukocyte Esterase (Negative) Urine WBC (Auto) (0-5) /hpf Urine RBC (Auto) (0-4) /hpf U Hyaline Cast (Auto) (0-5) /lpf U Epithel Cells (Auto) (0-5) /lpf Urine Bacteria (Auto) (Negative) Nasal Screen MRSA (PCR) Negative (Negative) Influenza Type A Ag (Neg) Influenza Type A (PCR) (Neg) Influenza Type B Ag (Neg) Influenza Type B (PCR) (Neg) Imaging Data Radiologist's Impression: Radiology results as stated below per my review and the radiologist's interpretation: XR chest 1V portable CLINICAL HISTORY: Sepsis COMPARISON STUDY: 11/29/2017 FINDINGS: The cardiac and mediastinal contours remain stable. There is mild central vascular prominence. There are persistent left basilar airspace opacities. There is slight interval increase in markings in the right infrahilar region.[ There are no large pleural effusions. IMPRESSION: 1. Persistent left medial basilar airspace opacities. Minimal right basilar airspace opacities 2. Mild vascular prominence. An element of mild pulmonary vascular congestion cannot be excluded Electronically signed by: Shiraz Camacho M.D. 04/05/2018 9:32 PM ECG Data Rate (beats per minute): 113 Rhythm: sinus tachycardia Findings: no PAC, no PVC, no acute ischemic change and no ectopy Comparison ECG Date: from (11/29/17) Change: the following changes noted (nonspecific ST abnormality) Blood Pressure Blood Pressure Findings: Normal blood pressure MDM Narrative This patient comes in as described above. He was placed in room C6. He has a history of significant pulmonary disease with COPD and bronchiectasis secondary to ciliary dysfunction. He has a frequent bronchoscopies for mucosal removal. He had completed a course of Levaquin recently saw his program analyst recently. he has had a fever today gotten worse. He appears mildly tachypneic and he appears uncomfortable. He does have a fever initially and is tachycardic. His blood pressure was mildly low at times running in the 90s it would go up in the 100s. He was hydrated with 2 L IV normal saline bolus while he was here. He was given IV Zosyn. I have reviewed his meds and old records. He does have a history of SEBASTIEN as well. His chest x-ray shows a left lower lobe infiltrate. His white count is elevated 20,000. His lactic acid is mildly elevated 2.6. He has nothing to suggest cardiac disease he has no acute electrolyte or metabolic abnormalities. At this point, I do think he has pneumonia and sepsis and a COPD exacerbation. He was also given albuterol/Atrovent 1 hour neb as well as SoluMedrol 125 mg IV. I do think he needs to be admitted for treatment of his sepsis/COPD as well as further treatment and evaluation and pulmonary consultation immediate bronchoscopy as well. I did consult the hospitalist to see in the ER for these measures. Impression & Plan Sepsis, Pneumonia, Ciliary dyskinesia, COPD (chronic obstructive pulmonary disease) Critical Care Time I have personally spent greater than 30 minutes of critical care time in the direct management of this patient. This includes bedside care, interpretation of diagnostic studies, and testing, discussion with consultants, patient, and family members, and other required patient management activities. This 30 minutes is in excess of all separately billable procedures. Critical Care Time: Yes Total Critical Care Time: 30 Discharge Plan Visit Data *Final* Discharge Date/Time: 04/06/18 00:59 Chief Complaint: Shortness of Breath/Dyspnea Stated Complaint: SOB, PAIN IN CHEST, FEVER ED Provider: Wally Barry Discharge Problem: Sepsis, Pneumonia, Ciliary dyskinesia, COPD (chronic obstructive pulmonary disease) Patient Disposition: Admitted As Inpatient Discharge Instructions Interventions: ED Discharge Assessment Last Done: 04/06/18 00:59 Discharge Problem: Sepsis Qualifiers: Sepsis type: sepsis due to unspecified organism Qualified Code(s): A41.9 - Sepsis, unspecified organism Pneumonia Qualifiers: Pneumonia type: due to unspecified organism Laterality: unspecified laterality Lung location: unspecified part of lung Qualified Code(s): J18.9 - Pneumonia, unspecified organism COPD (chronic obstructive pulmonary disease) Qualifiers: COPD type: COPD with acute lower respiratory infection Qualified Code(s): J44.0 - Chronic obstructive pulmonary disease with acute lower respiratory infection The anjuibe's documentation has been prepared under my direction and personally reviewed by me in its entirety. I confirm that the note above accurately reflects all work, treatment, procedures, and medical decision making performed by me.
--- NOTE | 2018-04-07 19:11 | Hospitalist Progress Note ---
Date of Service April 07, 2018 Assessment & Plan (1) LLL pneumonia: Day #2 of zosyn/vanco. Defer on atypical coverage - just completed 7+ days of levaquin as outpatient. At risk for gram negative pathogens given his chronic lung conditions. Send MRSA swab. Check flu PCR (had flu Ag test that was negative but high false neg rate). Consider d/c of vanco if MRSA swab is negative and bronch gram stain neg for GPC. Supportive care. Follow cultures. Present on Admission?: Yes (2) Sepsis: 2nd to LLL Pneumonia - improving. CBC in am. Abx as in "LLL Pneumonia." Follow blood cx's. flu PCR test. Present on Admission?: Yes (3) Bronchiectasis: with exacerbation. currently on high-dose steroids with minimal wheeze. lower steroids to q12h dosing, then cut dose again tomorrow. Cont pulmonary toilet, dornase, etc Present on Admission?: Yes (4) Ciliary dyskinesia: known diagnosis; followed locally by Dr. Angela and also at [facility]. s/p bronch today. had endobronchial lesion near the left mainstem bronchus today s/p biopsy. Appreciate pulmonary assistance. Present on Admission?: Yes (5) BPH (benign prostatic hyperplasia): cont finasteride & flomax Present on Admission?: Yes (6) BREONNA (obstructive sleep apnea): CPAP HS Present on Admission?: Yes (7) Hypothyroidism: cont synthroid (8) GERD (gastroesophageal reflux disease): cont PPI twice a day (9) DVT prophylaxis: tomorrow would start lovenox 40mg daily Subjective patient with ongoing body aches, fatigue, cough, left-sided pleuritic pain eating ok no dyspnea at rest s/p bronch this am -- left-sided mainstem bronchus lesion seen and biopsied I saw him post-bronch and he was resting well Constitutional: no fever and no chills Ear, Nose, Mouth, Throat: no nasal congestion Respiratory: + cough, + chest congestion, + dyspnea on exertion and + sputum production; no hemoptysis Cardiovascular: as per Subjective / HPI and + chest pain Gastrointestinal: no abdominal pain Physical Exam Vital Signs (Past 24 Hours): Last Vital Signs Temp 36.7 C 04/07/18 16:00 Pulse 70 04/07/18 16:00 Resp 18 04/07/18 16:00 BP 135/77 04/07/18 16:00 Pulse Ox 95 04/07/18 16:00 Constitutional: well developed and well nourished; no acute distress and not ill appearing ENMT: external ear and nose normal, oropharynx normal Respiratory: normal respiratory effort; no respiratory distress Auscultation: + rales (LLL); no rhonchi and no wheezes Cardiovascular: RRR, no murmur, no edema Heart Sounds: normal S1 and normal S2 Vessels: posterior tibial pulses present and dorsalis pedis pulses present; no JVD Gastrointestinal (Abdomen): normal bowel sounds, soft, nontender, no hepatosplenomegaly Psychiatric: A+Ox3, euthymic affect Results & Data Laboratory Results Laboratory Results - last 24 hr 04/07/18 04/07/18 04/07/18 05:21 05:24 06:03 WBC 18.00 H RBC 4.26 L Hgb 12.7 L Hct 39.1 L MCV 91.8 MCH 29.8 MCHC 32.5 RDW Std Deviation 50.6 H RDW Coeff of Aditya 15.0 H Plt Count 227 MPV 9.1 Immature Gran % (Auto) 0.4 Neut % (Auto) 93.3 Lymph % (Auto) 3.5 Brule % (Auto) 2.8 Eos % (Auto) 0.0 Baso % (Auto) 0.0 Immature Gran # (Auto) 0.07 H Neut # (Auto) 16.80 H Lymph # (Auto) 0.63 L Brule # (Auto) 0.50 Eos # (Auto) 0.00 Baso # (Auto) 0.00 Sodium 144 Potassium 4.6 Chloride 114 H Carbon Dioxide 24 Anion Gap 6.0 BUN 20 H Creatinine 1.17 D Est Cr Clr Drug Dosing 79.9 Est GFR ( Amer) 78.1 Est GFR (Non-Af Amer) 67.4 BUN/Creatinine Ratio 17.1 Glucose 142 H Lactate 2.0 Calcium 8.0 L Nasal Screen MRSA (PCR) Influenza Type A (PCR) Influenza Type B (PCR) 04/07/18 04/07/18 15:15 15:15 WBC RBC Hgb Hct MCV MCH MCHC RDW Std Deviation RDW Coeff of Aditya Plt Count MPV Immature Gran % (Auto) Neut % (Auto) Lymph % (Auto) Brule % (Auto) Eos % (Auto) Baso % (Auto) Immature Gran # (Auto) Neut # (Auto) Lymph # (Auto) Brule # (Auto) Eos # (Auto) Baso # (Auto) Sodium Potassium Chloride Carbon Dioxide Anion Gap BUN Creatinine Est Cr Clr Drug Dosing Est GFR ( Amer) Est GFR (Non-Af Amer) BUN/Creatinine Ratio Glucose Lactate Calcium Nasal Screen MRSA (PCR) Negative Influenza Type A (PCR) Neg for Influ A Influenza Type B (PCR) Neg for Influ B (1) LLL pneumonia Pneumonia type: due to unspecified organism Qualified Code(s): J18.1 - Lobar pneumonia, unspecified organism (2) Sepsis Sepsis type: sepsis due to unspecified organism Qualified Code(s): A41.9 - Sepsis, unspecified organism (3) Bronchiectasis Bronchiectasis type: with acute lower respiratory infection Qualified Code(s): J47.0 - Bronchiectasis with acute lower respiratory infection (4) BPH (benign prostatic hyperplasia) Lower urinary tract symptom presence: symptoms absent Qualified Code(s): N40.0 - Benign prostatic hyperplasia without lower urinary tract symptoms (5) Hypothyroidism Hypothyroidism type: acquired Qualified Code(s): E03.9 - Hypothyroidism, unspecified (6) GERD (gastroesophageal reflux disease) Esophagitis presence: without esophagitis Qualified Code(s): K21.9 - Gastro- esophageal reflux disease without esophagitis
[2018-04-07] MEDS ORDERED: Nursing to Pharmacy Communication ONE (21:07)
[2018-04-07] MEDS: POLYETHYLENE (MIRALAX) 17 GM PACK PO PRN (21:41)
[2018-04-08] MEDS ORDERED: methylPREDNISolone 60 MG in SYRINGE 0 ML IV SCH (02:00)
[2018-04-08] MEDS: SODIUM CHLORIDE 0.9% 1000ML 1,000 ML IV SCH (04:56)
[2018-04-08] MEDS: PIPERACILLIN/TAZOBACTAM 3.375 GM in DEXTROSE 5% 100 ML IV SCH ×3 (05:37→21:04)
[2018-04-08] MEDS: LEVOTHYROXINE SODIUM 50 MCG TABLET PO SCH (05:37)
[2018-04-08] MEDS: BUDESONIDE 0.5 MG/2 ML VIAL (PULMICORT) NEB SCH (07:13)
[2018-04-08] MEDS: ALBUT/IPRATROP 3MG/0.5MG NEB 3 ML VIAL INH SCH ×4 (07:13→19:45)
[2018-04-08] MEDS: DORNASE ALFA 2.5 ML AMP INH SCH (07:14)
[2018-04-08] MEDS: FERROUS GLUCONATE 324 MG TAB PO SCH (08:25)
[2018-04-08] MEDS: DOCUSATE SODIUM 100 MG CAP PO SCH (08:25)
[2018-04-08] MEDS: BuPROPion XL 300 MG TABCR PO SCH (08:26)
[2018-04-08] MEDS: MONTELUKAST SODIUM 10 MG TABLET PO SCH (08:26)
[2018-04-08] MEDS: PANTOprazole 40 MG TAB PO SCH ×2 (08:26→17:26)
[2018-04-08] MEDS: FINASTERIDE 5 MG TAB PO SCH (08:28)
[2018-04-08] MEDS: guaiFENesin 600 MG TABCR PO SCH ×2 (08:28→21:01)
[2018-04-08] MEDS: CEROVITE ADV FORMULA TAB PO SCH (08:28)
[2018-04-08] MEDS: TAMSULOSIN HCL 0.4 MG CAP PO SCH (08:28)
[2018-04-08 10:02] LABS: Hematocrit (blood only) 39.9 % (42-52); Hemoglobin 12.8 g/dL (14.0-18.0); Mean Corpuscular Hgb Conc 32.1 g/dL (32-36); Mean Corpuscular Volume 92.1 fL (80-100); Mean Platelet Volume 8.9 fL (7.4-10.4); Platelet Count 265 K/uL (130-400); RDW Coefficient of Variation 15.2 % (11.5-14.5); RDW Standard Deviation 51.4 fL (36.4-46.3); Red Blood Count 4.33 M/uL (4.7-6.1); White Blood Count 15.28 K/uL (4.8-10.8)
[2018-04-08 10:27] LABS: BUN Creatinine Ratio 16.1 (10-20); Creatinine Clr Calc Pharmacy 74.2 ml/min; Est GFR (African American) 71.4; Est GFR (Non-African American) 61.6; Potassium 4.3 mmol/L (3.5-5.1)
[2018-04-08] MEDS: VANCOMYCIN HCL 1,500 MG in SODIUM CHLORIDE 0.9% 500 ML IV SCH (10:41)
--- NOTE | 2018-04-08 11:06 | Pharmacy Report ---
Pharmacy Abx Dose Short Note - Date of Service April 08, 2018 - Assessment & Plan Assessment 58 year old M receiving vanco/zosyn for treatment of HAP Day # 3/7 of antimicrobial therapy. Trough subtherapeutic for indication of pulmonary source, 10mcg/mL. Renal fxn has been improving over the last 48hrs. Current pt population p'kinetics: t1/2=10, ke=0.0658. MRSA nares are negative, we are still waiting on bronchial washings to potentially d/c vancomycin. Plan Vancomycin * continue vancomycin 1500mg but will shorten dosing interval q16---->q12 to help raise the trough ~15mcg/mL * trough ordered for 04/10/18 @0930 * goal trough: 15-20mcg/mL Zosyn * EI 3.375g IV q8 appropriate for clinical status and eCrCl>20cc/min Pharmacy will continue to follow and will adjust dose/frequency as necessary. Thank you.
--- NOTE | 2018-04-08 11:43 | Progress Note ---
DATE: 04/08/2018 PULMONARY PROGRESS NOTE TIME: 10:40 a.m. SUBJECTIVE: The patient is still not feeling all that great. He states he still feels congested somewhat, even though he just had bronchoscopy. He states he still has some left-sided chest pain, although it is much better. He feels that his energy level is poor. OBJECTIVE: GENERAL: The patient appeared comfortable. VITAL SIGNS: Current temperature is 37. He had no fevers after bronchoscopy. Heart rate 83 per minute. Rhythm regular. Blood pressure 133/71. LUNGS: Lung linda revealed decreased breath sounds at the left base. No wheezes were heard. Few rhonchi heard. Respiratory rate 18. Saturation 94% on room air. EXTREMITIES: Showed no cyanosis, clubbing or edema. As noted, the patient had a bronchoscopy yesterday by Dr. Angela. He found secretions mostly in the left lower lung field. There was also an endobronchial lesion of some type located along the lateral wall of the main stem bronchus on the left. Brushings and biopsies were done in that area. Thus far, no results are back from bronchoscopy. LABORATORY DATA: White count today is 15.28. Two days ago, it was 22.37. Hemoglobin today 12.8. Platelets were 265,000. Electrolytes show sodium 141, potassium 4.3, chloride 112, bicarbonate 22. BUN 20 with creatinine of 1.26. It is notable that serum lactate that had been as high as 3.8 was down to 2.0 as of yesterday. IMPRESSION: 1. Left lower lobe pneumonia. 2. Bronchiectasis. 3. Ciliary dyskinesia. 4. Obstructive sleep apnea. COMMENTS AND RECOMMENDATIONS: The patient is still not feeling well. Would continue with the Zosyn and vancomycin. He is still on methylprednisolone, which likely can be decreased somewhat. We would continue with his other interventions. Hopefully, preliminary bronchoscopy reports maybe back in 24 hours or so.
[2018-04-08] MEDS: methylPREDNISolone 30 MG in SYRINGE 0 ML IV SCH ×2 (12:45→23:55)
[2018-04-08] MEDS: POLYETHYLENE (MIRALAX) 17 GM PACK PO SCH (12:45)
[2018-04-08] MEDS: DOCUSATE SODIUM/SENNA 50/8.6MG TAB PO SCH (12:46)
[2018-04-08] MEDS: clonazePAM 1 MG TAB PO PRN ×2 (17:29→21:15)
--- NOTE | 2018-04-08 20:39 | Hospitalist Progress Note ---
Date of Service April 08, 2018 Assessment & Plan (1) LLL pneumonia: Day #3 of zosyn/vanco. Defer on atypical coverage - just completed 7+ days of levaquin as outpatient. At risk for gram negative pathogens given his chronic lung conditions. MRSA swab negative; if bronch cultures don't grow MRSA then stop the vanco. Flu PCR negative. Appreciate Dr. Schumacher's consultation. Progressing. (2) Sepsis: 2nd to LLL Pneumonia - resolved. CBC improving. Abx as in "LLL Pneumonia." Follow blood cx's. (3) Bronchiectasis: with exacerbation. improving. wean steroids again today. probably over to prednisone tomorrow. Cont pulmonary toilet, dornase, etc (4) Ciliary dyskinesia: known diagnosis; followed locally by Dr. Angela and also at [facility]. s/p bronch this admission. had endobronchial lesion near the left mainstem bronchus s/p biopsy --- bx neg for cancer. Appreciate pulmonary assistance. (5) BPH (benign prostatic hyperplasia): cont finasteride & flomax (6) BREONNA (obstructive sleep apnea): CPAP HS (7) Hypothyroidism: cont synthroid (8) GERD (gastroesophageal reflux disease): cont PPI twice a day (9) Constipation: add colace/senna w/ miralax ambulate (10) DVT prophylaxis: lovenox 40mg daily progressing home this weekend? Subjective pt feeling better still occasional pleuritic type pain over the left chest some cough minimal mucous eating well - 100% of meals mild dyspnea on exertion and fatigue Constitutional: + fatigue; no fever and no anorexia Respiratory: + cough; no hemoptysis Cardiovascular: + chest pain and + chest pain at rest; no orthopnea, no paroxysmal nocturnal dyspnea, no palpitations and no edema Physical Exam Vital Signs (Past 24 Hours): Last Vital Signs Temp 36.7 C 04/08/18 16:00 Pulse 67 04/08/18 16:00 Resp 18 04/08/18 16:00 BP 143/73 H 04/08/18 16:00 Pulse Ox 97 04/08/18 16:00 Constitutional: well developed and well nourished; no acute distress and not ill appearing ENMT: external ear and nose normal, oropharynx normal Respiratory: normal respiratory effort; no respiratory distress Auscultation: + rales (LLL) and + wheezes (scattered, mild); no rhonchi Cardiovascular: RRR, no murmur, no edema Heart Sounds: normal S1 and normal S2 Vessels: posterior tibial pulses present and dorsalis pedis pulses present; no JVD Gastrointestinal (Abdomen): normal bowel sounds, soft, nontender, no hepatosplenomegaly Inspection/Auscultation: + abdomen distended Psychiatric: A+Ox3, euthymic affect Results & Data Laboratory Results Laboratory Results - last 24 hr 04/08/18 04/08/18 04/08/18 09:38 09:38 09:38 WBC 15.28 H RBC 4.33 L Hgb 12.8 L Hct 39.9 L MCV 92.1 MCH 29.6 MCHC 32.1 RDW Std Deviation 51.4 H RDW Coeff of Aditya 15.2 H Plt Count 265 MPV 8.9 Sodium 141 Potassium 4.3 Chloride 112 H Carbon Dioxide 22 Anion Gap 7.0 BUN 20 H Creatinine 1.26 Est Cr Clr Drug Dosing 74.2 Est GFR ( Amer) 71.4 Est GFR (Non-Af Amer) 61.6 BUN/Creatinine Ratio 16.1 Glucose 94 Calcium 8.0 L Vancomycin Trough 10.0 Diagnostic Findings all bronch cultures negative to date (1) LLL pneumonia Pneumonia type: due to unspecified organism Qualified Code(s): J18.1 - Lobar pneumonia, unspecified organism (2) Sepsis Sepsis type: sepsis due to unspecified organism Qualified Code(s): A41.9 - Sepsis, unspecified organism (3) Bronchiectasis Bronchiectasis type: with acute lower respiratory infection Qualified Code(s): J47.0 - Bronchiectasis with acute lower respiratory infection (4) BPH (benign prostatic hyperplasia) Lower urinary tract symptom presence: symptoms absent Qualified Code(s): N40.0 - Benign prostatic hyperplasia without lower urinary tract symptoms (5) Hypothyroidism Hypothyroidism type: acquired Qualified Code(s): E03.9 - Hypothyroidism, unspecified (6) GERD (gastroesophageal reflux disease) Esophagitis presence: without esophagitis Qualified Code(s): K21.9 - Gastro- esophageal reflux disease without esophagitis
[2018-04-08] MEDS ORDERED: ENOXAPARIN INJ 40 MG/0.4 ML SYR SQ ONE (20:47)
[2018-04-08] MEDS ORDERED: VANCOMYCIN HCL 1,500 MG in SODIUM CHLORIDE 0.9% 500 ML IV SCH (22:00)
[2018-04-09] MEDS: PIPERACILLIN/TAZOBACTAM 3.375 GM in DEXTROSE 5% 100 ML IV SCH ×3 (06:14→22:30)
[2018-04-09] MEDS: LEVOTHYROXINE SODIUM 50 MCG TABLET PO SCH (06:14)
[2018-04-09 06:15] LABS: Hemoglobin 12.5 g/dL (14.0-18.0); Immature Granulocytes # (auto) 0.09 K/uL (0.00-0.02); Immature Granulocytes % (auto) 0.9 %; Lymphocytes # (auto) 0.51 K/uL (1.2-3.4); Lymphocytes % (auto) 5.2 %; Mean Corpuscular Hgb Conc 31.3 g/dL (32-36); Mean Corpuscular Volume 93.2 fL (80-100); Mean Platelet Volume 8.9 fL (7.4-10.4); Monocytes # (auto) 0.49 K/uL (0.11-0.59); Neutrophils # (auto) 8.78 K/uL (1.4-6.5); Neutrophils % (auto) 88.9 %; Platelet Count 245 K/uL (130-400); RDW Coefficient of Variation 15.2 % (11.5-14.5); RDW Standard Deviation 51.8 fL (36.4-46.3); Red Blood Count 4.29 M/uL (4.7-6.1); White Blood Count 9.87 K/uL (4.8-10.8)
[2018-04-09 06:59] LABS: Creatinine Clr Calc Pharmacy 72.5 ml/min; Est GFR (African American) 69.4; Est GFR (Non-African American) 59.9
[2018-04-09] MEDS: ALBUT/IPRATROP 3MG/0.5MG NEB 3 ML VIAL INH SCH ×4 (07:07→19:44)
[2018-04-09] MEDS: BUDESONIDE 0.5 MG/2 ML VIAL (PULMICORT) NEB SCH (07:07)
[2018-04-09] MEDS: DORNASE ALFA 2.5 ML AMP INH SCH (08:09)
[2018-04-09] MEDS: TAMSULOSIN HCL 0.4 MG CAP PO SCH (08:50)
[2018-04-09] MEDS: FERROUS GLUCONATE 324 MG TAB PO SCH (08:50)
[2018-04-09] MEDS: CEROVITE ADV FORMULA TAB PO SCH (08:50)
[2018-04-09] MEDS: MONTELUKAST SODIUM 10 MG TABLET PO SCH (08:50)
[2018-04-09] MEDS: PANTOprazole 40 MG TAB PO SCH ×2 (08:50→18:38)
[2018-04-09] MEDS: DOCUSATE SODIUM 100 MG CAP PO SCH (08:50)
[2018-04-09] MEDS: guaiFENesin 600 MG TABCR PO SCH ×2 (08:50→22:29)
[2018-04-09] MEDS: FINASTERIDE 5 MG TAB PO SCH (08:51)
[2018-04-09] MEDS: BuPROPion XL 300 MG TABCR PO SCH (08:51)
[2018-04-09] MEDS: POLYETHYLENE (MIRALAX) 17 GM PACK PO SCH (08:52)
[2018-04-09] MEDS: DOCUSATE SODIUM/SENNA 50/8.6MG TAB PO SCH (08:53)
[2018-04-09] MEDS: ALUMINUM/MAGNESIUM SUSP 30 ML UDC PO PRN ×2 (10:14→22:30)
--- NOTE | 2018-04-09 12:04 | Progress Note ---
DATE: 04/09/2018 PULMONARY PROGRESS NOTE TIME: 11:05 a.m. SUBJECTIVE: The patient is feeling much better today. His energy level has improved. He is now ambulating in the hallway without difficulty. His cough is minimal. Consultation was ordered yesterday with Dr. Mccollum per the suggestion of Dr. Angela. He was concerned that the patient was slow to get better. Dr. Mccollum was to see the patient for an evaluation and opinion as to the feasibility and benefits of doing an EBUS and perhaps a navigational bronchoscopy with biopsy of the left lower lobe. According to the patient, Dr. Mccollum was in and spoke to him about doing the procedure as discussed above. OBJECTIVE: GENERAL: The patient appears comfortable. He is cooperative, alert and oriented. VITAL SIGNS: He has remained afebrile. HEART: Rate is 69. Rhythm regular. Blood pressure 152/84. This was the highest he has had in several days. LUNGS: Lung linda were almost clear. No wheezes were heard. Very minimal rales. Respiratory rate 16. Saturation 96% on room air. LABORATORY DATA: Bronchial washings for fungus revealed no yeast or hyphae. AFB smear was negative. Culture reported moderate polys with normal pete. Left lower lobe biopsy was negative for atypia or malignancy. Mildly increased submucosal vascularity was seen giving the suggestion of early granulation tissue. Bronchial washings were negative for malignancy. Bronchial brushings were negative for malignancy. IMPRESSION: 1. Left lower lobe pneumonia. 2. Bronchiectasis. 3. Ciliary dyskinesia. 4. Obstructive sleep apnea. COMMENTS: The patient seems to be much improved today. He remains on the Zosyn and methylprednisolone. Would suggest changing to oral prednisone starting tomorrow. The patient is contemplating whether or not to go through with the EBUS and navigational biopsy. I explained to him that the choice would be his. It is an option. On the other hand, he is feeling much better and he seems to be finally bouncing back to where we expect that he would be. I explained to him that it would be feasible to simply repeat a CAT scan 2 months after the CAT scan had been done and seeing if the infiltrate dramatically improves or resolves. Either way, at least Dr. Mccollum is now aware of the patient and would be available for the procedure if needed. The patient will consider this and tomorrow an ultimate decision can be made.
[2018-04-09] MEDS: methylPREDNISolone 30 MG in SYRINGE 0 ML IV SCH (12:06)
--- NOTE | 2018-04-09 14:33 | Consultation Report ---
DATE OF CONSULTATION: 04/09/2018 REASON FOR CONSULTATION: Evaluate for possible endobronchial ultrasound with biopsy and navigational bronchoscopy. 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 This ciliary dysfunction also affected the apparent cilia of his hair cells and his hearing and he lost hearing in both of his ears quite quickly. He has been worked up extensively through the Genetic [facility] at [facility] and is in the process of completing that. I was asked to evaluate him as he presented this time with signs and symptoms of an upper respiratory infection that did not clear as it normally does. Dr. Frederick Angela has been broncho-scoping this man for therapeutic reasons that he cannot clear his mucous on a regular basis for the last several years. The patient has not responded than he normally does and this is concerning him. He has been sick for about [address] Angela did a bronchoscopy couple of days ago. We really do not see much on it, although there is some growth on the aerobic cultures. We did not have an identity. He has had an atypical Mycobacterium cultured in the past as well as Aspergillus. I was asked to evaluate him for possible endobronchial ultrasound due to lymphadenopathy and perhaps a navigational bronchoscopy to left lower lobe to make sure that we are not missing anything. PAST MEDICAL HISTORY: 1. Mucociliary dysfunction. 2. Bronchiectasis. 3. Obstructive sleep apnea. 4. Avascular necrosis of the femoral head. 5. Benign prostatic hypertrophy. 6. Hypothyroidism. 7. Gastroesophageal reflux disease. 8. Ciliary dyskinesia. PAST SURGICAL HISTORY: 1. Brittany fundoplication in 2009 for reflux. There was a regular sinus surgery by Dr. Restrepo to clean out the mucus in the sinuses. 2. Multiple bronchoscopies. 3. Cholecystectomy. 4. Bilateral cataract extraction. MEDICATIONS: 1. Gaviscon. 2. Bupropion. 3. Pulmicort. 4. Ventolin. 5. Clonazepam. 6. Pulmozyme. 7. Colace. 8. Mucinex. 9. Finasteride. 10. Ferrous gluconate. 11. Probiotic. 12. Synthroid. 13. Montelukast. 14. Nitroglycerin sublingually p.r.n. 15. Omeprazole. 16. Zofran. 17. MiraLax daily. 18. Prednisone. 19. Ranitidine. 20. Flomax. SOCIAL HISTORY: The patient lives at home with his . He has never smoked cigarettes. He is retired from [employer]. Normally he is independent with activities of daily living, but states he has not felt well in the last 3 weeks and did not respond as well to a therapeutic bronchoscopy 2 days ago as he normally does. FAMILY MEDICAL HISTORY: The patient was adopted at . He does not know his parents. He does not know any siblings. He has 2 daughters who are healthy except for 1 who has exercise-induced asthma. He has a granddaughter and grandson that are healthy. REVIEW OF SYSTEMS: The patient's weight has been relatively stable. He states his problem is "my energy level is really low." He does have problems with essentially irritable bowel syndrome, which is probably related to his ciliary dysfunction. He has had no neurologic events such as transient ischemic attack. He denies any lower extremity edema. Denies palpitations or chest pain. He does have a problem with benign prostatic hypertrophy and is on finasteride and Flomax. He denies any skin breakdown. He has had no visual issues; however, he does have hearing loss and wears hearing aids. PHYSICAL EXAMINATION: GENERAL: This is an actually healthy appearing 6 feet, 205-pound male, who is awake, alert and oriented. HEENT: Extraocular movements are intact. His pupils are equal, round and reactive. Sclerae are anicteric. He has no oral mucosal lesions and has no candidiasis. His tongue is midline. His teeth are discolored, but in fairly good repair. NECK: Thick and supple. He has no supraclavicular or cervical lymphadenopathy and frankly he does have decreased breath sounds in both bases, worse on the left than the right, but I detected no wheezing or rales. He has some upper airway rhonchi. HEART: He has a regular rate and rhythm of his heart. ABDOMEN: Soft, nontender, but protuberant. LOWER EXTREMITIES: Have no edema and no joint effusions. He has palpable pulses in his feet. He has no focal deficits on exam. NEUROLOGIC: He is awake, alert and oriented. ASSESSMENT AND PLAN: Mediastinal lymphadenopathy and an infiltrative pattern in his left lower lobe with right lower lobe to a lesser degree. His upper lung linda are pretty good. I had discussed an endobronchial ultrasound and a navigational bronchoscopy. We can probably do a cryoprobe biopsy of the left lower lobe for more information. The patient is agreeable to this; however, he states he feels much better today. I was wondering about when he would be discharged. My personal opinion is he should be treated with parenteral antibiotics at least for another day and we will see him in the morning. If he is much better, I would allow him to be discharged and we can do this as an outpatient. If not, we will tentatively schedule this for Wednesday on 04/11/2018. [place]
--- NOTE | 2018-04-09 16:06 | XRay Report ---
XR KUB CLINICAL HISTORY: abd distension; severe constipation? ileus? Pain COMPARISON STUDY: 08/01/2017 FINDINGS: Mild generalized nonobstructive ileus. No secondary evidence for free air. No evidence for fecal impaction. IMPRESSION: Mild generalized nonobstructive ileus. The above report was generated using voice recognition software. It may contain grammatical, syntax or spelling errors. Electronically signed by: Kehinde Swan M.D. 04/09/2018 4:05 PM
[2018-04-09] MEDS: clonazePAM 1 MG TAB PO PRN ×2 (17:37→22:30)
--- NOTE | 2018-04-09 20:17 | Hospitalist Progress Note ---
Date of Service April 09, 2018 Assessment & Plan (1) LLL pneumonia: IMPROVED. Day #4 of zosyn/vanco. Defer on atypical coverage - just completed 7+ days of levaquin as outpatient. MRSA swab was negative and bronch culture did not grow MRSA - will stop vanco and simply continue with zosyn for now. At risk for gram negative pathogens given his chronic lung conditions. Flu PCR negative. Appreciate Dr. Schumacher's consultation. Dr. Mccollum also saw the patient in consult today due to enlarged intra- thoracic lymph nodes. ?bronch this admission vs outpatient. Patient desiring this as outpatient. All bronch cultures negative to date and pathology also negative. Consider changing to PO abx tomorrow. (2) Sepsis: 2nd to LLL Pneumonia - resolved. Leukocytosis resolved. Abx as in "LLL Pneumonia." Blood cx's negative. (3) Bronchiectasis: with exacerbation. improving. wean steroids again today to 30mg q12h. probably over to prednisone tomorrow on Wednesday. Cont pulmonary toilet, dornase, etc (4) Ciliary dyskinesia: known diagnosis; followed locally by Dr. Angela and also at [facility]. s/p bronch this admission. had endobronchial lesion near the left mainstem bronchus s/p biopsy --- bx neg for cancer. Appreciate pulmonary assistance. (5) BPH (benign prostatic hyperplasia): cont finasteride & flomax (6) BREONNA (obstructive sleep apnea): CPAP HS (7) Hypothyroidism: cont synthroid (8) GERD (gastroesophageal reflux disease): cont PPI twice a day (9) Constipation: patient with abd distension on exam. KUB x-ray with gaseous distension of small & large bowel. Imaging going back several years seems to always show a similar bowel gas pattern. Thus, this is likely chronic. continue a bowel regimen. (10) DVT prophylaxis: lovenox 40mg daily progressing home tomorrow if no procedures planned? Subjective patient eating very well. ambulating. stated he "felt good this morning" but then had chest congestion early this afternoon and mild pleuritic type pain over left chest also had large liquid stool this am he has bloating, but this tends to be chronic for him Constitutional: no fever Respiratory: + cough and + pain on inspiration; no dyspnea, no hemoptysis and no wheezing Cardiovascular: as per Subjective / HPI and + chest pain; no orthopnea and no paroxysmal nocturnal dyspnea Gastrointestinal: no abdominal pain Physical Exam Vital Signs (Past 24 Hours): Last Vital Signs Temp 36.5 C 04/09/18 15:26 Pulse 65 04/09/18 19:44 Resp 16 04/09/18 19:44 BP 138/71 04/09/18 15:26 Pulse Ox 96 04/09/18 19:44 Constitutional: well developed and well nourished; no acute distress and not ill appearing ENMT: external ear and nose normal, oropharynx normal Respiratory: normal respiratory effort; no respiratory distress Auscultation: + rales (LLL) and + wheezes (scant); no rhonchi Cardiovascular: RRR, no murmur, no edema Heart Sounds: normal S1 and normal S2 Vessels: posterior tibial pulses present and dorsalis pedis pulses present; no JVD Chest (Breasts): Additional Comments: no reproducible chest wall pain/tenderness Gastrointestinal (Abdomen): normal bowel sounds, soft, nontender, no hepatosplenomegaly Inspection/Auscultation: + abdomen distended (mild - no change from prior exams) Psychiatric: A+Ox3, euthymic affect Results & Data Laboratory Results Laboratory Results - last 24 hr 04/09/18 04/09/18 05:49 05:49 WBC 9.87 RBC 4.29 L Hgb 12.5 L Hct 40.0 L MCV 93.2 MCH 29.1 MCHC 31.3 L RDW Std Deviation 51.8 H RDW Coeff of Aditya 15.2 H Plt Count 245 MPV 8.9 Immature Gran % (Auto) 0.9 Neut % (Auto) 88.9 Lymph % (Auto) 5.2 Love % (Auto) 5.0 Eos % (Auto) 0.0 Baso % (Auto) 0.0 Immature Gran # (Auto) 0.09 H Neut # (Auto) 8.78 H Lymph # (Auto) 0.51 L Love # (Auto) 0.49 Eos # (Auto) 0.00 Baso # (Auto) 0.00 Creatinine 1.29 Est Cr Clr Drug Dosing 72.5 Est GFR ( Amer) 69.4 Est GFR (Non-Af Amer) 59.9 Diagnostic Findings KUB x-ray - mild gaseous distension of small and large bowel (1) BPH (benign prostatic hyperplasia) Lower urinary tract symptom presence: symptoms absent Qualified Code(s): N40.0 - Benign prostatic hyperplasia without lower urinary tract symptoms (2) Hypothyroidism Hypothyroidism type: acquired Qualified Code(s): E03.9 - Hypothyroidism, unspecified (3) Sepsis Sepsis type: sepsis due to unspecified organism Qualified Code(s): A41.9 - Sepsis, unspecified organism (4) Bronchiectasis Bronchiectasis type: with acute lower respiratory infection Qualified Code(s): J47.0 - Bronchiectasis with acute lower respiratory infection (5) LLL pneumonia Pneumonia type: due to unspecified organism Qualified Code(s): J18.1 - Lobar pneumonia, unspecified organism (6) GERD (gastroesophageal reflux disease) Esophagitis presence: without esophagitis Qualified Code(s): K21.9 - Gastro- esophageal reflux disease without esophagitis
[2018-04-09 22:26] LABS: CMV DNA Qnt Real Time PCR <200 IU/mL (<200); CMV DNA Quant PCR <2.30 log IU/mL (<2.30)
[2018-04-10] MEDS: methylPREDNISolone 30 MG in SYRINGE 0 ML IV SCH (00:30)
[2018-04-10] MEDS: LEVOTHYROXINE SODIUM 50 MCG TABLET PO SCH (06:11)
[2018-04-10] MEDS: PIPERACILLIN/TAZOBACTAM 3.375 GM in DEXTROSE 5% 100 ML IV SCH (06:11)
[2018-04-10 07:00] LABS: Creatinine Clr Calc Pharmacy 79.2 ml/min; Est GFR (African American) 77.3; Est GFR (Non-African American) 66.7
[2018-04-10] MEDS: BUDESONIDE 0.5 MG/2 ML VIAL (PULMICORT) NEB SCH (07:12)
[2018-04-10] MEDS: ALBUT/IPRATROP 3MG/0.5MG NEB 3 ML VIAL INH SCH ×2 (07:12→11:09)
[2018-04-10] MEDS: DORNASE ALFA 2.5 ML AMP INH SCH (07:38)
[2018-04-10 07:41] VITALS: TEMP 97.7
[2018-04-10] MEDS: clonazePAM 1 MG TAB PO PRN (08:22)
[2018-04-10] MEDS: DOCUSATE SODIUM/SENNA 50/8.6MG TAB PO SCH (08:23)
[2018-04-10] MEDS: guaiFENesin 600 MG TABCR PO SCH (08:23)
[2018-04-10] MEDS: FINASTERIDE 5 MG TAB PO SCH (08:23)
[2018-04-10] MEDS: MONTELUKAST SODIUM 10 MG TABLET PO SCH (08:23)
[2018-04-10] MEDS: CEROVITE ADV FORMULA TAB PO SCH (08:23)
[2018-04-10] MEDS: FERROUS GLUCONATE 324 MG TAB PO SCH (08:23)
[2018-04-10] MEDS: DOCUSATE SODIUM 100 MG CAP PO SCH (08:23)
[2018-04-10] MEDS: PANTOprazole 40 MG TAB PO SCH (08:23)
[2018-04-10] MEDS: POLYETHYLENE (MIRALAX) 17 GM PACK PO SCH (08:24)
[2018-04-10] MEDS: BuPROPion XL 300 MG TABCR PO SCH (08:24)
[2018-04-10] MEDS ORDERED: predniSONE 20 MG TAB PO SCH (09:00)
[2018-04-10] MEDS: TAMSULOSIN HCL 0.4 MG CAP PO SCH (09:24)
[2018-04-10] MEDS ORDERED: VANCOMYCIN TROUGH ONE (09:30)
--- NOTE | 2018-04-10 09:53 | Progress Note ---
DATE: 04/10/2018 Mr. Mcarthur was seen today. He is much improved. His lungs sound better. He feels better. I had a long talk with him today. We are going to hold off on the bronchoscopy tomorrow. I think that is perfectly appropriate. He will follow up with Dr. Angela. We could always offer him an endobronchial ultrasound and navigational bronchoscopy in the future.
--- NOTE | 2018-04-10 10:04 | Progress Note ---
DATE: 04/10/2018 TIME: 8:20 a.m. SUBJECTIVE: The patient is feeling really good today. He states he feels back to normal. He has almost no cough. He is not short of breath. His stomach feels better today. OBJECTIVE: GENERAL: The patient looked well. He has been ambulating without difficulty. VITAL SIGNS: Temperature is 36.5. Maximum temperature 37.4. HEART: Heart rate 61 per minute. Rhythm regular. Blood pressure 134/81. LUNGS: Lung linda to auscultation were clear. Respiratory rate 18. Saturation 94% on room air. Creatinine this morning is 1.18. IMPRESSION: 1. Left lower lobe pneumonia - clinically improved. 2. Bronchiectasis. 3. Ciliary dyskinesia. 4. Obstructive sleep apnea. COMMENTS AND RECOMMENDATIONS: The patient is feeling very well. I have no objection to discharge. I think the patient would like to hold off on any biopsies at present. Suggest he follow up with Dr. Angela. Dr. Mccollum will at least be aware of the patient if Dr. Angela would decide he wants to have the EBUS done. Obviously, the patient can be changed to oral antibiotics. The prednisone can be tapered gradually.
[2018-04-10 11:11] VITALS: PULSE 69; O2SAT 97
[2018-04-10 12:10] VITALS: BP 132/68
[2018-04-12 22:00] LABS: Aspergillus Ag Index 0.04 (<0.50); Aspergillus Antigen, Serum Not Detected (Not Detected)
--- NOTE | 2018-04-18 20:48 | Discharge Summary ---
Date of Service date of admission - 04/06/18 date of discharge - 04/10/18 Admission HPI Per Admitting Provider Mr. Mcarthur is a very pleasant 58 year old gentleman with a past medical history ciliary dyskinesia, bronchiectasis, hypothyroidism, history of avascular necrosis of bilateral hips, depression, BPH, GERD, and IBS who presents to the emergency department due to fever, cough and trouble breathing. He also notes left sided pleuritic chest and abdominal pain, underneath his left ribcage. He states that his cough is minimally productive, without the presence of blood. He was seen by Dr. Angela in clinic last week and diagnosed with a left lower lobe pneumonia. He was treated with 7 days of Levaquin, as well as steroids. He saw Dr. Angela again in the office yesterday, who tapered down his steroids from 20 mg to 10 mg due to improvement in his symptoms, and was in the process of trying to arrange a bronchoscopy. The patient states that he felt improved after his course of antibiotics, however yesterday afternoon, began to develop fever, generalized body aches, and noted that he was hypoxic on his home pulse ox, down to 81%. He states that he administered nebulizers at home and his oxygen saturations improved to 94%. He notes that he usually runs in the high 90s and does not use oxygen at home. With regards to his pulmonary condition, he is seen both here and at [facility]. He is currently undergoing genetic testing for primary ciliary dyskinesia. He was adopted, and is unsure of her family history regarding pulmonary problems. His symptoms started approximately 10 years ago, and he states that his pulmonary function tests have been stable over the past 8 years. He notes that at baseline, he has a occasional dry cough. He is prone to pneumonias. He generally has a bronch every 4 months, and they are either done at [facility] or here at [facility]. He denies a history of [place] or any cardiac problems, and states he had a heart cath done here one year ago which was normal. He is a non-smoker, and denies the use of alcohol or recreational drugs. Principal Diagnosis LLL pneumonia Discharge Exam Constitutional well developed and well nourished; no acute distress and not ill appearing ENMT external ear and nose normal, oropharynx normal Respiratory normal respiratory effort; no respiratory distress Auscultation: + rales (LLL); no rhonchi and no wheezes Cardiovascular RRR, no murmur, no edema Heart Sounds: normal S1 and normal S2 Vessels: posterior tibial pulses present and dorsalis pedis pulses present; no JVD Gastrointestinal (Abdomen) normal bowel sounds, soft, nontender, no hepatosplenomegaly Inspection/Auscultation: + abdomen distended (minimal) Psychiatric A+Ox3, euthymic affect Discharge Data Allergies Allergy/AdvReac Type Severity Reaction Status Date / Time Sulfa (Sulfonamide Allergy Mild "SULFA Verified 04/05/18 20:58 Antibiotics) DRUGS": RASH, HOT FLASHES adhesive Allergy Unknown PLASTIC Verified 04/05/18 20:58 CLEAR TAPE-SKIN TURNS RED,ITCHING mold Allergy Unknown COUGH Verified 04/05/18 20:58 ragweed pollen Allergy Unknown SINUS Verified 04/05/18 20:58 DRAINAGE,STUFFINESS-TAKING ALLERGY SHOTS Qqrgjia-Zgx-Ccb Reductase Allergy Unknown HOT Verified 04/05/18 20:58 Inhibitor FLASHES, RASH Consultations 1. pulmonary - Omega Angela MD 2. thoracic surgery - Santi Mccollum MD Procedures Performed Operation Date: 04/07/18 Bronchoscopy - Frederick Angela MD The cords appear to approximate normally with phonation without evidence of lesions or paralysis. The area was anesthetized and the scope was then passed into the trachea and right and left tracheobronchial tree. The román was sharp. The right main stem bronchus was found to be free of endobronchial lesions. The left upper lobe, the apical posterior and anterior segments, bronchus intermedius, right middle lobe with the medial and lateral segments and all basilar segments, right lower lobe were found to be free of endobronchial lesions with a small amount of mucopurulent secretion lavaged from right lower lobe until clear. Left tracheobronchial tree was explored. The left mainstem bronchus showed an ellipsoid lesion adherent to the lateral wall just above the takeoff of the left upper lobe and lingula orifice. The left lower lobe was then explored and the basal segments were patent with a moderate amount of mucoviscous secretion that was lavaged from each segmental bronchus until clear. Left upper lobe, lingual subdivision and the respective segments were free of endobronchial lesions. The scope was then situated in the left main stem bronchus. Washings were taken not only in the left lower lobe, but of the lesion adherent to the lateral wall of the left main stem bronchus. Brushings x2 for cytologic preparation were obtained with a moderate amount of bleeding which abated spontaneously. Hospital Course (1) LLL pneumonia: The patient received about 5 days of broadspectrum IV antibiotic therapy. He received such to cover for the possibility of gram negative pneumonia. MRSA swab was negative and bronch cultures did not grow MRSA making MRSA highly unlikely. Flu PCR was negative. He underwent bronchoscopic evaluation by Dr. Omega Angela; full report is above. All cultures from the bronch are negative to date. Pathology from the bronch failed to show any malignancy. The patient made gradual improvement in all pulmonary symptoms. Dr. Mccollum also saw the patient in consult due to enlarged intra-thoracic lymph nodes. There was some discussion about pursuing a navigational bronch but ultimately this was deferred since the patient was making such good progress. At time of discharge the patient will complete 5 more days of omnicef as well as a short prednisone taper. He will need close follow-up with [facility] after discharge. (2) Sepsis: 2nd to LLL Pneumonia - resolved. Leukocytosis resolved. Blood cultures remained negative while hospitalized. (3) Bronchiectasis: with exacerbation. improved with IV steroids. steroids were gradually weaned and transitioned to oral prednisone at discharge. (4) Ciliary dyskinesia: known diagnosis; followed locally by Dr. Angela and also at [facility]. s/p bronch this admission. had endobronchial lesion near the left mainstem bronchus s/p biopsy. biopsy was negative for cancer. (5) BPH (benign prostatic hyperplasia): continue finasteride & flomax (6) BREONNA (obstructive sleep apnea): CPAP HS (7) Hypothyroidism: continue synthroid (8) GERD (gastroesophageal reflux disease): continue PPI twice a day (9) Constipation: Patient had abdominal distension on exam while here. KUB x-ray with gaseous distension of the small & large bowel. Imaging going back several years always has shown a similar bowel gas pattern. Thus, this is likely chronic. He will continue a bowel regimen after discharge. Total Time Total Time Spent Total Time Spent (In Minutes): 40 Total Time Includes: Examination of the Patient, Discharge Planning, Medication Reconciliation and Communication With Other Providers Discharge Plan Discharge Items Patient Disposition: Home - Self-Care Reason For Visit: PNEUMONIA, FAILED OUTPATIENT TREATMENT Discharge Diagnosis: left lower lobe pneumonia - improving Discharge Goals: Diagnostic testing, Improve disease control, Learn about illness and Therapeutic intervention Activity: Resume your previous activity Activity Comment: take it easy for a few days as you recover, then increase activities Non-emergency contact: Primary Care Provider and Healthcare Administration Intern Call non-emergency contact if: you have any medication questions, your symptoms worsen and your temperature is above 100.5 Follow-up/Referrals: Frederick Angela MD [Family Provider] - (see Dr. Angela or one of his partners within 5 days ) Santi Mccollum MD, FACS [Surgeon] - (see Dr. Mccollum as needed if additional testing is required ) Diet: Regular Addtl Provider Instructions: From Leonard Landry - Hospitalist - You were admitted for left lower lobe pneumonia and treated with broad-spectrum IV antibiotics. You also underwent a bronchoscopy by Dr. Angela. Multiple cultures and biopsies were taken during the procedure. All cultures to date from the bronchoscopy are thus far negative. The pathology reports from the biopsies show BENIGN results (no evidence of cancer or other serious pathology). You were also tested for influenza while hospitalized and you were NEGATIVE for the flu. You improved with the above measures and your oxygen levels have been stable. At this time I recommend the following - 1. take cefdinir 300mg twice a day for 5 days. Start this antibiotic TONIGHT. One common side effect from this antibiotic is that it can make the stools look bloody. This is NOT blood but a pigment from the antibiotic itself. If you happen to see this do not be alarmed. It is not harmful nor does it require medical attention. 2. take probiotics daily for 7 days. Start this TODAY. 3. take a prednisone taper; start this TOMORROW. Follow-up - * see Dr. Angela or one of his partners within 5 days * see Dr. Mccollum as needed if it is determined your need an additional procedure on your lungs Return to [facility] if - * you have fevers over 100.5 degrees * you have worsening shortness of breath * you have worsening chest discomfort * you have severe diarrhea * any other concerns Prescriptions: New Sacch boulardi-Bacill coag-FOS 471 mg capsule 1 cap PO DAILY Qty: 7 RF: 0 Continued ipratropium-albuterol 0.5 mg-3 mg(2.5 mg base)/3 mL Solution For Nebulization 3 ml INHALATION Q4H PRN (Reason: Shortness Of Breath Or Wheezing) RF: 0 sodium chloride 3 % solution for nebulization 1 vial Inhalation BID PRN (Reason: Shortness Of Breath) RF: 0 ondansetron HCl [Zofran] 4 mg Tablet 4 mg PO Q8H PRN (Reason: Nausea) RF: 0 clonazepam 1 mg tablet 1 mg PO TID PRN (Reason: Anxiety) RF: 0 tamsulosin 0.4 mg capsule 0.4 mg PO DAILY RF: 0 dornase nicholas [Pulmozyme] 1 mg/mL Solution 0.5 ml INHALATION DAILY RF: 0 levothyroxine 50 mcg tablet 50 mcg PO DAILY RF: 0 ranitidine HCl 300 mg capsule 300 mg PO DAILY RF: 0 nitroglycerin 0.4 mg tablet, sublingual 0.4 mg Sublingual DIRECTED PRN (Reason: Chest Pain) RF: 0 budesonide [Pulmicort] 0.25 mg/2 mL Suspension For Nebulization 2 ml INHALATION BID PRN (Reason: Shortness Of Breath Or Wheezing) RF: 0 omeprazole 20 mg capsule,delayed release(DR/EC) 20 mg PO BID RF: 0 montelukast 10 mg tablet 10 mg PO DAILY RF: 0 polyethylene glycol 3350 17 gram/dose powder 17 g PO DAILY PRN (Reason: Constipation) RF: 0 finasteride 5 mg tablet 5 mg PO DAILY RF: 0 bupropion HCl 300 mg tablet extended release 24 hr 300 mg PO QAM RF: 0 guaifenesin [Mucinex] 1,200 mg Tablet Extended Release 12hr 1,200 mg PO Q12H RF: 0 docusate sodium [Colace] 100 mg Capsule 100 mg PO DAILY RF: 0 albuterol sulfate [Ventolin HFA] 90 mcg/actuation Hfa Aerosol Inhaler 2 puff INHALATION QID PRN (Reason: Shortness Of Breath Or Wheezing) RF: 0 Al hyd-Mg tr-alg ac-sod bicarb [Gaviscon] 80-14.2 mg Tablet,Chewable 1 tab PO DIRECTED PRN (Reason: Acid Indigestion) RF: 0 hgugpybo-kwk-VD-lycopen-lutein [Complete Multi 50+] 500-300-250 mcg Tablet 1 tab PO DAILY RF: 0 ferrous gluconate 236 mg (27 mg iron) Tablet 236 mg PO DAILY RF: 0 Changed prednisone 10 mg tablet 10 mg PO DIRECTED Qty: 16 RF: 0 Stand-Alone Forms: [facility] Discharge Orders: Discharge Order (Routine); Ordered 04/10/18 Ordered By: Leonard Landry Admission Data Admit Date/Time: 04/06/18 00:12 Attending Provider: Leonard Landry Admit Provider: Arben Reyes Primary Care Provider: Jose Florez Other Providers: Everett Collier ; Santi Schumacher ; Santi Mccollum Service: Medical Other Interventions: Discharge Summary Assessment (RN) Last Done: 04/10/18 12:08 DC Date/Time DO NOT enter until pt leaves facility: 04/10/18 12:42
== END 2018-04-10 12:42 | disposition home or self-care (01) | DRG 871 ==
LOC: ED 20:07 → SUATTDRO 04-06 00:12 → 2N 04-06 00:12
DX: Z79.899 Other long term (current) drug therapy; G24.9 Dystonia, unspecified; M87.352 Other secondary osteonecrosis, left femur; A41.9 Sepsis, unspecified organism; K59.00 Constipation, unspecified; Z87.442 Personal history of urinary calculi; F41.8 Other specified anxiety disorders; J44.9 Chronic obstructive pulmonary disease, unspecified; E03.9 Hypothyroidism, unspecified; M87.351 Other secondary osteonecrosis, right femur; J18.9 Pneumonia, unspecified organism

== ENCOUNTER 2019-09-12 12:18 | Inpatient (IN) ==
[2019-09-12] MEDS ORDERED: SODIUM CHLORIDE 0.9% 1000ML 1,000 ML IV ONE (12:43)
[2019-09-12] MEDS ORDERED: VANCOMYCIN HCL 2,250 MG in SODIUM CHLORIDE 0.9% 500 ML IV ONE (13:03)
[2019-09-12] MEDS ORDERED: cefTRIAXone SODIUM 2,000 MG/70 ML BAG IV STA (13:03)
[2019-09-12] MEDS ORDERED: VANCOMYCIN CONSULT ACTIVE PRN (13:03)
[2019-09-12 13:22] LABS: Basophils # (auto) 0.06 K/uL (0-0.2); Basophils % (auto) 0.6 %; Eosinophils # (auto) 0.35 K/uL (0-0.5); Eosinophils % (auto) 3.2 %; Hematocrit (blood only) 43.1 % (42-52); Hemoglobin 14.6 g/dL (14.0-18.0); Immature Granulocytes # (auto) 0.03 K/uL (0.00-0.02); Immature Granulocytes % (auto) 0.3 %; Lymphocytes # (auto) 1.32 K/uL (1.2-3.4); Lymphocytes % (auto) 12.2 %; Mean Corpuscular Hemoglobin 29.9 pg (25-34); Mean Corpuscular Hgb Conc 33.9 g/dL (32-36); Mean Corpuscular Volume 88.3 fL (80-100); Monocytes # (auto) 0.71 K/uL (0.11-0.59); Monocytes % (auto) 6.6 %; Neutrophils # (auto) 8.32 K/uL (1.4-6.5); Neutrophils % (auto) 77.1 %; Platelet Count 242 K/uL (130-400); RDW Coefficient of Variation 15.2 % (11.5-14.5); RDW Standard Deviation 48.5 fL (36.4-46.3); Red Blood Count 4.88 M/uL (4.7-6.1); White Blood Count 10.79 K/uL (4.8-10.8)
[2019-09-12 13:31] LABS: Albumin Level 3.6 gm/dl (3.4-5.0); BUN Creatinine Ratio 8.8 (10-20); Calcium 8.7 mg/dl (8.5-10.1); Est GFR (African American) 68.9; Est GFR (Non-African American) 59.4
[2019-09-12 13:33] LABS: Albumin Globulin Ratio 0.9 (0.9-2); Bilirubin,Total 0.8 mg/dl (0.2-1); Globulin 4.2 gm/dl (2.5-4.0); Partial Thromboplastin Ratio 1.1; Partial Thromboplastin Time 30.7 Seconds (21.0-31.0); Prothrombin Time 10.9 Seconds (9.0-12.0); Total Protein 7.8 gm/dl (6.4-8.2)
[2019-09-12] MEDS ORDERED: MoRPHine SULFATE 4 MG/ML 1 ML CARP\\VIAL IV STA (14:11)
--- NOTE | 2019-09-12 14:33 | History & Physical Report ---
Date of Service September 12, 2019 Assessment & Plan (1) Acute epiglottitis: No stridor on exam or respiratory distress but given ciliary dyskinesia will need to be closely monitored for deterioration with stridor or drooling Rx Vancomycin + Ceftriaxone Follow up throat culture NPO - will transition as many medications as possible to IV but will give klonopin PO if able to avoid withdrawal. Can be switched to IV Ativan if necessary. Consult ENT - Dr Restrepo (already seen today in clinic) (2) Ciliary dyskinesia: Continue his usual regimen of pulmicort, duonebs, pulmozyme (3) BPH (benign prostatic hyperplasia): Continue his usual finasteride and tamsulosin (4) Depression: Continue his usual Klonopin and bupropion (5) Hypothyroidism: TSH WNL in Mar Switch levothyroxine to IV to avoid multiple PO medications (6) Constipation: Continue usual regimen with docusate BID and MiraLAX HS (7) GERD (gastroesophageal reflux disease): Switch PO pantoprazole to IV to avoid multiple oral medications Admission and Anticipated Discharge Date Admission Date: 09/12/2019 History of Present Illness Chief Complaint: Epiglottitis Primary Care Provider: Jose Florze MD Santi Mcarthur is a 59 year old male with ciliary dyskinesia who presents to the ER on advice of his outpatient ENT physician Dr Restrepo with a sore throat and epiglottitis diagnosed in clinic on laryngoscope. This was discussed with the ER provider and recommended admission under medicine for IV antibiotics. The patient reports a history of 2 days of sore throat. Today having difficulty eating and even swollen small amounts of liquids has become painful. Reports feeling of swelling around his throat. No difficulty breathing. He is able to fully open and close his mouth. Allergies Allergy/AdvReac Type Severity Reaction Status Date / Time Sulfa (Sulfonamide Allergy Mild "SULFA Verified 09/12/19 14:10 Antibiotics) DRUGS": RASH, HOT FLASHES adhesive Allergy Unknown PLASTIC Verified 09/12/19 14:10 CLEAR TAPE-SKIN TURNS RED,ITCHING mold Allergy Unknown COUGH Verified 09/12/19 14:10 ragweed pollen Allergy Unknown SINUS Verified 09/12/19 14:10 DRAINAGE,STUFFINESS-TAKING ALLERGY SHOTS Uoivgld-Vzz-Pbe Reductase Allergy Unknown HOT Verified 09/12/19 14:10 Inhibitor FLASHES, RASH NSAIDS (Non-Steroidal AdvReac Intermediate NAUSEA Verified 09/12/19 14:10 Anti-Inflamma Home Medications Home Medications Medication Instructions Recorded Confirmed Type Pulmozyme 0.5 ml INHALATION QAM 11/29/17 09/12/19 History bupropion HCl 300 mg PO QAM 11/29/17 09/12/19 History clonazepam 1 mg PO TID 11/29/17 09/12/19 History docusate sodium [Colace] 100 mg PO QAM 11/29/17 09/12/19 History finasteride 5 mg PO QAM 11/29/17 09/12/19 History levothyroxine 50 mcg PO QAM 11/29/17 09/12/19 History nitroglycerin 0.4 mg SUBLINGUAL DIRECTED PRN 11/29/17 09/12/19 History ondansetron HCl [Zofran] 4 mg PO Q8H PRN 11/29/17 09/12/19 History tamsulosin 0.4 mg PO QAM 11/29/17 09/12/19 History albuterol sulfate 90 mcg/actuation 2 puff INHALATION QID PRN #3 06/26/19 09/12/19 Rx aerosol inhaler inhaler azithromycin 250 mg tablet 250 mg PO DAILY #12 tab 06/28/19 09/12/19 Rx pantoprazole 40 mg granules 40 mg PO DAILY 06/28/19 09/12/19 History delayed-release for susp in packet ascorbic acid (vitamin C) [Vitamin 250 mg PO BID 09/12/19 09/12/19 History C] budesonide 0.5 mg INHALATION DAILY 09/12/19 09/12/19 History cholecalciferol (vitamin D3) 10 mcg PO DAILY 09/12/19 09/12/19 History [Vitamin D3] desonide 1 applic TOPICAL BID 09/12/19 09/12/19 History dornase nicholas [Pulmozyme] 2.5 mg INHALATION BID 09/12/19 09/12/19 History ipratropium-albuterol 3 ml INHALATION QID PRN 09/12/19 09/12/19 History ketoconazole 1 applic TOPICAL BID 09/12/19 09/12/19 History montelukast 10 mg PO DAILY 09/12/19 09/12/19 History rfggatjr-nwu-yvmrd-vit K-lycop 1 tab PO DAILY 09/12/19 09/12/19 History [Men's Multivitamin] sodium chloride 3 % 4 ml/kg IV DIRECTED PRN 09/12/19 09/12/19 History triamcinolone acetonide 1 applic TOPICAL BID 09/12/19 09/12/19 History Past Med/Surg History Medical History Anxiety Alexandra esophagus (Acute) BPH (benign prostatic hyperplasia) (Acute) Cardiac murmur Chronic constipation (Acute) Ciliary motility disorder (Acute) COPD exacerbation (Resolved) Depression DVT prophylaxis (Inactive) Encounter for pre-operative examination (Inactive) Fall (Resolved) GERD (gastroesophageal reflux disease) (Acute) Head contusion (Resolved) Hemorrhoids Hyperlipidemia (Acute) NO MEDS Hypothyroidism IBS (irritable bowel syndrome) (Acute) Ileus LLL pneumonia (Inactive) Neck strain (Acute) TAKING PT BREONNA on CPAP (Acute) Pneumonia 04/2018-[facility]-"BACK TO HIS NORMAL" F/U DR PHAM/[facility] Pneumonia Pneumonia (Inactive) Sepsis (Inactive) SOB (shortness of breath) on exertion ON OCC Temporomandibular joint disorder HX RIGHT SIDE CLICKED-AND PAIN NO LOCKING Surgical History History of bilateral cataract extraction (Acute) History of bronchoscopy (Acute) X MULTIPLE History of cardiac cath 2017 NO [facility] History of cholecystectomy (Acute) History of fundoplication (Acute) 2010 History of sinus surgery (Acute) x3 Family History Other No pertinent family history Social History Smoking Status: Never smoker Second Hand Exposure: No; Hx Alcohol Use: No Hx Substance Use: No Preferred Language: Telugu Communication Ability: Effective Deflash And Wash Operator Required: No Beliefs That Will Affect Care: None Current Living Situation: Spouse Other Information That Helps Us Care for You: No Feels Safe at Home: Yes Safety Concerns: Feels Safe At This Time Review of Systems Review of Systems: All systems reviewed & are unremarkable except as noted in HPI & below Physical Exam Constitutional: WD/WN, vitals as above Eyes: + anicteric sclerae; normal pupil size ENMT: Mouth: + oropharynx abnormality (not examined to limit exposure (diagnosis already made by ENT)) Neck: normal visual inspection and trachea midline; no anterior neck swelling Tender around epiglottis b/l Respiratory: normal respiratory effort, lungs clear to auscultation no stridor Skin: no rashes, warm and dry Results & Data Results & Data ([facility]) Vital Signs (Past 12 Hours) Vital Signs Temp Pulse Pulse Resp BP BP Pulse Ox 09/12/19 13:53 85 22 128/82 99 09/12/19 12:44 99 09/12/19 12:20 36.6 C 81 22 150/101 H 99 Code Status & VTE Plan Code Status Full VTE Prophylaxis Plan VTE Prophylaxis will be ordered: No Reason for no VTE drug order: Treatment not indicated Reason for no VTE mechanical prophylaxis: Treatment not indicated PG Care Time/CCT Total # of Minutes Spent Total Time Spent with Patient: Total time spent is greater than 50% in coordination of care (as documented) at patient's floor/unit and/or counseling patient: Coding Level of Care Code 52927 Initial Inpt Care Lvl 2 Diagnoses Acute epiglottitis J05.10 Ciliary dyskinesia J98.4 BPH (benign prostatic hyperplasia) N40.0 Lower urinary tract symptom presence: symptoms absent Depression F32.9 Hypothyroidism E03.9 Hypothyroidism type: acquired Constipation K59.00 GERD (gastroesophageal reflux disease) K21.9 (1) BPH (benign prostatic hyperplasia) Lower urinary tract symptom presence: symptoms absent Qualified Code(s): N40.0 - Benign prostatic hyperplasia without lower urinary tract symptoms (2) Hypothyroidism Hypothyroidism type: acquired Qualified Code(s): E03.9 - Hypothyroidism, unspecified
--- NOTE | 2019-09-12 16:41 | Emergency Department Note ---
History of Present Illness General Chief complaint: Throat Pain Stated complaint: CAN'T SWALLOW Time Seen by Provider: 09/12/19 12:42 Source: patient Mode of arrival: ambulatory Limitations: no limitations History of Present Illness Provider complaint: "I was having trouble swallowing today. Dr. Restrepo sent me to be admitted." Onset (ago): day(s) 2 Maximum Pain Intensity: 5 This 59-year-old male patient with significant past medical history of ciliary dyskinesia, presents the emergency department today for evaluation of epiglottitis. The patient states 2 days ago, he was experiencing a scratchy sore throat. He states yesterday, he is having difficulty eating at approximately 3 AM, he felt that his throat was swelling shut. He describes a sensation of inability to swallow, but is tolerating secretions. He was unable to drink water or liquid, so called his ENT, Dr. Restrepo. The patient was seen by ENT today as an outpatient in the office and had a scope completed. Dr. Restrepo was concerned about possible epiglottitis at this time, so sent the patient to the emergency department for IV antibiotics and admission. The patient reports minimal pain at this time and rates it a 0/10. He denies any recent fever. He is able to completely open and close the mouth. He denies any discharge from the mouth. He denies any wheezing. The patient has taken no medications for his symptoms at this time. Home Medications Home Medications Medication Instructions Recorded Confirmed Type Pulmozyme 0.5 ml INHALATION QAM 11/29/17 09/12/19 History bupropion HCl 300 mg PO QAM 11/29/17 09/12/19 History clonazepam 1 mg PO TID 11/29/17 09/12/19 History docusate sodium [Colace] 100 mg PO QAM 11/29/17 09/12/19 History finasteride 5 mg PO QAM 11/29/17 09/12/19 History levothyroxine 50 mcg PO QAM 11/29/17 09/12/19 History nitroglycerin 0.4 mg SUBLINGUAL DIRECTED PRN 11/29/17 09/12/19 History ondansetron HCl [Zofran] 4 mg PO Q8H PRN 11/29/17 09/12/19 History tamsulosin 0.4 mg PO QAM 11/29/17 09/12/19 History albuterol sulfate 90 mcg/actuation 2 puff INHALATION QID PRN #3 06/26/19 09/12/19 Rx aerosol inhaler inhaler azithromycin 250 mg tablet 250 mg PO DAILY #12 tab 06/28/19 09/12/19 Rx pantoprazole 40 mg granules 40 mg PO DAILY 06/28/19 09/12/19 History delayed-release for susp in packet ascorbic acid (vitamin C) [Vitamin 250 mg PO BID 09/12/19 09/12/19 History C] budesonide 0.25 mg INHALATION BID 09/12/19 09/12/19 History cholecalciferol (vitamin D3) 10 mcg PO DAILY 09/12/19 09/12/19 History [Vitamin D3] desonide 1 applic TOPICAL BID 09/12/19 09/12/19 History dornase nicholas [Pulmozyme] 2.5 mg INHALATION BID 09/12/19 09/12/19 History ipratropium-albuterol 3 ml INHALATION QID PRN 09/12/19 09/12/19 History ketoconazole 1 applic TOPICAL BID 09/12/19 09/12/19 History montelukast 10 mg PO DAILY 09/12/19 09/12/19 History ttgczbnb-foi-idbqq-vit K-lycop 1 tab PO DAILY 09/12/19 09/12/19 History [Men's Multivitamin] sodium chloride 3 % 4 ml/kg IV DIRECTED PRN 09/12/19 09/12/19 History triamcinolone acetonide 1 applic TOPICAL BID 09/12/19 09/12/19 History Allergies Allergy/AdvReac Type Severity Reaction Status Date / Time Sulfa (Sulfonamide Allergy Mild "SULFA Verified 09/12/19 14:10 Antibiotics) DRUGS": RASH, HOT FLASHES adhesive Allergy Unknown PLASTIC Verified 09/12/19 14:10 CLEAR TAPE-SKIN TURNS RED,ITCHING mold Allergy Unknown COUGH Verified 09/12/19 14:10 ragweed pollen Allergy Unknown SINUS Verified 09/12/19 14:10 DRAINAGE,STUFFINESS-TAKING ALLERGY SHOTS Cdeijww-Nwm-Duh Reductase Allergy Unknown HOT Verified 09/12/19 14:10 Inhibitor FLASHES, RASH NSAIDS (Non-Steroidal AdvReac Intermediate NAUSEA Verified 09/12/19 14:10 Anti-Inflamma Past Med/Surg History Medical History Anxiety Alexandra esophagus (Acute) BPH (benign prostatic hyperplasia) (Acute) Cardiac murmur Chronic constipation (Acute) Ciliary motility disorder (Acute) COPD exacerbation (Resolved) Depression DVT prophylaxis (Inactive) Encounter for pre-operative examination (Inactive) Fall (Resolved) GERD (gastroesophageal reflux disease) (Acute) Head contusion (Resolved) Hemorrhoids Hyperlipidemia (Acute) NO MEDS Hypothyroidism IBS (irritable bowel syndrome) (Acute) Ileus LLL pneumonia (Inactive) Neck strain (Acute) TAKING PT BREONNA on CPAP (Acute) Pneumonia 04/2018-[facility]-"BACK TO HIS NORMAL" F/U DR PHAM/[facility] Pneumonia Pneumonia (Inactive) Sepsis (Inactive) SOB (shortness of breath) on exertion ON OCC Temporomandibular joint disorder HX RIGHT SIDE CLICKED-AND PAIN NO LOCKING Surgical History History of bilateral cataract extraction (Acute) History of bronchoscopy (Acute) X MULTIPLE History of cardiac cath 2016 NO STENTS-[facility] History of cholecystectomy (Acute) History of fundoplication (Acute) 2009 History of sinus surgery (Acute) x3 Family History (Updated 05/08/19 @ 11:20 by Germaine Guevara) Other No pertinent family history Social History Smoking Status: Never smoker Second Hand Exposure: No; Hx Alcohol Use: No Hx Substance Use: No Preferred Language: Stateless Communication Ability: Effective Exercise Rider Required: No Beliefs That Will Affect Care: None Current Living Situation: Spouse Other Information That Helps Us Care for You: No Feels Safe at Home: Yes Safety Concerns: Feels Safe At This Time Review of Systems A total of 10 systems reviewed and were otherwise negative Physical Exam Vital Signs Vital Signs - 24 hr 09/12/19 12:20 09/12/19 12:44 09/12/19 13:53 Temperature 36.6 C Temperature Source Oral Pulse Rate 81 Pulse Rate [Apical] 85 Pulse Rhythm [Apical] Regular Respiratory Rate 22 22 Respiratory Effort / Characteristics Non-Labored Non-Labored Respiratory Depth Normal Normal Blood Pressure 150/101 H Blood Pressure [Right Arm] 128/82 Blood Pressure Mean 117 Blood Pressure Mean [Right Arm] 97 Blood Pressure Position [Right Arm] Sitting Pulse Oximetry 99 99 99 Oxygen Delivery Method Room Air Room Air Room Air Sepsis Recent Fever Within 48 Hours No Sepsis New/Unexplained Change in Mental Status No Sepsis Action Taken by Nursing No Action Required 09/12/19 14:56 09/12/19 16:01 Temperature Temperature Source Pulse Rate 80 Pulse Rate [Apical] 85 Pulse Rhythm [Apical] Respiratory Rate 25 H 18 Respiratory Effort / Characteristics Non-Labored Spontaneous Respiratory Depth Normal Blood Pressure 149/76 H Blood Pressure [Right Arm] 153/78 H Blood Pressure Mean Blood Pressure Mean [Right Arm] 103 Blood Pressure Position [Right Arm] Sitting Pulse Oximetry 97 96 Oxygen Delivery Method Room Air Room Air Sepsis Recent Fever Within 48 Hours Sepsis New/Unexplained Change in Mental Status Sepsis Action Taken by Nursing VITALS: Vitals are noted on the nurse's note and reviewed by myself. Vital signs stable. GENERAL: This is a 59-year-old white male, in no acute distress, nondiaphoretic, well-developed well-nourished. SKIN: The skin was without rashes, erythema, edema, or bruising. There is no tenting of the skin. Capillary refill less than 2 seconds. HEAD: Normocephalic atraumatic. EYES: Conjunctivae without injection, sclerae without icterus. NOSE: Patent, turbinates without inflammation or discharge. No sinus tenderness. MOUTH: Mucous membranes moist. Pharynx is erythematous and exudative.. Uvula midline. Airway patent. Tongue does not deviate. NECK: Supple without nuchal rigidity. No lymphadenopathy. Cervical spine is no ntender. No JVD. No stridor. HEART: Regular rate and rhythm without murmurs gallops or rubs. LUNGS: Clear to auscultation bilaterally without wheezes, rales or rhonchi. No retractions or accessory muscle use. MUSCULOSKELETAL: No muscle atrophy, erythema, or edema noted. Full range of motion without joint tenderness in all extremities. No tenderness to palpation. Normal gait. Strength 5/5 throughout. NEURO: Patient was alert and oriented to person place and time. No focal neurological deficits. Course Course The patient was seen and evaluated as above. An order was placed for continuous cardiac monitoring. The monitor shows a Normal sinus rhythm at a rate of 80 bpm. IV access obtained, labs drawn. I discussed the case with the ED pharmacist for antibiotic recommendations. I discussed the case with Dr. Restrepo. He requested a pharyngeal culture in addition to blood cultures. He advised that this is a very early epiglottitis, and the patient seemed very stable when he saw him in the office to complete the scope. He was not concerned about completing a pharyngeal swab. Pharyngeal culture obtained. The patient was medicated with IV fluids, vancomycin, and ceftriaxone. I discussed the case with the alumni relations manager. I discussed the case with Dr. Jeong, [facility] Hospitalist physician. He did agree to see and evaluate the patient for admission. Labs reviewed by myself. Please see Hospitalist and ENT dictation regarding ongoing management and care of this patient. Administered Medications Discontinued Medications Sodium Chloride (Nss 1000ml) 1,000 mls @ 999 mls/hr IV .Q1H1M ONE Stop: 09/12/19 13:43 Last Infusion: 09/12/19 14:45 Dose: 0 mls/hr Documented by: [id number] Admin: 09/12/19 13:44 Dose: 999 mls/hr Documented by: [id number] Ceftriaxone Sodium (Rocephin) 2,000 mg in 70 mls @ 140 mls/hr IV NOW STA Stop: 09/12/19 13:32 Last Infusion: 09/12/19 14:20 Dose: 0 mls/hr Documented by: [id number] Admin: 09/12/19 13:50 Dose: 140 mls/hr Documented by: [id number] Vancomycin HCl 2,250 mg/ (Sodium Chloride) 545 mls @ 200 mls/hr IV NOW ONE Stop: 09/12/19 15:46 Last Admin: 09/12/19 14:32 Dose: 200 mls/hr Documented by: [id number] Morphine Sulfate (Morphine Sulfate) 4 mg IV PRN STA Stop: 09/12/19 14:12 Last Admin: 09/12/19 14:29 Dose: 4 mg Documented by: [id number] Medical Decision Making Differential Diagnosis Differential diagnosis includes epiglottitis, SOLUTIONS MANAGER, strep pharyngitis, tonsillitis, sepsis, URI, malignancy, among others Medical Records Attestation: I reviewed the patient's medical records. Home Medications Current Medication List: was personally reviewed by me Laboratory Data Attestation: I reviewed the patient's lab results. No leukocytosis, anemia, thrombocytopenia. Renal, hepatic function, and electrolytes without significant abnormality. Coags normal. Result diagrams: 09/12/19 12:45 09/12/19 12:45 Lab Results 09/12/19 09/12/19 09/12/19 Range/Units 12:45 12:45 12:45 WBC 10.79 (4.8-10.8) K/uL RBC 4.88 (4.7-6.1) M/uL Hgb 14.6 (14.0-18.0) g/dL Hct 43.1 (42-52) % MCV 88.3 (80-100) fL MCH 29.9 (25-34) pg MCHC 33.9 (32-36) g/dL RDW Std Deviation 48.5 H (36.4-46.3) fL RDW Coeff of Aditya 15.2 H (11.5-14.5) % Plt Count 242 (130-400) K/uL MPV 9.0 (7.4-10.4) fL Immature Gran % (Auto) 0.3 % Neut % (Auto) 77.1 % Lymph % (Auto) 12.2 % Parker % (Auto) 6.6 % Eos % (Auto) 3.2 % Baso % (Auto) 0.6 % Neut # (Auto) 8.32 H (1.4-6.5) K/uL Lymph # (Auto) 1.32 (1.2-3.4) K/uL Parker # (Auto) 0.71 H (0.11-0.59) K/uL Eos # (Auto) 0.35 (0-0.5) K/uL Baso # (Auto) 0.06 (0-0.2) K/uL Immature Gran # (Auto) 0.03 H (0.00-0.02) K/uL PT 10.9 (9.0-12.0) Seconds INR 1.0 (0.9-1.1) APTT 30.7 (21.0-31.0) Seconds PTT Ratio 1.1 Sodium 144 (136-145) mmol/L Potassium 4.0 (3.5-5.1) mmol/L Chloride 110 H (98-107) mmol/L Carbon Dioxide 26 (21-32) mmol/L Anion Gap 8.0 (3-11) BUN 11 (7-18) mg/dl Creatinine 1.29 (0.6-1.4) mg/dl Est Cr Clr Drug Dosing 66.0 ml/min Est GFR ( Amer) 68.9 Est GFR (Non-Af Amer) 59.4 BUN/Creatinine Ratio 8.8 L (10-20) Glucose 88 (70-99) mg/dl Calcium 8.7 (8.5-10.1) mg/dl Total Bilirubin 0.8 (0.2-1) mg/dl AST 17 (15-37) U/L ALT 29 (12-78) U/L Alkaline Phosphatase 113 (45-117) U/L Total Protein 7.8 (6.4-8.2) gm/dl Albumin 3.6 (3.4-5.0) gm/dl Globulin 4.2 H (2.5-4.0) gm/dl Albumin/Globulin Ratio 0.9 (0.9-2) Blood Pressure Blood Pressure Findings: Elevated blood pressure Blood Pressure Disposition: elevated BP felt to be situational MDM Narrative This 59-year-old male patient presents the emergency department today as a referral from Dr. Restrepo, ENT for admission and IV antibiotics for early epiglottitis. The patient was seen as an outpatient earlier today and had a scope completed which was consistent with an early acute epiglottitis. I did discuss the case with the ED pharmacist and patient was started on IV vancomycin and ceftriaxone. I did also discuss the case with Dr. Restrepo, who requested throat culture be obtained, which was completed. The patient will be admitted to the [facility] hospitalist service for ongoing management care. Please see hospitalist dictation. The chart was completed utilizing [employer] Speech voice recognition software. Grammatical errors, random word insertions, pronoun errors, and incomplete sentences are an occasional consequence of this system due to software limitations, ambient noise, and hardware issues. Any formal questions or concerns about the content, text, or information contained within the body of this dictation should be directly addressed to the provider for clarification. Impression & Plan Acute epiglottitis Discharge Plan Visit Data Chief Complaint: Throat Pain Stated Complaint: CAN'T SWALLOW ED Provider: Prem Mina ED Midlevel Provider: Daphnie Zimmer Discharge Problem: Acute epiglottitis Patient Disposition: Admitted As Inpatient Discharge Instructions Interventions: ED Discharge Assessment Last Done: 09/12/19 16:01
[2019-09-12] MEDS ORDERED: ALBUT/IPRATROP 3MG/0.5MG NEB 3 ML VIAL INH PRN (16:45)
[2019-09-12] MEDS ORDERED: NITROGLYCERIN SL 0.4 MG/TAB TAB SL PRN (16:45)
[2019-09-12] MEDS ORDERED: ONDANSETRON 4 MG OD TAB PO PRN (16:50)
[2019-09-12] MEDS ORDERED: SODIUM CHLOR 7% 4 ML NEB INH PRN (16:57)
[2019-09-12] MEDS ORDERED: MoRPHine SULFATE 2 MG/ML CARP IV PRN (17:27)
[2019-09-12] MEDS ORDERED: ONDANSETRON INJ 2 MG/ML 2 ML VIAL IV PRN (17:28)
[2019-09-12] MEDS ORDERED: ALUMINUM/MAGNESIUM SUSP 30 ML UDC PO PRN (17:35)
[2019-09-12] MEDS ORDERED: PANTOprazole 40 MG in SYRINGE 0 ML IV ONE (18:00)
[2019-09-12] MEDS: D5NSS + 20MEQ KCL 20 MEQ/1,000 ML BAG IV SCH (18:13)
[2019-09-12] MEDS: ACETAMINOPHEN 1,000 MG/100 ML VIAL IV PRN (18:14)
[2019-09-12] MEDS ORDERED: DORNASE ALFA 2.5 ML AMP INH SCH (19:00)
[2019-09-12] MEDS ORDERED: BUDESONIDE 0.25 MG/2 ML VIAL (PULMICORT) INH SCH (19:00)
[2019-09-12] MEDS: BUDESONIDE 0.5 MG/2 ML VIAL (PULMICORT) INH SCH (19:48)
--- NOTE | 2019-09-12 20:38 | Pharmacy Report ---
Pharmacy Abx Initial Consult - Date of Service September 12, 2019 - Pharmacy Dosing Scope Date of Consult: 09/12/19 Consultation requested by: Dr. Jeong Pharmacy is consulted to initiate Vancomycin IV/PO dosing therapy, order appropriate labs and adjust drug dose/frequency. - Subjective The patient is a 59 year old M admitted on 09/12/19 14:31. - Objective Height: 6 ft Weight: 94 kg Vital Signs (Past 12hrs): Vital Signs Temp Pulse Pulse Pulse Resp BP BP 09/12/19 19:49 96 H 18 09/12/19 17:57 97 H 18 09/12/19 16:26 37.4 C 101 H 18 129/66 09/12/19 16:01 80 18 149/76 H 09/12/19 14:56 85 25 H 153/78 H 09/12/19 13:53 85 22 128/82 09/12/19 12:44 09/12/19 12:20 36.6 C 81 22 150/101 H Pulse Ox 09/12/19 19:49 96 09/12/19 17:57 97 09/12/19 16:26 95 09/12/19 16:01 96 09/12/19 14:56 97 09/12/19 13:53 99 09/12/19 12:44 99 09/12/19 12:20 99 Lab Results (24hrs): Laboratory Tests (24 Hours) 09/12/19 09/12/19 12:45 12:45 WBC 10.79 Neut # (Auto) 8.32 H Creatinine 1.29 Est Cr Clr Drug Dosing 66.0 Micro Results: 09/12/19 13:10 Group A Streptococcus Rapid Screen - Final Throat Specimen negative for Group A Beta Strep by rapid method. Culture report to follow. Group A Beta-Hemolytic Strep Cult - Pending 09/12/19 13:44 Aerobic Blood Culture - Pending Blood Anaerobic Blood Culture - Pending 09/12/19 13:45 Aerobic Blood Culture - Pending Blood Anaerobic Blood Culture - Pending 09/12/19 13:10 Throat Culture - Pending Throat - Assessment & Plan Assessment 59 year old M presents to ER for evaluation of acute epiglottitis. Patient states that he had a scratchy sore throat for 2 days. Yesterday he was having difficulty eating. He felt like his throat was swelling shut at approx. 3am. He describes a sensation of inability to swallow and was unable to drink water or liquid. Patient was seen by his ENT, Dr. Restrepo and had a scope in the office. MD was concerned about possible epiglottitis, so he referred patient to ER. Plan Vancomycin for treatment of epiglottitis Vancomycin IV Patient meets criteria for vancomycin AUC dosing nomogram AUC/RICHARD is the preferred PK/PD target for vancomycin Target AUC/RICHARD = 400-600 AUC guided dosing is effective and associated with decreased risk of nephrotoxicity Pharmacy will continue to follow and will adjust dose/frequency as necessary. Thank you.
[2019-09-12] MEDS ORDERED: ASCORBIC ACID 500 MG TAB PO SCH (21:00)
[2019-09-12] MEDS: clonazePAM 1 MG TAB PO SCH (21:05)
[2019-09-12] MEDS: MONTELUKAST SODIUM 10 MG TABLET PO SCH (21:06)
[2019-09-12] MEDS: POLYETHYLENE (MIRALAX) 17 GM PACK PO SCH (21:07)
[2019-09-12] MEDS: KETOCONAZOLE 2% CR 15 GM TUBE EXT SCH (21:09)
[2019-09-12] MEDS: TRIAMCINOLONE ACET 0.025% CR 15 GM TUBE TOP SCH (21:09)
[2019-09-12] MEDS: DESONIDE CR 15 GM TUBE EXT SCH (21:09)
[2019-09-13] MEDS: D5NSS + 20MEQ KCL 20 MEQ/1,000 ML BAG IV SCH ×4 (01:08→23:42)
[2019-09-13] MEDS: VANCOMYCIN HCL 1,250 MG in SODIUM CHLORIDE 0.9% 250 ML IV SCH ×2 (04:09→14:08)
[2019-09-13 06:11] LABS: Basophils # (auto) 0.04 K/uL (0-0.2); Basophils % (auto) 0.4 %; Eosinophils % (auto) 2.6 %; Hematocrit (blood only) 40.7 % (42-52); Hemoglobin 13.4 g/dL (14.0-18.0); Immature Granulocytes # (auto) 0.03 K/uL (0.00-0.02); Immature Granulocytes % (auto) 0.3 %; Lymphocytes # (auto) 1.05 K/uL (1.2-3.4); Lymphocytes % (auto) 9.3 %; Mean Corpuscular Hemoglobin 29.3 pg (25-34); Mean Corpuscular Hgb Conc 32.9 g/dL (32-36); Mean Corpuscular Volume 88.9 fL (80-100); Mean Platelet Volume 8.4 fL (7.4-10.4); Monocytes # (auto) 0.75 K/uL (0.11-0.59); Monocytes % (auto) 6.6 %; Neutrophils # (auto) 9.17 K/uL (1.4-6.5); Neutrophils % (auto) 80.8 %; Platelet Count 202 K/uL (130-400); RDW Coefficient of Variation 15.4 % (11.5-14.5); RDW Standard Deviation 49.6 fL (36.4-46.3); Red Blood Count 4.58 M/uL (4.7-6.1); White Blood Count 11.34 K/uL (4.8-10.8)
[2019-09-13] MEDS ORDERED: LEVOTHYROXINE SODIUM 50 MCG TABLET PO SCH (06:30)
[2019-09-13 06:35] LABS: BUN Creatinine Ratio 8.4 (10-20); Calcium 7.6 mg/dl (8.5-10.1); Creatinine Clr Calc Pharmacy 72.2 ml/min; Est GFR (African American) 76.7; Est GFR (Non-African American) 66.2; Potassium 4.1 mmol/L (3.5-5.1)
[2019-09-13] MEDS: ACETAMINOPHEN 1,000 MG/100 ML VIAL IV PRN ×2 (06:45→15:35)
[2019-09-13] MEDS: BUDESONIDE 0.5 MG/2 ML VIAL (PULMICORT) INH SCH ×2 (07:11→19:33)
[2019-09-13] MEDS: DORNASE ALFA 2.5 ML AMP INH SCH (07:12)
--- NOTE | 2019-09-13 07:55 | ENT Consultation ---
Date of Consultation September 13, 2019 Assessment & Plan (1) Acute epiglottitis: He is responding to IV antibiotics this morning and is starting to feel better under medical management.No surgical intervention is needed at this time. History of Present Illness Reason for Consultation: Epiglottitis Attending Physician: Miguel Noriega MD History of Present Illness 59-year-old gentleman followed by me and Dr. Angela for many years developed worsening sore throat with dysphasia was found to have swollen red epiglottis consistent with epi epiglottitis and was admitted for IV antibiotics Allergies Allergy/AdvReac Type Severity Reaction Status Date / Time Sulfa (Sulfonamide Allergy Mild "SULFA Verified 09/12/19 14:10 Antibiotics) DRUGS": RASH, HOT FLASHES adhesive Allergy Unknown PLASTIC Verified 09/12/19 14:10 CLEAR TAPE-SKIN TURNS RED,ITCHING mold Allergy Unknown COUGH Verified 09/12/19 14:10 ragweed pollen Allergy Unknown SINUS Verified 09/12/19 14:10 DRAINAGE,STUFFINESS-TAKING ALLERGY SHOTS Ocgyscm-Goc-Jhs Reductase Allergy Unknown HOT Verified 09/12/19 14:10 Inhibitor FLASHES, RASH NSAIDS (Non-Steroidal AdvReac Intermediate NAUSEA Verified 09/12/19 14:10 Anti-Inflamma Home Medications Home Medications Medication Instructions Recorded Confirmed Type Pulmozyme 0.5 ml INHALATION QAM 11/29/17 09/12/19 History bupropion HCl 300 mg PO QAM 11/29/17 09/12/19 History clonazepam 1 mg PO TID 11/29/17 09/12/19 History docusate sodium [Colace] 100 mg PO QAM 11/29/17 09/12/19 History finasteride 5 mg PO QAM 11/29/17 09/12/19 History levothyroxine 50 mcg PO QAM 11/29/17 09/12/19 History nitroglycerin 0.4 mg SUBLINGUAL DIRECTED PRN 11/29/17 09/12/19 History ondansetron HCl [Zofran] 4 mg PO Q8H PRN 11/29/17 09/12/19 History tamsulosin 0.4 mg PO QAM 11/29/17 09/12/19 History albuterol sulfate 90 mcg/actuation 2 puff INHALATION QID PRN #3 06/26/19 09/12/19 Rx aerosol inhaler inhaler azithromycin 250 mg tablet 250 mg PO DAILY #12 tab 06/28/19 09/12/19 Rx pantoprazole 40 mg granules 40 mg PO DAILY 06/28/19 09/12/19 History delayed-release for susp in packet ascorbic acid (vitamin C) [Vitamin 250 mg PO BID 09/12/19 09/12/19 History C] budesonide 0.5 mg INHALATION DAILY 09/12/19 09/12/19 History cholecalciferol (vitamin D3) 10 mcg PO DAILY 09/12/19 09/12/19 History [Vitamin D3] desonide 1 applic TOPICAL BID 09/12/19 09/12/19 History dornase nicholas [Pulmozyme] 2.5 mg INHALATION BID 09/12/19 09/12/19 History ipratropium-albuterol 3 ml INHALATION QID PRN 09/12/19 09/12/19 History ketoconazole 1 applic TOPICAL BID 09/12/19 09/12/19 History montelukast 10 mg PO DAILY 09/12/19 09/12/19 History yqhhczmq-gfc-svgpi-vit K-lycop 1 tab PO DAILY 09/12/19 09/12/19 History [Men's Multivitamin] sodium chloride 3 % 4 ml/kg IV DIRECTED PRN 09/12/19 09/12/19 History triamcinolone acetonide 1 applic TOPICAL BID 09/12/19 09/12/19 History Patient History Medical History Anxiety Alexandra esophagus (Acute) BPH (benign prostatic hyperplasia) (Acute) Cardiac murmur Chronic constipation (Acute) Ciliary motility disorder (Acute) COPD exacerbation (Resolved) Depression DVT prophylaxis (Inactive) Encounter for pre-operative examination (Inactive) Fall (Resolved) GERD (gastroesophageal reflux disease) (Acute) Head contusion (Resolved) Hemorrhoids Hyperlipidemia (Acute) NO MEDS Hypothyroidism IBS (irritable bowel syndrome) (Acute) Ileus LLL pneumonia (Inactive) Neck strain (Acute) TAKING PT BREONNA on CPAP (Acute) Pneumonia 04/2018-[facility]BACK TO HIS NORMAL" F/U DR PHAM[facility] Pneumonia Pneumonia (Inactive) Sepsis (Inactive) SOB (shortness of breath) on exertion ON OCC Temporomandibular joint disorder HX RIGHT SIDE CLICKED-AND PAIN NO LOCKING Surgical History History of bilateral cataract extraction (Acute) History of bronchoscopy (Acute) X MULTIPLE History of cardiac cath 2017 NO STENTS-[facility] History of cholecystectomy (Acute) History of fundoplication (Acute) 2010 History of sinus surgery (Acute) x3 Family History Other No pertinent family history Social History Smoking Status: Never smoker Second Hand Exposure: No; Hx Alcohol Use: No Hx Substance Use: No Preferred Language: Libyan Communication Ability: Effective Ship'S Surveyor Required: No Beliefs That Will Affect Care: None Current Living Situation: Spouse Other Information That Helps Us Care for You: No Feels Safe at Home: Yes Safety Concerns: Feels Safe At This Time Physical Exam Constitutional: WD/WN, vitals as above Eyes: PERRL, conjunctivae normal, anicteric sclerae ENMT: Mouth: + oropharynx abnormality (Erythema and exudate posterior pharyngeal wall) Fiberoptic examination showed evidence of epi glottitis with mobile vocal cords without involvement of the arytenoids or vocal cords Results & Data ([facility]) Vital Signs (Past 12 Hours) Vital Signs Temp Pulse Resp BP BP Pulse Ox 09/13/19 07:14 37.4 C 94 H 18 145/75 H 92 09/13/19 07:13 90 19 92 09/12/19 23:00 36.7 C 89 18 119/61 97 (1) Acute epiglottitis Airway obstruction: without obstruction Qualified Code(s): J05.10 - Acute epiglottitis without obstruction
[2019-09-13] MEDS ORDERED: AZITHROMYCIN 250 MG TAB PO SCH (09:00)
[2019-09-13] MEDS ORDERED: PANTOprazole 40 MG TAB PO SCH (09:00)
[2019-09-13] MEDS: CEROVITE ADV FORMULA TAB PO SCH (10:36)
[2019-09-13] MEDS: AZITHROMYCIN 250 MG in DEXTROSE 5% 250 ML IV SCH ×2 (10:42→11:49)
[2019-09-13] MEDS: clonazePAM 1 MG TAB PO SCH ×3 (10:42→19:59)
[2019-09-13] MEDS: TAMSULOSIN HCL 0.4 MG CAP PO SCH (10:43)
[2019-09-13] MEDS: LEVOTHYROXINE SODIUM 25 MCG in SYRINGE 0 ML IV SCH (10:43)
[2019-09-13] MEDS: DESONIDE CR 15 GM TUBE EXT SCH ×2 (10:44→20:04)
[2019-09-13] MEDS: KETOCONAZOLE 2% CR 15 GM TUBE EXT SCH ×2 (10:44→20:01)
[2019-09-13] MEDS: DOCUSATE SODIUM 100 MG CAP PO SCH (10:44)
[2019-09-13] MEDS: TRIAMCINOLONE ACET 0.025% CR 15 GM TUBE TOP SCH ×2 (10:44→20:01)
[2019-09-13] MEDS: BuPROPion XL 300 MG TABCR PO SCH (10:45)
[2019-09-13] MEDS: CHOLECALCIFEROL 1,000 UNITS 25 MCG TAB PO SCH (10:46)
[2019-09-13] MEDS: PANTOprazole 40 MG in SYRINGE 0 ML IV SCH (10:48)
[2019-09-13] MEDS: FINASTERIDE 5 MG TAB PO SCH (13:27)
--- NOTE | 2019-09-13 13:39 | Hospitalist Progress Note ---
Date of Service September 13, 2019 Assessment & Plan (1) Acute epiglottitis: No stridor on exam or respiratory distress but given ciliary dyskinesia will need to be closely monitored for deterioration with stridor or drooling. - Continue vancomycin, ceftriaxone - Follow up blood and throat cultures - NPO - Will transition as many medications as possible to IV - Consulted ENT - Dr. Restrepo has followed along. No present need for surgery or intubation. (2) Ciliary dyskinesia: Long-standing. Has multiple pulmonologists, including at [facility]. Gets a bronch every 3 months. - Continue his usual regimen of Pulmicort, Duonebs, & Pulmozyme - Consider pulmonology consult with any changes in respiratory status (3) BPH (benign prostatic hyperplasia): No presents LUTS. - Continue his usual finasteride and tamsulosin (4) Depression: Definitely anxious (understandably). - Continue his usual Klonopin and bupropion (5) Hypothyroidism: TSH WNL in Mar. - Switch levothyroxine to IV to avoid multiple PO medications (6) Constipation: - Continue usual regimen with docusate BID and MiraLAX HS. (7) GERD (gastroesophageal reflux disease): Switch PO pantoprazole to IV to avoid multiple oral medications. (8) DVT prophylaxis: SCDs - Low DVT risk per admission calculator & also for concern for need for airway or surgical procedure Admission and Anticipated Discharge Date Admission Date: September 12, 2019 Subjective Feels his breathing is possibly a bit better; however, he feels very "played out." Reports no fevers/chills, chest pain, abdominal pain, nausea, or vomiting. Physical Exam Constitutional: WD/WN, vitals as above + acute distress Eyes: EOM intact bilaterally; no conjunctival abnormality ENMT: external ear and nose normal, oropharynx normal Neck: trachea midline, no thyromegaly normal visual inspection Respiratory: normal respiratory effort, lungs clear to auscultation no respiratory distress, + not able to speak in complete sentence and no stridor Cardiovascular: RRR, no murmur, no edema Gastrointestinal (Abdomen): Inspection/Auscultation: abdomen normal to inspection; abdomen not distended Musculoskeletal: no cyanosis or clubbing, extremities motor strength 5/5 Skin: no rashes, warm and dry Neurologic: moves all extremities and awake Psychiatric: Orientation: alert, oriented to person and cooperative Results & Data Results & Data ([facility]) Vital Signs (Past 12 Hours) Vital Signs Temp Pulse Resp BP Pulse Ox 09/13/19 07:14 37.4 C 94 H 18 145/75 H 92 09/13/19 07:13 90 19 92 PG Care Time/CCT Total # of Minutes Spent Total Time Spent with Patient: Total time spent is greater than 50% in co ordination of care (as documented) at patient's floor/unit and/or counseling patient: Coding Level of Care Code 42037 Subseq Hosp Care Lvl 2 Diagnoses Acute epiglottitis J05.10 Airway obstruction: without obstruction Ciliary dyskinesia J98.4 BPH (benign prostatic hyperplasia) N40.0 Lower urinary tract symptom presence: symptoms absent Depression F32.9 Hypothyroidism E03.9 Hypothyroidism type: acquired Constipation K59.00 GERD (gastroesophageal reflux disease) K21.9 DVT prophylaxis Z29.9 (1) Acute epiglottitis Airway obstruction: without obstruction Qualified Code(s): J05.10 - Acute epiglottitis without obstruction (2) BPH (benign prostatic hyperplasia) Lower urinary tract symptom presence: symptoms absent Qualified Code(s): N40.0 - Benign prostatic hyperplasia without lower urinary tract symptoms (3) Hypothyroidism Hypothyroidism type: acquired Qualified Code(s): E03.9 - Hypothyroidism, unspecified
[2019-09-13] MEDS: cefTRIAXone SODIUM 2,000 MG in DEXTROSE 5% 50 ML IV SCH (14:06)
[2019-09-13] MEDS: ALBUT/IPRATROP 3MG/0.5MG NEB 3 ML VIAL INH PRN (15:49)
[2019-09-13] MEDS: MONTELUKAST SODIUM 10 MG TABLET PO SCH (20:01)
[2019-09-13] MEDS: POLYETHYLENE (MIRALAX) 17 GM PACK PO SCH (20:04)
[2019-09-14] MEDS: VANCOMYCIN HCL 1,250 MG in SODIUM CHLORIDE 0.9% 250 ML IV SCH ×2 (03:17→15:35)
[2019-09-14] MEDS: ACETAMINOPHEN 1,000 MG/100 ML VIAL IV PRN ×2 (05:44→15:22)
[2019-09-14 06:35] LABS: Hematocrit (blood only) 39.3 % (42-52); Hemoglobin 12.8 g/dL (14.0-18.0); Mean Corpuscular Hemoglobin 29.1 pg (25-34); Mean Corpuscular Hgb Conc 32.6 g/dL (32-36); Mean Corpuscular Volume 89.3 fL (80-100); Mean Platelet Volume 8.8 fL (7.4-10.4); Platelet Count 194 K/uL (130-400); RDW Coefficient of Variation 15.1 % (11.5-14.5); RDW Standard Deviation 49.2 fL (36.4-46.3); White Blood Count 12.05 K/uL (4.8-10.8)
[2019-09-14 07:06] LABS: BUN Creatinine Ratio 7.8 (10-20); Calcium 8.1 mg/dl (8.5-10.1); Creatinine Clr Calc Pharmacy 72.8 ml/min; Est GFR (African American) 77.5; Est GFR (Non-African American) 66.9; Magnesium 2.2 mg/dl (1.8-2.4)
[2019-09-14] MEDS: BUDESONIDE 0.5 MG/2 ML VIAL (PULMICORT) INH SCH ×2 (07:06→19:42)
[2019-09-14] MEDS: DORNASE ALFA 2.5 ML AMP INH SCH (07:06)
[2019-09-14] MEDS: CEROVITE ADV FORMULA TAB PO SCH (08:15)
[2019-09-14] MEDS: KETOCONAZOLE 2% CR 15 GM TUBE EXT SCH ×2 (08:16→20:25)
[2019-09-14] MEDS: CHOLECALCIFEROL 1,000 UNITS 25 MCG TAB PO SCH (08:16)
[2019-09-14] MEDS: DESONIDE CR 15 GM TUBE EXT SCH ×2 (08:16→20:25)
[2019-09-14] MEDS: TRIAMCINOLONE ACET 0.025% CR 15 GM TUBE TOP SCH ×2 (08:16→20:25)
[2019-09-14] MEDS: TAMSULOSIN HCL 0.4 MG CAP PO SCH (08:18)
[2019-09-14] MEDS: FINASTERIDE 5 MG TAB PO SCH (08:18)
[2019-09-14] MEDS: BuPROPion XL 300 MG TABCR PO SCH (08:18)
[2019-09-14] MEDS: DOCUSATE SODIUM 100 MG CAP PO SCH (08:18)
[2019-09-14] MEDS: clonazePAM 1 MG TAB PO SCH ×3 (08:18→20:23)
[2019-09-14] MEDS: LEVOTHYROXINE SODIUM 25 MCG in SYRINGE 0 ML IV SCH (08:35)
[2019-09-14] MEDS: PANTOprazole 40 MG in SYRINGE 0 ML IV SCH (10:44)
[2019-09-14] MEDS: D5NSS + 20MEQ KCL 20 MEQ/1,000 ML BAG IV SCH (12:58)
[2019-09-14] MEDS: cefTRIAXone SODIUM 2,000 MG in DEXTROSE 5% 50 ML IV SCH (13:23)
[2019-09-14] MEDS ORDERED: VANCOMYCIN TROUGH ONE (14:30)
--- NOTE | 2019-09-14 15:27 | Hospitalist Progress Note ---
Date of Service September 14, 2019 Assessment & Plan (1) Acute epiglottitis: No stridor on exam or respiratory distress but given ciliary dyskinesia will need to be closely monitored for deterioration with stridor or drooling. - Continue vancomycin, ceftriaxone - Follow up blood and throat cultures -> No growth today. - A - Consulted ENT - Dr. Restrepo has followed along. No present need for surgery or intubation. (2) Ciliary dyskinesia: Long-standing. Has multiple pulmonologists, including at [facility]. Gets a bronch every 3 months. - Continue his usual regimen of Pulmicort, Duonebs, & Pulmozyme - Consider pulmonology consult with any changes in respiratory status -> So far improving/stable breathing. No consult at this time. (3) BPH (benign prostatic hyperplasia): No presents LUTS. - Continue his usual finasteride and tamsulosin (4) Depression: Definitely anxious (understandably). - Continue his usual Klonopin and bupropion (5) Hypothyroidism: TSH WNL in Mar. - Switch levothyroxine to IV to avoid multiple PO medications (6) Constipation: - Continue usual regimen with docusate BID and MiraLAX HS. (7) GERD (gastroesophageal reflux disease): Switch PO pantoprazole to IV to avoid multiple oral medications. (8) DVT prophylaxis: SCDs - Low DVT risk per admission calculator & also for concern for need for airway or surgical procedure Admission and Anticipated Discharge Date Admission Date: September 12, 2019 Subjective Doing better today. Less neck pain. Voice is improving. Even a small appetite. Reports no fevers/chills, chest pain, shortness of breath, abdominal pain, nausea, or vomiting. Physical Exam Constitutional: WD/WN, vitals as above + acute distress Eyes: EOM intact bilaterally; no conjunctival abnormality ENMT: external ear and nose normal, oropharynx normal Neck: trachea midline, no thyromegaly normal visual inspection Respiratory: normal respiratory effort, lungs clear to auscultation able to speak in complete sentences; no respiratory distress and no stridor Cardiovascular: RRR, no murmur, no edema Gastrointestinal (Abdomen): Inspection/Auscultation: abdomen normal to inspection; abdomen not distended Musculoskeletal: no cyanosis or clubbing, extremities motor strength 5/5 Skin: no rashes, warm and dry Neurologic: moves all extremities and awake Psychiatric: Orientation: alert, oriented to person and cooperative Results & Data Results & Data ([facility]) Vital Signs (Past 12 Hours) Vital Signs Temp Pulse Resp BP BP Pulse Ox 09/14/19 15:01 37.3 C 92 H 19 142/74 H 95 09/14/19 07:13 37 C 87 16 123/70 97 09/14/19 07:06 87 16 97 PG Care Time/CCT Total # of Minutes Spent Total Time Spent with Patient: Total time spent is greater than 50% in coordination of care (as documented) at patient's floor/unit and/or counseling patient: Coding Level of Care Code 14780 Subseq Hosp Care Lvl 2 Diagnoses Acute epiglottitis J05.10 Airway obstruction: without obstruction Ciliary dyskinesia J98.4 BPH (benign prostatic hyperplasia) N40.0 Lower urinary tract symptom presence: symptoms absent Depression F32.9 Hypothyroidism E03.9 Hypothyroidism type: acquired Constipation K59.00 GERD (gastroesophageal reflux disease) K21.9 DVT prophylaxis Z29.9 (1) Acute epiglottitis Airway obstruction: without obstruction Qualified Code(s): J05.10 - Acute epiglottitis without obstruction (2) BPH (benign prostatic hyperplasia) Lower urinary tract symptom presence: symptoms absent Qualified Code(s): N40.0 - Benign prostatic hyperplasia without lower urinary tract symptoms (3) Hypothyroidism Hypothyroidism type: acquired Qualified Code(s): E03.9 - Hypothyroidism, unspecified
--- NOTE | 2019-09-14 15:35 | Pharmacy Report ---
Pharmacy Abx Dose Short Note - Date of Service September 14, 2019 - Assessment & Plan Assessment 59 year old M receiving empiric vancomycin and ceftriaxone for acute epiglottitis * patient has received 48 hours of abx at this point * BC and throat cultures negative to date Plan Vancomycin * Trough level of 8.5 mcg/mL is subtherapeutic * Change to vancomycin 1500 mg (16.3 mg/kg) IV every 10 hours * Goal trough level: 10 -15 mcg/mL * Trough level will be repeated with continued therapy/change in clinical status Pharmacy will continue to follow and will adjust dose/frequency as necessary. Thank you.
[2019-09-14] MEDS: VANCOMYCIN HCL 1,500 MG in SODIUM CHLORIDE 0.9% 500 ML IV SCH (16:09)
[2019-09-14] MEDS: ALBUT/IPRATROP 3MG/0.5MG NEB 3 ML VIAL INH PRN (19:42)
[2019-09-14] MEDS: POLYETHYLENE (MIRALAX) 17 GM PACK PO SCH (20:21)
[2019-09-14] MEDS: MONTELUKAST SODIUM 10 MG TABLET PO SCH (20:23)
[2019-09-14] MEDS: ACETAMINOPHEN 325 MG TAB PO PRN (23:01)
[2019-09-15] MEDS: VANCOMYCIN HCL 1,500 MG in SODIUM CHLORIDE 0.9% 500 ML IV SCH ×3 (01:47→21:54)
[2019-09-15] MEDS: D5NSS + 20MEQ KCL 20 MEQ/1,000 ML BAG IV SCH ×2 (01:47→18:37)
[2019-09-15 07:19] LABS: Basophils # (auto) 0.04 K/uL (0-0.2); Basophils % (auto) 0.4 %; Eosinophils # (auto) 0.41 K/uL (0-0.5); Hemoglobin 12.5 g/dL (14.0-18.0); Immature Granulocytes # (auto) 0.04 K/uL (0.00-0.02); Immature Granulocytes % (auto) 0.4 %; Lymphocytes # (auto) 1.23 K/uL (1.2-3.4); Lymphocytes % (auto) 11.9 %; Mean Corpuscular Hemoglobin 29.6 pg (25-34); Mean Corpuscular Hgb Conc 32.9 g/dL (32-36); Mean Corpuscular Volume 89.8 fL (80-100); Mean Platelet Volume 9.2 fL (7.4-10.4); Monocytes # (auto) 0.95 K/uL (0.11-0.59); Monocytes % (auto) 9.2 %; Neutrophils # (auto) 7.67 K/uL (1.4-6.5); Neutrophils % (auto) 74.1 %; Platelet Count 197 K/uL (130-400); RDW Coefficient of Variation 15.1 % (11.5-14.5); RDW Standard Deviation 49.9 fL (36.4-46.3); Red Blood Count 4.23 M/uL (4.7-6.1); White Blood Count 10.34 K/uL (4.8-10.8)
[2019-09-15] MEDS: BUDESONIDE 0.5 MG/2 ML VIAL (PULMICORT) INH SCH ×2 (07:36→19:22)
[2019-09-15] MEDS: DORNASE ALFA 2.5 ML AMP INH SCH (07:36)
[2019-09-15] MEDS: FINASTERIDE 5 MG TAB PO SCH (07:46)
[2019-09-15] MEDS: DOCUSATE SODIUM 100 MG CAP PO SCH (07:46)
[2019-09-15] MEDS: CHOLECALCIFEROL 1,000 UNITS 25 MCG TAB PO SCH (07:46)
[2019-09-15] MEDS: TAMSULOSIN HCL 0.4 MG CAP PO SCH (07:46)
[2019-09-15] MEDS: BuPROPion XL 300 MG TABCR PO SCH (07:46)
[2019-09-15] MEDS: CEROVITE ADV FORMULA TAB PO SCH (07:46)
[2019-09-15 07:47] LABS: BUN Creatinine Ratio 8.2 (10-20); Calcium 7.6 mg/dl (8.5-10.1); Creatinine Clr Calc Pharmacy 78.8 ml/min; Est GFR (African American) 85.4; Est GFR (Non-African American) 73.7; Potassium 4.2 mmol/L (3.5-5.1)
[2019-09-15] MEDS: DESONIDE CR 15 GM TUBE EXT SCH ×2 (07:48→20:29)
[2019-09-15] MEDS: TRIAMCINOLONE ACET 0.025% CR 15 GM TUBE TOP SCH ×2 (08:48→20:28)
[2019-09-15] MEDS: KETOCONAZOLE 2% CR 15 GM TUBE EXT SCH ×2 (08:48→20:28)
[2019-09-15] MEDS: ACETAMINOPHEN 325 MG TAB PO PRN ×4 (08:52→22:16)
[2019-09-15] MEDS: clonazePAM 1 MG TAB PO SCH ×3 (08:52→20:26)
[2019-09-15] MEDS ORDERED: AZITHROMYCIN 250 MG in DEXTROSE 5% 250 ML IV SCH (09:00)
[2019-09-15] MEDS: LEVOTHYROXINE SODIUM 25 MCG in SYRINGE 0 ML IV SCH (10:09)
--- NOTE | 2019-09-15 10:57 | Hospitalist Progress Note ---
Date of Service September 15, 2019 Assessment & Plan (1) Acute epiglottitis: No stridor on exam or respiratory distress but given ciliary dyskinesia will need to be closely monitored for deterioration with stridor or drooling. - Continue vancomycin, ceftriaxone - Follow up blood and throat cultures -> No growth after 48 hours. Throat culture without Strep. - Consulted ENT - Dr. Restrepo has followed along. No present need for surgery or intubation. Reached out on 09/14 for re-assessment given continued fevers. - With continued fevers yesterday and today. Voice improving, but worsening cough and sputum production. (2) Ciliary dyskinesia: Long-standing. Has multiple pulmonologists, including at [facility]. Gets a bronch every 3 months. - Continue his usual regimen of Pulmicort, Duonebs, & Pulmozyme - Consulted pulmonology given his worsening cough and mucus production. - Getting CXR and procalcitonin as well to help differentiate lung vs. epiglottis issues. (3) BPH (benign prostatic hyperplasia): No presents LUTS. - Continue his usual finasteride and tamsulosin (4) Depression: Definitely anxious (understandably). - Continue his usual Klonopin and bupropion (5) Hypothyroidism: TSH WNL in Mar. - Switch levothyroxine to IV to avoid multiple PO medications (6) Constipation: - Continue usual regimen with docusate BID and MiraLAX HS. (7) GERD (gastroesophageal reflux disease): Switch PO pantoprazole to IV to avoid multiple oral medications. (8) DVT prophylaxis: SCDs - Low DVT risk per admission calculator & also for concern for need for airway or surgical procedure Admission and Anticipated Discharge Date Admission Date: September 12, 2019 Subjective Ongoing fevers despite abx. Feels still "played out." Eating is mildly improving and voice continues to be stable/mildly better than on presentation. Reports no chest pain, shortness of breath, abdominal pain, nausea, or vomiting. Physical Exam Constitutional: WD/WN, vitals as above + acute distress Eyes: EOM intact bilaterally; no conjunctival abnormality ENMT: external ear and nose normal, oropharynx normal Neck: trachea midline, no thyromegaly normal visual inspection Respiratory: normal respiratory effort, lungs clear to auscultation able to speak in complete sentences; no respiratory distress and no stridor Cardiovascular: RRR, no murmur, no edema Gastrointestinal (Abdomen): Inspection/Auscultation: abdomen normal to inspection; abdomen not distended Musculoskeletal: no cyanosis or clubbing, extremities motor strength 5/5 Skin: no rashes, warm and dry Neurologic: moves all extremities and awake Psychiatric: Orientation: alert, oriented to person and cooperative Results & Data Results & Data ([facility]) Vital Signs (Past 12 Hours) Vital Signs Temp Pulse Resp BP Pulse Ox 09/15/19 07:40 88 18 95 09/15/19 07:33 37.4 C 80 18 146/83 H 98 PG Care Time/CCT Total # of Minutes Spent Total Time Spent with Patient: Total time spent is greater than 50% in coordination of care (as documented) at patient's floor/unit and/or counseling patient: Coding Level of Care Code 88965 Subseq Hosp Care Lvl 3 Diagnoses Acute epiglottitis J05.10 Airway obstruction: without obstruction Ciliary dyskinesia J98.4 BPH (benign prostatic hyperplasia) N40.0 Lower urinary tract symptom presence: symptoms absent Depression F32.9 Hypothyroidism E03.9 Hypothyroidism type: acquired Constipation K59.00 GERD (gastroesophageal reflux disease) K21.9 DVT prophylaxis Z29.9 (1) Acute epiglottitis Airway obstruction: without obstruction Qualified Code(s): J05.10 - Acute epiglottitis without obstruction (2) BPH (benign prostatic hyperplasia) Lower urinary tract symptom presence: symptoms absent Qualified Code(s): N40.0 - Benign prostatic hyperplasia without lower urinary tract symptoms (3) Hypothyroidism Hypothyroidism type: acquired Qualified Code(s): E03.9 - Hypothyroidism, unspecified
[2019-09-15] MEDS: PANTOprazole 40 MG in SYRINGE 0 ML IV SCH (11:17)
--- NOTE | 2019-09-15 11:46 | XRay Report ---
XR chest 2V PA/lateral CLINICAL HISTORY: Cough, sputum COMPARISON STUDY: 12/05/2018 FINDINGS: The heart is borderline enlarged. There are left lower lobe airspace opacities suspicious f or a pneumonia. There are right parenchymal opacities atelectatic versus inflammatory. There are smal l bilateral pleural effusions. Clinical and radiographic follow-up is recommended. IMPRESSION: 1. Left lower lobe airspace opacity suspicious for pneumonia given the history of cough 2. Right basilar airspace opacities, atelectatic versus infectious/inflammatory 3. Small bilateral pleural effusions ACT 112: Negative or not required by law. Electronically signed by: Shiraz Camacho M.D. 09/15/2019 11:45 AM
--- NOTE | 2019-09-15 13:16 | Surgery Progress Note ---
Date of Service September 15, 2019 Assessment & Plan (1) Acute epiglottitis: improved, will do TNE tomorrow (2) Chronic recurrent sinusitis: will look at same time as TNE (3) Pneumonia: continue medical management Subjective still has headache, throat feels better Physical Exam Constitutional: WD/WN, vitals as above Eyes: PERRL, conjunctivae normal, anicteric sclerae ENMT: Mouth: + oropharynx abnormality (improved) Results & Data Vital Signs (Past 12 Hours) Vital Signs Temp Pulse Resp BP Pulse Ox 09/15/19 07:40 88 18 95 09/15/19 07:33 37.4 C 80 18 146/83 H 98 (1) Acute epiglottitis Airway obstruction: without obstruction Qualified Code(s): J05.10 - Acute epiglottitis without obstruction
--- NOTE | 2019-09-15 15:17 | Pulmonary Consultation ---
Date of Consultation September 15, 2019 Assessment & Plan (1) Bronchiectasis: 59-year-old male with a history of primary ciliary dyskinesia, asthma, chronic sinusitis and GERD presenting to the hospital with acute epiglottitis and now with hemoptysis. He has a left lower lobe infiltrate. It is interesting to note that his most recent pulmonary function testing does not indicate significant physiologic disease. His recent CT scans of his chest and also been underwhelming from the perspective of bronchiectasis. He does have evidence of significant chronic colonization with numerous different organisms. I would recommend targeting therapy with a broader cephalosporin such as cefepime 2 g 3 times daily given his history of resistant Acinetobacter. I would also recommend repeating sputum culture. He should ideally be isolated in a contact isolation room given a history of multidrug-resistant organisms. I would hold off on clearance therapies at this moment such as hypertonic saline, Pulmozyme and vest therapy given his active hemoptysis. Is unclear to me whether this hemoptysis is from his lower respiratory tract or from his epiglottitis and sinus tract. Certainly, if he develops further hemoptysis, I recommend a stat CTA and consideration of transfer to a tertiary center for embolization. Recommend checking an MRSA screen to see if the vancomycin can be discontinued. Recommend gentle hydration given his primary ciliary dyskinesia to help loosen secretions. I would like to see the biopsy results regarding his ciliary biopsy and where exactly this was taken. It is somewhat unusual that this diagnosis was made so late in his life and that he actually was able to have biological children. He would likely better be suited being treated chronically at a tertiary care center that is more familiar with primary ciliary dyskinesia in the future. Bronchiectasis type: with acute lower respiratory infection Qualified Code(s): J47.0 - Bronchiectasis with acute lower respiratory infection (2) Acute epiglottitis: Airway obstruction: without obstruction Qualified Code(s): J05.10 - Acute epiglottitis without obstruction (3) Chronic recurrent sinusitis: (4) Ciliary dyskinesia: (5) Hemoptysis: History of Present Illness Reason for Consultation: History of primary ciliary dyskinesia and focal bronchiectasis with possible acute exacerbation. Requesting Physician: Dr. Miguel Noriega Attending Physician: Miguel Noriega MD History of Present Illness 59-year-old male with a past medical history of primary ciliary dyskinesia, focal bronchiectasis, gastroesophageal disease status post Brittany fundoplication, depression, obstructive sleep apnea and chronic recurrent sinusitis presenting to the hospital on 09/12/2019 secondary to acute epiglottitis. He has been on broad-spectrum antibiotics. ENT has evaluated the patient. Plan for scope tomorrow. Patient notes that this afternoon he started coughing up blood and has had 4 episodes of hemoptysis. The blood is admixed with sputum. Patient reports that he gets a bronchoscopy every 3 months to clear out his airways. He normally sees a poultry inspector at [facility] and also has seen Dr. Angela for many years. He is normally on Pulmozyme once a day, Pulmicort twice a day, duo nebs twice a day, hypertonic saline twice a day and percussive vest therapy. I did review his pulmonary note from 06/19/2019 from [facility] that was scanned into the electronic medical record. That note indicates that the patient has had numerous organisms from his bronchoscopy specimens with Moraxella, Streptococcus, Rhizopus, MAC, actinobacter, Mycobacterium and stenotrophomonas.Most recent bronchoscopy cultures are from 08/18/2018 which demonstrated to species of saprophytic fungus and Acinetobacter baumanni. Acinetobacter was sensitive to cefepime, ciprofloxacin, levofloxacin and Bactrim. It was resistant to ampicillin, ceftazidime and tobramycin. Chest x- ray from today demonstrates a left lower lobe airspace opacity suspicious for pneumonia. CT chest reviewed from 08/23/2018 which demonstrated bandlike opacities at the left lung base dating back to 2018. Moderate hiatal hernia was seen as well. Pulmonary function testing from 03/28/2019 demonstrated normal spirometry with no significant postbronchodilator response, normal lung volumes and a mildly reduced DLCO with a corrected for alveolar volume. 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 He notes that he has 2 children and they do not have any significant respiratory issues. They were told that they had exercise-induced asthma as children. He denies any history of smoking. He has 1 dog that does sleep in his bedroom. The patient is currently on ceftriaxone, vancomycin and azithromycin. Procalcitonin was 0.43. His highest temperature was 100.4 on 09/14/2019 at 2200. Most recent temperature 99.3 on 09/15/2019 at 7:33 AM. Allergies Allergy/AdvReac Type Severity Reaction Status Date / Time Sulfa (Sulfonamide Allergy Mild "SULFA Verified 09/12/19 14:10 Antibiotics) DRUGS": RASH, HOT FLASHES adhesive Allergy Unknown PLASTIC Verified 09/12/19 14:10 CLEAR TAPE-SKIN TURNS RED,ITCHING mold Allergy Unknown COUGH Verified 09/12/19 14:10 ragweed pollen Allergy Unknown SINUS Verified 09/12/19 14:10 DRAINAGE,STUFFINESS-TAKING ALLERGY SHOTS Otvyexv-Ytl-Xzo Reductase Allergy Unknown HOT Verified 09/12/19 14:10 Inhibitor FLASHES, RASH NSAIDS (Non-Steroidal AdvReac Intermediate NAUSEA Verified 09/12/19 14:10 Anti-Inflamma Home Medications Home Medications Medication Instructions Recorded Confirmed Type Pulmozyme 0.5 ml INHALATION QAM 11/29/17 09/12/19 History bupropion HCl 300 mg PO QAM 11/29/17 09/12/19 History clonazepam 1 mg PO TID 11/29/17 09/12/19 History docusate sodium [Colace] 100 mg PO QAM 11/29/17 09/12/19 History finasteride 5 mg PO QAM 11/29/17 09/12/19 History levothyroxine 50 mcg PO QAM 11/29/17 09/12/19 History nitroglycerin 0.4 mg SUBLINGUAL DIRECTED PRN 11/29/17 09/12/19 History ondansetron HCl [Zofran] 4 mg PO Q8H PRN 11/29/17 09/12/19 History tamsulosin 0.4 mg PO QAM 11/29/17 09/12/19 History albuterol sulfate 90 mcg/actuation 2 puff INHALATION QID PRN #3 06/26/19 09/12/19 Rx aerosol inhaler inhaler azithromycin 250 mg tablet 250 mg PO DAILY #12 tab 06/28/19 09/12/19 Rx pantoprazole 40 mg granules 40 mg PO DAILY 06/28/19 09/12/19 History delayed-release for susp in packet ascorbic acid (vitamin C) [Vitamin 250 mg PO BID 09/12/19 09/12/19 History C] budesonide 0.5 mg INHALATION DAILY 09/12/19 09/12/19 History cholecalciferol (vitamin D3) 10 mcg PO DAILY 09/12/19 09/12/19 History [Vitamin D3] desonide 1 applic TOPICAL BID 09/12/19 09/12/19 History dornase nicholas [Pulmozyme] 2.5 mg INHALATION BID 09/12/19 09/12/19 History ipratropium-albuterol 3 ml INHALATION QID PRN 09/12/19 09/12/19 History ketoconazole 1 applic TOPICAL BID 09/12/19 09/12/19 History montelukast 10 mg PO DAILY 09/12/19 09/12/19 History dwpxmwzk-ois-ousuk-vit K-lycop 1 tab PO DAILY 09/12/19 09/12/19 History [Men's Multivitamin] sodium chloride 3 % 4 ml/kg IV DIRECTED PRN 09/12/19 09/12/19 History triamcinolone acetonide 1 applic TOPICAL BID 09/12/19 09/12/19 History Patient History Medical History Anxiety Alexandra esophagus (Acute) BPH (benign prostatic hyperplasia) (Acute) Cardiac murmur Chronic constipation (Acute) Ciliary motility disorder (Acute) COPD exacerbation (Resolved) Depression DVT prophylaxis (Inactive) Encounter for pre-operative examination (Inactive) Fall (Resolved) GERD (gastroesophageal reflux disease) (Acute) Head contusion (Resolved) Hemorrhoids Hyperlipidemia (Acute) NO MEDS Hypothyroidism IBS (irritable bowel syndrome) (Acute) Ileus LLL pneumonia (Inactive) Neck strain (Acute) TAKING PT BREONNA on CPAP (Acute) Pneumonia 04/2018-[facility]-"BACK TO HIS NORMAL" F/U DR PHAM/[facility] Pneumonia Pneumonia (Inactive) Sepsis (Inactive) SOB (shortness of breath) on exertion ON OCC Temporomandibular joint disorder HX RIGHT SIDE CLICKED-AND PAIN NO LOCKING Surgical History History of bilateral cataract extraction (Acute) History of bronchoscopy (Acute) X MULTIPLE History of cardiac cath 2016 NO [facility] History of cholecystectomy (Acute) History of fundoplication (Acute) 2009 History of sinus surgery (Acute) x3 Family History Other No pertinent family history Social History Smoking Status: Never smoker Second Hand Exposure: No; Hx Alcohol Use: No Hx Substance Use: No Preferred Language: Korean Communication Ability: Effective Applications Tester Required: No Beliefs That Will Affect Care: None Current Living Situation: Spouse Other Information That Helps Us Care for You: No Feels Safe at Home: Yes Safety Concerns: Feels Safe At This Time Review of Systems Review of Systems: All systems reviewed & are unremarkable except as noted in HPI & below Physical Exam Constitutional: WD/WN, vitals as above Eyes: PERRL, conjunctivae normal, anicteric sclerae ENMT: external ear and nose normal, oropharynx normal Neck: trachea midline, no thyromegaly Respiratory: normal respiratory effort, lungs clear to auscultation Cardiovascular: RRR, no murmur, no edema Gastrointestinal (Abdomen): normal bowel sounds, soft, nontender, no hepatosplenomegaly Musculoskeletal: no cyanosis or clubbing, extremities motor strength 5/5 Skin: no rashes, warm and dry Neurologic: PERRL, EOMI, accommodation nl, no face palsy, no dysarthria Psychiatric: A+Ox3, euthymic affect Results & Data Results & Data ([facility]) Vital Signs (Past 12 Hours) Vital Signs Temp Pulse Resp BP Pulse Ox 09/15/19 07:40 88 18 95 09/15/19 07:33 99.3 F 80 18 146/83 H 98 I reviewed his vital signs, laboratory data and chest imaging. PG Care Time/CCT Total # of Minutes Spent Total Time Spent with Patient: Total time spent is greater than 50% in coordination of care (as documented) at patient's floor/unit and/or counseling patient: Coding Level of Care Code 47122 Inpt Consult Level 5 Diagnoses Bronchiectasis J47.0 Bronchiectasis type: with acute lower respiratory infection Acute epiglottitis J05.10 Airway obstruction: without obstruction Chronic recurrent sinusitis J32.9 Ciliary dyskinesia J98.4 Hemoptysis R04.2
[2019-09-15] MEDS: cefTRIAXone SODIUM 2,000 MG in DEXTROSE 5% 50 ML IV SCH (16:01)
[2019-09-15] MEDS: ALBUT/IPRATROP 3MG/0.5MG NEB 3 ML VIAL INH PRN (19:22)
[2019-09-15] MEDS: POLYETHYLENE (MIRALAX) 17 GM PACK PO SCH (20:26)
[2019-09-15] MEDS: MONTELUKAST SODIUM 10 MG TABLET PO SCH (20:27)
[2019-09-15] MEDS: POTASSIUM CHLORIDE 20 MEQ in DEXTROSE 5% 1,000 ML IV SCH (21:53)
[2019-09-15] MEDS: CEFEPIME 2,000 MG in SYRINGE 7.5 ML IV SCH (22:16)
[2019-09-16] MEDS: ALBUT/IPRATROP 3MG/0.5MG NEB 3 ML VIAL INH PRN (03:35)
[2019-09-16] MEDS: CEFEPIME 2,000 MG in SYRINGE 7.5 ML IV SCH ×3 (05:52→22:05)
[2019-09-16] MEDS ORDERED: Nursing to Pharmacy Communication SCH (06:00)
[2019-09-16] MEDS: DORNASE ALFA 2.5 ML AMP INH SCH (07:14)
[2019-09-16] MEDS: BUDESONIDE 0.5 MG/2 ML VIAL (PULMICORT) INH SCH ×2 (07:14→19:20)
[2019-09-16] MEDS ORDERED: VANCOMYCIN TROUGH ONE (07:30)
[2019-09-16] MEDS ORDERED: LIDOCAINE 4% INH SOLN 4 ML BTL SCH (08:00)
[2019-09-16] MEDS ORDERED: OXYMETAZOLINE 0.05% 30 ML BTL NAE SCH (08:00)
[2019-09-16 08:33] LABS: Hematocrit (blood only) 37.9 % (42-52); Hemoglobin 12.1 g/dL (14.0-18.0); Mean Corpuscular Hemoglobin 28.5 pg (25-34); Mean Corpuscular Hgb Conc 31.9 g/dL (32-36); Mean Corpuscular Volume 89.4 fL (80-100); Platelet Count 232 K/uL (130-400); RDW Standard Deviation 48.6 fL (36.4-46.3); Red Blood Count 4.24 M/uL (4.7-6.1); White Blood Count 10.15 K/uL (4.8-10.8)
--- NOTE | 2019-09-16 08:41 | Surgery Progress Note ---
Date of Service September 16, 2019 Assessment & Plan (1) Acute epiglottitis: improved (2) Pneumonia: worsening with LLL infiltrate and pleural effusions, discussed with Dr. Noriega, to start chest compression vest for drainge Subjective still not feeling well, fever, bloody phlegm Physical Exam Eyes: PERRL, conjunctivae normal, anicteric sclerae ENMT: fiberoptic TNE with Dr. Noriega, slight erythema of epiglottis with minimal edema/swelling, much improved, copious amount of frothy phlegm Results & Data Vital Signs (Past 12 Hours) Vital Signs Temp Pulse Resp BP Pulse Ox 09/16/19 07:55 37.5 C 82 18 136/80 96 09/16/19 07:14 81 14 93 09/16/19 03:35 80 16 94 09/15/19 23:53 37.7 C H 85 18 106/67 94 (1) Acute epiglottitis Airway obstruction: without obstruction Qualified Code(s): J05.10 - Acute epiglottitis without obstruction
[2019-09-16] MEDS: TRIAMCINOLONE ACET 0.025% CR 15 GM TUBE TOP SCH ×2 (08:43→20:20)
[2019-09-16] MEDS: VANCOMYCIN HCL 1,500 MG in SODIUM CHLORIDE 0.9% 500 ML IV SCH ×2 (08:43→18:35)
[2019-09-16] MEDS: CEROVITE ADV FORMULA TAB PO SCH (08:44)
[2019-09-16] MEDS: CHOLECALCIFEROL 1,000 UNITS 25 MCG TAB PO SCH (08:44)
[2019-09-16] MEDS: BuPROPion XL 300 MG TABCR PO SCH (08:44)
[2019-09-16] MEDS: TAMSULOSIN HCL 0.4 MG CAP PO SCH (08:44)
[2019-09-16] MEDS: DOCUSATE SODIUM 100 MG CAP PO SCH (08:44)
[2019-09-16] MEDS: LEVOTHYROXINE SODIUM 25 MCG in SYRINGE 0 ML IV SCH (08:45)
[2019-09-16] MEDS: FINASTERIDE 5 MG TAB PO SCH (08:46)
[2019-09-16] MEDS: DESONIDE CR 15 GM TUBE EXT SCH ×2 (08:47→20:20)
[2019-09-16] MEDS: KETOCONAZOLE 2% CR 15 GM TUBE EXT SCH ×2 (08:47→20:26)
--- NOTE | 2019-09-16 08:47 | Pharmacy Report ---
Pharmacy Abx Dose Short Note - Date of Service September 16, 2019 - Assessment & Plan Assessment 59 year old M receiving IV Vancomycin + Cefepime + Azithromycin for treatment of acute epiglottitis. * Day #4 of Vancomycin & Azithromycin + Day #1 Cefepime * Azithromycin is a home med patient takes on MWF * He was switched from Ceftriaxone to Cefepime last evening at the recommendation of pulmonology given h/o A. baumannii * 24-hr Tmax is 99.8F. Procalcitonin was 0.43 yesterday. Renal function is stable. Unlikely that MRSA nasal swab would be reliable given greater than 48 hours of anti-MRSA coverage. * Patient to undergo transnasal esophagoscopy today. Plan Vancomycin * Trough level of 16.1 mcg/mL is therapeutic; however, given significant increase since last trough, will extend dosing interval to ensure patient dose not become supratherapeutic. * Change to 1500 mg IV every 12 hours * Goal trough level: 15 - 20 mcg/mL * Trough level ordered for the morning of Wednesday, September 17 to reflect steady stead level on extended dosing interval Cefepime * 2 grams IV every 8 hours * Appropriate per renal function and indication Azithromycin * 250 mg IV every Wednesday, Wednesday, Wednesday * Continue home dosing Pharmacy will continue to follow and will adjust dose/frequency as necessary. Thank you.
[2019-09-16 08:49] LABS: Calcium 8.5 mg/dl (8.5-10.1); Est GFR (African American) 81.7; Est GFR (Non-African American) 70.5; Magnesium 2.2 mg/dl (1.8-2.4); Potassium 3.8 mmol/L (3.5-5.1)
[2019-09-16] MEDS: clonazePAM 1 MG TAB PO SCH ×3 (09:44→22:03)
--- NOTE | 2019-09-16 11:23 | Hospitalist Progress Note ---
Date of Service September 16, 2019 Assessment & Plan (1) Acute epiglottitis: No stridor on exam or respiratory distress but given ciliary dyskinesia will need to be closely monitored for deterioration with stridor or drooling. - Follow up blood and throat cultures -> No growth after 48 hours. Throat culture without Strep. - Consulted ENT - Dr. Restrepo has followed along. Epiglottis examined via laryngoscopy on 09/15. Still with erythema, but edema has largely resolved. - Continue vancomycin, cefepime - If MRSA swab is negative, will discontinue vanc. (2) Pneumonia: CXR done on 09/14 for increasing cough and sputum production. This showed a LLL opacity, concerning for pneumonia. Procalcitonin was 0.43. - Pulm consulted -> Recommend cefepime given prior sputum culture (08/2018) with multi-resistant Acinetobacter. - Started cefepime on 09/14. - Repeat sputum culture given on 09/15 - Follow results. (3) Ciliary dyskinesia: Long-standing. Has multiple pulmonologists, including at [facility]. Gets a bronch every 3 months. - Continue his usual regimen of Pulmicort, Duonebs, & Pulmozyme - Consulted pulmonology given his worsening cough and mucus production -> As above (4) BPH (benign prostatic hyperplasia): No presents LUTS. - Continue his usual finasteride and tamsulosin (5) Depression: Definitely anxious (understandably). - Continue his usual Klonopin and bupropion (6) Hypothyroidism: TSH WNL in Mar. - Continue home levothyroxine (7) Constipation: - Continue usual regimen with docusate BID and MiraLAX HS. (8) GERD (gastroesophageal reflux disease): - Continue PPI (9) DVT prophylaxis: SCDs - Low DVT risk per admission calculator & also with mild hemoptysis Admission and Anticipated Discharge Date Admission Date: September 12, 2019 Subjective Epiglottis doing better today. Voice returning to normal. Reports no fevers/ chills, chest pain, abdominal pain, nausea, or vomiting. Physical Exam Constitutional: WD/WN, vitals as above + acute distress Eyes: EOM intact bilaterally; no conjunctival abnormality ENMT: external ear and nose normal, oropharynx normal Neck: trachea midline, no thyromegaly normal visual inspection Respiratory: normal respiratory effort, lungs clear to auscultation able to speak in complete sentences; no respiratory distress and no stridor Cardiovascular: RRR, no murmur, no edema Gastrointestinal (Abdomen): Inspection/Auscultation: abdomen normal to inspection; abdomen not distended Musculoskeletal: no cyanosis or clubbing, extremities motor strength 5/5 Skin: no rashes, warm and dry Neurologic: moves all extremities and awake Psychiatric: Orientation: alert, oriented to person and cooperative Results & Data Results & Data ([facility]) Vital Signs (Past 12 Hours) Vital Signs Temp Pulse Resp BP Pulse Ox 09/16/19 07:55 37.5 C 82 18 136/80 96 09/16/19 07:14 81 14 93 09/16/19 03:35 80 16 94 09/15/19 23:53 37.7 C H 85 18 106/67 94 PG Care Time/CCT Total # of Minutes Spent Total Time Spent with Patient: Total time spent is greater than 50% in coordination of care (as documented) at patient's floor/unit and/or counseling patient: Coding Level of Care Code 83735 Subseq Hosp Care Lvl 3 Diagnoses Acute epiglottitis J05.10 Airway obstruction: without obstruction Pneumonia J18.9 Ciliary dyskinesia J98.4 BPH (benign prostatic hyperplasia) N40.0 Lower urinary tract symptom presence: symptoms absent Depression F32.9 Hypothyroidism E03.9 Hypothyroidism type: acquired Constipation K59.00 GERD (gastroesophageal reflux disease) K21.9 DVT prophylaxis Z29.9 (1) Acute epiglottitis Airway obstruction: without obstruction Qualified Code(s): J05.10 - Acute epiglottitis without obstruction (2) BPH (benign prostatic hyperplasia) Lower urinary tract symptom presence: symptoms absent Qualified Code(s): N40.0 - Benign prostatic hyperplasia without lower urinary tract symptoms (3) Hypothyroidism Hypothyroidism type: acquired Qualified Code(s): E03.9 - Hypothyroidism, unspecified
[2019-09-16] MEDS: PANTOprazole 40 MG TAB PO SCH (12:23)
[2019-09-16] MEDS: ACETAMINOPHEN 325 MG TAB PO PRN ×2 (12:24→17:03)
[2019-09-16] MEDS ORDERED: ALBUT/IPRATROP 3MG/0.5MG NEB 3 ML VIAL NEB PRN (14:19)
--- NOTE | 2019-09-16 14:22 | Pulmonology Progress Note ---
Date of Service September 16, 2019 Assessment & Plan (1) Bronchiectasis: 59-year-old male with a history of primary ciliary dyskinesia, asthma, chronic sinusitis and GERD presenting to the hospital with acute epiglottitis and now with hemoptysis. He has a left lower lobe infiltrate. Continue cefepime. He has a left lower lobe infiltrate and a history of PCD. If he has no significant improvement in the next couple days, we may have to add a second antibiotic such as Levaquin to cover for the history of Acinetobacter. I am not certain the role of vancomycin or azithromycin at this point. I do think that he should be on isolation precautions given his history of MDR organisms in particular MDR Acinetobacter. Continue Pulmozyme, airway clearance therapy including Acapella, hypertonic saline twice daily and vest therapy. I have ordered for all of these therapies. His hemoptysis has resolved and thus I think we can continue with airway clearance therapy. I will order for duo nebs every 6 as needed. Bronchiectasis type: with acute lower respiratory infection Qualified Code(s): J47.0 - Bronchiectasis with acute lower respiratory infection (2) Acute epiglottitis: Airway obstruction: without obstruction Qualified Code(s): J05.10 - Acute epiglottitis without obstruction (3) Chronic recurrent sinusitis: (4) Ciliary dyskinesia: (5) Hemoptysis: Admission and Anticipated Discharge Date Admission Date: September 12, 2019 Subjective Patient coughing substantially more today. He has some mild chest tightness. Continues with low-grade temperatures of 99.5. Saturating 96% on room air. He underwent a scope today of his upper airway. Slight erythema was seen of the epiglottis with minimal edema/swelling. Copious amounts of frothy phlegm was noted. Review of Systems Review of Systems: All systems reviewed & are unremarkable except as noted in HPI & below Physical Exam Constitutional: WD/WN, vitals as above Eyes: PERRL, conjunctivae normal, anicteric sclerae ENMT: external ear and nose normal, oropharynx normal Neck: trachea midline, no thyromegaly Respiratory: normal respiratory effort, lungs clear to auscultation Cardiovascular: RRR, no murmur, no edema Gastrointestinal (Abdomen): normal bowel sounds, soft, nontender, no hepatosplenomegaly Musculoskeletal: no cyanosis or clubbing, extremities motor strength 5/5 Skin: no rashes, warm and dry Neurologic: PERRL, EOMI, accommodation nl, no face palsy, no dysarthria Psychiatric: A+Ox3, euthymic affect Results & Data Results & Data ([facility]) Vital Signs (Past 12 Hours) Vital Signs Temp Pulse Resp BP Pulse Ox 09/16/19 07:55 99.5 F 82 18 136/80 96 09/16/19 07:14 81 14 93 09/16/19 03:35 80 16 94 PG Care Time/CCT Total # of Minutes Spent Total Time Spent with Patient: Total time spent is greater than 50% in coordination of care (as documented) at patient's floor/unit and/or counseling patient: Coding Level of Care Code 01364 Subseq Hosp Care Lvl 3 Diagnoses Bronchiectasis J47.0 Bronchiectasis type: with acute lower respiratory infection Acute epiglottitis J05.10 Airway obstruction: without obstruction Chronic recurrent sinusitis J32.9 Ciliary dyskinesia J98.4 Hemoptysis R04.2
[2019-09-16] MEDS: POTASSIUM CHLORIDE 20 MEQ in DEXTROSE 5% 1,000 ML IV SCH (17:37)
[2019-09-16] MEDS: PANTOprazole 40 MG in SYRINGE 0 ML IV SCH (17:37)
[2019-09-16] MEDS: SODIUM CHLOR 7% 4 ML NEB NEB SCH (19:20)
[2019-09-16] MEDS: POLYETHYLENE (MIRALAX) 17 GM PACK PO SCH (20:21)
[2019-09-16] MEDS: MONTELUKAST SODIUM 10 MG TABLET PO SCH (20:22)
[2019-09-17] MEDS: ACETAMINOPHEN 325 MG TAB PO PRN ×4 (00:06→23:43)
[2019-09-17] MEDS: CEFEPIME 2,000 MG in SYRINGE 7.5 ML IV SCH ×3 (05:54→21:43)
[2019-09-17] MEDS: LEVOTHYROXINE SODIUM 50 MCG TABLET PO SCH (05:54)
[2019-09-17] MEDS: DORNASE ALFA 2.5 ML AMP INH SCH (07:08)
[2019-09-17] MEDS: BUDESONIDE 0.5 MG/2 ML VIAL (PULMICORT) INH SCH ×2 (07:08→19:42)
[2019-09-17] MEDS: SODIUM CHLOR 7% 4 ML NEB NEB SCH ×2 (07:09→19:42)
[2019-09-17] MEDS: PANTOprazole 40 MG TAB PO SCH (07:33)
[2019-09-17] MEDS: BuPROPion XL 300 MG TABCR PO SCH (07:34)
[2019-09-17] MEDS: CEROVITE ADV FORMULA TAB PO SCH (07:34)
[2019-09-17] MEDS: TAMSULOSIN HCL 0.4 MG CAP PO SCH (07:34)
[2019-09-17] MEDS: CHOLECALCIFEROL 1,000 UNITS 25 MCG TAB PO SCH (07:34)
[2019-09-17] MEDS: FINASTERIDE 5 MG TAB PO SCH (07:34)
[2019-09-17] MEDS: DOCUSATE SODIUM 100 MG CAP PO SCH (07:34)
[2019-09-17] MEDS: DESONIDE CR 15 GM TUBE EXT SCH ×2 (07:35→20:27)
[2019-09-17] MEDS: KETOCONAZOLE 2% CR 15 GM TUBE EXT SCH ×2 (07:35→20:26)
[2019-09-17] MEDS: clonazePAM 1 MG TAB PO SCH ×3 (07:38→21:43)
[2019-09-17] MEDS: TRIAMCINOLONE ACET 0.025% CR 15 GM TUBE TOP SCH ×2 (07:39→20:27)
[2019-09-17 09:00] LABS: BUN Creatinine Ratio 8.8 (10-20); Calcium 8.7 mg/dl (8.5-10.1); Creatinine Clr Calc Pharmacy 66.5 ml/min; Est GFR (African American) 69.5; Magnesium 2.3 mg/dl (1.8-2.4); Potassium 4.1 mmol/L (3.5-5.1)
[2019-09-17 09:06] LABS: Hemoglobin 12.9 g/dL (14.0-18.0); Mean Corpuscular Hemoglobin 29.7 pg (25-34); Mean Corpuscular Hgb Conc 33.1 g/dL (32-36); Mean Corpuscular Volume 89.9 fL (80-100); Mean Platelet Volume 8.8 fL (7.4-10.4); Platelet Count 256 K/uL (130-400); RDW Standard Deviation 49.1 fL (36.4-46.3); Red Blood Count 4.34 M/uL (4.7-6.1); White Blood Count 10.69 K/uL (4.8-10.8)
[2019-09-17] MEDS ORDERED: KETOROLAC TROMETHAMINE 15 MG/ML VIAL IV ONE (09:39)
--- NOTE | 2019-09-17 10:42 | CT Scan Report ---
CT chest wo con CT DOSE: 505.05 mGy.cm HISTORY: Dyspnea Mucus plugging? Bronchiectasis TECHNIQUE: Multiaxial CT images of the chest were performed without contrast. A dose lowering techni que was utilized adhering to the principles of ALARA. COMPARISON: 08/23/2018 FINDINGS: Minimal bronchiectatic change right midlung. Right lung is otherwise clear. Minimal chronic atelectasis right base with a trace amount right pleural fluid. Progressive consolidative change left lung base. Interval bronchiectatic change left mid lung region. Several small mediastinal and/or hilar nodes unchanged from the prior exam. IMPRESSION: 1. Progressive infiltrative and/or consolidative changes left lower lobe. 2. Small bilateral pleural effusions. 3. Slightly progressive bronchiectatic change left and a lesser extent right mid lung region. ACT 112: Negative or not required by law. The above report was generated using voice recognition software. It may contain grammatical, syntax or spelling errors. Electronically signed by: Kehinde Swan M.D. 09/17/2019 10:41 AM
--- NOTE | 2019-09-17 10:45 | Pulmonology Progress Note ---
Date of Service September 17, 2019 Assessment & Plan (1) Bronchiectasis: 59-year-old male with a history of primary ciliary dyskinesia, asthma, chronic sinusitis and GERD presenting to the hospital with acute epiglottitis and now with hemoptysis. He has a left lower lobe infiltrate. Continue cefepime while inpatient. Can likely transition to Levaquin as an outpatient. We will treat for 10 days total. He has a left lower lobe infiltrate and a history of PCD. I do think that he should be on isolation precautions given his history of MDR organisms in particular MDR Acinetobacter. Continue Pulmozyme, airway clearance therapy including Acapella, hypertonic saline twice daily and vest therapy. I have ordered for all of these therapies. No further hemoptysis. I will order for duo nebs every 6 as needed. Bronchiectasis type: with acute lower respiratory infection Qualified Code(s): J47.0 - Bronchiectasis with acute lower respiratory infection (2) Acute epiglottitis: Airway obstruction: without obstruction Qualified Code(s): J05.10 - Acute epiglottitis without obstruction (3) Chronic recurrent sinusitis: (4) Ciliary dyskinesia: (5) Hemoptysis: Admission and Anticipated Discharge Date Admission Date: September 12, 2019 Subjective Patient ambulating around the hallways today. Feeling much better today shortness of breath is improved. Cough is also improved. T-max of 100.0 ov ernight. Review of Systems Review of Systems: All systems reviewed & are unremarkable except as noted in HPI & below Physical Exam Constitutional: WD/WN, vitals as above Eyes: PERRL, conjunctivae normal, anicteric sclerae ENMT: external ear and nose normal, oropharynx normal Neck: trachea midline, no thyromegaly Respiratory: normal respiratory effort, lungs clear to auscultation Cardiovascular: RRR, no murmur, no edema Gastrointestinal (Abdomen): normal bowel sounds, soft, nontender, no hepatosplenomegaly Musculoskeletal: no cyanosis or clubbing, extremities motor strength 5/5 Skin: no rashes, warm and dry Neurologic: PERRL, EOMI, accommodation nl, no face palsy, no dysarthria Psychiatric: A+Ox3, euthymic affect Results & Data Results & Data ([facility]) Vital Signs (Past 12 Hours) Vital Signs Temp Pulse Resp BP Pulse Ox 09/17/19 07:54 99.0 F 91 H 16 117/70 92 09/17/19 07:13 77 16 97 PG Care Time/CCT Total # of Minutes Spent Total Time Spent with Patient: Total time spent is greater than 50% in coordination of care (as documented) at patient's floor/unit and/or counseling patient: Coding Level of Care Code 49745 Subseq Hosp Care Lvl 2 Diagnoses Bronchiectasis J47.0 Bronchiectasis type: with acute lower respiratory infection Acute epiglottitis J05.10 Airway obstruction: without obstruction Chronic recurrent sinusitis J32.9 Ciliary dyskinesia J98.4 Hemoptysis R04.2
--- NOTE | 2019-09-17 12:00 | Hospitalist Progress Note ---
Date of Service September 17, 2019 Assessment & Plan (1) Acute epiglottitis: No stridor on exam or respiratory distress on admission. - Follow up blood and throat cultures from 09/11 -> No growth so far. Throat culture without Strep. - Consulted ENT - Dr. Restrepo has followed along. Epiglottis examined via laryngoscopy on 09/15. Still with erythema, but edema has largely resolved. - Abx as follow: Initially vancomycin & ceftriaxone per standard epiglottitis treatment - Switched to vanc/cefepime on 09/14 per pulm recs given his hx of Acinetobacter in 2019. - MRSA swab on 09/15 was negative, so vanc stopped on 09/15. - Repeat sputum cx done on 09/15 - Normal pete so far. - As of 09/16, he is just on cefepime. Feels some better, but still running low- grade fevers. CT chest done which shows worsening LLL infiltrate. Will get procalcitonin and reach out to pulm. (2) Pneumonia: CXR done on 09/14 for increasing cough and sputum production. This showed a LLL opacity, concerning for pneumonia. Procalcitonin was 0.43. - Pulm consulted -> Recommend cefepime given prior sputum culture (08/2018) with multi-resistant Acinetobacter. - Started cefepime on 09/14. - Repeat sputum culture given on 09/15 - Follow results. - As above with mild, recurrent fevers and worsening LLL on CT chest. (3) Ciliary dyskinesia: Long-standing. Has multiple pulmonologists, including at [facility]. Gets a bronch every 3 months. - Continue his usual regimen of Pulmicort, Duonebs, & Pulmozyme - Using flutter valve and vibration vest - Consulted pulmonology given his worsening cough and mucus production -> As above (4) BPH (benign prostatic hyperplasia): No presents LUTS. - Continue his usual finasteride and tamsulosin (5) Depression: Definitely anxious (understandably). - Continue his usual Klonopin and bupropion (6) Hypothyroidism: TSH WNL in Mar. - Continue home levothyroxine (7) Constipation: - Continue usual regimen with docusate BID and MiraLAX HS. (8) GERD (gastroesophageal reflux disease): - Continue PPI (9) DVT prophylaxis: SCDs - Low DVT risk per admission calculator & also with mild, transient hemoptysis (now resolved) Admission and Anticipated Discharge Date Admission Date: September 12, 2019 Subjective Feeling some better today, but still with cough and sputum production. Still running mild fevers. Reports no chest pain, shortness of breath, abdominal pain, nausea, or vomiting. Physical Exam Constitutional: WD/WN, vitals as above + acute distress Eyes: EOM intact bilaterally; no conjunctival abnormality ENMT: external ear and nose normal, oropharynx normal Neck: trachea midline, no thyromegaly normal visual inspection Respiratory: normal respiratory effort, lungs clear to auscultation able to speak in complete sentences; no respiratory distress and no stridor Cardiovascular: RRR, no murmur, no edema Gastrointestinal (Abdomen): Inspection/Auscultation: abdomen normal to inspection; abdomen not distended Musculoskeletal: no cyanosis or clubbing, extremities motor strength 5/5 Skin: no rashes, warm and dry Neurologic: moves all extremities and awake Psychiatric: Orientation: alert, oriented to person and cooperative Results & Data Results & Data ([facility]) Vital Signs (Past 12 Hours) Vital Signs Temp Pulse Resp BP Pulse Ox 09/17/19 07:54 37.2 C 91 H 16 117/70 92 09/17/19 07:13 77 16 97 PG Care Time/CCT Total # of Minutes Spent Total Time Spent with Patient: Total time spent is greater than 50% in coordination of care (as documented) at patient's floor/unit and/or counseling patient: Coding Level of Care Code 07817 Subseq Hosp Care Lvl 3 Diagnoses Acute epiglottitis J05.10 Airway obstruction: without obstruction Pneumonia J18.9 Ciliary dyskinesia J98.4 BPH (benign prostatic hyperplasia) N40.0 Lower urinary tract symptom presence: symptoms absent Depression F32.9 Hypothyroidism E03.9 Hypothyroidism type: acquired Constipation K59.00 GERD (gastroesophageal reflux disease) K21.9 DVT prophylaxis Z29.9 (1) BPH (benign prostatic hyperplasia) Lower urinary tract symptom presence: symptoms absent Qualified Code(s): N40.0 - Benign prostatic hyperplasia without lower urinary tract symptoms (2) Acute epiglottitis Airway obstruction: without obstruction Qualified Code(s): J05.10 - Acute epiglottitis without obstruction (3) Hypothyroidism Hypothyroidism type: acquired Qualified Code(s): E03.9 - Hypothyroidism, unspecified
[2019-09-17] MEDS: FLUOCINONIDE 0.05% CR 15 GM TUBE EXT PRN ×2 (12:34→20:26)
[2019-09-17] MEDS ORDERED: VANCOMYCIN TROUGH ONE (13:30)
[2019-09-17] MEDS: MONTELUKAST SODIUM 10 MG TABLET PO SCH (20:26)
[2019-09-17] MEDS: POLYETHYLENE (MIRALAX) 17 GM PACK PO SCH (20:27)
[2019-09-18] MEDS: LEVOTHYROXINE SODIUM 50 MCG TABLET PO SCH (06:06)
[2019-09-18] MEDS: CEFEPIME 2,000 MG in SYRINGE 7.5 ML IV SCH ×3 (06:06→22:06)
[2019-09-18 06:59] LABS: Hematocrit (blood only) 39.8 % (42-52); Mean Corpuscular Hemoglobin 29.1 pg (25-34); Mean Corpuscular Hgb Conc 32.7 g/dL (32-36); Mean Platelet Volume 8.5 fL (7.4-10.4); Platelet Count 281 K/uL (130-400); RDW Standard Deviation 48.8 fL (36.4-46.3); Red Blood Count 4.47 M/uL (4.7-6.1); White Blood Count 10.75 K/uL (4.8-10.8)
[2019-09-18] MEDS: DORNASE ALFA 2.5 ML AMP INH SCH (07:09)
[2019-09-18] MEDS: BUDESONIDE 0.5 MG/2 ML VIAL (PULMICORT) INH SCH ×2 (07:10→19:13)
[2019-09-18] MEDS: SODIUM CHLOR 7% 4 ML NEB NEB SCH ×2 (07:14→19:13)
--- NOTE | 2019-09-18 07:16 | Hospitalist Progress Note ---
Date of Service September 18, 2019 Assessment & Plan (1) Acute epiglottitis: No stridor on exam or respiratory distress on admission. - Follow up blood and throat cultures from 09/11 -> No growth so far. Throat culture without Strep. - Consulted ENT - Dr. Restrepo has followed along. Epiglottis examined via laryngoscopy on 09/15.clinically resolved - Abx as follow: Initially vancomycin & ceftriaxone per standard epiglottitis treatment - Switched to vanc/cefepime on 09/14 per pulm recs given his hx of Acinetobacter in 2018. - MRSA swab on 09/15 was negative, so vanc stopped on 09/15. remains on cefepime with plans to transition to home quinalone - Repeat sputum cx done on 09/15 - Normal pete so far. (2) Pneumonia: CXR done on 09/14 for increasing cough and sputum production. This showed a LLL opacity, concerning for pneumonia. Procalcitonin was 0.43. - Pulm consulted -> Recommend cefepime given prior sputum culture (08/2018) with multi-resistant Acinetobacter. - Started cefepime on 09/14. -recommend surveilnece outpt imaging and treat with oral antibiotics but expect persistent imaging changes, no plans on saline broncholavage -persistent LLL on CT chest. (3) Ciliary dyskinesia: Long-standing. Has multiple pulmonologists, including at [facility]. Gets a bronch every 3 months. - Continue his usual regimen of Pulmicort, Duonebs, & Pulmozyme - Using flutter valve and vibration vest - Consulted pulmonology will follow as out pt (4) BPH (benign prostatic hyperplasia): No presents LUTS. - Continue his usual finasteride and tamsulosin (5) Depression: Definitely anxious (understandably). - Continue his usual Klonopin and bupropion (6) Hypothyroidism: TSH WNL in Mar. - Continue home levothyroxine (7) Constipation: - Continue usual regimen with docusate BID and MiraLAX HS. (8) GERD (gastroesophageal reflux disease): - Continue PPI (9) DVT prophylaxis: SCDs - Low DVT risk per admission calculator & also with mild, transient hemoptysis (now resolved) Admission and Anticipated Discharge Date Admission Date: September 12, 2019 Subjective Patient says he does feel improved he still complains of feeling of fullness or tightness with regard to his pulmonary congestion. He says he notes his lungs as has been ill for some time and feels he needs to expectorate more mucus. We are attempting modalities of chest physiotherapy. Patient also complains of a headache which we are attributing to caffeine withdrawal will go and escalate his diet as he feels his epiglottitis is improved and is swallowing without difficulty has no hot potato mouth or other speech issues at this time Review of Systems Review of Systems: Mild distress and fatigue no headache, blurry or double vision no speech or swallowing issues no chest pain, pressure or palpitations shortness of breath, non productive cough occasional wheezes no abdominal pain, nausea or vomiting, diarrhea or constipation no dysuria, hematuria or frequency no focal joint pain or swelling no back pain, CVA tenderness or radicular pain no bruising, bleeding or rashes no focal signs of weakness or numbness or altered sensation no complaints or anxiety or depression. Physical Exam Physical Exam: The patient appeared well nourished and normally developed. Vital signs as documented. Head exam is normocephalic atraumatic no scleral icterus Neck is without JVD, thyromegaly, or carotid bruits. Lungs are coarse bilaterally with absent breath sounds at the left base no egophony Cardiac exam, Rhythm is regular.. No murmurs, rubs or gallops. Abdominal exam reveals normal bowel sounds, soft non tender, no masses Extremities are nonedematous and both pedal pulses are normal. Neurologic exam is alert and oriented, no focal loss of strength or sensation Skin is without bruises or rashes Psychologically is without concerns for anxiety or depression Results & Data Results & Data ([facility]) Vital Signs (Past 12 Hours) Vital Signs Temp Pulse Resp BP Pulse Ox 09/17/19 21:57 98.6 F 72 20 142/82 H 97 09/17/19 19:46 67 16 97 PG Care Time/CCT Total # of Minutes Spent Total Time Spent with Patient: Total time spent is greater than 50% in coordination of care (as documented) at patient's floor/unit and/or counseling patient: Coding Level of Care Code 87059 Subseq Hosp Care Lvl 3 Diagnoses Acute epiglottitis J05.10 Airway obstruction: without obstruction Pneumonia J18.9 Ciliary dyskinesia J98.4 BPH (benign prostatic hyperplasia) N40.0 Lower urinary tract symptom presence: symptoms absent Depression F32.9 Hypothyroidism E03.9 Hypothyroidism type: acquired Constipation K59.00 GERD (gastroesophageal reflux disease) K21.9 DVT prophylaxis Z29.9 (1) BPH (benign prostatic hyperplasia) Lower urinary tract symptom presence: symptoms absent Qualified Code(s): N40.0 - Benign prostatic hyperplasia without lower urinary tract symptoms (2) Acute epiglottitis Airway obstruction: without obstruction Qualified Code(s): J05.10 - Acute epiglottitis without obstruction (3) Hypothyroidism Hypothyroidism type: acquired Qualified Code(s): E03.9 - Hypothyroidism, unspecified
[2019-09-18] MEDS ORDERED: VANCOMYCIN TROUGH ONE (07:30)
[2019-09-18 07:36] LABS: BUN Creatinine Ratio 11.3 (10-20); Calcium 8.8 mg/dl (8.5-10.1); Creatinine Clr Calc Pharmacy 67.6 ml/min; Est GFR (African American) 70.9; Est GFR (Non-African American) 61.2; Magnesium 2.6 mg/dl (1.8-2.4); Potassium 4.1 mmol/L (3.5-5.1)
[2019-09-18] MEDS: TAMSULOSIN HCL 0.4 MG CAP PO SCH (08:10)
[2019-09-18] MEDS: CEROVITE ADV FORMULA TAB PO SCH (08:10)
[2019-09-18] MEDS: PANTOprazole 40 MG TAB PO SCH (08:10)
[2019-09-18] MEDS: DOCUSATE SODIUM 100 MG CAP PO SCH (08:10)
[2019-09-18] MEDS: CHOLECALCIFEROL 1,000 UNITS 25 MCG TAB PO SCH (08:10)
[2019-09-18] MEDS: TRIAMCINOLONE ACET 0.025% CR 15 GM TUBE TOP SCH ×2 (08:10→20:44)
[2019-09-18] MEDS: FINASTERIDE 5 MG TAB PO SCH (08:10)
[2019-09-18] MEDS: BuPROPion XL 300 MG TABCR PO SCH (08:10)
[2019-09-18] MEDS: DESONIDE CR 15 GM TUBE EXT SCH ×2 (08:10→20:44)
[2019-09-18] MEDS: KETOCONAZOLE 2% CR 15 GM TUBE EXT SCH ×2 (08:10→20:44)
[2019-09-18] MEDS: clonazePAM 1 MG TAB PO SCH ×3 (08:22→22:06)
[2019-09-18] MEDS: ACETAMINOPHEN 325 MG TAB PO PRN ×2 (08:27→16:14)
--- NOTE | 2019-09-18 08:33 | Pulmonology Progress Note ---
Date of Service September 18, 2019 Assessment & Plan (1) Bronchiectasis: 59-year-old male with a history of primary ciliary dyskinesia (started at the age of 47), asthma, chronic sinusitis and GERD presenting to the hospital with acute epiglottitis and now with hemoptysis. He has a left lower lobe infiltrate. Signout was received from Dr. Gill CT chest 09/17/2019 personally reviewed: There is left lower lobe infiltrate on top of the bronchiectasis that the patient had. This CAT scan was compared to the one done August 2018. --Left lower lobe pneumonia on top of chronic bronchiectasis Patient had multiple sputum culture in the past last one being in August 2018 growing Acinetobacter bowel mainly which was sensitive to levo and cefepime resistant to ampicillin sulbactam Currently on cefepime continue with it. Can transition to p.o. Levaquin on discharge Continue with incentive spirometry, flutter valve, Pulmozyme and hypertonic saline Patient is also using chest vest therapy. --History of ciliary dyskinesia Patient has 2 kids but he states that his symptoms started at the age of 47 days when he got sterile, chronic sinusitis and hearing loss Patient apparently gets bronchoscopy every 3-4 months as outpatient. Currently given that his saturation is 97% on room air and he is compliant with inhaled therapy as well as chest PT there is no indication for bronchoscopy. Plan: I would recommend to continue antibiotics for total of [address] chest in approximately 6 weeks as an outpatient to see if there is improvement in the infiltrate. Follow-up sputum culture Please note the above document was generated using voice recognition software. It may contain grammatical, syntax or spelling errors. Bronchiectasis type: with acute lower respiratory infection Qualified Code(s): J47.0 - Bronchiectasis with acute lower respiratory infection (2) Acute epiglottitis: Airway obstruction: without obstruction Qualified Code(s): J05.10 - Acute epiglottitis without obstruction (3) Chronic recurrent sinusitis: (4) Ciliary dyskinesia: (5) Hemoptysis: Admission and Anticipated Discharge Date Admission Date: September 12, 2019 Subjective Patient seen and examined at bedside. No acute distress, no adverse events overnight. Patient states that in the morning he was feeling more chest tightness and difficulty breathing for which he was given treatment. Denies any nausea or vomiting. Asking to have more food. Denies any difficulty swallowing. No headache. At the time of examination patient was saturating 97% on room air with heart rate of 83 at rest. Review of Systems Review of Systems: All systems reviewed & are unremarkable except as noted in Subjective Physical Exam Physical Exam: Constitutional: No acute distress HEENT: EOMI, PERRLA Respiratory system: Decreased air entry on the left lower lobe, positive crackles left lower lobe, no wheeze, no rhonchi CVS: S1-S2 positive, no murmurs or gallops Abdomen: Soft, nontender, nondistended, positive bowel sounds x4, obese Extremities: +2 pulses bilaterally radialis/ dorsalis pedis, no cyanosis, no edema Neuro: Awake alert oriented x3 Psych: Normal mood and affect G/U: No Gould Skin: no rashes, warm and dry Lymphatic: no cervical or axillary lymphadenopathy Results & Data Results & Data ([facility]) Vital Signs (Past 12 Hours) Vital Signs Temp Pulse Resp BP Pulse Ox 09/18/19 07:43 37.0 C 90 20 110/65 91 09/18/19 07:15 90 20 91 09/17/19 21:57 37.0 C 72 20 142/82 H 97 09/18/19 06:20 09/18/19 06:20 PG Care Time/CCT Total # of Minutes Spent Total Time Spent with Patient: Total time spent is greater than 50% in c oordination of care (as documented) at patient's floor/unit and/or counseling patient: Coding Level of Care Code 40089 Subseq Hosp Care Lvl 3 Diagnoses Bronchiectasis J47.0 Bronchiectasis type: with acute lower respiratory infection Acute epiglottitis J05.10 Airway obstruction: without obstruction Chronic recurrent sinusitis J32.9 Ciliary dyskinesia J98.4 Hemoptysis R04.2
[2019-09-18] MEDS ORDERED: AZITHROMYCIN 250 MG TAB PO SCH (09:00)
[2019-09-18] MEDS ORDERED: KETOROLAC TROMETHAMINE 15 MG/ML VIAL IV PRN (18:39)
[2019-09-18] MEDS: FLUOCINONIDE 0.05% CR 15 GM TUBE EXT PRN (20:43)
[2019-09-18] MEDS: POLYETHYLENE (MIRALAX) 17 GM PACK PO SCH (20:44)
[2019-09-18] MEDS: MONTELUKAST SODIUM 10 MG TABLET PO SCH (20:44)
[2019-09-19] MEDS: CEFEPIME 2,000 MG in SYRINGE 7.5 ML IV SCH (06:04)
[2019-09-19] MEDS: LEVOTHYROXINE SODIUM 50 MCG TABLET PO SCH (06:04)
[2019-09-19 06:56] LABS: Est GFR (African American) 70.2; Est GFR (Non-African American) 60.6
[2019-09-19] MEDS: SODIUM CHLOR 7% 4 ML NEB NEB SCH ×2 (06:57→07:00)
[2019-09-19] MEDS: BUDESONIDE 0.5 MG/2 ML VIAL (PULMICORT) INH SCH (06:57)
[2019-09-19] MEDS: DORNASE ALFA 2.5 ML AMP INH SCH (06:57)
[2019-09-19] MEDS: ALBUT/IPRATROP 3MG/0.5MG NEB 3 ML VIAL INH PRN (07:00)
[2019-09-19] MEDS: TRIAMCINOLONE ACET 0.025% CR 15 GM TUBE TOP SCH (08:36)
[2019-09-19] MEDS: DESONIDE CR 15 GM TUBE EXT SCH (08:36)
[2019-09-19] MEDS: clonazePAM 1 MG TAB PO SCH (08:36)
[2019-09-19] MEDS: BuPROPion XL 300 MG TABCR PO SCH (08:37)
[2019-09-19] MEDS: PANTOprazole 40 MG TAB PO SCH (08:37)
[2019-09-19] MEDS: DOCUSATE SODIUM 100 MG CAP PO SCH (08:37)
[2019-09-19] MEDS: FINASTERIDE 5 MG TAB PO SCH (08:37)
[2019-09-19] MEDS: KETOCONAZOLE 2% CR 15 GM TUBE EXT SCH (08:37)
[2019-09-19] MEDS: CHOLECALCIFEROL 1,000 UNITS 25 MCG TAB PO SCH (08:37)
[2019-09-19] MEDS: CEROVITE ADV FORMULA TAB PO SCH (08:37)
[2019-09-19] MEDS: TAMSULOSIN HCL 0.4 MG CAP PO SCH (08:37)
--- NOTE | 2019-09-19 11:18 | Pulmonology Progress Note ---
Date of Service September 19, 2019 Assessment & Plan (1) Bronchiectasis: 59-year-old male with a history of primary ciliary dyskinesia (started at the age of 47), asthma, chronic sinusitis and GERD presenting to the hospital with acute epiglottitis and now with hemoptysis. He has a left lower lobe infiltrate. CT chest 09/17/2019 personally reviewed: There is left lower lobe infiltrate on top of the bronchiectasis that the patient had. This CAT scan was compared to the one done August 2018. --Left lower lobe pneumonia on top of chronic bronchiectasis Patient had multiple sputum culture in the past last one being in August 2018 growing Acinetobacter bowel mainly which was sensitive to levo and cefepime resistant to ampicillin sulbactam Currently on cefepime continue with it. Can transition to p.o. Levaquin on discharge Continue with incentive spirometry, flutter valve, Pulmozyme and hypertonic saline Patient is also using chest vest therapy. --History of ciliary dyskinesia Patient has 2 kids but he states that his symptoms started at the age of 49 days when he started to have chronic sinusitis and hearing loss. On questioning today patient actually had vasectomy done in his 30s as he did not want anymore kids. Patient apparently gets bronchoscopy every 3-4 months as outpatient. He is compliant with inhaled therapy as well as chest PT, there is no indication for bronchoscopy right now. Plan: Can transition to p.o. antibiotic to be given for total of 10 days. Follow-up with pulmonary as an outpatient Repeat CT chest in approximately 6 weeks as an outpatient to see if there is improvement in the infiltrate. Sputum culture no growth till date. No further recommendations from pulmonary perspective. Patient is to continue his home regimen of flutter valve, chest PT, Pulmozyme as well as hypertonic saline. Pulmonary will sign off. Recall if needed. Please note the above document was generated using voice recognition software. It may contain grammatical, syntax or spelling errors. Bronchiectasis type: with acute lower respiratory infection Qualified Code(s): J47.0 - Bronchiectasis with acute lower respiratory infection (2) Acute epiglottitis: Airway obstruction: without obstruction Qualified Code(s): J05.10 - Acute epiglottitis without obstruction (3) Chronic recurrent sinusitis: (4) Ciliary dyskinesia: (5) Hemoptysis: Admission and Anticipated Discharge Date Admission Date: September 12, 2019 Subjective Patient seen and examined at bedside. No acute distress, no adverse events overnight. Patient says the breathing is better. He was exercising at the bed edge prior to examination. Denies any cough. Denies any chest pain. Good appetite. Asking for better food. Denies any difficulty swallowing. At the time of examination patient was saturating 96% with heart rate of 103 this was just after he completed his bedside exercise. Review of Systems Review of Systems: All systems reviewed & are unremarkable except as noted in HPI & below Physical Exam Physical Exam: Constitutional: No acute distress HEENT: EOMI, PERRLA Respiratory system: Decreased air entry on the left lower lobe, positive crackles left lower lobe, no wheeze, no rhonchi CVS: S1-S2 positive, no murmurs or gallops Abdomen: Soft, nontender, nondistended, positive bowel sounds x4, obese Extremities: +2 pulses bilaterally radialis/ dorsalis pedis, no cyanosis, no edema Neuro: Awake alert oriented x3 Psych: Normal mood and affect G/U: No Gould Skin: no rashes, warm and dry Lymphatic: no cervical or axillary lymphadenopathy Results & Data Results & Data ([facility]) Vital Signs (Past 12 Hours) Vital Signs Temp Pulse Resp BP Pulse Ox 09/19/19 07:29 36.8 C 84 20 111/66 93 09/19/19 07:10 85 16 93 09/18/19 06:20 09/19/19 05:51 PG Care Time/CCT Total # of Minutes Spent Total Time Spent with Patient: Total time spent is greater than 50% in coordination of care (as documented) at patient's floor/unit and/or counseling patient: Coding Level of Care Code 83380 Subseq Hosp Care Lvl 3 Diagnoses Bronchiectasis J47.0 Bronchiectasis type: with acute lower respiratory infection Acute epiglottitis J05.10 Airway obstruction: without obstruction Chronic recurrent sinusitis J32.9 Ciliary dyskinesia J98.4 Hemoptysis R04.2
--- NOTE | 2019-09-19 17:45 | Discharge Summary ---
Date of Service September 19, 2019 Admission HPI Per Admitting Provider Santi Mcarthur is a 59 year old male with ciliary dyskinesia who presents to the ER on advice of his outpatient ENT physician Dr Restrepo with a sore throat and epiglottitis diagnosed in clinic on laryngoscope. This was discussed with the ER provider and recommended admission under medicine for IV antibiotics. The patient reports a history of 2 days of sore throat. Today having difficulty eating and even swollen small amounts of liquids has become painful. Reports feeling of swelling around his throat. No difficulty breathing. He is able to fully open and close his mouth. Principal Diagnosis Left lower lobe pneumonia Discharge Exam The patient appeared well Vital signs as documented. Lungs decreased left base persists Cardiac exam, Rhythm is regular.. No murmurs, rubs or gallops. Abdominal exam reveals normal bowel sounds, soft non tender, no masses Extremities are nonedematous and both pedal pulses are normal. Neurologic exam is alert and oriented, no focal loss of strength or sensation Skin is without bruises or rashes Psychologically is without concerns for anxiety or depression Discharge Data Allergies Allergy/AdvReac Type Severity Reaction Status Date / Time Sulfa (Sulfonamide Allergy Mild "SULFA Verified 09/12/19 14:10 Antibiotics) DRUGS": RASH, HOT FLASHES adhesive Allergy Unknown PLASTIC Verified 09/12/19 14:10 CLEAR TAPE-SKIN TURNS RED,ITCHING mold Allergy Unknown COUGH Verified 09/12/19 14:10 ragweed pollen Allergy Unknown SINUS Verified 09/12/19 14:10 DRAINAGE,STUFFINESS-TAKING ALLERGY SHOTS Wasqxau-Fmh-Mvo Reductase Allergy Unknown HOT Verified 09/12/19 14:10 Inhibitor FLASHES, RASH NSAIDS (Non-Steroidal AdvReac Intermediate NAUSEA Verified 09/12/19 14:10 Anti-Inflamma Consultations 09/12/19 13:17 ED Decision to Admit Stat 09/12/19 16:45 Consult Otolaryngology (Head and Neck) Routine 09/15/19 10:51 Consult Pulmonology Routine Ordered Studies 09/17/19 09:39 CT chest wo con Routine Hospital Course (1) Acute epiglottitis: - Follow up blood and throat cultures from 09/11 -> No growth so far. Throat culture without Strep. - Consulted ENT - Dr. Restrepo has followed along. Epiglottis examined via la ryngoscopy on 09/15.clinically resolved - Abx as follow: Initially vancomycin & ceftriaxone per standard epiglottitis treatment - Switched to vanc/cefepime on 09/14 per pulm recs given his hx of Aci netobacter in 2019. - MRSA swab on 09/15 was negative, so vanc stopped on 09/15. remains on cefepime with plans to transition to home quinalone - Repeat sputum cx done on 09/15 - Normal pete. (2) Pneumonia: CXR done on 09/14 for increasing cough and sputum production. This showed a LLL opacity, concerning for pneumonia. Procalcitonin was 0.43. - Pulm consulted -> Recommend cefepime given prior sputum culture (08/2018) with multi-resistant Acinetobacter. - Started cefepime on 09/14. -recommend surveilnece outpt imaging and treat with oral antibiotics but expect persistent imaging changes, no plans on saline broncholavage -persistent LLL on CT chest. will repeat ct as outpt with pulmonary oversight (3) Ciliary dyskinesia: Long-standing. Has multiple pulmonologists, including at [facility]. Gets a bronch every 3 months. - Continue his usual regimen of Pulmicort, Duonebs, & Pulmozyme - Using flutter valve and vibration vest, has both at home - Consulted pulmonology will follow as out pt (4) BPH (benign prostatic hyperplasia): No presents LUTS. - Continue his usual finasteride and tamsulosin (5) Depression: Definitely anxious (understandably). - Continue his usual Klonopin and bupropion (6) Hypothyroidism: TSH WNL in Mar. - Continue home levothyroxine (7) Constipation: - Continue usual regimen with docusate BID and MiraLAX HS. (8) GERD (gastroesophageal reflux disease): - Continue PPI Total Time Total Time Spent Total Time Spent (In Minutes): It required less than 30 minutes to prepare this patient for discharge Discharge Plan Discharge Items Patient Disposition: Home - Self-Care Reason For Visit: EPIGLOTITTIS Discharge Diagnosis: pneumonia bronchiectasis Activity: Resume your previous activity Non-emergency contact: Primary Care Provider and Specialist Call non-emergency contact if: you have any medication questions and your symptoms worsen Follow-up/Referrals: Frederick Angela MD [Physician] - Jose Florez MD [Primary Care Provider] - Diet: Regular Addtl Attending Provider Instructions: please follow your typical routine to help mobilize your mucus while taking levofloxacin do not take azithromycin, restart azithromycin once completed levofloxacin Pending Studies at Discharge: No Stand-Alone Forms: My [facility], Smoking Cessation Medications and DC Order Prescriptions: New levofloxacin [Levaquin] 750 mg tablet 750 mg PO DAILY 10 Days Qty: 10 RF: 0 Continued albuterol sulfate [Ventolin HFA] 90 mcg/actuation HFA aerosol inhaler 2 puff INHALATION QID PRN (Reason: Shortness Of Breath Or Wheezing) Qty: 3 RF: 1 Pro[address] for susp in packet 40 mg PO DAILY RF: 0 azithromycin 250 mg tablet 250 mg PO DAILY Qty: 12 RF: 5 ondansetron HCl [Zofran] 4 mg Tablet 4 mg PO Q8H PRN (Reason: Nausea) RF: 0 clonazepam 1 mg tablet 1 mg PO TID RF: 0 tamsulosin 0.4 mg capsule 0.4 mg PO QAM RF: 0 Pulmozyme 1 mg/mL Solution 0.5 ml INHALATION QAM RF: 0 levothyroxine 50 mcg tablet 50 mcg PO QAM RF: 0 nitroglycerin 0.4 mg tablet, sublingual 0.4 mg Sublingual DIRECTED PRN (Reason: Chest Pain) RF: 0 finasteride 5 mg tablet 5 mg PO QAM RF: 0 bupropion HCl 300 mg tablet extended release 24 hr 300 mg PO QAM RF: 0 docusate sodium [Colace] 100 mg Capsule 100 mg PO QAM RF: 0 desonide 0.05 % Cream 1 applic TOPICAL BID RF: 0 ipratropium-albuterol 0.5 mg-3 mg(2.5 mg base)/3 mL Solution For Nebulization 3 ml INHALATION QID PRN (Reason: Shortness Of Breath) RF: 0 triamcinolone acetonide 0.025 % Cream 1 applic TOPICAL BID RF: 0 ascorbic acid (vitamin C) [Vitamin C] 250 mg Tablet 250 mg PO BID RF: 0 Pulmozyme 1 mg/mL Solution 2.5 mg INHALATION BID RF: 0 montelukast 10 mg tablet 10 mg PO DAILY RF: 0 ketoconazole 2 % Cream 1 applic TOPICAL BID RF: 0 sodium chloride 3 % 3 % Parenteral Solution 4 ml/kg IV DIRECTED PRN (Reason: Cough) RF: 0 cholecalciferol (vitamin D3) [Vitamin D3] 10 mcg (400 unit) Capsule 10 mcg PO DAILY RF: 0 Men's Multivitamin 400-20-300 mcg Tablet 1 tab PO DAILY RF: 0 budesonide 0.5 mg/2 mL suspension for nebulization 0.5 mg inhalation DAILY RF: 0 Discharge Orders: Discharge Order (Routine); Ordered 09/19/19 Ordered By: Roland Chin Admission Data Admit Date/Time: 09/12/19 14:31 Attending Provider: Roland Chin Admit Provider: Leonard Jeong Primary Care Provider: Jose Florez Other Providers: Kate Restrepo ; Miguel Noriega ; Kerwin Gill Other Interventions: Discharge Summary Assessment (RN) Last Done: 09/19/19 12:04 DC Date/Time DO NOT enter until pt leaves facility: 09/19/19 13:29 Coding Level of Care Code D/C Day Management <30 mins Diagnoses Acute epiglottitis J05.10 Airway obstruction: without obstruction Pneumonia J18.9 Ciliary dyskinesia J98.4 BPH (benign prostatic hyperplasia) N40.0 Lower urinary tract symptom presence: symptoms absent Depression F32.9 Hypothyroidism E03.9 Hypothyroidism type: acquired Constipation K59.00 GERD (gastroesophageal reflux disease) K21.9
== END 2019-09-19 13:29 | disposition home or self-care (01) | DRG 152 ==
LOC: ED 12:18 → SUATTDRO 14:31 → 2N 14:31

== ENCOUNTER 2021-08-21 17:12 | Inpatient (IN) ==
--- NOTE | 2021-08-21 17:40 | ED Triage Note ---
Date of Service August 21, 2021 History of Present Illness This patient was briefly evaluated while in triage. An abbreviated physical exam was performed. This patient is a 61-year-old Male with past medical history of GERD and IBS who presents to the ED for evaluation of thin "pencil" stools for 5 weeks and now feeling constipated. Had outpatient xray that showed possible bowel obstruction and was referred to ER for evaluation. Eating and drinking normally, no vomiting. Last BM today. Follows with Dr. Jaime. Physical Exam CONSTITUTIONAL: No acute distress. Well appearing. RESPIRATORY: diminished LLL with crackles, otherwise Clear to auscultation bilaterally. Equal expansion bilaterally. CARDIOVASCULAR: Regular rate and rhythm. Normal peripheral perfusion. No peripheral edema. GASTROINTESTINAL: Soft, mildly tender in LLQ, distended. No rebound tenderness. NEUROLOGIC: Alert and oriented X 4 with normal affect. Initial orders for labs and / or imaging were placed and patient was placed in the waiting area until a bed is available. Please see further documentation for the full ED course.
[2021-08-21 19:48] LABS: Basophils # (auto) 0.06 K/uL (0-0.2); Basophils % (auto) 0.6 %; Eosinophils # (auto) 0.03 K/uL (0-0.50); Eosinophils % (auto) 0.3 %; Hematocrit (blood only) 45.4 % (40.1-51.0); Hemoglobin 14.6 g/dl (14.0-18.0); Immature Granulocytes # (auto) 0.22 K/uL (0.00-0.02); Immature Granulocytes % (auto) 2.3 %; Lymphocytes # (auto) 1.19 K/uL (1.2-3.4); Lymphocytes % (auto) 12.4 %; Mean Corpuscular Hemoglobin 29.1 pg (25.0-34.0); Mean Corpuscular Hgb Conc 32.2 g/dL (32.0-36.0); Mean Corpuscular Volume 90.6 fL (80.0-100.0); Mean Platelet Volume 8.8 fL (9.4-12.4); Monocytes # (auto) 0.28 K/uL (0.24-0.82); Monocytes % (auto) 2.9 %; Neutrophils # (auto) 7.78 K/uL (1.4-6.5); Neutrophils % (auto) 81.5 %; Platelet Count 259 K/uL (130-400); RDW Standard Deviation 49.7 fL (36.4-46.3); Red Blood Count 5.01 M/uL (4.63-6.08); White Blood Count 9.56 K/ul (4.8-10.8)
[2021-08-21 20:08] LABS: Albumin Globulin Ratio 1.3 (0.9-2); Albumin Level 4.2 gm/dl (3.4-5.0); BUN Creatinine Ratio 16.2 (10-20); Bilirubin,Total 0.5 mg/dl (0.2-1.0); Calcium 8.9 mg/dl (8.5-10.1); Creatinine Clr Calc Pharmacy 63.8 ml/min; Est GFR (African American) 67.3 ml/min; Est GFR (Non-African American) 58.1 ml/min; Globulin 3.2 gm/dl (2.5-4.0); Potassium 3.9 mmol/L (3.5-5.1); Total Protein 7.4 gm/dl (6.0-8.3)
[2021-08-21 20:13] LABS: Troponin I High Sensitivity 5.5 pg/ml (0-20)
--- NOTE | 2021-08-21 20:13 | Emergency Department Note ---
Impression & Plan SBO (small bowel obstruction), Abdominal distension ED Provider Note NAME: MARZENA CARDENAS AGE: 61 SEX: M : 1960 ARRIVES VIA: Walk-In INFORMANT: [Patient] ED PROVIDER(S): [Jerardo Dugan MD] CHIEF COMPLAINT: Constipation, possible blockage HISTORY OF PRESENT ILLNESS: The patient is a 61-year-old male who presents with 5 weeks of difficulty with his bowels. He has had thin stools and a harder time moving his bowels. He feels more bloated and gassy. No abdominal pain. He may have had a bit of nausea, no vomiting. There has been no fever, no chills, no cough or congestion. No urinary complaints. The patient saw a PA at Dr. Jaime's office today, he had an x-ray that showed a potential bowel blockage. He was sent to the ED for further work-up. The patient has never had a blocked bowel before. He has had pancreatitis with ductal dilatation. He has had a fundoplication. His gallbladder has been removed. REVIEW OF SYSTEMS: See HPI for pertinent positives and negatives. A total of ten systems were reviewed and were otherwise negative. PMHx/PSHx: See Below SOCIAL HISTORY: See Below. PHYSICAL EXAM: GENERAL: Patient is in no acute distress. HEENT: No acute trauma, normocephalic atraumatic, mucous membranes moist, no nasal congestion, no scleral icterus. NECK: No stridor, no adenopathy, no meningismus, trachea is midline. LUNGS: Clear to auscultation bilaterally, no wheeze, no rhonchi, breath sounds equal. HEART: Without murmurs gallops or rubs, regular rate and rhythm. ABDOMEN: Soft, nontender, bowel sounds positive, no peritonitis. Abdomen is somewhat distended with some tympany to percussion. EXTREMITIES: No cyanosis or edema, full range of motion of all the joints without pain or difficulty, no signs for acute trauma. NEUROLOGIC: Oriented x 3, no acute motor or sensory deficits, no focal weakness. SKIN: No rash, no jaundice, no diaphoresis. Rectal: No anal narrowing, no mass felt on rectal exam, stool is brown in color. DIFFERENTIAL DIAGNOSIS: Constipation, large or small bowel obstruction, dehydration, electrolyte imbalance, malignancy, stricture, proctitis, among others. EMERGENCY DEPARTMENT COURSE/PROCEDURES: ECG: Indication was abdominal pain. The ECG shows a normal sinus rhythm with a rate of 80. There is no ST elevation, no PVCs. The QTc is 435. Continuous Cardiac Monitoring: An order was placed for continuous cardiac monitoring. The monitor shows a rate of 78 with normal sinus rhythm. MEDICAL DECISION MAKING: There is no leukocytosis. There is a normal hemoglobin and platelet count. No renal failure or significant electrolyte abnormality. No concerning liver enzyme elevation. ECG shows a normal sinus rhythm, no ischemia. Cardiac enzyme testing x1 is not consistent with acute cardiac injury. No evidence for pancreatitis. Urinalysis does not show infection. Abdominal and pelvis is suspicious for a small bowel obstruction. On exam, the patient did have some tympany with percussion and some abdominal distention. No real tenderness across the abdomen. He was not toxic or febrile. The patient was given IV saline, 1 L. He was due for his respiratory meds so he was given a DuoNeb and budesonide via [facility]. I did talk to general surgery. They saw the patient here in the ED. Hospitalization under the medicine service was recommended. The patient can be followed by surgery. He needs a GI consult. The cause for the patient's obstruction is unclear. He has been having some issues with thin stools lately. Malignancy is certainly a worry. Further work- up in the hospital is warranted. Past Med/Surg History Medical History Anxiety Asthma Alexandra esophagus BPH (benign prostatic hyperplasia) Bronchiectasis Follows with [facility] lung clinic in [place], and Dr. Lawrence in [place] for lung issues Cardiac murmur No murmur noted at 12/19/20 urology visit No significant valve issues noted on 2015 ECHO Chronic constipation Ciliary motility disorder Gets regular bronchoscopy and bronchial washings at [place] per 12/23/20 ENT note ENT aware of upcoming urology procedure Depression GERD (gastroesophageal reflux disease) Hard of hearing History of COVID-27 Jan 2020> headache, digestive issues, sinus problems > not hospitalized Hyperlipidemia NO MEDS Hypothyroidism IBS (irritable bowel syndrome) BREONNA on CPAP Pneumonia 04/2018-[facility]-"BACK TO HIS NORMAL" F/U DR PHAM/LUNG CLINIC [facility] SOB (shortness of breath) on exertion ON OCC Temporomandibular joint disorder HX RIGHT SIDE CLICKED-AND PAIN NO LOCKING Surgical History History of bilateral cataract extraction History of bronchoscopy X MULTIPLE History of cardiac cath 2017 NO STENTS-[facility] History of cholecystectomy History of fundoplication 2009 History of sinus surgery multiple > due to ciliary motility disorder History of tonsillectomy and adenoidectomy Family History Other No pertinent family history Social History Smoking Status: Never smoker Second Hand Exposure: No; Hx Alcohol Use: No Hx Substance Use: No Preferred Language: Chinese Communication Ability: Effective Youth Counselor Required: No Beliefs That Will Affect Care: None marital status: Current Living Situation: Spouse Feels Safe at Home: Yes Assistive Devices: CPAP, Glasses and Hearing Aid - Bilateral Allergies Allergies Allergy/AdvReac Type Severity Reaction Status Date / Time Sulfa (Sulfonamide Allergy Mild "SULFA Verified 08/21/21 14:16 Antibiotics) DRUGS": RASH, HOT FLASHES adhesive Allergy Unknown PLASTIC Verified 08/21/21 14:16 CLEAR TAPE-SKIN TURNS RED,ITCHING mold Allergy Unknown COUGH Verified 08/21/21 14:16 ragweed pollen Allergy Unknown SINUS Verified 08/21/21 14:16 DRAINAGE,STUFFINESS-TAKING ALLERGY SHOTS [place]-DDY-PpD Reductase Allergy Unknown HOT Verified 08/21/21 14:16 Inhibitor FLASHES, [Yvlwoeg-Lsj-Eqh Reductase RASH Inhibitor] tolmetin Allergy Verified 08/21/21 14:16 NSAIDS (Non-Steroidal AdvReac Intermediate NAUSEA Verified 08/21/21 14:16 Anti-Inflamma dobutamine AdvReac upset Verified 08/21/21 14:16 stomach Home Meds Home Medications Medication Instructions Recorded Confirmed bupropion HCl 300 mg 24 hr tablet, 300 mg PO QAM 11/29/17 08/21/21 extended release clonazepam 1 mg tablet 1 mg PO TID 11/29/17 08/21/21 docusate sodium 100 mg capsule 100 mg PO QAM 11/29/17 08/21/21 (Colace) dornase nicholas 1 mg/mL solution for 0.5 ml inhalation QAM 11/29/17 08/21/21 inhalation (Pulmozyme) finasteride 5 mg tablet 5 mg PO QAM 11/29/17 08/21/21 nitroglycerin 0.4 mg sublingual 0.4 mg sublingual DIRECTED PRN 11/29/17 08/21/21 tablet Chest Pain ondansetron HCl 4 mg tablet 4 mg PO Q8H PRN Nausea 11/29/17 08/21/21 (Zofran) ascorbic acid (vitamin C) 250 mg 250 mg PO QAM 09/12/19 08/21/21 tablet (Vitamin C) budesonide 0.5 mg/2 mL suspension 0.5 mg inhalation QAM 09/12/19 08/21/21 for nebulization cholecalciferol (vitamin D3) 10 10 mcg PO QAM 09/12/19 08/21/21 mcg (400 unit) capsule (Vitamin D3) desonide 0.05 % topical cream 1 applic topical BID PRN breakouts 09/12/19 08/21/21 ipratropium 0.5 mg-albuterol 3 mg 3 ml inhalation TID 09/12/19 08/21/21 (2.5 mg base)/3 mL nebulization soln ketoconazole 2 % topical cream 1 applic topical BID 09/12/19 08/21/21 montelukast 10 mg tablet 10 mg PO QAM 09/12/19 08/21/21 oarhadix-pkgcytlo-nhnvj acid 400 1 tab PO QAM 09/12/19 08/21/21 mcg-vit K 20 mcg-lycop 300 mcg tablet (Men's Multivitamin) triamcinolone acetonide 0.025 % 1 applic topical BID PRN flareups 09/12/19 08/21/21 topical cream levothyroxine 50 mcg tablet 50 mcg PO QAM 11/15/19 08/21/21 (Synthroid) sodium chloride 3 % for 4 ml inhalation ONCE PRN Wheezing 11/15/19 08/21/21 nebulization mepolizumab [Nucala] See Rx Instructions subcut .COMPLEX 01/03/20 08/21/21 Previous Rx's Medication Instructions Recorded albuterol sulfate 90 mcg/actuation 2 puff inhalation QID PRN 01/08/20 aerosol inhaler (Ventolin HFA) Shortness Of Breath Or Wheezing #3 Inhalers hydrocortisone 1 %-pramoxine 1 % [address] BID PRN hemorrhoids 01/29/21 rectal foam (Proctofoam HC) #10 grams hydrocortisone 2.5 % topical cream [address] BID PRN pain #30 grams 02/05/21 with perineal applicator (Proctosol HC) tamsulosin 0.4 mg capsule 0.4 mg PO QAM #30 caps 03/11/21 pantoprazole 40 mg tablet,delayed 40 mg PO BID #180 tabs 03/18/21 release Results & Data (ED) Vital Signs Vital Signs - 24 hr 08/21/21 17:31 08/21/21 20:00 08/21/21 21:54 Pulse Rate 78 Pulse Rate [Finger] 61 63 Respiratory Rate 18 18 18 Blood Pressure 153/97 H Blood Pressure [Right Arm] 130/75 127/79 Blood Pressure Mean 115 Blood Pressure Mean [Right Arm] 93 95 Blood Pressure Position [Right Arm] Lying Pulse Oximetry 97 97 96 Oxygen Delivery Method Room Air Room Air Room Air Sepsis Recent Fever Within 48 Hours No Sepsis New/Unexplained Change in Mental Status No Sepsis Action Taken by Nursing No Action Required Home Medications Current Medication List: was personally reviewed by me Laboratory Data Attestation: I reviewed the patient's lab results. Result diagrams: 08/21/21 19:27 08/21/21 19:27 Lab Results 08/21/21 08/21/21 08/21/21 Range/Units 19:27 19:27 21:57 WBC 9.56 (4.8-10.8) K/ul RBC 5.01 (4.63-6.08) M/uL Hgb 14.6 (14.0-18.0) g/dl Hct 45.4 (40.1-51.0) % MCV 90.6 (80.0-100.0) fL MCH 29.1 (25.0-34.0) pg MCHC 32.2 (32.0-36.0) g/dL RDW Std Deviation 49.7 H (36.4-46.3) fL RDW Coeff of Aditya 15.0 H (11.5-14.5) % Plt Count 259 (130-400) K/uL MPV 8.8 L (9.4-12.4) fL Immature Gran % (Auto) 2.3 % Neut % (Auto) 81.5 % Lymph % (Auto) 12.4 % [place] % (Auto) 2.9 % Eos % (Auto) 0.3 % Baso % (Auto) 0.6 % Neut # (Auto) 7.78 H (1.4-6.5) K/uL Lymph # (Auto) 1.19 L (1.2-3.4) K/uL [place] # (Auto) 0.28 (0.24-0.82) K/uL Eos # (Auto) 0.03 (0-0.50) K/uL Baso # (Auto) 0.06 (0-0.2) K/uL Immature Gran # (Auto) 0.22 H (0.00-0.02) K/uL Sodium 140 (136-145) mmol/L Potassium 3.9 (3.5-5.1) mmol/L Chloride 105 (98-107) mmol/L Carbon Dioxide 25 (21-32) mmol/L Anion Gap 10 (3-11) BUN 21 (6-23) mg/dl Creatinine 1.30 (0.6-1.4) mg/dl Est Cr Clr Drug Dosing 63.8 ml/min Est GFR ( Amer) 67.3 ml/min Est GFR (Non-Af Amer) 58.1 ml/min BUN/Creatinine Ratio 16.2 (10-20) Glucose 141 H (70-99(Fasting)) mg/dl Calcium 8.9 (8.5-10.1) mg/dl Total Bilirubin 0.5 (0.2-1.0) mg/dl AST 16 (13-39) U/L ALT 21 (7-52) U/L Alkaline Phosphatase 83 (34-104) U/L Troponin I High Sens 5.5 (0-20) pg/ml Total Protein 7.4 (6.0-8.3) gm/dl Albumin 4.2 (3.4-5.0) gm/dl Globulin 3.2 (2.5-4.0) gm/dl Albumin/Globulin Ratio 1.3 (0.9-2) Lipase 46 (11-82) U/L Urine Color Yellow Urine Appearance Clear (Clear) Urine pH 5.5 (4.5-7.5) Ur Specific Thompson 1.015 (1.000-1.030) Urine Protein Negative (Negative) Urine Glucose (UA) Negative (Negative) Urine Ketones Negative (Negative) Urine Blood Negative (Negative) Urine Nitrite Negative (Negative) Urine Bilirubin Negative (Negative) Urine Urobilinogen Negative (Negative) Ur Leukocyte Esterase Negative (Negative) Administered Medications Discontinued Medications Albuterol (Albut/Ipratrop 3mg/0.5mg Neb 3 Ml Vial) 3 ml NEB NOW STA; Protocol Stop: 08/21/21 22:33 Last Admin: 08/21/21 22:54 Dose: 3 ml Documented By: OUMAR Ioversol (Optiray 320 100ml) 94 ml IV ONCE ONE Stop: 08/21/21 21:12 Last Admin: 08/21/21 21:11 Dose: 94 ml Documented By: ANGIE Imaging Data Radiologist's Impression: Abdominal and pelvis CT with IV and oral contrast: There are surgical clips seen at the gastroesophageal junction. There is evidence for a previous cholecystectomy. The appendix is not visible. There are some surgical clips in the right lower colon. Proximal and mid small bowel loops are distended but nondilated. Oral contrast has reached the mid small bowel. The distal small bowel is completely decompressed which may represent a low-grade small bowel obstruction versus ileus. No pneumoperitoneum. No hydronephrosis. Discharge Plan Visit Data Chief Complaint: Constipation Stated Complaint: BOWEL OBSTUCTION ED Provider: Jerardo Dugan Discharge Problem: SBO (small bowel obstruction), Abdominal distension Patient Disposition: Admitted As Inpatient Condition: Good Forms Stand Alone Forms: [facility] Work in Field Prescriptions Prescriptions: No Action albuterol sulfate [Ventolin HFA] 90 mcg/actuation HFA aerosol inhaler 2 puff INHALATION QID PRN (Reason: Shortness Of Breath Or Wheezing) Qty: 3 1RF tamsulosin 0.4 mg capsule 0.4 mg PO QAM Qty: 30 1RF mepolizumab See Rx Instructions subcut .COMPLEX Rx Instructions: subcut once monthly; pantoprazole 40 mg tablet,delayed release (DR/EC) 40 mg PO BID Qty: 180 3RF sodium chloride 3 % solution for nebulization 4 ml inhalation ONCE PRN (Reason: Wheezing) levothyroxine [Synthroid] 50 mcg tablet 50 mcg PO QAM Proctofoam HC 1-1 % foam [address] BID PRN (Reason: hemorrhoids) Qty: 10 3RF hydrocortisone [Proctosol HC] 2.5 % cream with perineal applicator [address] BID PRN (Reason: pain) Qty: 30 2RF ondansetron HCl [Zofran] 4 mg Tablet 4 mg PO Q8H PRN (Reason: Nausea) clonazepam 1 mg tablet 1 mg PO TID Pulmozyme 1 mg/mL Solution 0.5 ml INHALATION QAM nitroglycerin 0.4 mg tablet, sublingual 0.4 mg Sublingual DIRECTED PRN (Reason: Chest Pain) Label Comments: has not taken yet finasteride 5 mg tablet 5 mg PO QAM bupropion HCl 300 mg tablet extended release 24 hr 300 mg PO QAM docusate sodium [Colace] 100 mg Capsule 100 mg PO QAM desonide 0.05 % Cream 1 applic TOPICAL BID PRN (Reason: breakouts) ipratropium-albuterol 0.5 mg-3 mg(2.5 mg base)/3 mL Solution For Nebulization 3 ml INHALATION TID triamcinolone acetonide 0.025 % Cream 1 applic TOPICAL BID PRN (Reason: flareups) ascorbic acid (vitamin C) [Vitamin C] 250 mg Tablet 250 mg PO QAM montelukast 10 mg tablet 10 mg PO QAM ketoconazole 2 % Cream 1 applic TOPICAL BID cholecalciferol (vitamin D3) [Vitamin D3] 10 mcg (400 unit) Capsule 10 mcg PO QAM Men's Multivitamin 400-20-300 mcg Tablet 1 tab PO QAM budesonide 0.5 mg/2 mL suspension for nebulization 0.5 mg inhalation QAM Referrals Referrals: Jose Florez MD [Primary Care Provider] -
[2021-08-21] MEDS ORDERED: OPTIRAY 320 100ml IV ONE (21:11)
[2021-08-21 22:07] LABS: Appearance Urine Clear (Clear); Bilirubin Urine Negative (Negative); Blood Urine Negative (Negative); Color Urine Yellow; Glucose Urine UA Negative (Negative); Ketones Urine Negative (Negative); Leukocyte Esterase Urine Negative (Negative); Nitrite Urine Negative (Negative); Protein Urine Negative (Negative); Specific Gravity Urine 1.015 (1.000-1.030); Urobilinogen Urine Negative (Negative); pH Urine 5.5 (4.5-7.5)
[2021-08-21] MEDS ORDERED: ALBUT/IPRATROP 3MG/0.5MG NEB 3 ML VIAL NEB STA (22:32)
[2021-08-21] MEDS ORDERED: BUDESONIDE 90 MCG INH INH STA (22:41)
--- NOTE | 2021-08-21 22:57 | Surgery Consultation ---
Date of Consultation August 21, 2021 Assessment & Plan (1) Partial small bowel obstruction: I discussed with the treating emergency room physician and due to the patient's clinical presentation and imaging he is planning on admitting the patient on the hospitalist service. We recommend proceeding as follows: Provide IV fluid for hydration Implement n.p.o. status Provide as needed analgesics although the patient is not experiencing much in the way of pain at the present time Provide as needed antiemetics Based on patient's clinical history his change in bowel habits are concerning. I would recommend obtaining a gastroenterology consultation for consideration of performing a colonoscopy. At the present time the patient is not experiencing any nausea or vomiting therefore I do not feel an NG tube is required. We will continue to monitor the patient closely and consideration can be given to advancing his diet as his abdominal exam/symptoms improve Further recommendations will be made based on his clinical course as it unfolds History of Present Illness Reason for Consultation: Partial small bowel obstruction versus ileus History of Present Illness This is a 61-year-old male who was referred to the [facility] emergency department by his gastroenterology team.He was seen by his gastroenterology team today secondary to a change in bowel habits. I did question patient about this and he notes for approximately 5 weeks he has noted a decreased caliber of his stool and describes his stool as "pencil sized." He says his stools were not hard but decreased caliber as noted above. He also notes that when he moves his bowels he feels as though he cannot completely evacuate his bowels. He denies any nausea or vomiting. He does note some mild generalized tenderness of his abdomen greatest on the left side. He denies any fevers, shakes, or chills. He denies any weight loss. He does note that his abdomen is slightly distended but he notes that this has been present for approximately 5 weeks. He does report he has a history of irritable bowel syndrome. He notes he is adopted so he is unsure if he has any family history of colon cancer. He does report history of multiple abdominal surgeries including a Brittany fundoplication which was performed laparoscopically at [facility]. He has also undergone a laparoscopic cholecystectomy. The patient also reports that he has had laparoscopic pancreatic and biliary ductal surgery following his cholecystectomy due to a complication he could not describe to me. He notes he has had a colonoscopy in the past most recently in 2019. His colonoscopy port was reviewed and was reportedly normal to the terminal ileum with the exception of some nonbleeding internal hemorrhoids. The patient was referred for a KUB by his gastroenterology team today. This study showed multiple dilated gas filled loops of large and small bowel. There is a moderate stool burden noted within the colon which was distended. This was felt to represent either ileus or constipation. Interpreting radiologist did make note that there is no gas in the rectum therefore a distal large bowel obstruction could not be ruled out. Since arrival to the emergency department the patient had labs and imaging which independent reviewed. He did undergo a CT scan of the abdomen and pelvis utilizing IV and oral contrast. This study showed the proximal and mid small bowel loops were normally distended but not dilated. The oral contrast was able to reach the mid small bowel however the distal small bowel was noted to be completely decompressed which was concerning for a low-grade small bowel obstruction or an ileus. No pneumoperitoneum or free fluid was noted. No other inflammatory changes were noted in the abdomen or pelvis. Labs include a CBC were white blood cell count, hemoglobin, hematocrit, and platelet count were normal. Chemistry profile showed sodium, potassium, BUN, and creatinine were normal. There is no elevation of patient's LFTs or lipase. A urinalysis was not indicative of infection. An EKG was performed that showed normal sinus rhythm. There is no changes indicative of acute ischemia. At the time of my interview the patient was resting comfortably in bed. He was in no distress. Allergies Allergy/AdvReac Type Severity Reaction Status Date / Time Sulfa (Sulfonamide Allergy Mild "SULFA Verified 08/21/21 14:16 Antibiotics) DRUGS": RASH, HOT FLASHES adhesive Allergy Unknown PLASTIC Verified 08/21/21 14:16 CLEAR TAPE-SKIN TURNS RED,ITCHING mold Allergy Unknown COUGH Verified 08/21/21 14:16 ragweed pollen Allergy Unknown SINUS Verified 08/21/21 14:16 DRAINAGE,STUFFINESS-TAKING ALLERGY SHOTS Fyarwfx-ZCO-OyV Reductase Allergy Unknown HOT Verified 08/21/21 14:16 Inhibitor FLASHES, [Tyiztzr-Pem-Kqn Reductase RASH Inhibitor] tolmetin Allergy Verified 08/21/21 14:16 NSAIDS (Non-Steroidal AdvReac Intermediate NAUSEA Verified 08/21/21 14:16 Anti-Inflamma dobutamine AdvReac upset Verified 08/21/21 14:16 stomach Home Medications Medication Instructions Recorded Confirmed Type bupropion HCl 300 mg 24 hr tablet, 300 mg PO QAM 11/29/17 08/21/21 History extended release clonazepam 1 mg tablet 1 mg PO TID 11/29/17 08/21/21 History docusate sodium 100 mg capsule 100 mg PO QAM 11/29/17 08/21/21 History (Colace) dornase nicholas 1 mg/mL solution for 0.5 ml inhalation QAM 11/29/17 08/21/21 History inhalation (Pulmozyme) finasteride 5 mg tablet 5 mg PO QAM 11/29/17 08/21/21 History nitroglycerin 0.4 mg sublingual 0.4 mg sublingual DIRECTED PRN 11/29/17 08/21/21 History tablet Chest Pain ondansetron HCl 4 mg tablet 4 mg PO Q8H PRN Nausea 11/29/17 08/21/21 History (Zofran) ascorbic acid (vitamin C) 250 mg 250 mg PO QAM 09/12/19 08/21/21 History tablet (Vitamin C) budesonide 0.5 mg/2 mL suspension 0.5 mg inhalation QAM 09/12/19 08/21/21 History for nebulization cholecalciferol (vitamin D3) 10 10 mcg PO QAM 09/12/19 08/21/21 History mcg (400 unit) capsule (Vitamin D3) desonide 0.05 % topical cream 1 applic topical BID PRN breakouts 09/12/19 08/21/21 History ipratropium 0.5 mg-albuterol 3 mg 3 ml inhalation TID 09/12/19 08/21/21 History (2.5 mg base)/3 mL nebulization soln ketoconazole 2 % topical cream 1 applic topical BID 09/12/19 08/21/21 History montelukast 10 mg tablet 10 mg PO QAM 09/12/19 08/21/21 History ajekkwdg-rbwdnshz-giphs acid 400 1 tab PO QAM 09/12/19 08/21/21 History mcg-vit K 20 mcg-lycop 300 mcg tablet (Men's Multivitamin) triamcinolone acetonide 0.025 % 1 applic topical BID PRN flareups 09/12/19 08/21/21 History topical cream levothyroxine 50 mcg tablet 50 mcg PO QAM 11/15/19 08/21/21 History (Synthroid) sodium chloride 3 % for 4 ml inhalation ONCE PRN Wheezing 11/15/19 08/21/21 History nebulization mepolizumab [Nucala] See Rx Instructions subcut .COMPLEX 01/03/20 08/21/21 History albuterol sulfate 90 mcg/actuation 2 puff inhalation QID PRN 01/08/20 08/21/21 Rx aerosol inhaler (Ventolin HFA) Shortness Of Breath Or Wheezing #3 Inhalers hydrocortisone 1 %-pramoxine 1 % [address] BID PRN hemorrhoids 01/29/21 08/21/21 Rx rectal foam (Proctofoam HC) #10 grams hydrocortisone 2.5 % topical cream [address] BID PRN pain #30 grams 02/05/21 08/21/21 Rx with perineal applicator (Proctosol HC) tamsulosin 0.4 mg capsule 0.4 mg PO QAM #30 caps 03/11/21 08/21/21 Rx pantoprazole 40 mg tablet,delayed 40 mg PO BID #180 tabs 03/18/21 08/21/21 Rx release Patient History Medical History Anxiety Asthma Alexandra esophagus BPH (benign prostatic hyperplasia) Bronchiectasis Follows with [facility] lung clinic in [place], and Dr. Lawrence in [place] for lung issues Cardiac murmur No murmur noted at 12/19/20 urology visit No significant valve issues noted on 2015 ECHO Chronic constipation Ciliary motility disorder Gets regular bronchoscopy and bronchial washings at [place] per 12/23/20 ENT note ENT aware of upcoming urology procedure Depression GERD (gastroesophageal reflux disease) Hard of hearing History of COVID-27 Jan 2020> headache, digestive issues, sinus problems > not hospitalized Hyperlipidemia NO MEDS Hypothyroidism IBS (irritable bowel syndrome) BREONNA on CPAP Pneumonia 04/2018-[facility]-"BACK TO HIS NORMAL" F/U DR PHAM/[facility], [facility] SOB (shortness of breath) on exertion ON OCC Temporomandibular joint disorder HX RIGHT SIDE CLICKED-AND PAIN NO LOCKING Surgical History History of bilateral cataract extraction History of bronchoscopy X MULTIPLE History of cardiac cath 2017 NO STENTS-[facility] History of cholecystectomy History of fundoplication 2010 History of sinus surgery multiple > due to ciliary motility disorder History of tonsillectomy and adenoidectomy Family History Other No pertinent family history Social History Smoking Status: Never smoker Second Hand Exposure: No; Hx Alcohol Use: No Hx Substance Use: No Preferred Language: Hungarian Communication Ability: Effective 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 Required: No Beliefs That Will Affect Care: None marital status: Current Living Situation: Spouse Feels Safe at Home: Yes Assistive Devices: CPAP, Glasses and Hearing Aid - Bilateral Review of Systems Constitutional: no fever and no chills Eyes: no eye pain Ear, Nose, Mouth, Throat: no ear pain Respiratory: no cough and no dyspnea Cardiovascular: no chest pain Gastrointestinal: as per Subjective / HPI and + change in bowel habits; no nausea, no vomiting, no diarrhea/loose stools and no blood in stools Genitourinary: no dysuria Musculoskeletal: no back pain Integumentary: no rash Neurologic: no localized weakness Physical Exam Constitutional: WD/WN, vitals as above Eyes: no conjunctival abnormality ENMT: Ears: no external ear abnormality Mouth: no oropharynx abnormality Neck: trachea midline Respiratory: Slight decrease of breath sounds noted at bases, no wheezing, no use of accessory muscles Cardiovascular: Rate/Rhythm: regular rate and regular rhythm Vessels: dorsalis pedis pulses present Gastrointestinal (Abdomen): Abdomen is rotund but overall soft and nonrigid. There is slight tympany noted to percussion. There is no rebound tenderness or guarding. There is only mild pain with palpation on the left side of his abdomen. I do not appreciate any hernias. Musculoskeletal: No calf tenderness Skin: no rashes Neurologic: moves all extremities Psychiatric: A+Ox3, euthymic affect Results & Data ([facility]) Vital Signs (Past 12 Hours) Vital Signs Pulse Pulse Resp BP BP Pulse Ox O2 Del Method 08/21/21 21:54 63 18 127/79 96 Room Air 08/21/21 20:00 61 18 130/75 97 Room Air 08/21/21 17:31 78 18 153/97 H 97 Room Air PG Care Time/CCT Total # of Minutes Spent Total Time Spent with Patient: Total time spent is greater than 50% in coordination of care (as documented) at patient's floor/unit and/or counseling patient: Coding Level of Care Code 77020 Inpt Consult Level 5 Diagnoses Partial small bowel obstruction K56.600
[2021-08-21] MEDS ORDERED: SODIUM CHLORIDE 0.9% 1000ML 1,000 ML IV ONE (22:58)
[2021-08-21] MEDS ORDERED: FLUTICASONE FUROATE 100MCG 14 PUFFS/INHALER INH ONE (23:15)
--- NOTE | 2021-08-21 23:49 | History & Physical Report ---
Date of Service August 21, 2021 Assessment & Plan (1) SBO (small bowel obstruction): Plan: 61-year-old male presenting with abdominal distention, change in bowel movements with "pencil thin stools" and nausea. Imaging suggestive of low-grade partial small bowel obstruction. Patient's Pain is presently well controlled and nausea is minimal. -Admit to medical Appreciate general surgery assistance Keep n.p.o. Zofran as needed for nausea Morphine as needed for pain -GI consultation appreciated regarding possible colonoscopy (2) Ciliary dyskinesia: Plan: Chronic. No respiratory distress. Adequate oxygenation on room air. Appreciate respiratory therapy assistance We will provide flutter valve 4 times daily Chest physiotherapy daily and as needed DuoNeb 4 times daily Budesonide twice daily Pulmozyme daily Mucinex 1200 mg twice daily Singular 10 mg p.o. every morning Patient is presently on a prednisone taper. He is to receive 20 mg p.o. daily on 08/22 and 08/23 and 10 mg p.o. daily on 08/24, 08/25 and 08/26. (3) GERD (gastroesophageal reflux disease): Plan: Chronic. Continue Protonix 40 mg IV twice daily (4) Hypothyroidism: Plan: Chronic. Continue levothyroxine 50 mcg p.o. daily (5) Depression: Plan: Chronic. Stable. Continue bupropion 200 mg p.o. every morning Continue clonazepam 1 mg p.o. 3 times daily scheduled (6) BPH (benign prostatic hyperplasia): Plan: Chronic. Stable. Continue finasteride 5 mg p.o. every morning Continue Flomax 0.4 mg p.o. every morning History of Present Illness Chief Complaint: Abdominal pain, distention, change in bowel habits Primary Care Provider: Jose Florez MD Santi Mcarthur is a pleasant 61yo male with history of BPH, GERD, HLP presenting with abdominal pain, distention and change in bowel movements. Patient reports over the last several days he has had difficulty having bowel movements. His stools have become long and thin like a pencil and he has been passing a small amount 2-3 times per day. He has had significant abdominal distention and passage of flatus. He saw GI today and had an x-ray obtained which was suggestive of a small bowel obstruction. He was subsequently sent to the ER for additional work-up. Patient denies abdominal pain at present. He has mild nausea but no vomiting (of note, patient has history of Brittany fundoplication and therefore does not regurgitate). He denies diarrhea and is passing small amounts of gas. He denies fevers, chills, chest pain, palpitations, shortness of breath. Patient reports a history of primary ciliary dyskinesia which causes him problems with pulmonary secretion management and frequent mucous plugging. He is on a strict regimen of nebulizers as well as flutter valve and chest PT at home. He does feel like he is having a buildup of mucus now and voices concern about possible mucous plugging. Otherwise no complaints Allergies Allergy/AdvReac Type Severity Reaction Status Date / Time Sulfa (Sulfonamide Allergy Mild "SULFA Verified 08/21/21 14:16 Antibiotics) DRUGS": RASH, HOT FLASHES adhesive Allergy Unknown PLASTIC Verified 08/21/21 14:16 CLEAR TAPE-SKIN TURNS RED,ITCHING mold Allergy Unknown COUGH Verified 08/21/21 14:16 ragweed pollen Allergy Unknown SINUS Verified 08/21/21 14:16 DRAINAGE,STUFFINESS-TAKING ALLERGY SHOTS Rzhictq-JEX-IhA Reductase Allergy Unknown HOT Verified 08/21/21 14:16 Inhibitor FLASHES, [Njrdway-Yoz-Wgy Reductase RASH Inhibitor] tolmetin Allergy Verified 08/21/21 14:16 NSAIDS (Non-Steroidal AdvReac Intermediate NAUSEA Verified 08/21/21 14:16 Anti-Inflamma dobutamine AdvReac upset Verified 08/21/21 14:16 stomach Home Medications Medication Instructions Recorded Confirmed Type bupropion HCl 300 mg 24 hr tablet, 200 mg PO QAM 11/29/17 08/21/21 History extended release clonazepam 1 mg tablet 1 mg PO TID 11/29/17 08/21/21 History docusate sodium 100 mg capsule 100 mg PO QAM 11/29/17 08/21/21 History (Colace) dornase nicholas 1 mg/mL solution for 0.5 ml inhalation QAM 11/29/17 08/21/21 History inhalation (Pulmozyme) finasteride 5 mg tablet 5 mg PO QAM 11/29/17 08/21/21 History nitroglycerin 0.4 mg sublingual 0.4 mg sublingual DIRECTED PRN 11/29/17 08/21/21 History tablet espophageal spasm ondansetron HCl 4 mg tablet 4 mg PO Q8H PRN Nausea 11/29/17 08/21/21 History (Zofran) ascorbic acid (vitamin C) 250 mg 250 mg PO QAM 09/12/19 08/21/21 History tablet (Vitamin C) budesonide 0.5 mg/2 mL suspension 0.5 mg inhalation BID 09/12/19 08/21/21 History for nebulization cholecalciferol (vitamin D3) 10 10 mcg PO QAM 09/12/19 08/21/21 History mcg (400 unit) capsule (Vitamin D3) desonide 0.05 % topical cream 1 applic topical BID PRN breakouts 09/12/1908/21 History ipratropium 0.5 mg-albuterol 3 mg 3 ml inhalation QID PRN Shortness 09/12/19 08/21/21 History (2.5 mg base)/3 mL nebulization Of Breath soln ketoconazole 2 % topical cream 1 applic topical BID 09/12/19 08/21/21 History montelukast 10 mg tablet 10 mg PO QAM 09/12/19 08/21/21 History rknxowcr-gbktigxy-jzdqj acid 400 1 tab PO QAM 09/12/19 08/21/21 History mcg-vit K 20 mcg-lycop 300 mcg tablet (Men's Multivitamin) triamcinolone acetonide 0.025 % 1 applic topical BID PRN flareups 09/12/19 08/21/21 History topical cream levothyroxine 50 mcg tablet 50 mcg PO QAM 11/15/19 08/21/21 History (Synthroid) sodium chloride 3 % for 4 ml inhalation ONCE PRN Wheezing 11/15/19 08/21/21 History nebulization mepolizumab [Nucala] See Rx Instructions subcut .COMPLEX 01/03/20 08/21/21 History albuterol sulfate 90 mcg/actuation 2 puff inhalation QID PRN 01/08/20 08/21/21 Rx aerosol inhaler (Ventolin HFA) Shortness Of Breath Or Wheezing #3 Inhalers hydrocortisone 1 %-pramoxine 1 % 1 applic NH BID PRN hemorrhoids 01/29/21 08/21/21 Rx rectal foam (Proctofoam HC) #10 grams hydrocortisone 2.5 % topical cream 1 applic NH BID PRN pain #30 grams 02/05/21 08/21/21 Rx with perineal applicator (Proctosol HC) tamsulosin 0.4 mg capsule 0.4 mg PO QAM #30 caps 03/11/21 08/21/21 Rx pantoprazole 40 mg tablet,delayed 40 mg PO BID #180 tabs 03/18/21 08/21/21 Rx release Past Med/Surg History Medical History Anxiety Asthma Alexandra esophagus BPH (benign prostatic hyperplasia) Bronchiectasis Follows with [facility] lung [facility] in [place], and Dr. Lawrence in [place] for lung issues Cardiac murmur No murmur noted at 12/19/20 urology visit No significant valve issues noted on 2015 ECHO Chronic constipation Ciliary motility disorder Gets regular bronchoscopy and bronchial washings at [place] per 12/23/20 ENT note ENT aware of upcoming urology procedure Depression GERD (gastroesophageal reflux disease) Hard of hearing History of COVID-27 Jan 2020> headache, digestive issues, sinus problems > not hospitalized Hyperlipidemia NO MEDS Hypothyroidism IBS (irritable bowel syndrome) BREONNA on CPAP Pneumonia 04/2018-[facility]-"BACK TO HIS NORMAL" F/U DR PHAM/[facility] SOB (shortness of breath) on exertion ON OCC Temporomandibular joint disorder HX RIGHT SIDE CLICKED-AND PAIN NO LOCKING Surgical History History of bilateral cataract extraction History of bronchoscopy X MULTIPLE History of cardiac cath 2016 NO [facility] History of cholecystectomy History of fundoplication 2010 History of sinus surgery multiple > due to ciliary motility disorder History of tonsillectomy and adenoidectomy Family History Other No pertinent family history Social History Smoking Status: Never smoker Second Hand Exposure: No; Hx Alcohol Use: No Hx Substance Use: No Preferred Language: Iraqi Communication Ability: Effective Linen Tech Required: No Beliefs That Will Affect Care: None marital status: Current Living Situation: Spouse Feels Safe at Home: Yes Assistive Devices: CPAP, Glasses and Hearing Aid - Bilateral Review of Systems Review of Systems: All systems reviewed & are unremarkable except as noted in HPI & below Physical Exam Physical Exam: General: patient resting comfortably, NAD, non-toxic in appearance, AA&O x 4 Skin: warm, dry, intact, no rashes or lesions HEENT: NC/AT, PERRL, EOMI, anicteric sclera, conjunctiva without injection, external ear normal to inspection and nontender, nares patent, moist mucus membranes, dentition intact, no oropharyngeal lesions, neck supple, trachea midline, no LAD, no thyromegaly, no JVD Heart: +S1/S2, regular, no m/r/g Lungs: equal air entry bilaterally, no rales/rhonchi/wheezes Abd: diminished bowel sounds, soft, distended and tympanic to percussion, mild tenderness with deep palpation, no rebound/guarding/peritoneal signs, no masses/organomegaly/ascites Ext: warm, 2+ pulses in UE/LE bilaterally, no clubbing/cyanosis or edema Neuro: nonfocal, patient AA&O x 4, speech intact, no facial droop, moving all extremities on command with equal strength 5/5 Results & Data Results & Data ([facility]) Vital Signs (Past 12 Hours) Vital Signs Pulse Pulse Resp BP BP Pulse Ox O2 Del Method 08/21/21 23:43 68 18 156/104 H 95 Room Air 08/21/21 21:54 63 18 127/79 96 Room Air 08/21/21 20:00 61 18 130/75 97 Room Air 08/21/21 17:31 78 18 153/97 H 97 Room Air Laboratory Results Laboratory Results WBC 9.56 K/ul (4.8-10.8) 08/21/21 19: RBC 5.01 M/uL (4.63-6.08) 08/21/21 19:27 Hgb 14.6 g/dl (14.0-18.0) 08/21/21 19:27 Hct 45.4 % (40.1-51.0) 08/21/21 19:27 MCV 90.6 fL (80.0-100.0) 08/21/21 19:27 MCH 29.1 pg (25.0-34.0) 08/21/21 19: MCHC 32.2 g/dL (32.0-36.0) 08/21/21 19: RDW Std Deviation 49.7 fL (36.4-46.3) H 08/21/21 19: RDW Coeff of Aditya 15.0 % (11.5-14.5) H 08/21/21 19: Plt Count 259 K/uL (130-400) 08/21/21 19: MPV 8.8 fL (9.4-12.4) L 08/21/21 19: Immature Gran % (Auto) 2.3 % 08/21/21 19: Neut % (Auto) 81.5 % 08/21/21 19: Lymph % (Auto) 12.4 % 08/21/21: [place] % (Auto) 2.9 % 08/21/21: Eos % (Auto) 0.3 % 08/21/21: Baso % (Auto) 0.6 % 08/21/21: Neut # (Auto) 7.78 K/uL (1.4-6.5) H 08/21/21 19: Lymph # (Auto) 1.19 K/uL (1.2-3.4) L 08/21/21 19: [place] # (Auto) 0.28 K/uL (0.24-0.82) 08/21/21 19: Eos # (Auto) 0.03 K/uL (0-0.50) 08/21/21 19: Baso # (Auto) 0.06 K/uL (0-0.2) 08/21/21 19: Immature Gran # (Auto) 0.22 K/uL (0.00-0.02) H 08/21/21 19: Sodium 140 mmol/L (136-145) 08/21/21 19: Potassium 3.9 mmol/L (3.5-5.1) 08/21/21 19: Chloride 105 mmol/L (98-107) 08/21/21 19: Carbon Dioxide 25 mmol/L (21-32) 08/21/21 19: Anion Gap 10 (3-11) 08/21/21 19: BUN 21 mg/dl (6-23) 08/21/21 19: Creatinine 1.30 mg/dl (0.6-1.4) 08/21/21 19:27 Est Cr Clr Drug Dosing 63.8 ml/min 08/21/21 19:27 Est GFR ( Amer) 67.3 ml/min 08/21/21 19:27 Est GFR (Non-Af Amer) 58.1 ml/min 08/21/21 19:27 BUN/Creatinine Ratio 16.2 (10-20) 08/21/21 19: Glucose 141 mg/dl (70-99(Fasting)) H 08/21/21 19:27 Calcium 8.9 mg/dl (8.5-10.1) 08/21/21 19: Total Bilirubin 0.5 mg/dl (0.2-1.0) 08/21/21 19: AST 16 U/L (13-39) 08/21/21 19: ALT 21 U/L (7-52) 08/21/21 19:27 Alkaline Phosphatase 83 U/L (34-104) 08/21/21 19: Troponin I High Sens 5.5 pg/ml (0-20) 08/21/21 19: Total Protein 7.4 gm/dl (6.0-8.3) 08/21/21 19: Albumin 4.2 gm/dl (3.4-5.0) 08/21/21 19: Globulin 3.2 gm/dl (2.5-4.0) 08/21/21 19:27 Albumin/Globulin Ratio 1.3 (0.9-2) 08/21/21 19: Lipase 46 U/L (11-82) 08/21/21 19:27 Urine Color Yellow 08/21/21 21:57 Urine Appearance Clear (Clear) 08/21/21 21:57 Urine pH 5.5 (4.5-7.5) 08/21/21 21:57 Ur Specific [place] 1.015 (1.000-1.030) 08/21/21 21:57 Urine Protein Negative (Negative) 08/21/21 21:57 Urine Glucose (UA) Negative (Negative) 08/21/21 21:57 Urine Ketones Negative (Negative) 08/21/21 21:57 Urine Blood Negative (Negative) 08/21/21 21:57 Urine Nitrite Negative (Negative) 08/21/21 21:57 Urine Bilirubin Negative (Negative) 08/21/21 21:57 Urine Urobilinogen Negative (Negative) 08/21/21 21:57 Ur Leukocyte Esterase Negative (Negative) 08/21/21 21:57 SARS-CoV-2, RNA, NAAT NEGATIVE (NEGATIVE) 08/22/21 00:[address] Abdomen and Pelvis - Per STAT rad - There is a triangular 5 cm area of consolidation in the left lower lobe which may represent atelectasis or scarring. Surgical clips at the gastroesophageal junction. Likely previous hiatal hernia repair. Previous cholecystectomy. No biliary duct dilation is seen. Surgical clips and adjacent to the lower right colon. The appendix is not visible. Proximal and mid small bowel loops are normally distended but nondilated. Oral contrast has reached the mid small bowel. The distal small bowel is completely decompressed which may represent low-grade small bowel obstruction versus ileus. No pneumoperitoneum, free fluid, or focal inflammatory changes are seen. The kidneys are within normal limits. No hydronephrosis or ureterolithiasis is seen. The urinary bladder is normally distended but nondilated. Mild degenerative changes in the spine. No fracture or subluxation. ECG Additional Comments: EKG per my interpretation shows normal sinus rhythm at 80 bpm, left axis deviation, NH = 118, QRS = 80, QTC = 435, no acute ischemic changes Code Status & VTE Plan VTE Prophylaxis Plan VTE Prophylaxis will be ordered: Yes PG Care Time/CCT Total # of Minutes Spent Total Time Spent with Patient: Total time spent is greater than 50% in coordination of care (as documented) at patient's floor/unit and/or counseling patient: Coding Level of Care Code 93657 Initial Inpt Care Lvl 3 Diagnoses SBO (small bowel obstruction) K56.609 Ciliary dyskinesia J98.4 GERD (gastroesophageal reflux disease) K21.9 Esophagitis presence: without esophagitis Hypothyroidism E03.9 Hypothyroidism type: acquired Depression F32.9 BPH (benign prostatic hyperplasia) N40.0 Lower urinary tract symptom presence: symptoms absent (1) GERD (gastroesophageal reflux disease) Esophagitis presence: without esophagitis Qualified Code(s): K21.9 - Gastro- esophageal reflux disease without esophagitis (2) Hypothyroidism Hypothyroidism type: acquired Qualified Code(s): E03.9 - Hypothyroidism, unspecified (3) BPH (benign prostatic hyperplasia) Lower urinary tract symptom presence: symptoms absent Qualified Code(s): N40.0 - Benign prostatic hyperplasia without lower urinary tract symptoms
[2021-08-22] MEDS ORDERED: ALBUT/IPRATROP 3MG/0.5MG NEB 3 ML VIAL INH PRN (01:19)
[2021-08-22] MEDS ORDERED: ONDANSETRON INJ 2 MG/ML 2 ML VIAL IV PRN (01:19)
[2021-08-22] MEDS ORDERED: ALBUTEROL HFA 8 GM INHALER INH PRN (01:19)
[2021-08-22] MEDS ORDERED: clonazePAM 1 MG TAB PO STA (03:17)
[2021-08-22] MEDS ORDERED: MoRPHine SULFATE 2 MG/ML CARP IV PRN (03:31)
[2021-08-22] MEDS ORDERED: ALBUT/IPRATROP 3MG/0.5MG NEB 3 ML VIAL NEB PRN (03:40)
[2021-08-22 05:59] LABS: Basophils # (auto) 0.13 K/uL (0-0.2); Basophils % (auto) 1.3 %; Eosinophils # (auto) 0.19 K/uL (0-0.50); Hematocrit (blood only) 41.7 % (40.1-51.0); Hemoglobin 13.4 g/dl (14.0-18.0); Immature Granulocytes # (auto) 0.22 K/uL (0.00-0.02); Immature Granulocytes % (auto) 2.3 %; Lymphocytes # (auto) 2.59 K/uL (1.2-3.4); Lymphocytes % (auto) 26.6 %; Mean Corpuscular Hemoglobin 28.8 pg (25.0-34.0); Mean Corpuscular Hgb Conc 32.1 g/dL (32.0-36.0); Mean Corpuscular Volume 89.5 fL (80.0-100.0); Mean Platelet Volume 8.9 fL (9.4-12.4); Monocytes # (auto) 0.86 K/uL (0.24-0.82); Monocytes % (auto) 8.8 %; Neutrophils # (auto) 5.74 K/uL (1.4-6.5); Platelet Count 232 K/uL (130-400); RDW Standard Deviation 48.8 fL (36.4-46.3); Red Blood Count 4.66 M/uL (4.63-6.08); White Blood Count 9.73 K/ul (4.8-10.8)
[2021-08-22 06:22] LABS: Albumin Level 3.6 gm/dl (3.4-5.0); BUN Creatinine Ratio 12.7 (10-20); Bilirubin,Total 0.6 mg/dl (0.2-1.0); Calcium 8.5 mg/dl (8.5-10.1); Creatinine Clr Calc Pharmacy 65.9 ml/min; Est GFR (African American) 69.9 ml/min; Est GFR (Non-African American) 60.3 ml/min; Potassium 4.3 mmol/L (3.5-5.1); Total Protein 6.2 gm/dl (6.0-8.3)
[2021-08-22] MEDS: ALBUT/IPRATROP 3MG/0.5MG NEB 3 ML VIAL INH SCH ×4 (07:06→20:01)
[2021-08-22] MEDS: DORNASE ALFA 2.5 ML AMP INH SCH (07:07)
[2021-08-22] MEDS: BUDESONIDE 0.5 MG/2 ML VIAL (PULMICORT) INH SCH ×2 (07:07→20:01)
[2021-08-22] MEDS: LEVOTHYROXINE SODIUM 50 MCG TABLET PO SCH (07:35)
--- NOTE | 2021-08-22 07:52 | Hospitalist Progress Note ---
Date of Service August 22, 2021 Assessment & Plan (1) SBO (small bowel obstruction): Plan: 61-year-old male presenting with abdominal distention, change in bowel movements with "pencil thin stools" and nausea. Imaging suggestive of large bowel obstruction. Patient's Pain is presently well controlled and nausea is minimal. -gastroenterology consult to eval large bowel area of stricture Appreciate general surgery assistance Keep n.p.o. Zofran as needed for nausea Morphine as needed for pain (2) Ciliary dyskinesia: Plan: Chronic. No respiratory distress. Adequate oxygenation on room air. Appreciate respiratory therapy assistance We will provide flutter valve 4 times daily Chest physiotherapy daily and as needed DuoNeb 4 times daily Budesonide twice daily Pulmozyme daily Mucinex 1200 mg twice daily Singular 10 mg p.o. every morning Patient is presently on a prednisone taper. He is to receive 20 mg p.o. daily on 08/22 and 08/23 and 10 mg p.o. daily on 08/24, 08/25 and 08/26. (3) GERD (gastroesophageal reflux disease): Plan: Chronic. Continue Protonix 40 mg IV twice daily (4) Hypothyroidism: Plan: Chronic. Continue levothyroxine 50 mcg p.o. daily (5) Depression: Plan: Chronic. Stable. Continue bupropion 200 mg p.o. every morning Continue clonazepam 1 mg p.o. 3 times daily scheduled (6) BPH (benign prostatic hyperplasia): Plan: Chronic. Stable. Continue finasteride 5 mg p.o. every morning Continue Flomax 0.4 mg p.o. every morning Admission and Anticipated Discharge Date Admission Date: August 21, 2021 Subjective this pt has been having pencil sized stools and some abdominal bloating, CT reads possible LARGE bowel obstruction Review of Systems Review of Systems: Mild distress and fatigue no headache, no visual changes no speech or swallowing issues no chest pain, pressure or palpitations no shortness of breath, cough or wheezes lower quadrant abdominal pain, no nausea or vomiting, bloating and pencil thin stools no dysuria, hematuria or frequency no focal joint pain or swelling no back pain, CVA tenderness or radicular pain no bruising, bleeding or rashes no focal signs of weakness or numbness or altered sensation no complaints of anxiety or depression.. Physical Exam Physical Exam: The patient appeared well nourished and normally developed. Vital signs as documented. Head exam is normocephalic atraumatic Neck is without JVD, thyromegaly, or carotid bruits. Lungs are clear to auscultation, no focal loss of breath sounds Cardiac exam, Rhythm is regular.. No murmurs, rubs or gallops. Abdominal exam reveals hyperactive bowel sounds, soft distended and tympanitic Extremities are nonedematous and both pedal pulses are present Neurologic exam is alert and oriented, no focal loss of strength or sensation Skin is without bruises or rashes Psychologically is without concerns for anxiety or depression.. Results & Data Results & Data ([facility]) Vital Signs (Past 12 Hours) Vital Signs Pulse Resp BP Pulse Ox O2 Del Method 08/22/21 07:10 66 18 94 Room Air 08/22/21 02:49 65 20 153/87 H 96 Room Air 08/22/21 01:43 70 18 123/71 93 Room Air 08/21/21 23:43 68 18 156/104 H 95 Room Air 08/21/21 21:54 63 18 127/79 96 Room Air 08/21/21 20:00 61 18 130/75 97 Room Air PG Care Time/CCT Total # of Minutes Spent Total Time Spent with Patient: Total time spent is greater than 50% in coordination of care (as documented) at patient's floor/unit and/or counseling patient: Coding Level of Care Code 34242 Subseq Hosp Care Lvl 2 Diagnoses SBO (small bowel obstruction) K56.609 Ciliary dyskinesia J98.4 GERD (gastroesophageal reflux disease) K21.9 Esophagitis presence: without esophagitis Hypothyroidism E03.9 Hypothyroidism type: acquired Depression F32.9 BPH (benign prostatic hyperplasia) N40.0 Lower urinary tract symptom presence: symptoms absent (1) BPH (benign prostatic hyperplasia) Lower urinary tract symptom presence: symptoms absent Qualified Code(s): N40.0 - Benign prostatic hyperplasia without lower urinary tract symptoms (2) Hypothyroidism Hypothyroidism type: acquired Qualified Code(s): E03.9 - Hypothyroidism, unspecified (3) GERD (gastroesophageal reflux disease) Esophagitis presence: without esophagitis Qualified Code(s): K21.9 - Gastro-esophageal reflux disease without esophagitis
[2021-08-22] MEDS: clonazePAM 1 MG TAB PO SCH ×3 (08:53→20:28)
[2021-08-22] MEDS: buPROPion SR 100 MG TABCR PO SCH (08:54)
--- NOTE | 2021-08-22 08:54 | CT Scan Report ---
ABDOMEN AND PELVIS CT WITH IV AND ORAL CONTRAST CT DOSE: 803.01 mGy.cm HISTORY: Generalized abdominal pain, bloating, concern for bowel obstruction TECHNIQUE: Multiaxial CT images of the abdomen and pelvis were performed following the use of intrave nous and oral contrast. A dose lowering technique was utilized adhering to the principles of ALARA. COMPARISON STUDY: KUB 08/21/2021. Abdomen and pelvis CT 07/31/2017. FINDINGS: Focal area of consolidation within the base of the left lower lobe posteriorly containing a few punctate calcifications. This has slightly progressed compared to the 2018 examination but favor s chronic atelectasis. A superimposed pneumonia could also have a similar appearance in the appropria te clinical setting. Stable 3 mm subpleural nodule within the right middle lobe on image 24. No pneum operitoneum. No pneumatosis. Mild bilateral femoral head avascular necrosis without articular collaps e. No suspicious lytic or blastic osseous lesions. There is a small hiatus hernia. There are surgical clips at the gastroesophageal junction. This remains unchanged. Cholecystectomy. No hepatic or splen ic masses. The pancreas and adrenal glands are unremarkable. There are few punctate bilateral renal c alculi. Subcentimeter hypodense lesions within the right kidney are technically too small to characte rize but statistically represent cysts. No ureteral calculi. No hydronephrosis. The main portal vein is patent. Normal caliber abdominal aorta. No retroperitoneal lymphadenopathy. The bladder is distend ed. No bladder wall thickening. The prostate gland is mildly enlarged. Focal narrowing of the mid to distal sigmoid colon best seen on image 268. The distal sigmoid colon and rectum is decompressed. Pro ximal to this site the colon is mildly distended and filled with gas and fluid. Therefore, this could represent a focal transition decompression or possibly a transition point from a stricture resulting in a partial large bowel obstruction. The proximal to mid small bowel loops are also borderline dist ended. However, the contrast extends into the decompressed distal loops of small bowel. Therefore, no evidence for small bowel obstruction. Questionable filling defect within the jejunal loop of small b owel best seen on image 238. This measures 2.6 cm. There are surgical clips within the right lower qu adrant. Appendix is not identified and could be surgically absent. IMPRESSION: 1. Focal narrowing of the mid to distal sigmoid colon as described above. The distal sigmoid colon an d rectum is decompressed. Proximal to this site the colon is mildly distended and filled with gas and fluid. Therefore, this could represent a focal transient decompression or possibly a transition poin t from a stricture resulting in a partial large bowel obstruction. Follow-up KUB recommended to ensur e passage of the oral contrast into the rectum and exclude the possibility of a developing large hilda l obstruction. 2. No evidence for small bowel obstruction. 3. Questionable filling defect within a jejunal loop versus decompressed loop of bowel measuring 2.6 cm. Recommend repeat abdomen and pelvis CT with intravenous and oral contrast in 1 month to ensure re solution of this finding. 4. Slight progression of a focal consolidation within the left lower lobe. This likely represents chr onic atelectasis. A superimposed pneumonia could also have a similar appearance in the appropriate cl inical setting. 5. These findings were called/faxed to the referring physician following dictation. ACT 112: Positive. There are findings on this exam that require communication between the performing entity and the patient following Patient Test Result Information Act ([place] Act 112) guidelines. Electronically signed by: Arturo Jacob M.D. 08/22/2021 8:52 AM
[2021-08-22] MEDS: guaiFENesin 600 MG TABCR PO SCH ×2 (08:55→20:29)
[2021-08-22] MEDS: FINASTERIDE 5 MG TAB PO SCH (08:55)
[2021-08-22] MEDS: TAMSULOSIN HCL 0.4 MG CAP PO SCH (08:56)
[2021-08-22] MEDS: predniSONE 10 MG TABLET PO SCH (08:56)
[2021-08-22] MEDS: KETOCONAZOLE 2% CR 15 GM TUBE EXT SCH ×2 (08:57→20:29)
[2021-08-22] MEDS: PANTOprazole 40 MG in SYRINGE 0 ML IV SCH ×2 (08:57→20:53)
[2021-08-22] MEDS ORDERED: MONTELUKAST SODIUM 10 MG TABLET PO SCH (09:00)
[2021-08-22] MEDS ORDERED: SOD PHOSPHATE/SOD BIPHOSPHATE ENEMA 132 ML BTL PR STA (09:53)
[2021-08-22] MEDS ORDERED: LAVAGE SOLUTION 4000ML PO ONE (10:00)
[2021-08-22] MEDS ORDERED: SOD PHOSPHATE/SOD BIPHOSPHATE ENEMA 132 ML BTL PR ONE (10:02)
--- NOTE | 2021-08-22 10:44 | Gastrointestinal Consultation ---
Date of Consultation August 22, 2021 Assessment & Plan (1) Large bowel obstruction: -Enemas & prep to be given this AM; discussed instructions with RN. -NPO for colonoscopy this afternoon Supervising Physician Co-Signing Physician Notes I personally evaluated the patient and agree with the findings as documented by FILI Robertson proceed with colonoscopy. risks/benefits and procedure discussed with patient, who agrees to proceed History of Present Illness Reason for Consultation: Large bowel obstruction Attending Physician: Roland Chin MD History of Present Illness Patient is a 61 yo male with PMH of IBS-C, biliary dyskinesia, GERD, hypothyroidism, depression, BPH, avascular necrosis of femoral head, BREONNA, constipation, prostate issues, seasonal allergies, and Alexandra's Esophagus. Patient was evaluated in the outpatient clinic on 08/21/21. He made an appointment for "IBS" as he has a long-standing history of this. He notes he has had months of changing bowel habits and caliber changes to his stool. Due to a change in his bowel habits that seemed acute, an outpatient abdominal xray was obtained that questioned an ileus vs LBO. The patient was referred to the ED for admission. CT findings were as follows: 1. Focal narrowing of the mid to distal sigmoid colon as described above. The distal sigmoid colon and rectum is decompressed. Proximal to this site the colon is mildly distended and filled with gas and fluid. Therefore, this could represent a focal transient decompression or possibly a transition point from a stricture resulting in a partial large bowel obstruction. Follow-up KUB recommended to ensure passage of the oral contrast into the rectum and exclude the possibility of a developing large bowel obstruction. 2. No evidence for small bowel obstruction. 3. Questionable filling defect within a jejunal loop versus decompressed loop of bowel measuring 2.6 cm. Recommend repeat abdomen and pelvis CT with intravenous and oral contrast in 1 month to ensure resolution of this finding. 4. Slight progression of a focal consolidation within the left lower lobe. This likely represents chronic atelectasis. A superimposed pneumonia could also have a similar appearance in the appropriate clinical setting. 5. These findings were called/faxed to the referring physician following dictation. The patient denies abdominal pain. He reports bloating. He denies other changes at the present time. No pertinent family medical history. His last colonoscopy was with Dr. Gonzalez in 2019. Allergies Allergy/AdvReac Type Severity Reaction Status Date / Time Sulfa (Sulfonamide Allergy Mild "SULFA Verified 08/21/21 14:16 Antibiotics) DRUGS": RASH, HOT FLASHES adhesive Allergy Unknown PLASTIC Verified 08/21/21 14:16 CLEAR TAPE-SKIN TURNS RED,ITCHING mold Allergy Unknown COUGH Verified 08/21/21 14:16 ragweed pollen Allergy Unknown SINUS Verified 08/21/21 14:16 DRAINAGE,STUFFINESS-TAKING ALLERGY SHOTS Xgltmso-TLQ-IkV Reductase Allergy Unknown HOT Verified 08/21/21 14:16 Inhibitor FLASHES, [Wvxchgb-Ykv-Wfs Reductase RASH Inhibitor] tolmetin Allergy Verified 08/21/21 14:16 NSAIDS (Non-Steroidal AdvReac Intermediate NAUSEA Verified 08/21/21 14:16 Anti-Inflamma dobutamine AdvReac upset Verified 08/21/21 14:16 stomach Home Medications Medication Instructions Recorded Confirmed Type bupropion HCl 300 mg 24 hr tablet, 200 mg PO QAM 11/29/17 08/21/21 History extended release clonazepam 1 mg tablet 1 mg PO TID 11/29/17 08/21/21 History docusate sodium 100 mg capsule 100 mg PO QAM 11/29/17 08/21/21 History (Colace) dornase nicholas 1 mg/mL solution for 0.5 ml inhalation QAM 11/29/17 08/21/21 History inhalation (Pulmozyme) finasteride 5 mg tablet 5 mg PO QAM 11/29/17 08/21/21 History nitroglycerin 0.4 mg sublingual 0.4 mg sublingual DIRECTED PRN 11/29/17 08/21/21 History tablet espophageal spasm ondansetron HCl 4 mg tablet 4 mg PO Q8H PRN Nausea 11/29/17 08/21/21 History (Zofran) ascorbic acid (vitamin C) 250 mg 250 mg PO QAM 09/12/19 08/21/21 History tablet (Vitamin C) budesonide 0.5 mg/2 mL suspension 0.5 mg inhalation BID 09/12/19 08/21/21 History for nebulization cholecalciferol (vitamin D3) 10 10 mcg PO QAM 09/12/19 08/21/21 History mcg (400 unit) capsule (Vitamin D3) desonide 0.05 % topical cream 1 applic topical BID PRN breakouts 09/12/19 08/21/21 History ipratropium 0.5 mg-albuterol 3 mg 3 ml inhalation QID PRN Shortness 09/12/19 08/21/21 History (2.5 mg base)/3 mL nebulization Of Breath soln ketoconazole 2 % topical cream 1 applic topical BID 09/12/19 08/21/21 History montelukast 10 mg tablet 10 mg PO QAM 09/12/19 08/21/21 History dbrbufcv-odhddwcr-tfnbb acid 400 1 tab PO QAM 09/12/19 08/21/21 History mcg-vit K 20 mcg-lycop 300 mcg tablet (Men's Multivitamin) triamcinolone acetonide 0.025 % 1 applic topical BID PRN flareups 09/12/19 08/21/21 History topical cream levothyroxine 50 mcg tablet 50 mcg PO QAM 11/15/19 08/21/21 History (Synthroid) sodium chloride 3 % for 4 ml inhalation ONCE PRN Wheezing 11/15/19 08/21/21 History nebulization mepolizumab [Nucala] See Rx Instructions subcut .COMPLEX 01/03/20 08/21/21 History albuterol sulfate 90 mcg/actuation 2 puff inhalation QID PRN 01/08/20 08/21/21 Rx aerosol inhaler (Ventolin HFA) Shortness Of Breath Or Wheezing #3 Inhalers hydrocortisone 1 %-pramoxine 1 % 1 applic [place] BID PRN hemorrhoids 01/29/21 08/21/21 Rx rectal foam (Proctofoam HC) #10 grams hydrocortisone 2.5 % topical cream 1 applic [place] BID PRN pain #30 grams 02/05/21 08/21/21 Rx with perineal applicator (Proctosol HC) tamsulosin 0.4 mg capsule 0.4 mg PO QAM #30 caps 03/11/21 08/21/21 Rx pantoprazole 40 mg tablet,delayed 40 mg PO BID #180 tabs 03/18/21 08/21/21 Rx release Patient History Medical History Anxiety Asthma Alexandra esophagus BPH (benign prostatic hyperplasia) Bronchiectasis Follows with [facility] lung clinic in [place], and Dr. Lawrence in [place] for lung issues Cardiac murmur No murmur noted at 12/19/20 urology visit No significant valve issues noted on 2016 ECHO Chronic constipation Ciliary motility disorder Gets regular bronchoscopy and bronchial washings at [place] per 12/23/20 ENT note ENT aware of upcoming urology procedure Depression GERD (gastroesophageal reflux disease) Hard of hearing History of COVID-27 Jan 2020> headache, digestive issues, sinus problems > not hospitalized Hyperlipidemia NO MEDS Hypothyroidism IBS (irritable bowel syndrome) BREONNA on CPAP Pneumonia 04/2018-[facility]BACK TO HIS NORMAL" F/U DR PHAM/[facility]G [facility]IC [facility] SOB (shortness of breath) on exertion ON OCC Temporomandibular joint disorder HX RIGHT SIDE CLICKED-AND PAIN NO LOCKING Surgical History History of bilateral cataract extraction History of bronchoscopy X MULTIPLE History of cardiac cath 2016 NO STENTS-[facility] History of cholecystectomy History of fundoplication 2009 History of sinus surgery multiple > due to ciliary motility disorder History of tonsillectomy and adenoidectomy Family History Other No pertinent family history Social History Smoking Status: Never smoker Second Hand Exposure: No; Do You Dip or Chew Tobacco: No; Tobacco Cessation Education Requested by Patient: No Hx Alcohol Use: No Hx Substance Use: No Preferred Language: Serbian Communication Ability: Effective Seat Coverer Required: No Beliefs That Will Affect Care: None marital status: Current Living Situation: Spouse Other Information That Helps Us Care for You: No Feels Safe at Home: Yes Assistive Devices: BiPap, Glasses and Hearing Aid - Bilateral Review of Systems Constitutional: no fever and no chills Respiratory: no cough and no dyspnea Cardiovascular: no chest pain Gastrointestinal: + bloating, + change in bowel habits and + constipation; no abdominal pain, no diarrhea/loose stools and no blood in stools Integumentary: no problem reported Psychiatric: no problem reported Hematologic / Lymphatic: no unexplained weight loss Physical Exam Constitutional: well developed Respiratory: normal respiratory effort Cardiovascular: Rate/Rhythm: regular rate Gastrointestinal (Abdomen): Inspection/Auscultation: + abdomen distended and + hypoactive bowel sounds Percussion/Palpation: + abdomen firm; abdomen nontender and no abdominal mass Results & Data ([facility]) Vital Signs (Past 12 Hours) Vital Signs Pulse Resp BP Pulse Ox O2 Del Method 08/22/21 07:36 71 16 139/73 97 Room Air 08/22/21 07:10 66 18 94 Room Air 08/22/21 02:49 65 20 153/87 H 96 Room Air 08/22/21 01:43 70 18 123/71 93 Room Air 08/21/21 23:43 68 18 156/104 H 95 Room Air PG Care Time/CCT Total # of Minutes Spent Total Time Spent with Patient: Total time spent is greater than 50% in coordination of care (as documented) at patient's floor/unit and/or counseling patient: Coding Level of Care Code 08836 Inpt Consult Level 4 Diagnoses Large bowel obstruction K56.609
--- NOTE | 2021-08-22 12:48 | Surgery Progress Note ---
Date of Service August 22, 2021 Assessment & Plan (1) Large bowel obstruction: Plan: Patient for colonoscopy today. No urgent or emergent indication for surgical intervention currently. We will continue to follow along Dr. Alex ramírez for the weekend. (2) SBO (small bowel obstruction): (3) Abdominal distension: Admission and Anticipated Discharge Date Admission Date: August 21, 2021 Subjective Patient seen. No new complaints. He just finished his bowel prep for colonoscopy later this afternoon Physical Exam Constitutional: WD/WN, vitals as above no acute distress and not ill appearing Eyes: PERRL, conjunctivae normal, anicteric sclerae EOM intact bilaterally ENMT: external ear and nose normal, oropharynx normal Ears: no hearing impairment Neck: trachea midline, no thyromegaly Respiratory: normal respiratory effort; no respiratory distress and does not use accessory muscles Cardiovascular: Rate/Rhythm: regular rate and regular rhythm Gastrointestinal (Abdomen): normal bowel sounds, soft, nontender, no hepato splenomegaly Mild distention. No rebound or guarding Skin: no rashes, warm and dry Psychiatric: Orientation: alert, oriented x 3 and cooperative Results & Data ([facility]) Vital Signs (Past 12 Hours) Vital Signs Pulse Resp BP Pulse Ox O2 Del Method 08/22/21 12:10 69 16 138/62 99 Room Air 08/22/21 11:25 65 18 98 Room Air 08/22/21 10:00 73 16 140/83 96 08/22/21 07:36 71 16 139/73 97 Room Air 08/22/21 07:10 66 18 94 Room Air 08/22/21 02:49 65 20 153/87 H 96 Room Air 08/22/21 01:43 70 18 123/71 93 Room Air PG Care Time/CCT Total # of Minutes Spent Total Time Spent with Patient: Total time spent is greater than 50% in coordination of care (as documented) at patient's floor/unit and/or counseling patient: Coding Level of Care Code 48958 Subseq Hosp Care Lvl 2 Diagnoses Large bowel obstruction K56.609 SBO (small bowel obstruction) K56.609 Abdominal distension R14.0
[2021-08-22] MEDS: SODIUM CHLORIDE 0.9% 1000ML 1,000 ML IV SCH (13:18)
--- NOTE | 2021-08-22 14:26 | Anesthesiology Consultation ---
Date of Service August 22, 2021 Assessment & Plan ASA ASA3 Proposed Anesthesia Anesthesia Type: General and MAC Risk / Benefits Reviewed With: PT / POA / Parent / Guardian, Accepts Plan and Informed Consent Obtained History Surgery Operation Date: 08/22/21 17:15 Proposed Procedures p Colonoscopy Dr. Siomara Stringer MD Height/Weight Height: 6 ft Weight: 92.7 kg Allergies Allergy/AdvReac Type Severity Reaction Status Date / Time Sulfa (Sulfonamide Allergy Mild "SULFA Verified 08/21/21 14:16 Antibiotics) DRUGS": RASH, HOT FLASHES adhesive Allergy Unknown PLASTIC Verified 08/21/21 14:16 CLEAR TAPE-SKIN TURNS RED,ITCHING mold Allergy Unknown COUGH Verified 08/21/21 14:16 ragweed pollen Allergy Unknown SINUS Verified 08/21/21 14:16 DRAINAGE,STUFFINESS-TAKING ALLERGY SHOTS Kfctfkt-DVH-NtJ Reductase Allergy Unknown HOT Verified 08/21/21 14:16 Inhibitor FLASHES, [Iepksmx-Yud-Vzw Reductase RASH Inhibitor] tolmetin Allergy Verified 08/21/21 14:16 NSAIDS (Non-Steroidal AdvReac Intermediate NAUSEA Verified 08/21/21 14:16 Anti-Inflamma dobutamine AdvReac upset Verified 08/21/21 14:16 stomach Medications Home Medications Medication Instructions Recorded Confirmed Last Taken bupropion HCl 300 mg 24 hr tablet, 200 mg PO QAM 11/29/17 08/21/21 02/17/21 05:00 extended release clonazepam 1 mg tablet 1 mg PO TID 11/29/17 08/21/21 02/17/21 05:00 docusate sodium 100 mg capsule 100 mg PO QAM 11/29/17 08/21/21 02/17/21 05:00 (Colace) dornase nicholas 1 mg/mL solution for 0.5 ml inhalation QAM 11/29/17 08/21/21 02/17/21 05:00 inhalation (Pulmozyme) finasteride 5 mg tablet 5 mg PO QAM 11/29/17 08/21/21 02/17/21 05:00 nitroglycerin 0.4 mg sublingual 0.4 mg sublingual DIRECTED PRN 11/29/17 08/21/21 Unknown tablet espophageal spasm ondansetron HCl 4 mg tablet 4 mg PO Q8H PRN Nausea 11/29/17 08/21/21 08/15/18 14:00 (Zofran) ascorbic acid (vitamin C) 250 mg 250 mg PO QAM 09/12/19 08/21/21 02/17/21 05:00 tablet (Vitamin C) budesonide 0.5 mg/2 mL suspension 0.5 mg inhalation BID 09/12/19 08/21/21 02/10/21 05:00 for nebulization cholecalciferol (vitamin D3) 10 10 mcg PO QAM 09/12/19 08/21/21 02/15/21 mcg (400 unit) capsule (Vitamin D3) desonide 0.05 % topical cream 1 applic topical BID PRN breakouts 09/12/19 08/21/21 09/12/19 ipratropium 0.5 mg-albuterol 3 mg 3 ml inhalation QID PRN Shortness 09/12/19 08/21/21 02/17/21 05:00 (2.5 mg base)/3 mL nebulization Of Breath soln ketoconazole 2 % topical cream 1 applic topical BID 09/12/19 08/21/21 Unknown montelukast 10 mg tablet 10 mg PO QAM 09/12/19 08/21/21 02/16/21 18:00 qaxtgmxf-usblihoi-evkyo acid 400 1 tab PO QAM 09/12/19 08/21/21 02/16/21 mcg-vit K 20 mcg-lycop 300 mcg tablet (Men's Multivitamin) triamcinolone acetonide 0.025 % 1 applic topical BID PRN flareups 09/12/19 08/21/21 Unknown topical cream levothyroxine 50 mcg tablet 50 mcg PO QAM 11/15/19 08/21/21 02/16/21 18:00 (Synthroid) sodium chloride 3 % for 4 ml inhalation ONCE PRN Wheezing 11/15/19 08/21/21 02/17/21 05:00 nebulization mepolizumab [Nucala] See Rx Instructions subcut .COMPLEX 01/03/20 08/21/21 01/28/21 albuterol sulfate 90 mcg/actuation 2 puff inhalation QID PRN 01/08/20 08/21/21 Unknown aerosol inhaler (Ventolin HFA) Shortness Of Breath Or Wheezing #3 Inhalers hydrocortisone 1 %-pramoxine 1 % 1 applic [place] BID PRN hemorrhoids 01/29/21 08/21/21 Unknown rectal foam (Proctofoam HC) #10 grams hydrocortisone 2.5 % topical cream 1 applic [place] BID PRN pain #30 grams 02/05/21 08/21/21 Unknown with perineal applicator (Proctosol HC) tamsulosin 0.4 mg capsule 0.4 mg PO QAM #30 caps 03/11/21 08/21/21 Unknown pantoprazole 40 mg tablet,delayed 40 mg PO BID #180 tabs 03/18/21 08/21/21 Unknown release Active Medications Generic Name Dose Route Start Last Admin Trade Name Freq PRN Reason Stop Dose Admin Albuterol 3 ml 08/22/21 07:00 08/22/21 11:23 Albut/Ipratrop 3mg/0.5mg Neb 3 Ml Vial INH 09/21/21 06:59 3 ml QIDR KELLEY Administration Protocol Budesonide 0.5 mg 08/22/21 07:00 08/22/21 07:07 Budesonide 0.5 Mg/2 Ml Vial (Pulmicort) INH 09/21/21 06:59 0.5 mg BIDR KELLEY Administration Bupropion HCl 200 mg 08/22/21 09:00 08/22/21 08:54 Bupropion Sr 100 Mg Tabcr PO 09/21/21 08:59 200 mg QAM KELLEY Administration Clonazepam 1 mg 08/22/21 09:00 08/22/21 13:18 Clonazepam 1 Mg Tab PO 09/21/21 08:59 Not Given TID KELLEY Dornase Nicholas 2.5 ml 08/22/21 07:00 08/22/21 07:07 Dornase Nicholas 2.5 Ml Amp INH 09/21/21 06:59 2.5 ml DAILY@0700 KELLEY Administration Finasteride 5 mg 08/22/21 09:00 08/22/21 08:55 Finasteride 5 Mg Tab PO 09/21/21 08:59 5 mg QAM KELLEY Administration Guaifenesin 1,200 mg 08/22/21 09:00 08/22/21 08:55 Guaifenesin 600 Mg Tabcr PO 09/21/21 08:59 1,200 mg Q12 KELLEY Administration Pantoprazole Sodium 40 mg/ 10 mls @ 5 mls/min 08/22/21 09:00 08/22/21 08:57 Syringe IV 09/21/21 08:59 5 mls/min BID KELLEY Administration Sodium Chloride 1,000 mls @ 125 mls/hr 08/22/21 13:00 08/22/21 13:44 Nss 1000ml IV 09/21/21 12:59 0 mls/hr .Q8H KELLEY Infusion Ketoconazole 1 appln 08/22/21 09:00 08/22/21 08:57 Ketoconazole 2% Cr 15 Gm Tube EXT 09/01/21 08:59 Not Given BID KELLEY Levothyroxine Sodium 50 mcg 08/22/21 06:30 08/22/21 07:35 Levothyroxine Sodium 50 Mcg Tablet PO 09/21/21 06:29 50 mcg DAILYBB KELLEY Administration Miscellaneous 1 each 08/22/21 08:00 08/22/21 09:07 Order Awaiting Action: (Sodium Chloride 3 % Solution For Nebulization N/A 09/21/21 07:59 Not Given QS KELLEY Montelukast Sodium 10 mg 08/22/21 09:00 08/22/21 08:54 Montelukast Sodium 10 Mg Tablet PO 09/21/21 08:59 10 mg QAM KELLEY Administration Prednisone 20 mg 08/22/21 09:00 08/22/21 08:56 Prednisone 10 Mg Tablet PO 08/27/21 08:59 20 mg DAILY KELLEY Administration Taper Tamsulosin HCl 0.4 mg 08/22/21 09:00 08/22/21 08:56 Tamsulosin Hcl 0.4 Mg Cap PO 09/21/21 08:59 0.4 mg QAM KELLEY Administration NPO Date Last Intake of Fluids: 08/22/21 Time Last Intake of Fluids: 11:00 Date Last Intake of Solids: 08/21/21 Time Last Intake of Solids: 13:30 Past Medical History Medical History Anxiety Asthma Alexandra esophagus BPH (benign prostatic hyperplasia) Bronchiectasis Follows with [facility] lung clinic in [place], and Dr. Lawrence in [place] for lung issues Cardiac murmur No murmur noted at 12/19/20 urology visit No significant valve issues noted on 2015 ECHO Chronic constipation Ciliary motility disorder Gets regular bronchoscopy and bronchial washings at [place] per 12/23/20 ENT note ENT aware of upcoming urology procedure Depression GERD (gastroesophageal reflux disease) Hard of hearing History of COVID-27 Jan 2020> headache, digestive issues, sinus problems > not hospitalized Hyperlipidemia NO MEDS Hypothyroidism IBS (irritable bowel syndrome) BREONNA on CPAP Pneumonia 04/2018-[facility]BACK TO HIS NORMAL" F/U DR PHAM/L[facility]G CLINIC [facility] SOB (shortness of breath) on exertion ON OCC Temporomandibular joint disorder HX RIGHT SIDE CLICKED-AND PAIN NO LOCKING Exercise / Class Metabolic Activity II 4-5 Yardwork/Stairs/Walk up hill Past Family History Family History Other No pertinent family history Past Surgical History Surgical History History of bilateral cataract extraction History of bronchoscopy X MULTIPLE History of cardiac cath 2016 NO STENTS-[facility] History of cholecystectomy History of fundoplication 2010 History of sinus surgery multiple > due to ciliary motility disorder History of tonsillectomy and adenoidectomy Past Anesthesia History No Hx of Anesthesia Complications and No Family Hx of Anesthesia Complications History of PONV No Hx of PONV and No Hx of Motion Sickness Social History Smoking Status: Never smoker Do You Dip or Chew Tobacco: No Hx Alcohol Use: No Hx Substance Use: No substance use type: does not use Substance Use Type Other:: MEDICAL MARIJUANA CARD-USES MARIJUANA CREAM SHOULDER /DROPS SUBLINGUAL Q2D Last Used Substance Other:: 50 ML SUB HS/30 ML DROPS Q2D Review of Systems denies fever/cough/ colds/ chest pain/ SOB/ + BREONNA denies BREONNA Physical Exam Vital Signs Last Vital Signs Temp 36.5 C 08/22/21 13:58 Pulse 68 08/22/21 13:58 Resp 16 08/22/21 13:58 BP 139/80 08/22/21 13:58 Pulse Ox 99 08/22/21 13:58 O2 Del Method 08/22/21 13:58 ENMT Mouth: no TMJ abnormality and no dentition abnormality Thyromental Distance: > or= 3.5 Finger Breadths Mallampati Class: II Neck neck extension not limited Respiratory normal respiratory effort; no respiratory distress Auscultation: lungs clear to auscultation bilaterally Cardiovascular Rate/Rhythm: regular rate and regular rhythm Neurologic moves all extremities Psychiatric Orientation: alert and oriented x 3 Testing Laboratory Results 08/22/21 05:33 08/22/21 05:33 Urine Color Yellow 08/21/21 21:57 Urine Appearance Clear (Clear) 08/21/21 21:57 Urine pH 5.5 (4.5-7.5) 08/21/21 21:57 Ur Specific [place] 1.015 (1.000-1.030) 08/21/21 21:57 Urine Protein Negative (Negative) 08/21/21 21:57 Urine Glucose (UA) Negative (Negative) 08/21/21 21:57 Urine Ketones Negative (Negative) 08/21/21 21:57 Urine Nitrite Negative (Negative) 08/21/21 21:57 Ur Leukocyte Esterase Negative (Negative) 08/21/21 21:57
[2021-08-22] MEDS ORDERED: PROPOFOL IV EMULSION 10 MG/ML 20 ML VIAL IV ONE ×2 (14:34→14:51)
--- NOTE | 2021-08-22 15:07 | GI REPORT ---
Patient Name: Santi Mcarthur Procedure Date: 08/22/2021 2:31 PM Date of : 1960 Admit Type: Inpatient Age: 61 Gender: Male Attending MD: Bhupendra Stringer MD Procedure: Colonoscopy Providers: Bhupendra Stringer MD Referring MD: Roland Chin Indications: Abnormal CT of the GI tract, Constipation Medicines: Monitored Anesthesia Care Complications: No immediate complications. Estimated blood loss: None. Estimated Blood Loss: Estimated blood loss: none. Procedure: Pre-Anesthesia Assessment: - Prior Anticoagulants: The patient has taken no previous anticoagulant or antiplatelet agents. - ASA Grade Assessment: III - A patient with severe systemic disease. After I obtained informed consent, the scope was passed under direct vision. Throughout the procedure, the patient's blood pressure, pulse, and oxygen saturations were monitored continuously. The scope was introduced through the anus and advanced to the cecum, identified by appendiceal orifice and ileocecal valve. The colonoscopy was performed without difficulty. The patient tolerated the procedure well. The quality of the bowel preparation was fair. Findings: A moderate amount of liquid semi-liquid stool was found in the sigmoid colon, in the descending colon and in the transverse colon. significant suction was done. No stenosis, mass, or polyp was appreciated on exam the left colon was dilated likely as a result of chronic constipation/pseudoobstruction, air was suctioned out upon withdrawal. Impression: - Preparation of the colon was fair. - Stool in the sigmoid colon, in the descending colon and in the transverse colon. - No specimens collected. Recommendation: - Return patient to hospital [facility] for ongoing care. - Clear liquid diet today. -drink another 2L golytely today to clean out the rest of the colon -KUB tomorrow morning, if improved can advance diet as tolerated. -start linzess 145 mcg daily starting tomorrow Bhupendra Stringer MD 08/22/2021 3:06:49 PM This report has been signed electronically. Note Initiated On: 08/22/2021 2:31 PM Number of Addenda: 0 I attest to the content of the Intraoperative Record and orders documented therein, exceptions below {[id number]}
--- NOTE | 2021-08-22 15:25 | Anesthesiology Progress Note ---
Date of Service August 22, 2021 Anesthesia Post Procedure Vital Signs Vital Signs: Temp Pulse Pulse Resp BP BP Pulse Ox 08/22/21 15:18 65 16 122/68 97 08/22/21 15:03 72 16 102/69 96 08/22/21 13:58 36.5 C 68 16 139/80 99 08/22/21 13:54 73 16 125/71 97 08/22/21 12:10 69 16 138/62 99 08/22/21 11:25 65 18 98 08/22/21 10:00 73 16 140/83 96 08/22/21 07:36 71 16 139/73 97 08/22/21 07:10 66 18 94 08/22/21 02:49 65 20 153/87 H 96 08/22/21 01:43 70 18 123/71 93 08/21/21 23:43 68 18 156/104 H 95 08/21/21 21:54 63 18 127/79 96 08/21/21 20:00 61 18 130/75 97 08/21/21 17:31 78 18 153/97 H 97 O2 Del Method 08/22/21 15:18 Room Air 08/22/21 15:03 Room Air 08/22/21 13:58 Room Air 08/22/21 13:54 Room Air 08/22/21 12:10 Room Air 08/22/21 11:25 Room Air 08/22/21 10:00 08/22/21 07:36 Room Air 08/22/21 07:10 Room Air 08/22/21 02:49 Room Air 08/22/21 01:43 Room Air 08/21/21 23:43 Room Air 08/21/21 21:54 Room Air 08/21/21 20:00 Room Air 08/21/21 17:31 Room Air Pain Intensity Lower Back: Pain Intensity: 4 Transfer of Care Handoff Completed per policy Notes Mental Status: alert / awake / arousable Patient Amnestic to Procedure: Yes Nausea / Vomiting: adequately controlled Pain: adequately controlled Airway Patency, RR, SpO2: stable & adequate BP & HR: stable & adequate Hydration State: stable & adequate Anesthetic Complications: no major complications apparent
[2021-08-22] MEDS ORDERED: LAVAGE SOLUTION 4000ML PO SCH (17:00)
--- NOTE | 2021-08-22 18:01 | Electrocardiogram Report ---
Test Reason : Blood Pressure : / mmHG Vent. Rate : 080 BPM Atrial Rate : 080 BPM P-R Int : 118 ms QRS Dur : 080 ms QT Int : 378 ms P-R-T Axes : 054 -36 016 degrees QTc Int : 435 ms Normal sinus rhythm Left axis deviation Abnormal ECG When compared with ECG of 19-DEC-2020 12:05, No significant change was found Confirmed by Maynor Puckett ([id number]) on 08/22/2021 6:00:46 PM Referred By: REFERRED SELF Confirmed By:Boo Puckett
[2021-08-22] MEDS: LAVAGE SOLUTION 4000ML PO SCH ×5 (18:06→20:29)
[2021-08-22] MEDS ORDERED: Nursing to Pharmacy Communication SCH (20:15)
[2021-08-22] MEDS: MONTELUKAST SODIUM 10 MG TABLET PO SCH (20:29)
[2021-08-23] MEDS: SODIUM CHLORIDE 0.9% 1000ML 1,000 ML IV SCH ×4 (00:31→21:33)
[2021-08-23] MEDS: LEVOTHYROXINE SODIUM 50 MCG TABLET PO SCH (05:59)
[2021-08-23] MEDS ORDERED: ACETAMINOPHEN 325 MG TAB PO ONE (06:10)
[2021-08-23] MEDS: ALBUT/IPRATROP 3MG/0.5MG NEB 3 ML VIAL INH SCH ×4 (07:10→19:39)
[2021-08-23] MEDS: BUDESONIDE 0.5 MG/2 ML VIAL (PULMICORT) INH SCH ×2 (07:10→19:41)
[2021-08-23] MEDS: DORNASE ALFA 2.5 ML AMP INH SCH (07:47)
[2021-08-23] MEDS: TAMSULOSIN HCL 0.4 MG CAP PO SCH (08:25)
[2021-08-23] MEDS: LINACLOTIDE 145 MCG CAPSULE PO SCH (08:25)
[2021-08-23] MEDS: predniSONE 10 MG TABLET PO SCH (08:25)
[2021-08-23] MEDS: buPROPion SR 100 MG TABCR PO SCH (08:25)
[2021-08-23] MEDS: FINASTERIDE 5 MG TAB PO SCH (08:26)
[2021-08-23] MEDS: guaiFENesin 600 MG TABCR PO SCH ×2 (08:26→20:11)
[2021-08-23] MEDS: clonazePAM 1 MG TAB PO SCH ×3 (08:26→23:07)
[2021-08-23] MEDS: KETOCONAZOLE 2% CR 15 GM TUBE EXT SCH ×2 (08:28→20:11)
[2021-08-23] MEDS: PANTOprazole 40 MG in SYRINGE 0 ML IV SCH ×2 (08:32→20:12)
--- NOTE | 2021-08-23 10:08 | XRay Report ---
KUB HISTORY: Ileus versus obstruction. Abdominal distention. eval for colonic decompression COMPARISON: Abdomen and pelvis CT 08/21/2021 and KUB 08/21/2021. FINDINGS: Multiple dilated gas-filled loops of large small bowel are again seen throughout the abdome n. This is similar to the prior study. There is a small amount of gas identified within the rectum. P rior cholecystectomy. There are surgical clips at the epigastric region. No renal calculi. No ureter al calculi. No pneumoperitoneum or pneumatosis. IMPRESSION: No significant change in the dilated gas-filled loops of large and small bowel seen throughout the ab domen. This favors an ileus. A distal partial large bowel obstruction could also have a similar appea sujata. ACT 112: Negative or not required by law. Electronically signed by: Arturo Jacob M.D. 08/23/2021 10:06 AM
--- NOTE | 2021-08-23 14:24 | Surgery Progress Note ---
Date of Service August 23, 2021 Assessment & Plan (1) SBO (small bowel obstruction): Plan: F/U bowel obstruction, colonoscopy- stool in colon, passed 4 times BM, doing better, plan, keep clear diet now, will F/U, Admission and Anticipated Discharge Date Admission Date: August 21, 2021 Supervising Physician Co-Signing Physician Notes I personally evaluated the patient and agree with the findings as documented by Magdalene Hollingsworth, PAC proceed with colonoscopy. risks/benefits and procedure discussed with patient, who agrees to proceed Subjective this pt has been having pencil sized stools and some abdominal bloating, CT reads possible LARGE bowel obstruction 08/23/2021 2:22PM Dr. Johnson F/U SBO, S/P Colonoscopy, pt feels better, passed 4 times BM, mild abdominal pain,n no nausea, no vomiting, Physical Exam Constitutional: WD/WN, vitals as above Eyes: PERRL, conjunctivae normal, anicteric sclerae Neck: trachea midline, no thyromegaly Respiratory: normal respiratory effort, lungs clear to auscultation Cardiovascular: RRR, no murmur, no edema Gastrointestinal (Abdomen): soft, mild tenderness at periumbilical area, no rebound pain, BS + Neurologic: patellar DTR's 2+ bilat, sensation intact Psychiatric: A+Ox3, euthymic affect Results & Data ([facility]) Vital Signs (Past 12 Hours) Vital Signs Temp Pulse Pulse Pulse Resp BP Pulse Ox 08/23/21 10:27 65 18 97 08/23/21 07:40 36.4 C L 66 18 129/73 95 08/23/21 07:48 18 99 08/23/21 07:12 63 18 97 08/23/21 03:03 O2 Del Method FiO2 08/23/21 10:27 Room Air 08/23/21 07:40 Room Air 08/23/21 07:48 Room Air 08/23/21 07:12 Room Air 08/23/21 03:03 21 Diagnostic Findings Findings: Colonoscopy 08/22/2021 A moderate amount of liquid semi-liquid stool was found in the sigmoid colon, in the descending colon and in the transverse colon. significant suction was done. No stenosis, mass, or polyp was appreciated on exam the left colon was dilated likely as a result of chronic constipation/pseudoobstruction, air was suctioned out upon withdrawal. Impression: - Preparation of the colon was fair. - Stool in the sigmoid colon, in the descending colon and in the transverse colon. - No specimens collected.
--- NOTE | 2021-08-23 17:10 | Hospitalist Progress Note ---
Date of Service August 23, 2021 Assessment & Plan (1) SBO (small bowel obstruction): Plan: 61-year-old male presenting with abdominal distention, change in bowel movements with "pencil thin stools" and nausea. -colonoscopy showed pseudoobstruction GI medicine recommends clean out with bowel prep Appreciate general surgery assistance (2) Ciliary dyskinesia: Plan: Chronic. No respiratory distress. Adequate oxygenation on room air. Appreciate respiratory therapy assistance We will provide flutter valve 4 times daily Chest physiotherapy daily and as needed DuoNeb 4 times daily Budesonide twice daily Pulmozyme daily Mucinex 1200 mg twice daily Singular 10 mg p.o. every morning Patient is presently on a prednisone taper. He is to receive 20 mg p.o. daily on 08/22 and 08/23 and 10 mg p.o. daily on 08/24, 08/25 and 08/26. (3) GERD (gastroesophageal reflux disease): Plan: Chronic. Continue Protonix 40 mg IV twice daily (4) Hypothyroidism: Plan: Chronic. Continue levothyroxine 50 mcg p.o. daily (5) Depression: Plan: Chronic. Stable. Continue bupropion 200 mg p.o. every morning Continue clonazepam 1 mg p.o. 3 times daily scheduled (6) BPH (benign prostatic hyperplasia): Plan: Chronic. Stable. Continue finasteride 5 mg p.o. every morning Continue Flomax 0.4 mg p.o. every morning Admission and Anticipated Discharge Date Admission Date: August 21, 2021 Subjective pt is bloated after go lytely bowel prep, fortunately colonoscopy showed pseudo obstruction and should improve after clean out, pt is shakey and still with bloating and gas with mild to morate pain Review of Systems Review of Systems: Mild distress and fatigue no headache, no visual changes no speech or swallowing issues no chest pain, pressure or palpitations no shortness of breath, cough or wheezes lower quadrant abdominal pain, no nausea or vomiting,some bloating no dysuria, hematuria or frequency no focal joint pain or swelling no back pain, CVA tenderness or radicular pain no bruising, bleeding or rashes no focal signs of weakness or numbness or altered sensation no complaints of anxiety or depression.. Physical Exam Physical Exam: The patient appeared well nourished and normally developed. Vital signs as documented. Head exam is normocephalic atraumatic Neck is without JVD, thyromegaly, or carotid bruits. Lungs are clear to auscultation, no focal loss of breath sounds Cardiac exam, Rhythm is regular.. No murmurs, rubs or gallops. Abdominal exam reveals hyperactive bowel sounds, soft distended and tympanitic Extremities are nonedematous and both pedal pulses are present Neurologic exam is alert and oriented, no focal loss of strength or sensation Skin is without bruises or rashes Psychologically is without concerns for anxiety or depression.. Results & Data Results & Data ([facility]) Vital Signs (Past 12 Hours) Vital Signs Temp Pulse Pulse Pulse Resp BP Pulse Ox 08/23/21 16:00 98.4 F 76 16 114/69 96 08/23/21 14:39 75 18 97 08/23/21 10:27 65 18 97 08/23/21 07:40 97.5 F L 66 18 129/73 95 08/23/21 07:48 18 99 08/23/21 07:12 63 18 97 O2 Del Method 08/23/21 16:00 Room Air 08/23/21 14:39 Room Air 08/23/21 10:27 Room Air 08/23/21 07:40 Room Air 08/23/21 07:48 Room Air 08/23/21 07:12 Room Air PG Care Time/CCT Total # of Minutes Spent Total Time Spent with Patient: Total time spent is greater than 50% in coordination of care (as documented) at patient's floor/unit and/or counseling patient: Coding Level of Care Code 48428 Subseq Hosp Care Lvl 2 Diagnoses SBO (small bowel obstruction) K56.609 Ciliary dyskinesia J98.4 GERD (gastroesophageal reflux disease) K21.9 Esophagitis presence: without esophagitis Hypothyroidism E03.9 Hypothyroidism type: acquired Depression F32.9 BPH (benign prostatic hyperplasia) N40.0 Lower urinary tract symptom presence: symptoms absent (1) GERD (gastroesophageal reflux disease) Esophagitis presence: without esophagitis Qualified Code(s): K21.9 - Gastro- esophageal reflux disease without esophagitis (2) Hypothyroidism Hypothyroidism type: acquired Qualified Code(s): E03.9 - Hypothyroidism, unspecified (3) BPH (benign prostatic hyperplasia) Lower urinary tract symptom presence: symptoms absent Qualified Code(s): N40.0 - Benign prostatic hyperplasia without lower urinary tract symptoms
[2021-08-23] MEDS: MONTELUKAST SODIUM 10 MG TABLET PO SCH (20:12)
[2021-08-24] MEDS: ACETAMINOPHEN 500 MG TAB PO PRN ×2 (00:28→21:19)
[2021-08-24] MEDS: SODIUM CHLORIDE 0.9% 1000ML 1,000 ML IV SCH ×2 (04:40→14:05)
[2021-08-24] MEDS: LEVOTHYROXINE SODIUM 50 MCG TABLET PO SCH (06:48)
[2021-08-24] MEDS: BUDESONIDE 0.5 MG/2 ML VIAL (PULMICORT) INH SCH ×2 (07:02→19:52)
[2021-08-24] MEDS: DORNASE ALFA 2.5 ML AMP INH SCH (07:03)
[2021-08-24] MEDS: ALBUT/IPRATROP 3MG/0.5MG NEB 3 ML VIAL INH SCH ×4 (07:03→19:52)
[2021-08-24] MEDS: guaiFENesin 600 MG TABCR PO SCH ×2 (09:14→21:19)
[2021-08-24] MEDS: clonazePAM 1 MG TAB PO SCH ×3 (09:14→23:05)
[2021-08-24] MEDS: FINASTERIDE 5 MG TAB PO SCH (09:14)
[2021-08-24] MEDS: buPROPion SR 100 MG TABCR PO SCH (09:14)
[2021-08-24] MEDS: predniSONE 10 MG TABLET PO SCH (09:15)
[2021-08-24] MEDS: LINACLOTIDE 145 MCG CAPSULE PO SCH (09:15)
[2021-08-24] MEDS: TAMSULOSIN HCL 0.4 MG CAP PO SCH (09:15)
[2021-08-24] MEDS: PANTOprazole 40 MG in SYRINGE 0 ML IV SCH ×2 (09:18→21:21)
[2021-08-24] MEDS: KETOCONAZOLE 2% CR 15 GM TUBE EXT SCH ×2 (09:18→21:21)
--- NOTE | 2021-08-24 09:53 | XRay Report ---
KUB CLINICAL HISTORY: Ileus. FINDINGS: 3 AP supine abdominal radiographs are compared to study dated 08/23/2021 and correlated with abdominal CT dated 08/21/2021. Surgical clips project over the gastroesophageal junction. Cholecystec tessie clips are noted in the right upper quadrant. There is persistent gaseous distention of the small bowel loops and colon. No evidence of intraperitoneal free air is seen on these supine images. There are no abnormal abdominal calcifications. The bony structures appear intact. IMPRESSION: Gaseous distention of the small bowel and colon is unchanged from yesterday. The appearan ce favors ileus. A distal small colonic obstruction could appear similar and clinical correlation scott l be required. Electronically signed by: Jerardo Quintero M.D. 08/24/2021 9:51 AM
[2021-08-24] MEDS ORDERED: SIMETHICONE 40 MG/0.6 ML 30ML PO ONE (10:15)
[2021-08-24] MEDS ORDERED: SIMETHICONE 80 MG CHEW PO ONE (10:30)
--- NOTE | 2021-08-24 12:37 | Surgery Progress Note ---
Date of Service August 24, 2021 Assessment & Plan (1) SBO (small bowel obstruction): Plan: F/U bowel obstruction, colonoscopy- stool in colon, passed 4 times BM, doing better, plan, keep clear diet now, will F/U, 08/24/2021 12:36PM F/U bowel obstruction, colonoscopy- stool in colon, soft diet, will F/U Admission and Anticipated Discharge Date Admission Date: August 21, 2021 Supervising Physician Co-Signing Physician Notes I personally evaluated the patient and agree with the findings as documented by Magdalene Hollingsworth, FILI proceed with colonoscopy. risks/benefits and procedure discussed with patient, who agrees to proceed Subjective pt is bloated after go lytely bowel prep, fortunately colonoscopy showed pseudo obstruction and should improve after clean out, pt is shakey and still with bloating and gas with mild to morate pain 08/24/2021 12:34Pm, Dr. Johnson f/u bowel obstruction, pt is doing fine, passed BM, no abdominal pain, tolerated clear diet, no fever, Physical Exam Constitutional: WD/WN, vitals as above Eyes: PERRL, conjunctivae normal, anicteric sclerae Neck: trachea midline, no thyromegaly Respiratory: normal respiratory effort, lungs clear to auscultation Cardiovascular: RRR, no murmur, no edema Gastrointestinal (Abdomen): soft, NT, ND BS +, Neurologic: patellar DTR's 2+ bilat, sensation intact Psychiatric: A+Ox3, euthymic affect Results & Data ([facility]) Vital Signs (Past 12 Hours) Vital Signs Temp Pulse Resp BP Pulse Ox O2 Del Method 08/24/21 10:40 69 18 95 Room Air 08/24/21 07:27 36.3 C L 66 14 135/73 95 Room Air 08/24/21 07:05 60 18 97 Room Air
[2021-08-24] MEDS ORDERED: POLYETHYLENE (MIRALAX) 17 GM PACK PO ONE (17:17)
--- NOTE | 2021-08-24 17:22 | Hospitalist Progress Note ---
Date of Service August 24, 2021 Assessment & Plan (1) SBO (small bowel obstruction): Plan: 61-year-old male presenting with abdominal distention, change in bowel movements with "pencil thin stools" and nausea. -colonoscopy showed pseudoobstruction GI medicine recommends clean out with bowel prep this was with good results however has increased gas and abd distension and no bowel movement since, will give miralax at this time Appreciate general surgery assistance, no intervention planned (2) Ciliary dyskinesia: Plan: Chronic. No respiratory distress. Adequate oxygenation on room air. Appreciate respiratory therapy assistance We will provide flutter valve 4 times daily Chest physiotherapy daily and as needed DuoNeb 4 times daily Budesonide twice daily Pulmozyme daily Mucinex 1200 mg twice daily Singular 10 mg p.o. every morning Patient is presently on a prednisone taper. He is to receive 20 mg p.o. daily on 08/22 and 08/23 and 10 mg p.o. daily on 08/24, 08/25 and 08/26. (3) GERD (gastroesophageal reflux disease): Plan: Chronic. Continue Protonix 40 mg IV twice daily (4) Hypothyroidism: Plan: Chronic. Continue levothyroxine 50 mcg p.o. daily (5) Depression: Plan: Chronic. Stable. Continue bupropion 200 mg p.o. every morning Continue clonazepam 1 mg p.o. 3 times daily scheduled (6) BPH (benign prostatic hyperplasia): Plan: Chronic. Stable. Continue finasteride 5 mg p.o. every morning Continue Flomax 0.4 mg p.o. every morning Admission and Anticipated Discharge Date Admission Date: August 21, 2021 Subjective pt still feels bloated, some flatus and no bowel movement since bowel prep Pt is concerned bout his ciliary dyskinesia and lack of expectoration of mucus, is on pulmozyme, guafenacin and chest vest/flutter valve Review of Systems Review of Systems: Mild distress and fatigue no headache, no visual changes no speech or swallowing issues no chest pain, pressure or palpitations baseline shortness of breath, non productive cough lower quadrant abdominal pain, no nausea or vomiting, continued bloating no dysuria, hematuria or frequency no focal joint pain or swelling no back pain, CVA tenderness or radicular pain no bruising, bleeding or rashes no focal signs of weakness or numbness or altered sensation no complaints of anxiety or depression.. Physical Exam Physical Exam: The patient appeared well nourished and normally developed. Vital signs as documented. Head exam is normocephalic atraumatic Neck is without JVD, thyromegaly, or carotid bruits. Lungs are diminshed at the bases Cardiac exam, Rhythm is regular.. No murmurs, rubs or gallops. Abdominal exam reveals hyperactive bowel sounds, soft remains distended and tympanitic Extremities are nonedematous and both pedal pulses are present Neurologic exam is alert and oriented, no focal loss of strength or sensation Skin is without bruises or rashes Psychologically is without concerns for anxiety or depression.. Results & Data Results & Data ([facility]) Vital Signs (Past 12 Hours) Vital Signs Temp Pulse Resp BP Pulse Ox O2 Del Method 08/24/21 15:20 98.4 F 77 16 132/74 96 Room Air 08/24/21 15:00 74 18 96 Room Air 08/24/21 10:40 69 18 95 Room Air 08/24/21 07:27 97.3 F L 66 14 135/73 95 Room Air 08/24/21 07:05 60 18 97 Room Air PG Care Time/CCT Total # of Minutes Spent Total Time Spent with Patient: Total time spent is greater than 50% in coordination of care (as documented) at patient's floor/unit and/or counseling patient: Coding Level of Care Code 92694 Subseq Hosp Care Lvl 2 Diagnoses SBO (small bowel obstruction) K56.609 Ciliary dyskinesia J98.4 GERD (gastroesophageal reflux disease) K21.9 Esophagitis presence: without esophagitis Hypothyroidism E03.9 Hypothyroidism type: acquired Depression F32.9 BPH (benign prostatic hyperplasia) N40.0 Lower urinary tract symptom presence: symptoms absent (1) BPH (benign prostatic hyperplasia) Lower urinary tract symptom presence: symptoms absent Qualified Code(s): N40.0 - Benign prostatic hyperplasia without lower urinary tract symptoms (2) Hypothyroidism Hypothyroidism type: acquired Qualified Code(s): E03.9 - Hypothyroidism, unspecified (3) GERD (gastroesophageal reflux disease) Esophagitis presence: without esophagitis Qualified Code(s): K21.9 - Gastro- esophageal reflux disease without esophagitis
[2021-08-24] MEDS ORDERED: DORNASE ALFA 2.5 ML AMP INH ONE (19:00)
[2021-08-24] MEDS: MONTELUKAST SODIUM 10 MG TABLET PO SCH (21:19)
[2021-08-24] MEDS: SIMETHICONE 80 MG CHEW PO PRN (21:20)
[2021-08-25] MEDS: LEVOTHYROXINE SODIUM 50 MCG TABLET PO SCH (06:22)
[2021-08-25] MEDS: ALBUT/IPRATROP 3MG/0.5MG NEB 3 ML VIAL INH SCH ×4 (07:11→20:24)
[2021-08-25] MEDS: BUDESONIDE 0.5 MG/2 ML VIAL (PULMICORT) INH SCH ×2 (07:12→20:25)
[2021-08-25] MEDS: DORNASE ALFA 2.5 ML AMP INH SCH (07:21)
[2021-08-25] MEDS: SIMETHICONE 80 MG CHEW PO PRN ×2 (09:06→18:02)
[2021-08-25] MEDS: PANTOprazole 40 MG in SYRINGE 0 ML IV SCH ×2 (09:12→20:13)
[2021-08-25] MEDS: clonazePAM 1 MG TAB PO SCH ×3 (09:19→22:16)
[2021-08-25] MEDS: buPROPion SR 100 MG TABCR PO SCH (09:19)
[2021-08-25] MEDS: FINASTERIDE 5 MG TAB PO SCH (09:19)
[2021-08-25] MEDS: predniSONE 10 MG TABLET PO SCH (09:19)
[2021-08-25] MEDS: TAMSULOSIN HCL 0.4 MG CAP PO SCH (09:19)
[2021-08-25] MEDS: guaiFENesin 600 MG TABCR PO SCH ×2 (09:19→20:13)
[2021-08-25] MEDS: LINACLOTIDE 145 MCG CAPSULE PO SCH (09:19)
[2021-08-25] MEDS: KETOCONAZOLE 2% CR 15 GM TUBE EXT SCH ×2 (09:19→20:15)
[2021-08-25] MEDS ORDERED: HYDROCORTISONE SOD 50 MG in SYRINGE 0 ML IV ONE (11:00)
[2021-08-25] MEDS: FAMOTIDINE 10 MG TABLET PO SCH ×2 (11:10→20:13)
[2021-08-25 11:36] LABS: Hematocrit (blood only) 41.1 % (40.1-51.0); Hemoglobin 13.3 g/dl (14.0-18.0); Mean Corpuscular Hemoglobin 28.9 pg (25.0-34.0); Mean Corpuscular Hgb Conc 32.4 g/dL (32.0-36.0); Mean Corpuscular Volume 89.2 fL (80.0-100.0); Mean Platelet Volume 8.9 fL (9.4-12.4); Platelet Count 219 K/uL (130-400); RDW Coefficient of Variation 14.8 % (11.5-14.5); RDW Standard Deviation 47.2 fL (36.4-46.3); Red Blood Count 4.61 M/uL (4.63-6.08); White Blood Count 9.67 K/ul (4.8-10.8)
[2021-08-25 11:52] LABS: Albumin Globulin Ratio 1.3 (0.9-2); Albumin Level 3.8 gm/dl (3.4-5.0); BUN Creatinine Ratio 9.5 (10-20); Bilirubin,Total 0.9 mg/dl (0.2-1.0); Calcium 8.5 mg/dl (8.5-10.1); Creatinine Clr Calc Pharmacy 65.9 ml/min; Est GFR (African American) 69.9 ml/min; Est GFR (Non-African American) 60.3 ml/min; Total Protein 6.8 gm/dl (6.0-8.3)
--- NOTE | 2021-08-25 17:09 | Hospitalist Progress Note ---
Date of Service August 25, 2021 Assessment & Plan (1) SBO (small bowel obstruction): Plan: 61-year-old male presenting with abdominal distention, change in bowel movements with "pencil thin stools" and nausea. -colonoscopy showed pseudoobstruction GI medicine recommends clean out with bowel prep this was with good results -did have bowel movements on 08/24/21 Appreciate general surgery assistance, no intervention planned N/V pt feels maybe linzess black liquid stools, stable hgb on ppi, check stool biofire (2) Ciliary dyskinesia: Plan: Chronic. No respiratory distress. Adequate oxygenation on room air. Appreciate respiratory therapy assistance We will provide flutter valve 4 times daily Chest physiotherapy daily and as needed DuoNeb 4 times daily Budesonide twice daily Pulmozyme daily Mucinex 1200 mg twice daily Singular 10 mg p.o. every morning Patient is presently on a prednisone taper. He is to receive 20 mg p.o. daily on 08/22 and 08/23 and 10 mg p.o. daily on 08/24, 08/25 and 08/26. Pt feels achey ? if steroid taper, given hydrocortisone iv x 1 (3) GERD (gastroesophageal reflux disease): Plan: Chronic. Continue Protonix 40 mg IV twice daily (4) Hypothyroidism: Plan: Chronic. Continue levothyroxine 50 mcg p.o. daily (5) Depression: Plan: Chronic. Stable. Continue bupropion 200 mg p.o. every morning Continue clonazepam 1 mg p.o. 3 times daily scheduled (6) BPH (benign prostatic hyperplasia): Plan: Chronic. Stable. Continue finasteride 5 mg p.o. every morning Continue Flomax 0.4 mg p.o. every morning Admission and Anticipated Discharge Date Admission Date: August 21, 2021 Subjective Pt feels nauseated and has some vomiting remembers had reaction to Linzess in the past, similar, stopping linzes some success with additional dose of dornase Review of Systems Review of Systems: Mild distress and fatigue no headache, no visual changes no speech or swallowing issues no chest pain, pressure or palpitations baseline shortness of breath, non productive cough lower quadrant abdominal pain, did have some nausea & vomiting, lessening bloating no dysuria, hematuria or frequency no focal joint pain or swelling no back pain, CVA tenderness or radicular pain no bruising, bleeding or rashes no focal signs of weakness or numbness or altered sensation no complaints of anxiety or depression.. Physical Exam Physical Exam: The patient appeared well nourished and normally developed. Vital signs as documented. Head exam is normocephalic atraumatic Neck is without JVD, thyromegaly, or carotid bruits. Lungs are diminshed at the bases Cardiac exam, Rhythm is regular.. No murmurs, rubs or gallops. Abdominal exam reveals hyperactive bowel sounds, soft remains distended and tympanitic Extremities are nonedematous and both pedal pulses are present Neurologic exam is alert and oriented, no focal loss of strength or sensation Skin is without bruises or rashes Psychologically is without concerns for anxiety or depression.. Results & Data Results & Data ([facility]) Vital Signs (Past 12 Hours) Vital Signs Temp Pulse Resp BP Pulse Ox O2 Del Method 08/25/21 15:17 97.9 F 85 16 117/67 94 08/25/21 14:42 76 19 90 Room Air 08/25/21 10:59 71 18 97 Room Air 08/25/21 08:09 98.2 F 73 16 123/66 98 08/25/21 07:14 61 19 95 Room Air PG Care Time/CCT Total # of Minutes Spent Total Time Spent with Patient: Total time spent is greater than 50% in coordination of care (as documented) at patient's floor/unit and/or counseling patient: Coding Level of Care Code 26069 Subseq Hosp Care Lvl 2 Diagnoses SBO (small bowel obstruction) K56.609 Ciliary dyskinesia J98.4 GERD (gastroesophageal reflux disease) K21.9 Esophagitis presence: without esophagitis Hypothyroidism E03.9 Hypothyroidism type: acquired Depression F32.9 BPH (benign prostatic hyperplasia) N40.0 Lower urinary tract symptom presence: symptoms absent (1) GERD (gastroesophageal reflux disease) Esophagitis presence: without esophagitis Qualified Code(s): K21.9 - Gastro- esophageal reflux disease without esophagitis (2) Hypothyroidism Hypothyroidism type: acquired Qualified Code(s): E03.9 - Hypothyroidism, unspecified (3) BPH (benign prostatic hyperplasia) Lower urinary tract symptom presence: symptoms absent Qualified Code(s): N40.0 - Benign prostatic hyperplasia without lower urinary tract symptoms
[2021-08-25] MEDS ORDERED: DORNASE ALFA 2.5 ML AMP INH ONE ×2 (19:00→20:15)
[2021-08-25] MEDS: MONTELUKAST SODIUM 10 MG TABLET PO SCH (20:13)
[2021-08-25] MEDS: ACETAMINOPHEN 500 MG TAB PO PRN (20:13)
[2021-08-26] MEDS: LEVOTHYROXINE SODIUM 50 MCG TABLET PO SCH (06:34)
[2021-08-26] MEDS: ALBUT/IPRATROP 3MG/0.5MG NEB 3 ML VIAL INH SCH ×3 (07:50→14:26)
[2021-08-26] MEDS: BUDESONIDE 0.5 MG/2 ML VIAL (PULMICORT) INH SCH (07:50)
[2021-08-26] MEDS: DORNASE ALFA 2.5 ML AMP INH SCH (08:03)
[2021-08-26] MEDS: predniSONE 10 MG TABLET PO SCH (08:33)
[2021-08-26] MEDS: buPROPion SR 100 MG TABCR PO SCH (08:33)
[2021-08-26] MEDS: TAMSULOSIN HCL 0.4 MG CAP PO SCH (08:33)
[2021-08-26] MEDS: KETOCONAZOLE 2% CR 15 GM TUBE EXT SCH (08:34)
[2021-08-26] MEDS: PANTOprazole 40 MG in SYRINGE 0 ML IV SCH (08:34)
[2021-08-26] MEDS: guaiFENesin 600 MG TABCR PO SCH (08:35)
[2021-08-26] MEDS: FAMOTIDINE 10 MG TABLET PO SCH (08:35)
[2021-08-26] MEDS: FINASTERIDE 5 MG TAB PO SCH (08:35)
[2021-08-26] MEDS: clonazePAM 1 MG TAB PO SCH ×2 (08:41→14:15)
[2021-08-26 08:43] LABS: Hematocrit (blood only) 42.8 % (40.1-51.0); Hemoglobin 13.6 g/dl (14.0-18.0); Mean Corpuscular Hemoglobin 28.8 pg (25.0-34.0); Mean Corpuscular Hgb Conc 31.8 g/dL (32.0-36.0); Mean Corpuscular Volume 90.7 fL (80.0-100.0); Platelet Count 224 K/uL (130-400); RDW Coefficient of Variation 14.9 % (11.5-14.5); RDW Standard Deviation 48.5 fL (36.4-46.3); Red Blood Count 4.72 M/uL (4.63-6.08); White Blood Count 9.09 K/ul (4.8-10.8)
--- NOTE | 2021-08-26 17:20 | Discharge Summary ---
Date of Service August 26, 2021 Admission HPI Per Admitting Provider Santi Mcarthur is a pleasant 61yo male with history of BPH, GERD, HLP presenting with abdominal pain, distention and change in bowel movements. Patient reports over the last several days he has had difficulty having bowel movements. His stools have become long and thin like a pencil and he has been passing a small amount 2-3 times per day. He has had significant abdominal distention and passage of flatus. He saw GI today and had an x-ray obtained which was suggestive of a small bowel obstruction. He was subsequently sent to the ER for additional work-up. Patient denies abdominal pain at present. He has mild nausea but no vomiting (of note, patient has history of Brittany fundoplication and therefore does not regurgitate). He denies diarrhea and is passing small amounts of gas. He denies fevers, chills, chest pain, palpitations, shortness of breath. Patient reports a history of primary ciliary dyskinesia which causes him problems with pulmonary secretion management and frequent mucous plugging. He is on a strict regimen of nebulizers as well as flutter valve and chest PT at home. He does feel like he is having a buildup of mucus now and voices concern about possible mucous plugging. Otherwise no complaints Principal Diagnosis pseudoobstruction of colon, relieved with bowel prep ciliary dyskinesia Discharge Exam The patient appeared stable Vital signs as documented. Lungs are clear to auscultation and appear unlabored Cardiac exam, Rhythm is regular.. No murmurs, rubs or gallops. Abdominal exam reveals normal bowel sounds, soft non tender, mildly distended Extremities are nonedematous and both pedal pulses are normal. Neurologic exam is alert and oriented, no focal loss of strength or sensation Skin is without bruises or rashes Psychologically is without concerns for anxiety or depression. Discharge Data Allergies Allergy/AdvReac Type Severity Reaction Status Date / Time Sulfa (Sulfonamide Allergy Mild "SULFA Verified 08/21/21 14:16 Antibiotics) DRUGS": RASH, HOT FLASHES adhesive Allergy Unknown PLASTIC Verified 08/21/21 14:16 CLEAR TAPE-SKIN TURNS RED,ITCHING mold Allergy Unknown COUGH Verified 08/21/21 14:16 ragweed pollen Allergy Unknown SINUS Verified 08/21/21 14:16 DRAINAGE,STUFFINESS-TAKING ALLERGY SHOTS Fvfdbcn-UPZ-HtM Reductase Allergy Unknown HOT Verified 08/21/21 14:16 Inhibitor FLASHES, [Ifmpwty-Tmr-Pxk Reductase RASH Inhibitor] tolmetin Allergy Verified 08/21/21 14:16 NSAIDS (Non-Steroidal AdvReac Intermediate NAUSEA Verified 08/21/21 14:16 Anti-Inflamma dobutamine AdvReac upset Verified 08/21/21 14:16 stomach linzess AdvReac Intermediate Nausea Uncoded 08/25/21 10:39 Consultations 08/21/21 22:16 Consult General Surgery Stat 08/21/21 22:46 ED Decision to Admit Stat 08/22/21 01:19 Consult Gastroenterology Routine Procedures Performed Operation Date: 08/22/21 17:15 Actual Procedures p Colonoscopy - Bhupendra Stringer MD Ordered Studies 08/21/21 17:40 CT abd pelvis oral and IV con Stat Hospital Course (1) SBO (small bowel obstruction): 61-year-old male presenting with abdominal distention, change in bowel movements with "pencil thin stools" and nausea. -colonoscopy showed pseudoobstruction GI medicine recommends clean out with bowel prep this was with good results -did have bowel movements on 08/24/21 Appreciate general surgery assistance, no intervention planned N/V pt feels maybe linzess, this resolved after stoping linzess placed on allergy list black liquid stools, stable hgb on ppi (2) Ciliary dyskinesia: Chronic. No respiratory distress. Adequate oxygenation on room air. Appreciate respiratory therapy assistance We will provide flutter valve 4 times daily Chest physiotherapy daily and as needed DuoNeb 4 times daily Budesonide twice daily Pulmozyme daily Mucinex 1200 mg twice daily Singular 10 mg p.o. every morning Patient is presently on a prednisone taper. He is to receive 20 mg p.o. daily pt will not taper as did feel improved after hydrocortisone (3) GERD (gastroesophageal reflux disease): Chronic. Continue Protonix 40 mg IV twice daily (4) Hypothyroidism: Chronic. Continue levothyroxine 50 mcg p.o. daily (5) Depression: Chronic. Stable. Continue bupropion 200 mg p.o. every morning Continue clonazepam 1 mg p.o. 3 times daily scheduled (6) BPH (benign prostatic hyperplasia): Chronic. Stable. Continue finasteride 5 mg p.o. every morning Continue Flomax 0.4 mg p.o. every morning Total Time Total Time Spent Total Time Spent (In Minutes): It required greater than 30 minutes to prepare this patient for discharge Discharge Plan Discharge Items Patient Disposition: Home - Self-Care Reason For Visit: SBO Discharge Diagnosis: pseudo obstruction ciliary dyskinesia Condition on Discharge: Good Activity: Resume your previous activity Non-emergency contact: Primary Care Provider Call non-emergency contact if: your symptoms worsen Follow-up/Referrals: Jose Florez MD [Primary Care Provider] - (Please make appointment with your primary care in 7-10 days.) Diet: Regular Addtl Attending Provider Instructions: please be sure to have at least a good bowel movement every day continue your home colace and fiber, you may increase your colace to twice a day other laxatives to use can be clear lax or miralax and senna please increase your streroids to 20 mg once daily and contact Dr Lawrence for further instructions Pending Studies at Discharge: No Stand-Alone Forms: My [email or web address], Smoking Cessation Medications and DC Order Prescriptions: New prednisone 10 mg Tablet 20 mg PO DAILY Qty: 60 0RF Continued albuterol sulfate [Ventolin HFA] 90 mcg/actuation HFA aerosol inhaler 2 puff INHALATION QID PRN (Reason: Shortness Of Breath Or Wheezing) Qty: 3 1RF tamsulosin 0.4 mg capsule 0.4 mg PO QAM Qty: 30 1RF mepolizumab See Rx Instructions subcut .COMPLEX Rx Instructions: subcut once monthly; pantoprazole 40 mg tablet,delayed release (DR/EC) 40 mg PO BID Qty: 180 3RF sodium chloride 3 % solution for nebulization 4 ml inhalation ONCE PRN (Reason: Wheezing) levothyroxine [Synthroid] 50 mcg tablet 50 mcg PO QAM Proctofoam HC 1-1 % foam 1 applic [place] BID PRN (Reason: hemorrhoids) Qty: 10 3RF hydrocortisone [Proctosol HC] 2.5 % cream with perineal applicator 1 applic NJ BID PRN (Reason: pain) Qty: 30 2RF ondansetron HCl [Zofran] 4 mg Tablet 4 mg PO Q8H PRN (Reason: Nausea) clonazepam 1 mg tablet 1 mg PO TID Pulmozyme 1 mg/mL Solution 0.5 ml INHALATION QAM nitroglycerin 0.4 mg tablet, sublingual 0.4 mg Sublingual DIRECTED PRN (Reason: espophageal spasm) Label Comments: has not taken yet finasteride 5 mg tablet 5 mg PO QAM bupropion HCl 300 mg tablet extended release 24 hr 200 mg PO QAM docusate sodium [Colace] 100 mg Capsule 100 mg PO QAM desonide 0.05 % Cream 1 applic TOPICAL BID PRN (Reason: breakouts) ipratropium-albuterol 0.5 mg-3 mg(2.5 mg base)/3 mL Solution For Nebulization 3 ml INHALATION QID PRN (Reason: Shortness Of Breath) triamcinolone acetonide 0.025 % Cream 1 applic TOPICAL BID PRN (Reason: flareups) ascorbic acid (vitamin C) [Vitamin C] 250 mg Tablet 250 mg PO QAM montelukast 10 mg tablet 10 mg PO QAM ketoconazole 2 % Cream 1 applic TOPICAL BID cholecalciferol (vitamin D3) [Vitamin D3] 10 mcg (400 unit) Capsule 10 mcg PO QAM Men's Multivitamin 400-20-300 mcg Tablet 1 tab PO QAM budesonide 0.5 mg/2 mL suspension for nebulization 0.5 mg inhalation BID Discharge Orders: Discharge Order (Routine); Ordered 08/26/21 Ordered By: Roland Chin Admission Data Admit Date/Time: 08/21/21 23:47 Attending Provider: Roland Chin Admit Provider: Aimee Johnson Primary Care Provider: Jose Florez Other Providers: Jeff Cota ; Aimee Johnson ; Hans Jaime Other Interventions: Discharge Summary Assessment (RN) Last Done: 08/26/21 15:31 Coding Level of Care Code D/C DAY MANAGEMENT >30 MINS Diagnoses SBO (small bowel obstruction) K56.609 Ciliary dyskinesia J98.4 GERD (gastroesophageal reflux disease) K21.9 Esophagitis presence: without esophagitis Hypothyroidism E03.9 Hypothyroidism type: acquired Depression F32.9 BPH (benign prostatic hyperplasia) N40.0 Lower urinary tract symptom presence: symptoms absent
== END 2021-08-26 16:03 | disposition home or self-care (01) | DRG 346 ==
LOC: ED 17:12 → EDINP 23:47 → SUATTDRO 23:47 → EDINP 08-22 02:00 → 3N 08-22 16:26